=== PATIENT | male | born 1960 ===

== ENCOUNTER 2017-03-02 18:25 | Inpatient (IN) | payer MEDICAID ==
[2017-03-02] MEDS ORDERED: Naloxone 0.4 mg/ml Inj (Adult) ONE (18:32)
[2017-03-02] MEDS ORDERED: Multivitamin (MVI) 10 ML, Thiamine 100 MG, Folic Acid 1 MG in Sodium Chloride 0.9% 1,00... IV ONE (18:35)
[2017-03-02] MEDS ORDERED: Naloxone 0.4 mg/ml Inj (Adult) IVP STA ×4 (18:40→22:51)
--- NOTE | 2017-03-02 18:50 | ED PDOC ---
Arrival/HPI - General Chief Complaint: Chest Pain Time Seen by Provider: 03/02/17 18:27 Historian: Spouse, EMS - History of Present Illness Narrative History of Present Illness (Text): 03/02/17 18:43 A 56 year old male was brought into the emergency department by EMS after being found intoxicated on the streets. EMS was called by bystanders who found patient collapsed between 2 parked cars. Patient admitted to snorting to bags of heroin today. On evaluation, patient is lethargic, he is unable to provide any further details. present, states patient has significant drug use including Xanax and Heroin. ROS unable to be completed. Time/Duration: Prior to Arrival Context: Street Past Medical History - Provider Review Nursing Documentation Reviewed: Yes - Past History Past History: Unable to Obtain - Cardiac Hx Cardiac Disorders: Yes Hx [place]: Yes Hx Pacemaker: Yes - Pulmonary Hx Respiratory Disorders: Yes Hx Asthma: Yes Hx Sleep Apnea: Yes - Neurological Hx Neurological Disorder: No - HEENT Hx HEENT Disorder: No - Renal Hx Renal Disorder: No - Endocrine/Metabolic Hx Endocrine Disorders: No - Hematological/Oncological Hx Blood Disorders: No - Integumentary Hx Dermatological Disorder: No - Musculoskeletal/Rheumatological Hx Musculoskeletal Disorders: No - Gastrointestinal Hx Gastrointestinal Disorders: No - Genitourinary/Gynecological Hx Genitourinary Disorders: No - Psychiatric Hx Psychophysiologic Disorder: Yes Hx Anxiety: Yes Hx Bipolar Disorder: Yes Hx Depression: Yes Hx Substance Use: Yes (heroin) - Surgical History Hx Open Heart Surgery: Yes (pacemaker 2 yrs) Family/Social History - Physician Review Nursing Documentation Reviewed: Yes Family/Social History: No Known Family HX Smoking Status: Heavy Smoker > 10 Cigarettes Daily Hx Alcohol Use: Yes Hx Substance Use: Yes (heroin) Allergies/Home Meds Allergies/Adverse Reactions: Allergies No Known Allergies Allergy (Verified 03/02/17 18:30) Home Medications: Home Meds Medication Instructions Recorded Confirmed Unobtainable 03/02/17 03/02/17 Review of Systems - Review of Systems Systems not reviewed;Unavailable: Intoxicated Physical Exam Vital Signs Reviewed: Yes Vital Signs Pulse Resp BP Pulse Ox 03/02/17 21:47 88 18 105/52 L 97 03/02/17 21:00 93 H 23 99/55 L 96 03/02/17 19:15 98 H 20 130/76 91 L 03/02/17 18:35 111 H 11 L 132/62 95 Temperature: Afebrile Blood Pressure: Normal Pulse: Tachycardic Respiratory Rate: Other (decreased respiratory rate) Appearance: Positive for: Well-Appearing Pain Distress: None Mental Status: Positive for: Lethargic (but easily arousable) - Systems Exam Head: Present: Atraumatic, Normocephalic Pupils: Present: Pinpoint Conjunctiva: Present: Normal Mouth: Present: Moist Mucous Membranes Neck: Present: Normal Range of Motion Respiratory/Chest: Present: Clear to Auscultation, Good Air Exchange, Other ( protecting airway). No: Respiratory Distress, Accessory Muscle Use Cardiovascular: Present: Regular Rate and Rhythm, Normal S1, S2. No: Murmurs Abdomen: Present: Normal Bowel Sounds. No: Tenderness, Distention, Peritoneal Signs Upper Extremity: Present: Normal Inspection. No: Cyanosis, Edema Lower Extremity: Present: Normal Inspection. No: Edema Skin: Present: Warm, Dry, Normal Color. No: Rashes Psychiatric: Present: Lethargic (but easily arousbale to sternal rub) Medical Decision Making ED Course and Treatment: 03/02/17 18:43 Impression: A 56 year old male brought in for intoxication. Patient admitted to snorting heroin. Plan: -- Head CT -- Chest xray -- Labs -- Urinalysis -- Narcan -- IVF -- Reassess and disposition Progress Notes: 0.4 mg Narcan given, with mild improvement. O2 saturation improved from 86% to 97%. Patient is now opening his eyes spontaneously and is responding verbally. He denies any complaints. Will continue to monitor 03/02/17 19:17 EKG shows sinus tachycardia at 103bpm with non-specific intraventricular block, unchanged from prio Report Date: 20:21 EXAM: CT Head Without Intravenous Contrast Dictated and Authenticated by: Adolph Lemon MD IMPRESSION: 1. No acute intracranial hemorrhage or acute territorial type infarct. 2. There are periventricular foci of hypodensity, suggestive of small vessel ischemic disease in a patient this age. Demyelination is within the differential. 3. Mild atrophy. 4. Effusions are visualized within the right mastoid air cells, consistent with mastoiditis in the absenceof trauma. 5. Paranasal sinus disease is noted above. Patient became more hypoxic and was given additional narcan. Cxray shows R sided infiltrate. Blood cultures ordered and antibiotics started. reports that patient has had frequent coughing. WBC elevated with 3% bands. 03/02/17 22:08 Vbg with lactate was ordered immediately after positive cxray (sirs criteria- tachycardia now resolving, and elevated wbc). Spoke to Dr. Ghosh and accepted to tele. 2L IVF infused. 03/02/17 22:31 Patient's vbg resulted and lactate WNL but shows acidosis. ABG ordered. Resident at bedside and spoke to Dr. Ghosh. Requesting upgrade to ICU. WIll follow-up abg. Patient became more lethargic with decreased respiratory rate and was given additional narcan. He then became more awake and was answering questions appropriately. - Lab Interpretations Lab Results: 03/02/17 18:46 03/02/17 18:46 Lab Results 03/02/17 20:01: Ammonia 41 H 03/02/17 20:01: Urine Opiates Screen Positive H, Urine Methadone Screen Negative , Ur Barbiturates Screen Negative, Ur Phencyclidine Scrn Negative, Ur Amphetamines Screen Negative, U Benzodiazepines Scrn Negative, U Oth Cocaine Metabols Positive H, U Cannabinoids Screen Negative 03/02/17 20:01: Urine Color Yellow, Urine Appearance Sl cloudy, Urine pH 5.5, Ur Specific Atkins >= 1.030, Urine Protein 30 H, Urine Glucose (UA) Negative, Urine Ketones Negative, Urine Blood Negative, Urine Nitrate Negative, Urine Bilirubin Negative, Urine Urobilinogen 0.2, Ur Leukocyte Esterase Negative, Urine RBC Negative, Urine WBC 0 - 2, Hyaline Casts 0 - 2 03/02/17 18:46: Alcohol, Quantitative < 10 03/02/17 18:46: PT 11.6, INR 1.07, APTT 25.9 03/02/17 18:46: Salicylates < 1 L, Acetaminophen < 10.0 L 03/02/17 18:46: Sodium 143, Potassium 4.8, Chloride 103, Carbon Dioxide 21, Anion Gap 24 H, BUN 17, Creatinine 2.3 H, Est GFR ( Amer) 36, Est GFR ( Non-Af Amer) 30, Random Glucose 120 H, Calcium 9.1, Phosphorus 8.4 H, Magnesium 1.9, Total Bilirubin 0.4, AST 55, ALT 48, Alkaline Phosphatase 161 H, Total Creatine Kinase 44, Troponin I 0.02 D, Total Protein 7.6, Albumin 4.0, Globulin 3.5, Albumin/Globulin Ratio 1.1 03/02/17 18:46: WBC 15.7 H D, RBC 3.78, Hgb 11.5 L, Hct 38.4 L, MCV 101.6, MCH 30.4, MCHC 29.9 L, RDW 16.3 H, Plt Count 295, MPV 9.8, Gran % 68.4 H, Lymph % ( Auto) 21.1 L, Nash % (Auto) 10.0 H, Eos % (Auto) 0.4 L, Baso % (Auto) 0.1, Gran # 10.72 H, Lymph # 3.3, Nash # 1.6 H, Eos # 0.1, Baso # 0.02, Corrected WBC (Man ) 14.4 H, Neutrophils % (Manual) 68, Band Neutrophils % 3 H, Lymphocytes % ( Manual) 18 L, Monocytes % (Manual) 11 H, Nucleated RBC % 9, Platelet Evaluation Normal, Hypochromasia 1+ I have reviewed the lab results: Yes - RAD Interpretation Radiology Orders: 03/02/17 18:35 CHEST PORTABLE [RAD] Stat 03/02/17 18:45 HEAD W/O CONTRAST [CT] Stat - Medication Orders Current Medication Orders: Albuterol/Ipratropium (Duoneb 3 Mg/0.5 Mg (3 Ml) Ud) 3 ml IH [id number] EDGAR Multivitamins/Vitamin C 10 ml/Thiamine HCl 100 mg/ Folic Acid 1 mg/ Sodium Chloride 1,011.2 mls @ 100 mls/hr IV ONCE ONE Stop: 03/03/17 04:41 Last Admin: 03/02/17 19:32 Dose: 100 mls/hr eMAR Start Stop Document 03/02/17 19:32 JOTea (Rec: 03/02/17 19:32 [facility] [id number] Intravenous Solution Start Date 03/02/17 Start Time 19:32 Sodium Chloride (Sodium Chloride 0.9%) 1,000 mls @ 999 mls/hr IV .Q1H1M STA Stop: 03/02/17 22:44 Last Admin: 03/02/17 21:50 Dose: 999 mls/hr eMAR Start Stop Document 03/02/17 21:50 JOL (Rec: 03/02/17 21:51 [facility] [id number] Intravenous Solution Start Date 03/02/17 Start Time 21:50 End Date 03/02/17 End time 22:51 Total Infusion Time 61 Levofloxacin/Dextrose (Levaquin 750mg) 750 mg in 150 mls @ 100 mls/hr IVPB DAILY EDGAR Sodium Chloride (Sodium Chloride 0.9%) 1,000 mls @ 125 mls/hr IV .Q8H EDGAR Pantoprazole Sodium (Protonix Ec Tab) 40 mg PO 0600 EDGAR Discontinued Medications Sodium Chloride (Sodium Chloride 0.9%) 1,000 mls @ 999 mls/hr IV .Q1H1M STA Stop: 03/02/17 20:34 Last Admin: 03/02/17 20:50 Dose: 999 mls/hr eMAR Start Stop Document 03/02/17 20:50 JOL (Rec: 03/02/17 20:55 [facility] [place], [id number]) Intravenous Solution Start Date 03/02/17 Start Time 20:50 End Date 03/02/17 End time 21:51 Total Infusion Time 61 Azithromycin (Zithromax 500mg In Ns) 500 mg in 250 mls @ 167 mls/hr IVPB STAT STA PRN Reason: Protocol Stop: 03/02/17 21:57 Last Admin: 03/02/17 21:50 Dose: 167 mls/hr eMAR Start Stop Document 03/02/17 21:50 JOL (Rec: 03/02/17 21:50 [id number] Intravenous Solution Start Date 03/02/17 Start Time 21:50 End Date 03/02/17 End time 23:20 Total Infusion Time 90 Piperacillin Sod/Tazobactam Sod (Zosyn 3.375 In Ns 100ml) 100 mls @ 200 mls/hr IVPB STAT STA PRN Reason: Protocol Stop: 03/02/17 20:57 Last Admin: 03/02/17 21:08 Dose: 200 mls/hr eMAR Start Stop Document 03/02/17 21:08 JOL (Rec: 03/02/17 21:09 [id number] Intravenous Solution Start Date 03/02/17 Start Time 21:09 End Date 03/02/17 End time 21:39 Total Infusion Time 30 Naloxone HCl (Narcan) 0.4 mg IVP STAT STA Stop: 03/02/17 18:41 Last Admin: 03/02/17 18:42 Dose: 0.4 mg IVP Administration Document 03/02/17 18:42 EQ (Rec: 03/02/17 18:42 EQ [id number]) Charges for Administration # of IVP Administrations 1 Naloxone HCl (Narcan) 0.4 mg IVP STAT STA Stop: 03/02/17 20:08 Last Admin: 03/02/17 20:10 Dose: 0.4 mg IVP Administration Document 03/02/17 20:10 JOL (Rec: 03/02/17 20:11 [facility] [place], [id number]) Charges for Administration # of IVP Administrations 1 Naloxone HCl (Narcan) 0.4 mg IVP STAT STA Stop: 03/02/17 22:25 Last Admin: 03/02/17 22:29 Dose: 0.4 mg IVP Administration Document 03/02/17 22:29 JOL (Rec: 03/02/17 22:29 [facility] [place], [id number]) Charges for Administration # of IVP Administrations 1 - Scribe Statement The provider has reviewed the documentation as recorded by the Vicenteibabdulkadir Goss Provider Scribe Attestation: All medical record entries made by the Scribe were at my direction and personally dictated by me. I have reviewed the chart and agree that the record accurately reflects my personal performance of the history, physical exam, medical decision making, and the department course for this patient. I have also personally directed, reviewed, and agree with the discharge instructions and disposition. Disposition/Present on Arrival - Present on Arrival Any Indicators Present on Arrival: No History of DVT/PE: No History of Uncontrolled Diabetes: No Urinary Catheter: No History of Decub. Ulcer: No History Surgical Site Infection Following: None - Disposition Have Diagnosis and Disposition been Completed?: Yes Diagnosis: Heroin abuse, Pneumonia Disposition: HOSPITALIZED Disposition Time: 19:00 Patient Plan: Admission Patient Problems: Current Active Problems Problem Status Onset Heroin abuse Acute Pneumonia Acute Condition: FAIR
[2017-03-02 19:04] LABS: BASO # 0.02 K/mm3 (0.0-2.0); BASO % 0.1 % (0.0-3.0); EOS # 0.1 (0.0-0.7); EOS % 0.4 % (1.5-5.0); GRAN # 10.72 (1.4-6.5); GRAN % 68.4 % (50.0-68.0); HEMATOCRIT 38.4 % (42.0-52.0); LYMPH # 3.3 (1.2-3.4); LYMPH % 21.1 % (22.0-35.0); MEAN CELL VOLUME 101.6 fl (80.0-105.0); MEAN CORPUSCULAR HEMOGLOBIN 30.4 pg (25.0-35.0); MEAN CORPUSCULAR HGB CONC 29.9 g/dl (31.0-37.0); MEAN PLATELET VOLUME 9.8 fl (7.0-11.0); MONO # 1.6 (0.1-0.6); PLATELET COUNT 295 10^3/uL (120.0-450.0); RED CELL DISTRIBUTION WIDTH 16.3 % (11.5-14.5); WHITE BLOOD COUNT 15.7 10^3/ul (4.5-11.0)
[2017-03-02 19:14] LABS: INR 1.07 (0.93-1.08); PARTIAL THROMBOPLASTIN TIME 25.9 Seconds (23.7-30.8)
[2017-03-02 19:16] LABS: ALB/GLOB RATIO 1.1 (1.1-1.8); BILIRUBIN,TOTAL 0.4 mg/dL (0.2-1.3); CALCIUM 9.1 mg/dL (8.4-10.5); MAGNESIUM 1.9 mg/dL (1.7-2.2); PHOSPHOROUS 8.4 mg/dL (2.5-4.5); POTASSIUM 4.8 mmol/L (3.6-5.0); TOTAL PROTEIN 7.6 g/dL (5.8-8.3)
[2017-03-02 19:26] LABS: TROPONIN I 0.02 ng/mL
[2017-03-02] MEDS ORDERED: Sodium Chloride 0.9% 1,000 ML IV STA ×2 (19:34→21:44)
[2017-03-02 20:00] LABS: BAND 3 % (0-2); CORRECTED WBC 14.4 K/mm3 (4.5-11.0); HYPOCHROMIA 1+; NEUTROPHIL 68 % (50.0-70.0); NUCLEATED RED BLOOD CELL 9 %; PLATELET ESTIMATE NORMAL (NORMAL)
[2017-03-02 20:10] LABS: PH,URINE 5.5 (4.7-8.0); URINE BILIRUBIN NEGATIVE (NEGATIVE); URINE BLOOD NEGATIVE (NEGATIVE); URINE GLUCOSE (UA) NEGATIVE (NEGATIVE); URINE KETONE NEGATIVE (NEGATIVE); URINE LEUKOCYTE ESTERASE NEGATIVE Leu/uL (NEGATIVE); URINE PROTEIN 30 mg/dL (<30 mg/dL); URINE UROBILINOGEN 0.2 E.U./dL (<1 E.U./dL)
[2017-03-02 20:11] LABS: URINE APPEARANCE SL CLOUDY (CLEAR); URINE COLOR YELLOW (YELLOW)
[2017-03-02 20:13] LABS: URINE RBC NEGATIVE /hpf (0-2); URINE WBC 0 - 2 /hpf (0-6)
--- NOTE | 2017-03-02 20:21 | CT ---
EXAM: CT Head Without Intravenous Contrast EXAM DATE/TIME: 03/02/2017 6:45 PM CLINICAL HISTORY: The patient age is 56 years old and is male; Signs and symptoms; Altered mental status/memory loss Facility exam id and description: Ct heads head w/o contrast TECHNIQUE: Axial computed tomography images of the head/brain without intravenous contrast. All CT scans at this facility use one or more dose reduction techniques, viz.: automated exposure control; ma/kV adjustment per patient size (including targeted exams where dose is matched to indication; i.e. head); or iterative reconstruction technique. COMPARISON: CT - HEAD W/O CONTRAST 08/17/2016 6:42:47 AM FINDINGS: Brain: There are periventricular foci of hypodensity, suggestive of small vessel ischemic disease in a patient this age. Demyelination is within the differential. The acuity of the white matter disease is indeterminate. The white-jones differentiation is preserved demonstrating no acute territorial type infarct. There is mild prominence of the frontal sulci, compatible with atrophy. No acute intracranial hemorrhage is seen. There are calcifications within the globus pallidus bilaterally, which are likely physiologic. Midline shift: There is no midline shift. Ventricles: No ventriculomegaly. Bones/joints: The calvarium demonstrates no evidence for a depressed fracture. Soft tissues: No acute abnormality. Sinuses: There is an air-fluid level in the right maxillary sinus. Mucosal thickening is visualized of the left maxillary sinus. Mucosal thickening/effusions are visualized within the right sphenoid sinus and bilateral ethmoid air cells. Mastoid air cells: Effusions are visualized within the right mastoid air cells, consistent with mastoiditis in the absence of trauma. IMPRESSION: 1. No acute intracranial hemorrhage or acute territorial type infarct. 2. There are periventricular foci of hypodensity, suggestive of small vessel ischemic disease in a patient this age. Demyelination is within the differential. 3. Mild atrophy. 4. Effusions are visualized within the right mastoid air cells, consistent with mastoiditis in the absence of trauma. 5. Paranasal sinus disease is noted above.
[2017-03-02] MEDS ORDERED: cefTRIAXone 1 gm 1 GM/100 ML BAG IVPB STA (20:24)
[2017-03-02] MEDS ORDERED: Piperacillin/Tazobact 3.375 gm 100 ML IVPB STA (20:28)
[2017-03-02] MEDS ORDERED: Azithromycin 500MG/NS 250ml 500 MG/250 ML BAG IVPB STA (20:28)
[2017-03-02 22:14] LABS: VENOUS BLOOD GAS BASE EXCESS -6.9 mmol/L (0.0-2.0)
[2017-03-02 22:17] LABS: VENOUS BLOOD PH 7.06 (7.32-7.43)
[2017-03-02] MEDS ORDERED: Sodium Bicarbonate (8.4%) 50 Meq Syringe IVP ONE (22:31)
[2017-03-02 22:39] LABS: ARTERIAL BLOOD GAS HCO3 26.1 mmol/L (21-28)
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
[2017-03-02 22:45] LABS: ARTERIAL BLOOD GAS PH 7.02 (7.35-7.45)
[2017-03-02] MEDS: Sodium Chloride 0.9% 1,000 ML IV SCH (23:56)
[2017-03-03] MEDS ORDERED: Sodium Bicarbonate (8.4%) 50 Meq Syringe IVP ONE (03:50)
[2017-03-03] MEDS ORDERED: Pantoprazole 40 mg EC Tab PO SCH (06:00)
[2017-03-03 06:42] LABS: HEMATOCRIT 34.9 % (42.0-52.0); MEAN CELL VOLUME 103.6 fl (80.0-105.0); MEAN CORPUSCULAR HEMOGLOBIN 31.5 pg (25.0-35.0); MEAN CORPUSCULAR HGB CONC 30.4 g/dl (31.0-37.0); RED CELL DISTRIBUTION WIDTH 16.7 % (11.5-14.5)
[2017-03-03 07:10] LABS: BILIRUBIN,TOTAL 0.3 mg/dL (0.2-1.3); CALCIUM 7.6 mg/dL (8.4-10.5); POTASSIUM 4.5 mmol/L (3.6-5.0); TOTAL PROTEIN 6.3 g/dL (5.8-8.3)
[2017-03-03] MEDS: Albuterol-Ipratrop 3 mg / 0.5 (3 ml) UD IH SCH ×6 (08:00→22:36)
--- NOTE | 2017-03-03 08:21 | RAD ---
HISTORY: Medical clearance COMPARISON: 08/17/2016 FINDINGS: LUNGS: No active pulmonary disease. PLEURA: No significant pleural effusion identified, no pneumothorax apparent. CARDIOVASCULAR: Cardiomegaly, pulmonary vascular congestion a new finding compared to the prior study. Position/ configuration of pacemaker Satisfactory. OSSEOUS STRUCTURES: No significant abnormalities. VISUALIZED UPPER ABDOMEN: Normal. OTHER FINDINGS: None. IMPRESSION: Cardiomegaly, mild CHF represents a new finding compared to the prior chest radiograph.
[2017-03-03] MEDS: Sodium Chloride 0.9% 1,000 ML IV SCH (08:22)
[2017-03-03 09:11] VITALS: BMI 30.8
[2017-03-03] MEDS ORDERED: Pneumococcal 23-Valent Vaccine IM ONE (09:11)
--- NOTE | 2017-03-03 09:27 | CARD ---
APPROVED REPORT EKG Measurement Heart [id number] <Conclusion> V. Paced, A. Sensed rhythm No change
[2017-03-03] MEDS ORDERED: Vancomycin 1gm in NS 250ml 1 GM/250 ML BAG IVPB STA (09:59)
[2017-03-03] MEDS ORDERED: Thiamine 100 mg/ml Inj IV SCH (10:00)
[2017-03-03] MEDS ORDERED: levoFLOXacin 750 mg in D5W 750 MG/150 ML BAG IVPB SCH (10:00)
[2017-03-03] MEDS: Cefepime IV 2 gm in NS 2 GM/100 ML BAG IVPB SCH ×2 (10:27→22:19)
[2017-03-03 10:34] LABS: ARTERIAL BLOOD GAS HCO3 28.2 mmol/L (21-28); ARTERIAL BLOOD GAS O2 CAPACITY 14.5 mL/dl (16-24); ARTERIAL BLOOD GAS PH 7.22 (7.35-7.45); ARTERIAL BLOOD HGB O2 SAT 87.3 % (95.0-98.0); CARBOXYHEMOGLOBIN 2.2 % (0.5-1.5); HHB 10.2 % (0-5); METHEMOGLOBIN 0.3 % (0.0-3.0)
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
--- NOTE | 2017-03-03 13:28 | CP.CCUPN ---
<[place] - Last Filed: 03/03/17 14:39> CCU Subjective - Physician Review Subjective (Free Text): 03/03/17 13:22 Patient seen and examined at bedside in the ICU. Overnight, patient was transitioned to Ventimask, and refused to be placed back on Bipap when End- tidal CO2 was elevated on the Ventimask. Refused AM ABG initially, later acquiesced and allowed for draw. ROS is limited due patient's inconsistency; he initially denied all drug use despite positive UDS and admitting to heroin use in the ED, then later admitted to Suboxone use due to history of drug use, and then admitted to recent crack cocaine. Currently complains of dry throat, wet cough, and sensation of having mucous he needs to mobilize but can't. No accepting of need for Bipap as well. Denies chest pain, pain with respiration, dizziness, room-spinning, fevers/chills, nausea/emesis, dysuria, hematuria, constipation, diarrhea, or focal weakness. Still has no recall of how he ended down on the ground prior to admission. CCU Objective - Vital Signs / Intake & Output Vital Signs (Last 4 hours): Vital Signs Pulse Resp Pulse Ox 03/03/17 11:45 89 03/03/17 11:40 87 25 H 100 03/03/17 11:30 90 51 H 76 L 03/03/17 11:20 95 H 31 H 84 L 03/03/17 11:10 92 H 38 H 63 L 03/03/17 11:00 87 27 H 95 03/03/17 10:50 88 21 94 L 03/03/17 10:40 100 H 44 H 60 L 03/03/17 10:30 85 59 L 03/03/17 10:20 86 91 L 03/03/17 10:10 89 47 L 03/03/17 10:08 89 03/03/17 10:07 82 03/03/17 10:06 72 03/03/17 10:05 95 H 03/03/17 10:01 83 03/03/17 10:00 82 03/03/17 09:59 88 03/03/17 09:58 88 03/03/17 09:57 88 03/03/17 09:56 87 03/03/17 09:55 86 03/03/17 09:54 99 H 03/03/17 09:53 86 03/03/17 09:52 92 H 03/03/17 09:51 92 H 03/03/17 09:50 92 H 61 L 03/03/17 09:40 87 66 L 03/03/17 09:30 88 85 L Intake and Output (Last 8hrs): Intake & Output 03/02/17 03/03/17 03/03/17 22:59 06:59 14:59 Intake Total 1235 Output Total 600 Balance 635 Weight 94.71 kg Intake: IV 875 Left Antecubital 875 Right Antecubital 0 Oral 360 Tube Feeding 0 TPN/PPN 0 Blood Product 0 Lipid 0 Albumin 0 Other 0 Output: Urine 600 Urine, Voided 600 Stool 0 Urine/Stool Mix 0 Emesis 0 Oral Regurgitation 0 Other 0 Other: Voiding Method Urinal # Voids Urine, Voided 3 # Bowel Movements 0 - Physical Exam Head: Positive for: Atraumatic, Normocephalic. Negative for: Ecchymosis, Abrasion, Laceration Pupils: Positive for: PERRL. Negative for: Sluggish, Non-Reactive Extroacular Muscles: Positive for: EOMI. Negative for: Gaze Palsy Conjunctiva: Positive for: Normal. Negative for: Injected Mouth: Positive for: Moist Mucous Membranes, Normal Lips, Normal Tounge. Negative for: Drooling Nose (External): Positive for: Atraumatic. Negative for: Abrasion, Contusion, Laceration Nose (Internal): Negative for: Rhinorrhea, Purulent Mucous, Epistaxis Neck: Positive for: Normal Range of Motion, Trachea Midline. Negative for: Meningeal Signs, JVD Respiratory/Chest: Positive for: Good Air Exchange, Wheezes (end-epiratory wheezing), Decreased Breath Sounds (mildly decreased breath sounds in all ennis , most prominent at bilateral bases), Rhonchi (mild ronchi in all ennis), Tachypneic (tachypnic with speech or attempted PO intake ), Other (intermittent wet sounding cough). Negative for: Clear to Auscultation, Respiratory Distress , Accessory Muscle Use Cardiovascular: Positive for: Regular Rate and Rhythm, Normal S1, S2, Peripheal Pulses Present (+2 radials bilaterally). Negative for: Murmurs, Irregular Rhythm, Tachycardic, Bradycardic Abdomen: Positive for: Normal Bowel Sounds. Negative for: Tenderness, Distention, Peritoneal Signs Upper Extremity: Positive for: Normal Inspection, Normal ROM, NORMAL PULSES. Negative for: Cyanosis, Edema, Tenderness, Swelling, Erythema, Deformity Lower Extremity: Positive for: Normal Inspection, Normal ROM. Negative for: Edema, CALF TENDERNESS, Tenderness, Swelling, Erythema, Deformity Neurological: Positive for: GCS=15, CN II-XII Intact, Speech Normal Skin: Positive for: Warm, Dry, Normal Color. Negative for: Rashes Psychiatric: Positive for: Alert, Oriented x 3, Normal Concentration, Normal Affect, Normal Mood, Other (Poor/inconsistent historian, initially non- compliant with labs and Bipap but appears more compliant now). Negative for: Normal Insight (poor insight, poor understanding of general medical condition) - Medications Active Medications: Active Medications Generic Name Dose Route Start Last Admin Trade Name Freq PRN Reason Stop Dose Admin Albuterol/Ipratropium 3 ml 03/02/17 23:30 03/03/17 11:51 Duoneb 3 Mg/0.5 Mg (3 Ml) Ud IH 3 ml [id number] EDGAR Administration Folic Acid 1 mg 03/03/17 10:00 03/03/17 10:25 Folic Acid IVP 1 mg DAILY EDGAR Administration Heparin Sodium (Porcine) 5,000 units 03/03/17 10:00 03/03/17 10:25 Heparin SC 5,000 units Q12 EDGAR Administration Protocol Doxycycline Hyclate 100 mg/ 100 mls @ 100 mls/hr 03/03/17 10:00 03/03/17 11: 26 Sodium Chloride IVPB 100 mls/hr Q12 EDGAR Administration Protocol Cefepime HCl 2 gm in 100 mls @ 100 mls/hr 03/03/17 10:00 03/03/17 10:27 Maxipime 2gm IVPB 03/08/17 10:01 100 mls/hr Q12 EDGAR Administration Protocol Ondansetron HCl 4 mg 03/02/17 22:57 Zofran Inj IVP Q4H PRN Nausea/Vomiting Pantoprazole Sodium 40 mg 03/03/17 10:00 03/03/17 10:22 Protonix Inj IVP 40 mg DAILY EDGAR Administration Thiamine HCl 100 mg 03/03/17 10:00 03/03/17 10:25 Vitamin B1 Inj IV 100 mg DAILY EDGAR Administration - Patient Studies Lab Studies: Lab Studies 03/03/17 03/03/17 03/03/17 Range/Units 11:40 11:40 10:30 WBC (4.5-11.0) 10^3/ul RBC (3.5-6.1) 10^6/uL Hgb (14.0-18.0) g/dL Hct (42.0-52.0) % MCV (80.0-105.0) fl MCH (25.0-35.0) pg MCHC (31.0-37.0) g/dl RDW (11.5-14.5) % Plt Count (120.0-450.0) 10^3/uL MPV (7.0-11.0) fl pCO2 69 H (35-45) mm/Hg pO2 51.0 L (30-55) mm/Hg HCO3 28.2 H (21-28) mmol/L ABG pH 7.22 L (7.35-7.45) ABG Total CO2 30.3 H (22-28) mmol.L ABG O2 Saturation 89.5 L (95-98) % ABG O2 Content 13.0 L (15-23) ML/dl ABG Base Excess -0.6 (-2.0-3.0) mmol/L ABG Hemoglobin 10.6 L (11.7-17.4) g/dL ABG Carboxyhemoglobin 2.2 H (0.5-1.5) % POC ABG HHb (Measured) 10.2 H (0-5) % ABG Methemoglobin 0.3 (0.0-3.0) % ABG O2 Capacity 14.5 L (16-24) mL/dl ABG Potassium (3.6-5.2) mmol/L VBG pH (7.32-7.43) VBG pCO2 (40-60) VBG HCO3 (21-28) mmol/l VBG Total CO2 (22-28) mmol.L VBG O2 Sat (Calc) (40-65) % VBG Base Excess (0.0-2.0) mmol/L VBG Potassium (3.6-5.2) mmol/L Hgb O2 Saturation 87.3 L (95.0-98.0) % Sodium (132-148) mmol/L Chloride (98-107) mmol/L Glucose (75-110) mg/dl Lactate (0.7-2.1) mmol/L FiO2 32.0 % Potassium (3.6-5.0) mmol/L Carbon Dioxide (21-33) mmol/L Anion Gap (10-20) BUN (7-21) mg/dL Creatinine (0.5-1.4) mg/dL Est GFR ( Amer) Est GFR (Non-Af Amer) Random Glucose (70-110) mg/dL Calcium (8.4-10.5) mg/dL Total Bilirubin (0.2-1.3) mg/dL AST (17-59) U/L ALT (7-56) U/L Alkaline Phosphatase (38-126) U/L Ammonia (9-33) umol/L Total Protein (5.8-8.3) g/dL Albumin (3.0-4.8) g/dL Globulin gm/dL Albumin/Globulin Ratio (1.1-1.8) Arterial Blood Potassium (3.6-5.2) mmol/L Venous Blood Potassium (3.6-5.2) mmol/L Ur Random Creatinine 104 mg/dL Ur Random Sodium 83 meq/L 03/03/17 03/03/17 03/03/17 Range/Units 06:10 06:10 06:10 WBC 21.0 H D (4.5-11.0) 10^3/ul RBC 3.37 L (3.5-6.1) 10^6/uL Hgb 10.6 L (14.0-18.0) g/dL Hct 34.9 L (42.0-52.0) % MCV 103.6 (80.0-105.0) fl MCH 31.5 (25.0-35.0) pg MCHC 30.4 L (31.0-37.0) g/dl RDW 16.7 H (11.5-14.5) % Plt Count 239 (120.0-450.0) 10^3/uL MPV 10.0 (7.0-11.0) fl pCO2 (35-45) mm/Hg pO2 (30-55) mm/Hg HCO3 (21-28) mmol/L ABG pH (7.35-7.45) ABG Total CO2 (22-28) mmol.L ABG O2 Saturation (95-98) % ABG O2 Content (15-23) ML/dl ABG Base Excess (-2.0-3.0) mmol/L ABG Hemoglobin (11.7-17.4) g/dL ABG Carboxyhemoglobin (0.5-1.5) % POC ABG HHb (Measured) (0-5) % ABG Methemoglobin (0.0-3.0) % ABG O2 Capacity (16-24) mL/dl ABG Potassium (3.6-5.2) mmol/L VBG pH (7.32-7.43) VBG pCO2 (40-60) VBG HCO3 (21-28) mmol/l VBG Total CO2 (22-28) mmol.L VBG O2 Sat (Calc) (40-65) % VBG Base Excess (0.0-2.0) mmol/L VBG Potassium (3.6-5.2) mmol/L Hgb O2 Saturation (95.0-98.0) % Sodium 146 (132-148) mmol/L Chloride 107 (98-107) mmol/L Glucose (75-110) mg/dl Lactate (0.7-2.1) mmol/L FiO2 % Potassium 4.5 (3.6-5.0) mmol/L Carbon Dioxide 29 (21-33) mmol/L Anion Gap 15 (10-20) BUN 18 (7-21) mg/dL Creatinine 2.1 H (0.5-1.4) mg/dL Est GFR ( Amer) 40 Est GFR (Non-Af Amer) 33 Random Glucose 96 (70-110) mg/dL Calcium 7.6 L (8.4-10.5) mg/dL Total Bilirubin 0.3 (0.2-1.3) mg/dL AST 133 H D (17-59) U/L ALT 66 H (7-56) U/L Alkaline Phosphatase 131 H (38-126) U/L Ammonia 43 H (9-33) umol/L Total Protein 6.3 (5.8-8.3) g/dL Albumin 3.2 (3.0-4.8) g/dL Globulin 3.1 gm/dL Albumin/Globulin Ratio 1.0 L (1.1-1.8) Arterial Blood Potassium (3.6-5.2) mmol/L Venous Blood Potassium (3.6-5.2) mmol/L Ur Random Creatinine mg/dL Ur Random Sodium meq/L 03/02/17 03/02/17 Range/Units 22:36 22:10 WBC (4.5-11.0) 10^3/ul RBC (3.5-6.1) 10^6/uL Hgb (14.0-18.0) g/dL Hct (42.0-52.0) % MCV (80.0-105.0) fl MCH (25.0-35.0) pg MCHC (31.0-37.0) g/dl RDW (11.5-14.5) % Plt Count (120.0-450.0) 10^3/uL MPV (7.0-11.0) fl pCO2 101 H* (35-45) mm/Hg pO2 100.0 220 H (30-55) mm/Hg HCO3 26.1 (21-28) mmol/L ABG pH 7.02 L* (7.35-7.45) ABG Total CO2 29.2 H (22-28) mmol.L ABG O2 Saturation 97.4 (95-98) % ABG O2 Content (15-23) ML/dl ABG Base Excess -7.3 L (-2.0-3.0) mmol/L ABG Hemoglobin (11.7-17.4) g/dL ABG Carboxyhemoglobin (0.5-1.5) % POC ABG HHb (Measured) (0-5) % ABG Methemoglobin (0.0-3.0) % ABG O2 Capacity (16-24) mL/dl ABG Potassium 4.8 (3.6-5.2) mmol/L VBG pH 7.06 L* (7.32-7.43) VBG pCO2 90.0 H* (40-60) VBG HCO3 25.5 (21-28) mmol/l VBG Total CO2 28.3 H (22-28) mmol.L VBG O2 Sat (Calc) 98.4 H (40-65) % VBG Base Excess -6.9 L (0.0-2.0) mmol/L VBG Potassium 4.9 (3.6-5.2) mmol/L Hgb O2 Saturation (95.0-98.0) % Sodium 138.0 139.0 (132-148) mmol/L Chloride 110.0 H 107.0 (98-107) mmol/L Glucose 140 H 137 H (75-110) mg/dl Lactate 0.5 L 0.6 L (0.7-2.1) mmol/L FiO2 100.0 21.0 % Potassium (3.6-5.0) mmol/L Carbon Dioxide (21-33) mmol/L Anion Gap (10-20) BUN (7-21) mg/dL Creatinine (0.5-1.4) mg/dL Est GFR ( Amer) Est GFR (Non-Af Amer) Random Glucose (70-110) mg/dL Calcium (8.4-10.5) mg/dL Total Bilirubin (0.2-1.3) mg/dL AST (17-59) U/L ALT (7-56) U/L Alkaline Phosphatase (38-126) U/L Ammonia (9-33) umol/L Total Protein (5.8-8.3) g/dL Albumin (3.0-4.8) g/dL Globulin gm/dL Albumin/Globulin Ratio (1.1-1.8) Arterial Blood Potassium 4.8 (3.6-5.2) mmol/L Venous Blood Potassium 4.9 (3.6-5.2) mmol/L Ur Random Creatinine mg/dL Ur Random Sodium meq/L Laboratory Results - last 24 hr 03/02/17 03/02/17 03/03/17 22:10 22:36 06:10 WBC 21.0 H D RBC 3.37 L Hgb 10.6 L Hct 34.9 L MCV 103.6 MCH 31.5 MCHC 30.4 L RDW 16.7 H Plt Count 239 MPV 10.0 pCO2 101 H* pO2 220 H 100.0 HCO3 26.1 ABG pH 7.02 L* ABG Total CO2 29.2 H ABG O2 Saturation 97.4 ABG O2 Content ABG Base Excess -7.3 L ABG Hemoglobin ABG Carboxyhemoglobin POC ABG HHb (Measured) ABG Methemoglobin ABG O2 Capacity ABG Potassium 4.8 VBG pH 7.06 L* VBG pCO2 90.0 H* VBG HCO3 25.5 VBG Total CO2 28.3 H VBG O2 Sat (Calc) 98.4 H VBG Base Excess -6.9 L VBG Potassium 4.9 Hgb O2 Saturation Sodium 139.0 138.0 Chloride 107.0 110.0 H Glucose 137 H 140 H Lactate 0.6 L 0.5 L FiO2 21.0 100.0 Potassium Carbon Dioxide Anion Gap BUN Creatinine Est GFR ( Amer) Est GFR (Non-Af Amer) Random Glucose Calcium Total Bilirubin AST ALT Alkaline Phosphatase Ammonia Total Protein Albumin Globulin Albumin/Globulin Ratio Arterial Blood Potassium 4.8 Venous Blood Potassium 4.9 Ur Random Creatinine Ur Random Sodium 03/03/17 03/03/17 03/03/17 06:10 06:10 10:30 WBC RBC Hgb Hct MCV MCH MCHC RDW Plt Count MPV pCO2 69 H pO2 51.0 L HCO3 28.2 H ABG pH 7.22 L ABG Total CO2 30.3 H ABG O2 Saturation 89.5 L ABG O2 Content 13.0 L ABG Base Excess -0.6 ABG Hemoglobin 10.6 L ABG Carboxyhemoglobin 2.2 H POC ABG HHb (Measured) 10.2 H ABG Methemoglobin 0.3 ABG O2 Capacity 14.5 L ABG Potassium VBG pH VBG pCO2 VBG HCO3 VBG Total CO2 VBG O2 Sat (Calc) VBG Base Excess VBG Potassium Hgb O2 Saturation 87.3 L Sodium 146 Chloride 107 Glucose Lactate FiO2 32.0 Potassium 4.5 Carbon Dioxide 29 Anion Gap 15 BUN 18 Creatinine 2.1 H Est GFR ( Amer) 40 Est GFR (Non-Af Amer) 33 Random Glucose 96 Calcium 7.6 L Total Bilirubin 0.3 AST 133 H D ALT 66 H Alkaline Phosphatase 131 H Ammonia 43 H Total Protein 6.3 Albumin 3.2 Globulin 3.1 Albumin/Globulin Ratio 1.0 L Arterial Blood Potassium Venous Blood Potassium Ur Random Creatinine Ur Random Sodium 03/03/17 03/03/17 11:40 11:40 WBC RBC Hgb Hct MCV MCH MCHC RDW Plt Count MPV pCO2 pO2 HCO3 ABG pH ABG Total CO2 ABG O2 Saturation ABG O2 Content ABG Base Excess ABG Hemoglobin ABG Carboxyhemoglobin POC ABG HHb (Measured) ABG Methemoglobin ABG O2 Capacity ABG Potassium VBG pH VBG pCO2 VBG HCO3 VBG Total CO2 VBG O2 Sat (Calc) VBG Base Excess VBG Potassium Hgb O2 Saturation Sodium Chloride Glucose Lactate FiO2 Potassium Carbon Dioxide Anion Gap BUN Creatinine Est GFR ( Amer) Est GFR (Non-Af Amer) Random Glucose Calcium Total Bilirubin AST ALT Alkaline Phosphatase Ammonia Total Protein Albumin Globulin Albumin/Globulin Ratio Arterial Blood Potassium Venous Blood Potassium Ur Random Creatinine 104 Ur Random Sodium 83 EKG/Cardiology Studies: Cardiology / EKG Studies 03/02/17 18:27 ELECTROCARDIOGRAM Stat Comment: Reason For Exam: MEDICAL CLEARANCE 03/03/17 18:27 ELECTROCARDIOGRAM Stat Comment: Reason For Exam: MEDICAL CLEARANCE Review of Systems - Review of Systems All systems: reviewed and no additional remarkable complaints except (as per Subjective) Critical Care Progress Note - Nutrition Nutrition: Nutrition Category Date Time Status Heart Healthy Diet [DIET] Diets 03/03/17 Lunch Ordered Assessment/Plan - Assessment and Plan (Free Text) Assessment: 56 yo M with PMH of Asthma, Hepatitis C, Depression, Bipolar Disorder, Sleep Apnea, and CHF who presented with AMS in the setting of community acquired pneumonia and heroin overdose, and was later determined to be significantly hypercapnic with respiratory acidosis. His CO2 has improved on ABGs, and he is now utilizing BiPAP. S/p multiple doses of Narcan in the ED. Plan: Neuro: -AMS resolved, now awake/alert/oriented, likely 2/2 substance abuse (s/p 4x Narcan) and hypercapnea -maintain normothermia -Head CT negative for acute process -Thiamine and folic acid for hx of alcohol abuse, reported using 3-4 24 ox beers daily, on CIWA protocol Pulm: -Satting well on Bipap and on 2L NC, but hypercarbic while still on NC; was previously refusing Bipap but now accepting -ABGs reviewed, pCO2 down to 69, pO2 51, HCO3 28.2, pH 7.22 on 32% FiO2, will repeat this afternoon and reassess -Respiratory acidosis and metabolic alkalosis, not full compensated -CXR on admission read as cardiomegaly and CHF, AICD in place -Procal 0.31, so less likely bacterial pneumonia -Given smoking hx (06/08-1/ ppd > 30 yrs), likely a COPD component involved -Continue to monitor, maintain SaO2 > 90%, paO2 > 55 -Duonebs q4 -Covering for possible PNA with Doxy and Cefepime as per ID Cardio: -Hemodynamically stable -Cardiomegaly on CXR with AICD in place, known hx of CHF -Conservative fluid management in setting of CHF GI: -Heart-healthy diet -Protonix for ppx Renal: -TIM with cr 2.1 (2.3 on admission, 0.8 baseline as per prior charting) -Less likely pre-renal from dehydration, may be 2/2 substance abuse vs alcohol abuse -Continue to monitor -Maintain euglycemia (BG 140-180), conservative fluid management in setting of CHF -monitor and replete electrolytes as needed ID: -leukocytosis of 21.0, afebrile -covering with Cefepime and Doxy as per ID -procal 0.31 -ID (Dr. Cooper) following, appreciate all recs Heme: -Hgb stable at 10.6 (was 11.5) -Heparin for DVT ppx Psych -poor historian, unclear if attempted to harm self with substance use -hx of Bipolar and depression -Psych (Dr. Brooks) consulted, appreciate all recs -Reports on Suboxone tx for hx of substance abuse, confirmed by on phone, she will bring in home Suboxone to be confirmed by pharmacy, then can continue home dosing Dispo: ICU, Bipap for hypercarbia pending repeat ABG for further assessment, receiving IV abx for presumed pneumonia FEN: Heart-healthy diet Access: Peripheral IV Consults: ID, Psych Ppx: Protonix for GI, Heparin for DVT Code status: unknown, so full code Patient seen, reviewed, and discussed with attending, Dr. Gonsales. <Dru JEFFERSON,[facility] - Last Filed: 03/03/17 18:21> CCU Objective - Vital Signs / Intake & Output Vital Signs (Last 4 hours): Vital Signs Pulse Resp BP Pulse Ox 03/03/17 17:19 98 H 03/03/17 17:00 100 H 24 100 03/03/17 16:50 94 H 39 H 87 L 03/03/17 16:40 96 H 27 H 90 L 03/03/17 16:31 97 H 03/03/17 16:30 96 H 03/03/17 16:29 96 H 03/03/17 16:28 96 H 03/03/17 16:27 97 H 03/03/17 16:26 97 H 03/03/17 16:25 97 H 03/03/17 16:24 97 H 03/03/17 16:23 98 H 03/03/17 16:22 98 H 03/03/17 16:21 97 H 03/03/17 16:20 97 H 03/03/17 16:19 97 H 03/03/17 16:18 97 H 03/03/17 16:10 97 H 96 03/03/17 16:00 99 H 127/94 H 93 L 03/03/17 15:50 108 H 90 L 03/03/17 15:40 97 H 91 L 03/03/17 15:30 93 H 92 L 03/03/17 15:20 126 H 84 L 03/03/17 15:13 106 H 25 H 03/03/17 15:12 131 H 21 03/03/17 15:11 140 H 03/03/17 15:10 128 H 03/03/17 15:09 144 H 03/03/17 15:08 135 H 03/03/17 15:07 175 H 03/03/17 15:06 161 H 03/03/17 15:05 149 H 03/03/17 15:04 144 H 03/03/17 15:02 174 H 03/03/17 15:01 136 H 137/59 L 69 L 03/03/17 15:00 151 H 70 L 03/03/17 14:50 89 23 61 L 03/03/17 14:40 84 24 93 L 03/03/17 14:30 81 28 H 94 L 03/03/17 14:20 81 29 H 95 Intake and Output (Last 8hrs): Intake & Output 03/03/17 03/03/17 03/03/17 06:59 14:59 22:59 Intake Total 1235 Output Total 600 Balance 635 Weight 208 lb 12.8 oz Intake: IV 875 Left Antecubital 875 Right Antecubital 0 Oral 360 Tube Feeding 0 TPN/PPN 0 Blood Product 0 Lipid 0 Albumin 0 Other 0 Output: Urine 600 Urine, Voided 600 Stool 0 Urine/Stool Mix 0 Emesis 0 Oral Regurgitation 0 Other 0 Other: Voiding Method Urinal # Voids Urine, Voided 3 # Bowel Movements 0 - Medications Active Medications: Active Medications Generic Name Dose Route Start Last Admin Trade Name Freq PRN Reason Stop Dose Admin Albuterol/Ipratropium 3 ml 03/02/17 23:30 03/03/17 15:54 Duoneb 3 Mg/0.5 Mg (3 Ml) Ud IH 3 ml [id number] EDGAR Administration Folic Acid 1 mg 03/03/17 10:00 03/03/17 10:25 Folic Acid IVP 1 mg DAILY EDGAR Administration Heparin Sodium (Porcine) 5,000 units 03/03/17 10:00 03/03/17 10:25 Heparin SC 5,000 units Q12 EDGAR Administration Protocol Doxycycline Hyclate 100 mg/ 100 mls @ 100 mls/hr 03/03/17 10:00 03/03/17 11: 26 Sodium Chloride IVPB 100 mls/hr Q12 EDGAR Administration Protocol Cefepime HCl 2 gm in 100 mls @ 100 mls/hr 03/03/17 10:00 03/03/17 10:27 Maxipime 2gm IVPB 03/08/17 10:01 100 mls/hr Q12 EDGAR Administration Protocol Ondansetron HCl 4 mg 03/02/17 22:57 Zofran Inj IVP Q4H PRN Nausea/Vomiting Pantoprazole Sodium 40 mg 03/03/17 10:00 03/03/17 10:22 Protonix Inj IVP 40 mg DAILY EDGAR Administration Thiamine HCl 100 mg 03/03/17 10:00 03/03/17 10:25 Vitamin B1 Inj IV 100 mg DAILY EDGAR Administration - Patient Studies Lab Studies: Lab Studies 03/03/17 03/03/17 03/03/17 Range/Units 16:54 11:40 11:40 WBC (4.5-11.0) 10^3/ul RBC (3.5-6.1) 10^6/uL Hgb (14.0-18.0) g/dL Hct (42.0-52.0) % MCV (80.0-105.0) fl MCH (25.0-35.0) pg MCHC (31.0-37.0) g/dl RDW (11.5-14.5) % Plt Count (120.0-450.0) 10^3/uL MPV (7.0-11.0) fl pCO2 80 H* (35-45) mm/Hg pO2 88.0 (30-55) mm/Hg HCO3 28.5 H (21-28) mmol/L ABG pH 7.16 L* (7.35-7.45) ABG Total CO2 31.0 H (22-28) mmol.L ABG O2 Saturation 97.7 (95-98) % ABG O2 Content 13.7 L (15-23) ML/dl ABG Base Excess -1.4 (-2.0-3.0) mmol/L ABG Hemoglobin 10.1 L (11.7-17.4) g/dL ABG Carboxyhemoglobin 2.0 H (0.5-1.5) % POC ABG HHb (Measured) 2.2 (0-5) % ABG Methemoglobin 0.4 (0.0-3.0) % ABG O2 Capacity 14.0 L (16-24) mL/dl ABG Potassium (3.6-5.2) mmol/L VBG pH (7.32-7.43) VBG pCO2 (40-60) VBG HCO3 (21-28) mmol/l VBG Total CO2 (22-28) mmol.L VBG O2 Sat (Calc) (40-65) % VBG Base Excess (0.0-2.0) mmol/L VBG Potassium (3.6-5.2) mmol/L Hgb O2 Saturation 95.4 (95.0-98.0) % Sodium (132-148) mmol/L Chloride (98-107) mmol/L Glucose (75-110) mg/dl Lactate (0.7-2.1) mmol/L FiO2 40.0 % Potassium (3.6-5.0) mmol/L Carbon Dioxide (21-33) mmol/L Anion Gap (10-20) BUN (7-21) mg/dL Creatinine (0.5-1.4) mg/dL Est GFR ( Amer) Est GFR (Non-Af Amer) Random Glucose (70-110) mg/dL Calcium (8.4-10.5) mg/dL Total Bilirubin (0.2-1.3) mg/dL AST (17-59) U/L ALT (7-56) U/L Alkaline Phosphatase (38-126) U/L Ammonia (9-33) umol/L Total Protein (5.8-8.3) g/dL Albumin (3.0-4.8) g/dL Globulin gm/dL Albumin/Globulin Ratio (1.1-1.8) Procalcitonin (0.19-0.49) NG/ML Arterial Blood Potassium (3.6-5.2) mmol/L Venous Blood Potassium (3.6-5.2) mmol/L Ur Random Creatinine mg/dL Ur Random Sodium 83 meq/L Hepatitis A IgM Ab (NEGATIVE) Hep Bs Antigen (NEGATIVE) Hep B Core IgM Ab (NEGATIVE) Hepatitis C Antibody (NEGATIVE) Ur L.pneumophila Ag Negative (NEGATIVE) 03/03/17 03/03/17 03/03/17 Range/Units 11:40 10:30 10:00 WBC (4.5-11.0) 10^3/ul RBC (3.5-6.1) 10^6/uL Hgb (14.0-18.0) g/dL Hct (42.0-52.0) % MCV (80.0-105.0) fl MCH (25.0-35.0) pg MCHC (31.0-37.0) g/dl RDW (11.5-14.5) % Plt Count (120.0-450.0) 10^3/uL MPV (7.0-11.0) fl pCO2 69 H (35-45) mm/Hg pO2 51.0 L (30-55) mm/Hg HCO3 28.2 H (21-28) mmol/L ABG pH 7.22 L (7.35-7.45) ABG Total CO2 30.3 H (22-28) mmol.L ABG O2 Saturation 89.5 L (95-98) % ABG O2 Content 13.0 L (15-23) ML/dl ABG Base Excess -0.6 (-2.0-3.0) mmol/L ABG Hemoglobin 10.6 L (11.7-17.4) g/dL ABG Carboxyhemoglobin 2.2 H (0.5-1.5) % POC ABG HHb (Measured) 10.2 H (0-5) % ABG Methemoglobin 0.3 (0.0-3.0) % ABG O2 Capacity 14.5 L (16-24) mL/dl ABG Potassium (3.6-5.2) mmol/L VBG pH (7.32-7.43) VBG pCO2 (40-60) VBG HCO3 (21-28) mmol/l VBG Total CO2 (22-28) mmol.L VBG O2 Sat (Calc) (40-65) % VBG Base Excess (0.0-2.0) mmol/L VBG Potassium (3.6-5.2) mmol/L Hgb O2 Saturation 87.3 L (95.0-98.0) % Sodium (132-148) mmol/L Chloride (98-107) mmol/L Glucose (75-110) mg/dl Lactate (0.7-2.1) mmol/L FiO2 32.0 % Potassium (3.6-5.0) mmol/L Carbon Dioxide (21-33) mmol/L Anion Gap (10-20) BUN (7-21) mg/dL Creatinine (0.5-1.4) mg/dL Est GFR ( Amer) Est GFR (Non-Af Amer) Random Glucose (70-110) mg/dL Calcium (8.4-10.5) mg/dL Total Bilirubin (0.2-1.3) mg/dL AST (17-59) U/L ALT (7-56) U/L Alkaline Phosphatase (38-126) U/L Ammonia (9-33) umol/L Total Protein (5.8-8.3) g/dL Albumin (3.0-4.8) g/dL Globulin gm/dL Albumin/Globulin Ratio (1.1-1.8) Procalcitonin 2.56 H (0.19-0.49) NG/ML Arterial Blood Potassium (3.6-5.2) mmol/L Venous Blood Potassium (3.6-5.2) mmol/L Ur Random Creatinine 104 mg/dL Ur Random Sodium meq/L Hepatitis A IgM Ab (NEGATIVE) Hep Bs Antigen (NEGATIVE) Hep B Core IgM Ab (NEGATIVE) Hepatitis C Antibody (NEGATIVE) Ur L.pneumophila Ag (NEGATIVE) 03/03/17 03/03/17 03/03/17 Range/Units 09:50 06:10 06:10 WBC (4.5-11.0) 10^3/ul RBC (3.5-6.1) 10^6/uL Hgb (14.0-18.0) g/dL Hct (42.0-52.0) % MCV (80.0-105.0) fl MCH (25.0-35.0) pg MCHC (31.0-37.0) g/dl RDW (11.5-14.5) % Plt Count (120.0-450.0) 10^3/uL MPV (7.0-11.0) fl pCO2 (35-45) mm/Hg pO2 (30-55) mm/Hg HCO3 (21-28) mmol/L ABG pH (7.35-7.45) ABG Total CO2 (22-28) mmol.L ABG O2 Saturation (95-98) % ABG O2 Content (15-23) ML/dl ABG Base Excess (-2.0-3.0) mmol/L ABG Hemoglobin (11.7-17.4) g/dL ABG Carboxyhemoglobin (0.5-1.5) % POC ABG HHb (Measured) (0-5) % ABG Methemoglobin (0.0-3.0) % ABG O2 Capacity (16-24) mL/dl ABG Potassium (3.6-5.2) mmol/L VBG pH (7.32-7.43) VBG pCO2 (40-60) VBG HCO3 (21-28) mmol/l VBG Total CO2 (22-28) mmol.L VBG O2 Sat (Calc) (40-65) % VBG Base Excess (0.0-2.0) mmol/L VBG Potassium (3.6-5.2) mmol/L Hgb O2 Saturation (95.0-98.0) % Sodium 146 (132-148) mmol/L Chloride 107 (98-107) mmol/L Glucose (75-110) mg/dl Lactate (0.7-2.1) mmol/L FiO2 % Potassium 4.5 (3.6-5.0) mmol/L Carbon Dioxide 29 (21-33) mmol/L Anion Gap 15 (10-20) BUN 18 (7-21) mg/dL Creatinine 2.1 H (0.5-1.4) mg/dL Est GFR ( Amer) 40 Est GFR (Non-Af Amer) 33 Random Glucose 96 (70-110) mg/dL Calcium 7.6 L (8.4-10.5) mg/dL Total Bilirubin 0.3 (0.2-1.3) mg/dL AST 133 H D (17-59) U/L ALT 66 H (7-56) U/L Alkaline Phosphatase 131 H (38-126) U/L Ammonia 43 H (9-33) umol/L Total Protein 6.3 (5.8-8.3) g/dL Albumin 3.2 (3.0-4.8) g/dL Globulin 3.1 gm/dL Albumin/Globulin Ratio 1.0 L (1.1-1.8) Procalcitonin (0.19-0.49) NG/ML Arterial Blood Potassium (3.6-5.2) mmol/L Venous Blood Potassium (3.6-5.2) mmol/L Ur Random Creatinine mg/dL Ur Random Sodium meq/L Hepatitis A IgM Ab Negative (NEGATIVE) Hep Bs Antigen Negative (NEGATIVE) Hep B Core IgM Ab Negative (NEGATIVE) Hepatitis C Antibody Negative (NEGATIVE) Ur L.pneumophila Ag (NEGATIVE) 03/03/17 03/02/17 03/02/17 Range/Units 06:10 22:36 22:10 WBC 21.0 H D (4.5-11.0) 10^3/ul RBC 3.37 L (3.5-6.1) 10^6/uL Hgb 10.6 L (14.0-18.0) g/dL Hct 34.9 L (42.0-52.0) % MCV 103.6 (80.0-105.0) fl MCH 31.5 (25.0-35.0) pg MCHC 30.4 L (31.0-37.0) g/dl RDW 16.7 H (11.5-14.5) % Plt Count 239 (120.0-450.0) 10^3/uL MPV 10.0 (7.0-11.0) fl pCO2 101 H* (35-45) mm/Hg pO2 100.0 220 H (30-55) mm/Hg HCO3 26.1 (21-28) mmol/L ABG pH 7.02 L* (7.35-7.45) ABG Total CO2 29.2 H (22-28) mmol.L ABG O2 Saturation 97.4 (95-98) % ABG O2 Content (15-23) ML/dl ABG Base Excess -7.3 L (-2.0-3.0) mmol/L ABG Hemoglobin (11.7-17.4) g/dL ABG Carboxyhemoglobin (0.5-1.5) % POC ABG HHb (Measured) (0-5) % ABG Methemoglobin (0.0-3.0) % ABG O2 Capacity (16-24) mL/dl ABG Potassium 4.8 (3.6-5.2) mmol/L VBG pH 7.06 L* (7.32-7.43) VBG pCO2 90.0 H* (40-60) VBG HCO3 25.5 (21-28) mmol/l VBG Total CO2 28.3 H (22-28) mmol.L VBG O2 Sat (Calc) 98.4 H (40-65) % VBG Base Excess -6.9 L (0.0-2.0) mmol/L VBG Potassium 4.9 (3.6-5.2) mmol/L Hgb O2 Saturation (95.0-98.0) % Sodium 138.0 139.0 (132-148) mmol/L Chloride 110.0 H 107.0 (98-107) mmol/L Glucose 140 H 137 H (75-110) mg/dl Lactate 0.5 L 0.6 L (0.7-2.1) mmol/L FiO2 100.0 21.0 % Potassium (3.6-5.0) mmol/L Carbon Dioxide (21-33) mmol/L Anion Gap (10-20) BUN (7-21) mg/dL Creatinine (0.5-1.4) mg/dL Est GFR ( Amer) Est GFR (Non-Af Amer) Random Glucose (70-110) mg/dL Calcium (8.4-10.5) mg/dL Total Bilirubin (0.2-1.3) mg/dL AST (17-59) U/L ALT (7-56) U/L Alkaline Phosphatase (38-126) U/L Ammonia (9-33) umol/L Total Protein (5.8-8.3) g/dL Albumin (3.0-4.8) g/dL Globulin gm/dL Albumin/Globulin Ratio (1.1-1.8) Procalcitonin (0.19-0.49) NG/ML Arterial Blood Potassium 4.8 (3.6-5.2) mmol/L Venous Blood Potassium 4.9 (3.6-5.2) mmol/L Ur Random Creatinine mg/dL Ur Random Sodium meq/L Hepatitis A IgM Ab (NEGATIVE) Hep Bs Antigen (NEGATIVE) Hep B Core IgM Ab (NEGATIVE) Hepatitis C Antibody (NEGATIVE) Ur L.pneumophila Ag (NEGATIVE) Laboratory Results - last 24 hr 03/02/17 03/02/17 03/03/17 22:10 22:36 06:10 WBC 21.0 H D RBC 3.37 L Hgb 10.6 L Hct 34.9 L MCV 103.6 MCH 31.5 MCHC 30.4 L RDW 16.7 H Plt Count 239 MPV 10.0 pCO2 101 H* pO2 220 H 100.0 HCO3 26.1 ABG pH 7.02 L* ABG Total CO2 29.2 H ABG O2 Saturation 97.4 ABG O2 Content ABG Base Excess -7.3 L ABG Hemoglobin ABG Carboxyhemoglobin POC ABG HHb (Measured) ABG Methemoglobin ABG O2 Capacity ABG Potassium 4.8 VBG pH 7.06 L* VBG pCO2 90.0 H* VBG HCO3 25.5 VBG Total CO2 28.3 H VBG O2 Sat (Calc) 98.4 H VBG Base Excess -6.9 L VBG Potassium 4.9 Hgb O2 Saturation Sodium 139.0 138.0 Chloride 107.0 110.0 H Glucose 137 H 140 H Lactate 0.6 L 0.5 L FiO2 21.0 100.0 Potassium Carbon Dioxide Anion Gap BUN Creatinine Est GFR ( Amer) Est GFR (Non-Af Amer) Random Glucose Calcium Total Bilirubin AST ALT Alkaline Phosphatase Ammonia Total Protein Albumin Globulin Albumin/Globulin Ratio Procalcitonin Arterial Blood Potassium 4.8 Venous Blood Potassium 4.9 Ur Random Creatinine Ur Random Sodium Hepatitis A IgM Ab Hep Bs Antigen Hep B Core IgM Ab Hepatitis C Antibody Ur L.pneumophila Ag 03/03/17 03/03/17 03/03/17 06:10 06:10 09:50 WBC RBC Hgb Hct MCV MCH MCHC RDW Plt Count MPV pCO2 pO2 HCO3 ABG pH ABG Total CO2 ABG O2 Saturation ABG O2 Content ABG Base Excess ABG Hemoglobin ABG Carboxyhemoglobin POC ABG HHb (Measured) ABG Methemoglobin ABG O2 Capacity ABG Potassium VBG pH VBG pCO2 VBG HCO3 VBG Total CO2 VBG O2 Sat (Calc) VBG Base Excess VBG Potassium Hgb O2 Saturation Sodium 146 Chloride 107 Glucose Lactate FiO2 Potassium 4.5 Carbon Dioxide 29 Anion Gap 15 BUN 18 Creatinine 2.1 H Est GFR ( Amer) 40 Est GFR (Non-Af Amer) 33 Random Glucose 96 Calcium 7.6 L Total Bilirubin 0.3 AST 133 H D ALT 66 H Alkaline Phosphatase 131 H Ammonia 43 H Total Protein 6.3 Albumin 3.2 Globulin 3.1 Albumin/Globulin Ratio 1.0 L Procalcitonin Arterial Blood Potassium Venous Blood Potassium Ur Random Creatinine Ur Random Sodium Hepatitis A IgM Ab Negative Hep Bs Antigen Negative Hep B Core IgM Ab Negative Hepatitis C Antibody Negative Ur L.pneumophila Ag 03/03/17 03/03/17 03/03/17 10:00 10:30 11:40 WBC RBC Hgb Hct MCV MCH MCHC RDW Plt Count MPV pCO2 69 H pO2 51.0 L HCO3 28.2 H ABG pH 7.22 L ABG Total CO2 30.3 H ABG O2 Saturation 89.5 L ABG O2 Content 13.0 L ABG Base Excess -0.6 ABG Hemoglobin 10.6 L ABG Carboxyhemoglobin 2.2 H POC ABG HHb (Measured) 10.2 H ABG Methemoglobin 0.3 ABG O2 Capacity 14.5 L ABG Potassium VBG pH VBG pCO2 VBG HCO3 VBG Total CO2 VBG O2 Sat (Calc) VBG Base Excess VBG Potassium Hgb O2 Saturation 87.3 L Sodium Chloride Glucose Lactate FiO2 32.0 Potassium Carbon Dioxide Anion Gap BUN Creatinine Est GFR ( Amer) Est GFR (Non-Af Amer) Random Glucose Calcium Total Bilirubin AST ALT Alkaline Phosphatase Ammonia Total Protein Albumin Globulin Albumin/Globulin Ratio Procalcitonin 2.56 H Arterial Blood Potassium Venous Blood Potassium Ur Random Creatinine 104 Ur Random Sodium Hepatitis A IgM Ab Hep Bs Antigen Hep B Core IgM Ab Hepatitis C Antibody Ur L.pneumophila Ag 03/03/17 03/03/17 03/03/17 11:40 11:40 16:54 WBC RBC Hgb Hct MCV MCH MCHC RDW Plt Count MPV pCO2 80 H* pO2 88.0 HCO3 28.5 H ABG pH 7.16 L* ABG Total CO2 31.0 H ABG O2 Saturation 97.7 ABG O2 Content 13.7 L ABG Base Excess -1.4 ABG Hemoglobin 10.1 L ABG Carboxyhemoglobin 2.0 H POC ABG HHb (Measured) 2.2 ABG Methemoglobin 0.4 ABG O2 Capacity 14.0 L ABG Potassium VBG pH VBG pCO2 VBG HCO3 VBG Total CO2 VBG O2 Sat (Calc) VBG Base Excess VBG Potassium Hgb O2 Saturation 95.4 Sodium Chloride Glucose Lactate FiO2 40.0 Potassium Carbon Dioxide Anion Gap BUN Creatinine Est GFR ( Amer) Est GFR (Non-Af Amer) Random Glucose Calcium Total Bilirubin AST ALT Alkaline Phosphatase Ammonia Total Protein Albumin Globulin Albumin/Globulin Ratio Procalcitonin Arterial Blood Potassium Venous Blood Potassium Ur Random Creatinine Ur Random Sodium 83 Hepatitis A IgM Ab Hep Bs Antigen Hep B Core IgM Ab Hepatitis C Antibody Ur L.pneumophila Ag Negative EKG/Cardiology Studies: Cardiology / EKG Studies 03/02/17 18:27 ELECTROCARDIOGRAM Stat Comment: Reason For Exam: MEDICAL CLEARANCE 03/03/17 18:27 ELECTROCARDIOGRAM Stat Comment: Reason For Exam: MEDICAL CLEARANCE Critical Care Progress Note - Nutrition Nutrition: Nutrition Category Date Time Status Heart Healthy Diet [DIET] Diets 03/03/17 Lunch Ordered Attending/Attestation - Attestation I have personally seen and examined this patient.: Yes I have fully participated in the care of the patient.: Yes I have reviewed all pertinent clinical information: Yes Notes (Text): 03/03/17 18:17 Alveolar hypoventilation secondary to possible Suboxone use/ abuse. Pt denied heroin use for 9 years. UDS shows cocaine metabolite as well. On BIPAP currently due to hypoventilation, URI/ PNA and PAULINO. CO2 retention present, but mental status improving. On empiric abx for presumed PNA. Sputum cx sent. Duonebs prn due to COPD. Needs Phych eval, med records, pcp records . dvt p cc time 45 min
--- NOTE | 2017-03-03 13:43 | CP.PCM.PN ---
<Conor Delaney - Last Filed: 03/03/17 13:38> Subjective - Date & Time of Evaluation Date of Evaluation: 03/03/17 Time of Evaluation: 10:00 - Subjective Subjective: Hospitalist progress note: Pt seen and examined at bedside. Pt currently on BIPAP. Pt admitted to using snorting heroin, drinking heavily, but denying any heroin use. He does complain of productive cough with yellow and green sputum. Denied any SI/HI. No other complaints at this time. Denies any scales, dizziness, fever, chills, sob, cp, abd pain, n/v/d. Objective - Vital Signs/Intake and Output Vital Signs (last 24 hours): Temp Pulse Resp BP Pulse Ox 98.3 F 89 25 H 112/65 100 03/03/17 06:00 03/03/17 11:45 03/03/17 11:40 03/03/17 09:00 03/03/17 11:40 Intake and Output: 03/03/17 03/03/17 06:59 18:59 Intake Total 1235 Output Total 600 Balance 635 - Medications Medications: Current Medications Albuterol/Ipratropium (Duoneb 3 Mg/0.5 Mg (3 Ml) Ud) 3 ml IH [id number] [facility] Last Admin: 03/03/17 11:51 Dose: 3 ml Folic Acid (Folic Acid) 1 mg IVP DAILY [facility] Last Admin: 03/03/17 10:25 Dose: 1 mg Heparin Sodium (Porcine) (Heparin) 5,000 units SC Q12 EDGAR PRN Reason: Protocol Last Admin: 03/03/17 10:25 Dose: 5,000 units Doxycycline Hyclate 100 mg/ (Sodium Chloride) 100 mls @ 100 mls/hr IVPB Q12 EDGAR PRN Reason: Protocol Last Admin: 03/03/17 11:26 Dose: 100 mls/hr Cefepime HCl (Maxipime 2gm) 2 gm in 100 mls @ 100 mls/hr IVPB Q12 EDGAR PRN Reason: Protocol Stop: 03/08/17 10:01 Last Admin: 03/03/17 10:27 Dose: 100 mls/hr Ondansetron HCl (Zofran Inj) 4 mg IVP Q4H PRN PRN Reason: Nausea/Vomiting Pantoprazole Sodium (Protonix Inj) 40 mg IVP DAILY [facility] Last Admin: 03/03/17 10:22 Dose: 40 mg Thiamine HCl (Vitamin B1 Inj) 100 mg IV DAILY [facility] Last Admin: 03/03/17 10:25 Dose: 100 mg - Labs Labs: 03/03/17 06:10 03/03/17 06:10 PT 11.6 Seconds (9.9-11.8) 03/02/17 18:46 INR 1.07 (0.93-1.08) 03/02/17 18:46 APTT 25.9 Seconds (23.7-30.8) 03/02/17 18:46 - Constitutional Appears: No Acute Distress - Head Exam Head Exam: ATRAUMATIC, NORMAL INSPECTION, NORMOCEPHALIC - Eye Exam Eye Exam: EOMI, Normal appearance, PERRL - ENT Exam ENT Exam: Mucous Membranes Moist - Respiratory Exam Respiratory Exam: Clear to Ausculation Bilateral, Wheezes. absent: Rales - Cardiovascular Exam Cardiovascular Exam: RRR, +S1, +S2 - GI/Abdominal Exam GI & Abdominal Exam: Soft. absent: Distended, Tenderness - Extremities Exam Extremities Exam: absent: Calf Tenderness, Pedal Edema - Neurological Exam Neurological Exam: Alert, Awake, Oriented x3 - Psychiatric Exam Psychiatric exam: Normal Affect, Normal Mood. absent: Homicidal Ideation, Suicidal Ideation - Skin Skin Exam: Dry, Intact, Normal Color, Warm Assessment and Plan - Assessment and Plan (Free Text) Assessment: 56 y/o M with PMH of Asthma, Hepatitis C, Depression, Bipolar Disorder, Sleep Apnea, and CHF presents with AMS in the setting of community acquired pneumonia and heroin overdose. 1. AMS- now moslty resolved - Likely secondary to heroin overdose -Head CT negative for acute pathology -Monitor vital signs q4h 2. CAP -Wbc elevated at 21 and PCT .31 -CXR shows Mild CHF -ID consulted for recs - started on Doxy and cefepime -Duonebs q4h 3. Respiratory Acidosis - PH 7.22, PCO2 69, HCO3 28 - Currently on BIPAP - F/u ICU recs - Duonebs as needed - Will monitor closely 4. TIM - Cr 2.3 --> 2.1 - NS @125 - Cont to monitor 5. ETOH abuse - CIWA protocol - Close observation for withdrawals - Psych consulted to r/o any SI/HI 6. PPX -Protonix -Zofran -Heparin Case and plan was reviewed and discussed in detail with Dr Gonsales. <Karolina Gonsales - Last Filed: 03/05/17 15:11> Objective - Vital Signs/Intake and Output Vital Signs (last 24 hours): Temp Pulse Resp BP Pulse Ox 98.0 F 72 20 142/93 H 93 L 03/05/17 08:00 03/05/17 09:45 03/05/17 08:00 03/05/17 09:45 03/05/17 08:00 Intake and Output: 03/05/17 03/05/17 06:59 18:59 Intake Total 480 600 Balance 480 600 - Medications Medications: Current Medications Albuterol/Ipratropium (Duoneb 3 Mg/0.5 Mg (3 Ml) Ud) 3 ml IH [id number] [facility] Last Admin: 03/05/17 13:02 Dose: 3 ml Benzonatate (Tessalon Perles) 100 mg PO TID [facility] Last Admin: 03/05/17 14:27 Dose: 100 mg Camphor/Menthol (Bengay) 0 gm TOP QID PRN PRN Reason: Pain, Mild (1-3) Last Admin: 03/05/17 09:19 Dose: 1 applic Chlordiazepoxide (Librium) 25 mg PO Q8 EDGAR PRN Reason: Protocol Last Admin: 03/05/17 14:27 Dose: 25 mg Doxycycline Hyclate (Doryx) 100 mg PO Q12 EDGAR PRN Reason: Protocol Stop: 03/14/17 22:01 Folic Acid (Folic Acid) 1 mg PO DAILY [facility] Last Admin: 03/05/17 09:44 Dose: 1 mg Furosemide (Lasix) 20 mg PO DAILY [facility] Last Admin: 03/05/17 09:45 Dose: 20 mg Heparin Sodium (Porcine) (Heparin) 5,000 units SC Q12 EDGAR PRN Reason: Protocol Last Admin: 03/05/17 09:48 Dose: 5,000 units Cefepime HCl (Maxipime 2gm) 2 gm in 100 mls @ 100 mls/hr IVPB Q12 EDGAR PRN Reason: Protocol Stop: 03/08/17 10:01 Last Admin: 03/05/17 09:19 Dose: 100 mls/hr Lisinopril (Zestril) 5 mg PO DAILY [facility] Last Admin: 03/05/17 09:45 Dose: 5 mg Lorazepam (Ativan) 2 mg IVP Q4H PRN; Protocol PRN Reason: Anxiety Methylprednisolone (Solu-Medrol) 40 mg IVP Q12 [facility] Last Admin: 03/05/17 09:48 Dose: 40 mg Ondansetron HCl (Zofran Inj) 4 mg IVP Q4H PRN PRN Reason: Nausea/Vomiting Pantoprazole Sodium (Protonix Ec Tab) 40 mg PO 0600 [facility] Last Admin: 03/05/17 05:48 Dose: 40 mg Sertraline HCl (Zoloft) 100 mg PO DAILY [facility] Last Admin: 03/05/17 09:44 Dose: 100 mg Spironolactone (Aldactone) 25 mg PO DAILY [facility] Last Admin: 03/05/17 09:44 Dose: 25 mg Thiamine HCl (Vitamin B1 Tab) 100 mg PO DAILY [facility] Last Admin: 03/05/17 09:44 Dose: 100 mg - Labs Labs: 03/05/17 06:40 03/04/17 07:30 PT 11.6 Seconds (9.9-11.8) 03/02/17 18:46 INR 1.07 (0.93-1.08) 03/02/17 18:46 APTT 25.9 Seconds (23.7-30.8) 03/02/17 18:46 Attending/Attestation - Attestation I have personally seen and examined this patient.: Yes I have fully participated in the care of the patient.: Yes I have reviewed all pertinent clinical information, including history, physical exam and plan: Yes Notes (Text): I have seen and examined the patient at bedside. Agree with the above note with the following additions/ exceptions: Briefly this is 56 year old male with history of asthma, hep c(known and untreated), depression, cipolar disorder, PAULINO non compliant with cpap, CHF who was admitted for evaluation of AMS secondary to hypoventilation due to heroin abuse. UDS shows cocaine. Patient admits to smoking hookah which is sometime mixed with cocaine. Head CT negative. He was found to have CAP on cefepime and doxy. Patient has respiratory acidosis secondary to hypoventilation. Recommended to continue bipap. Has TIM which is improving most likely pre renal. Will closely monitor for alcohol withdrawal. Continue thiamine, FA and MVI. He denies suicidal or homicidal ideation. Psych eval pending. Upon discharge patient will follow up with PMD of choice. Dr Karolina Gonsales
--- NOTE | 2017-03-03 16:08 | US ---
HISTORY: rule out biliary tree obstruction COMPARISON: 08/17/2016 go TECHNIQUE: Grayscale imaging was performed. FINDINGS: LIVER: Measures 16.3 cm. There is diffuse increased echogenicity of the liver parenchyma. No mass. No intrahepatic bile duct dilatation. GALLBLADDER: The gallbladder is partially distended with mild wall thickening. No evidence of gallstones. The sonographic Vincent's sign is negative. COMMON BILE DUCT: Measures 4.0 mm. No stones. No dilatation. PANCREAS: Unremarkable as visualized. No mass. No ductal dilatation. RIGHT KIDNEY: Measures 11.4cm. Normal echogenicity. No calculus, mass, or hydronephrosis. LEFT KIDNEY: Measures 11.2cm. Normal echogenicity. No calculus, mass, or hydronephrosis. SPLEEN: Normal in size and contour. No mass. AORTA: No aneurysmal dilatation. IVC: Unremarkable. OTHER FINDINGS: None. IMPRESSION: Diffuse increased echogenicity in the liver may reflect hepatic steatosis however parenchymal infectious/ inflammatory etiologies cannot be entirely excluded. Clinical and laboratory correlation is advised. Limited evaluation of the gallbladder due to partial distention. Allowing for this, no cholelithiasis. Apparent mild gallbladder wall thickening. The sonographic Vincent's sign is negative.
[2017-03-03 16:57] LABS: ARTERIAL BLOOD GAS HCO3 28.5 mmol/L (21-28); ARTERIAL BLOOD GAS O2 CONTENT 13.7 ML/dl (15-23); ARTERIAL BLOOD HGB O2 SAT 95.4 % (95.0-98.0); HHB 2.2 % (0-5); METHEMOGLOBIN 0.4 % (0.0-3.0)
[2017-03-03 17:00] LABS: ARTERIAL BLOOD GAS PH 7.16 (7.35-7.45)
--- NOTE | 2017-03-03 17:18 | CP.PCM.PCO ---
Addendum Addendum: 03/03/17 17:18 pt is currently on BIPAP, leukocytosis, not doing well, please reconsult when pt 's mental status is improving
[2017-03-03 21:17] LABS: ARTERIAL BLOOD GAS HCO3 14.1 mmol/L (21-28); ARTERIAL BLOOD GAS O2 CAPACITY 8.5 mL/dl (16-24); ARTERIAL BLOOD GAS O2 CONTENT 8.4 ML/dl (15-23); ARTERIAL BLOOD GAS PH 7.31 (7.35-7.45); ARTERIAL BLOOD HGB O2 SAT 96.7 % (95.0-98.0); HHB 0.6 % (0-5); METHEMOGLOBIN 0.6 % (0.0-3.0)
[2017-03-04] MEDS: Albuterol-Ipratrop 3 mg / 0.5 (3 ml) UD IH SCH ×5 (03:30→23:26)
[2017-03-04 05:41] LABS: ARTERIAL BLOOD GAS HCO3 28.7 mmol/L (21-28); ARTERIAL BLOOD GAS O2 CAPACITY 12.9 mL/dl (16-24); ARTERIAL BLOOD GAS O2 CONTENT 12.6 ML/dl (15-23); ARTERIAL BLOOD GAS PH 7.24 (7.35-7.45); CARBOXYHEMOGLOBIN 1.8 % (0.5-1.5); HHB 2.3 % (0-5); METHEMOGLOBIN 0.9 % (0.0-3.0)
[2017-03-04 08:17] LABS: HEMATOCRIT 32.9 % (42.0-52.0); MEAN CELL VOLUME 102.8 fl (80.0-105.0); MEAN CORPUSCULAR HEMOGLOBIN 29.7 pg (25.0-35.0); MEAN CORPUSCULAR HGB CONC 28.9 g/dl (31.0-37.0); MEAN PLATELET VOLUME 9.6 fl (7.0-11.0); RED CELL DISTRIBUTION WIDTH 16.8 % (11.5-14.5); WHITE BLOOD COUNT 13.8 10^3/ul (4.5-11.0)
--- NOTE | 2017-03-04 09:31 | CP.CCUPN ---
CCU Subjective - Physician Review Events Since Last Encounter (Free Text): 03/04/17 09:24 56 y/o M admitted for hypercapnic respiratory failure Awake and alert for > 24 hrs. Does have severe PAULINO noted with desaturations and climbing co2. No new complaints. Cough improved and sob improved. On empiric abx w/ cx pending. Off all sedatives, anxiolytics and suboxone. Psych eval pending. No signs of alcohol withdrawl out of bed to chair cc time 55 min CCU Objective - Vital Signs / Intake & Output Vital Signs (Last 4 hours): Vital Signs Temp Pulse Resp Pulse Ox 03/04/17 05:40 98.3 F 03/04/17 05:37 86 03/04/17 05:30 86 23 98 Intake and Output (Last 8hrs): Intake & Output 03/03/17 03/04/17 03/04/17 22:59 06:59 14:59 Intake Total 1000 Output Total 500 Balance 500 Intake: Oral 300 Other 700 Output: Urine 500 Urine, Voided 500 - Physical Exam Head: Positive for: Atraumatic, Normocephalic. Negative for: Ecchymosis, Abrasion, Laceration Pupils: Positive for: PERRL. Negative for: Sluggish, Non-Reactive Extroacular Muscles: Positive for: EOMI. Negative for: Gaze Palsy Conjunctiva: Positive for: Normal. Negative for: Injected Mouth: Positive for: Moist Mucous Membranes, Normal Lips, Normal Tounge. Negative for: Drooling Nose (External): Positive for: Atraumatic. Negative for: Abrasion, Contusion, Laceration Nose (Internal): Negative for: Rhinorrhea, Purulent Mucous, Epistaxis Neck: Positive for: Normal Range of Motion, Trachea Midline. Negative for: Meningeal Signs, JVD Respiratory/Chest: Positive for: Good Air Exchange, Wheezes (end-epiratory wheezing), Decreased Breath Sounds (mildly decreased breath sounds in all ennis , most prominent at bilateral bases), Rhonchi (mild ronchi in all ennis), Tachypneic (tachypnic with speech or attempted PO intake ), Other (intermittent wet sounding cough). Negative for: Clear to Auscultation, Respiratory Distress , Accessory Muscle Use Cardiovascular: Positive for: Regular Rate and Rhythm, Normal S1, S2, Peripheal Pulses Present (+2 radials bilaterally). Negative for: Murmurs, Irregular Rhythm, Tachycardic, Bradycardic Abdomen: Positive for: Normal Bowel Sounds. Negative for: Tenderness, Distention, Peritoneal Signs Upper Extremity: Positive for: Normal Inspection, Normal ROM, NORMAL PULSES. Negative for: Cyanosis, Edema, Tenderness, Swelling, Erythema, Deformity Lower Extremity: Positive for: Normal Inspection, Normal ROM. Negative for: Edema, CALF TENDERNESS, Tenderness, Swelling, Erythema, Deformity Neurological: Positive for: GCS=15, CN II-XII Intact, Speech Normal Skin: Positive for: Warm, Dry, Normal Color. Negative for: Rashes Psychiatric: Positive for: Alert, Oriented x 3, Normal Concentration, Normal Affect, Normal Mood, Other (Poor/inconsistent historian, initially non- compliant with labs and Bipap but appears more compliant now). Negative for: Normal Insight (poor insight, poor understanding of general medical condition) - Medications Active Medications: Active Medications Generic Name Dose Route Start Last Admin Trade Name Freq PRN Reason Stop Dose Admin Albuterol/Ipratropium 3 ml 03/04/17 14:00 Duoneb 3 Mg/0.5 Mg (3 Ml) Ud IH [id number] EDGAR Folic Acid 1 mg 03/03/17 10:03/03/17 10:25 Folic Acid IVP 1 mg DAILY EDGAR Administration Heparin Sodium (Porcine) 5,000 units 03/03/17 10:03/03/17 22:20 Heparin SC 5,000 units Q12 EDGAR Administration Protocol Doxycycline Hyclate 100 mg/ 100 mls @ 100 mls/hr 03/03/17 10:00 03/03/17 22: 19 Sodium Chloride IVPB 100 mls/hr Q12 EDGAR Administration Protocol Cefepime HCl 2 gm in 100 mls @ 100 mls/hr 03/03/17 10:00 03/03/17 22:19 Maxipime 2gm IVPB 03/08/17 10:01 100 mls/hr Q12 EDGAR Administration Protocol Ondansetron HCl 4 mg 03/02/17 22:57 Zofran Inj IVP Q4H PRN Nausea/Vomiting Pantoprazole Sodium 40 mg 03/03/17 10:00 03/03/17 10:22 Protonix Inj IVP 40 mg DAILY EDGAR Administration Thiamine HCl 100 mg 03/03/17 10:00 03/03/17 10:25 Vitamin B1 Inj IV 100 mg DAILY EDGAR Administration - Patient Studies Lab Studies: Microbiology Studies 03/03/17 08:24 Gram Stain - Final Sputum Lab Studies 03/04/17 03/04/17 03/03/17 Range/Units 07:30 05:25 21:05 WBC 13.8 H D (4.5-11.0) 10^3/ul RBC 3.20 L (3.5-6.1) 10^6/uL Hgb 9.5 L (14.0-18.0) g/dL Hct 32.9 L (42.0-52.0) % MCV 102.8 (80.0-105.0) fl MCH 29.7 (25.0-35.0) pg MCHC 28.9 L (31.0-37.0) g/dl RDW 16.8 H (11.5-14.5) % Plt Count 232 (120.0-450.0) 10^3/uL MPV 9.6 (7.0-11.0) fl pCO2 67 H 28 L (35-45) mm/Hg pO2 91.0 177.0 H (80-100) mm/Hg HCO3 28.7 H 14.1 L (21-28) mmol/L ABG pH 7.24 L 7.31 L (7.35-7.45) ABG Total CO2 30.8 H 15.0 L (22-28) mmol.L ABG O2 Saturation 97.6 99.4 H (95-98) % ABG O2 Content 12.6 L 8.4 L (15-23) ML/dl ABG Base Excess 0.5 -11.2 L (-2.0-3.0) mmol/L ABG Hemoglobin 9.3 L 5.8 L (11.7-17.4) g/dL ABG Carboxyhemoglobin 1.8 H 2.0 H (0.5-1.5) % POC ABG HHb (Measured) 2.3 0.6 (0-5) % ABG Methemoglobin 0.9 0.6 (0.0-3.0) % ABG O2 Capacity 12.9 L 8.5 L (16-24) mL/dl Hgb O2 Saturation 95.0 96.7 (95.0-98.0) % FiO2 40.0 40.0 % Procalcitonin (0.19-0.49) NG/ML Ur Random Creatinine mg/dL Ur Random Sodium meq/L Hepatitis A IgM Ab (NEGATIVE) Hep Bs Antigen (NEGATIVE) Hep B Core IgM Ab (NEGATIVE) Hepatitis C Antibody (NEGATIVE) Ur L.pneumophila Ag (NEGATIVE) 03/03/17 03/03/17 03/03/17 Range/Units 16:54 11:40 11:40 WBC (4.5-11.0) 10^3/ul RBC (3.5-6.1) 10^6/uL Hgb (14.0-18.0) g/dL Hct (42.0-52.0) % MCV (80.0-105.0) fl MCH (25.0-35.0) pg MCHC (31.0-37.0) g/dl RDW (11.5-14.5) % Plt Count (120.0-450.0) 10^3/uL MPV (7.0-11.0) fl pCO2 80 H* (35-45) mm/Hg pO2 88.0 (80-100) mm/Hg HCO3 28.5 H (21-28) mmol/L ABG pH 7.16 L* (7.35-7.45) ABG Total CO2 31.0 H (22-28) mmol.L ABG O2 Saturation 97.7 (95-98) % ABG O2 Content 13.7 L (15-23) ML/dl ABG Base Excess -1.4 (-2.0-3.0) mmol/L ABG Hemoglobin 10.1 L (11.7-17.4) g/dL ABG Carboxyhemoglobin 2.0 H (0.5-1.5) % POC ABG HHb (Measured) 2.2 (0-5) % ABG Methemoglobin 0.4 (0.0-3.0) % ABG O2 Capacity 14.0 L (16-24) mL/dl Hgb O2 Saturation 95.4 (95.0-98.0) % FiO2 40.0 % Procalcitonin (0.19-0.49) NG/ML Ur Random Creatinine mg/dL Ur Random Sodium 83 meq/L Hepatitis A IgM Ab (NEGATIVE) Hep Bs Antigen (NEGATIVE) Hep B Core IgM Ab (NEGATIVE) Hepatitis C Antibody (NEGATIVE) Ur L.pneumophila Ag Negative (NEGATIVE) 03/03/17 03/03/17 03/03/17 Range/Units 11:40 10:30 10:00 WBC (4.5-11.0) 10^3/ul RBC (3.5-6.1) 10^6/uL Hgb (14.0-18.0) g/dL Hct (42.0-52.0) % MCV (80.0-105.0) fl MCH (25.0-35.0) pg MCHC (31.0-37.0) g/dl RDW (11.5-14.5) % Plt Count (120.0-450.0) 10^3/uL MPV (7.0-11.0) fl pCO2 69 H (35-45) mm/Hg pO2 51.0 L (80-100) mm/Hg HCO3 28.2 H (21-28) mmol/L ABG pH 7.22 L (7.35-7.45) ABG Total CO2 30.3 H (22-28) mmol.L ABG O2 Saturation 89.5 L (95-98) % ABG O2 Content 13.0 L (15-23) ML/dl ABG Base Excess -0.6 (-2.0-3.0) mmol/L ABG Hemoglobin 10.6 L (11.7-17.4) g/dL ABG Carboxyhemoglobin 2.2 H (0.5-1.5) % POC ABG HHb (Measured) 10.2 H (0-5) % ABG Methemoglobin 0.3 (0.0-3.0) % ABG O2 Capacity 14.5 L (16-24) mL/dl Hgb O2 Saturation 87.3 L (95.0-98.0) % FiO2 32.0 % Procalcitonin 2.56 H (0.19-0.49) NG/ML Ur Random Creatinine 104 mg/dL Ur Random Sodium meq/L Hepatitis A IgM Ab (NEGATIVE) Hep Bs Antigen (NEGATIVE) Hep B Core IgM Ab (NEGATIVE) Hepatitis C Antibody (NEGATIVE) Ur L.pneumophila Ag (NEGATIVE) 03/03/17 Range/Units 09:50 WBC (4.5-11.0) 10^3/ul RBC (3.5-6.1) 10^6/uL Hgb (14.0-18.0) g/dL Hct (42.0-52.0) % MCV (80.0-105.0) fl MCH (25.0-35.0) pg MCHC (31.0-37.0) g/dl RDW (11.5-14.5) % Plt Count (120.0-450.0) 10^3/uL MPV (7.0-11.0) fl pCO2 (35-45) mm/Hg pO2 (80-100) mm/Hg HCO3 (21-28) mmol/L ABG pH (7.35-7.45) ABG Total CO2 (22-28) mmol.L ABG O2 Saturation (95-98) % ABG O2 Content (15-23) ML/dl ABG Base Excess (-2.0-3.0) mmol/L ABG Hemoglobin (11.7-17.4) g/dL ABG Carboxyhemoglobin (0.5-1.5) % POC ABG HHb (Measured) (0-5) % ABG Methemoglobin (0.0-3.0) % ABG O2 Capacity (16-24) mL/dl Hgb O2 Saturation (95.0-98.0) % FiO2 % Procalcitonin (0.19-0.49) NG/ML Ur Random Creatinine mg/dL Ur Random Sodium meq/L Hepatitis A IgM Ab Negative (NEGATIVE) Hep Bs Antigen Negative (NEGATIVE) Hep B Core IgM Ab Negative (NEGATIVE) Hepatitis C Antibody Negative (NEGATIVE) Ur L.pneumophila Ag (NEGATIVE) Laboratory Results - last 24 hr 03/03/17 03/03/17 03/03/17 09:50 10:00 10:30 WBC RBC Hgb Hct MCV MCH MCHC RDW Plt Count MPV pCO2 69 H pO2 51.0 L HCO3 28.2 H ABG pH 7.22 L ABG Total CO2 30.3 H ABG O2 Saturation 89.5 L ABG O2 Content 13.0 L ABG Base Excess -0.6 ABG Hemoglobin 10.6 L ABG Carboxyhemoglobin 2.2 H POC ABG HHb (Measured) 10.2 H ABG Methemoglobin 0.3 ABG O2 Capacity 14.5 L Hgb O2 Saturation 87.3 L FiO2 32.0 Procalcitonin 2.56 H Ur Random Creatinine Ur Random Sodium Hepatitis A IgM Ab Negative Hep Bs Antigen Negative Hep B Core IgM Ab Negative Hepatitis C Antibody Negative Ur L.pneumophila Ag 03/03/17 03/03/17 03/03/17 11:40 11:40 11:40 WBC RBC Hgb Hct MCV MCH MCHC RDW Plt Count MPV pCO2 pO2 HCO3 ABG pH ABG Total CO2 ABG O2 Saturation ABG O2 Content ABG Base Excess ABG Hemoglobin ABG Carboxyhemoglobin POC ABG HHb (Measured) ABG Methemoglobin ABG O2 Capacity Hgb O2 Saturation FiO2 Procalcitonin Ur Random Creatinine 104 Ur Random Sodium 83 Hepatitis A IgM Ab Hep Bs Antigen Hep B Core IgM Ab Hepatitis C Antibody Ur L.pneumophila Ag Negative 03/03/17 03/03/17 03/04/17 16:54 21:05 05:25 WBC RBC Hgb Hct MCV MCH MCHC RDW Plt Count MPV pCO2 80 H* 28 L 67 H pO2 88.0 177.0 H 91.0 HCO3 28.5 H 14.1 L 28.7 H ABG pH 7.16 L* 7.31 L 7.24 L ABG Total CO2 31.0 H 15.0 L 30.8 H ABG O2 Saturation 97.7 99.4 H 97.6 ABG O2 Content 13.7 L 8.4 L 12.6 L ABG Base Excess -1.4 -11.2 L 0.5 ABG Hemoglobin 10.1 L 5.8 L 9.3 L ABG Carboxyhemoglobin 2.0 H 2.0 H 1.8 H POC ABG HHb (Measured) 2.2 0.6 2.3 ABG Methemoglobin 0.4 0.6 0.9 ABG O2 Capacity 14.0 L 8.5 L 12.9 L Hgb O2 Saturation 95.4 96.7 95.0 FiO2 40.0 40.0 40.0 Procalcitonin Ur Random Creatinine Ur Random Sodium Hepatitis A IgM Ab Hep Bs Antigen Hep B Core IgM Ab Hepatitis C Antibody Ur L.pneumophila Ag 03/04/17 07:30 WBC 13.8 H D RBC 3.20 L Hgb 9.5 L Hct 32.9 L MCV 102.8 MCH 29.7 MCHC 28.9 L RDW 16.8 H Plt Count 232 MPV 9.6 pCO2 pO2 HCO3 ABG pH ABG Total CO2 ABG O2 Saturation ABG O2 Content ABG Base Excess ABG Hemoglobin ABG Carboxyhemoglobin POC ABG HHb (Measured) ABG Methemoglobin ABG O2 Capacity Hgb O2 Saturation FiO2 Procalcitonin Ur Random Creatinine Ur Random Sodium Hepatitis A IgM Ab Hep Bs Antigen Hep B Core IgM Ab Hepatitis C Antibody Ur L.pneumophila Ag EKG/Cardiology Studies: Cardiology / EKG Studies 03/03/17 18:27 ELECTROCARDIOGRAM Stat Comment: Reason For Exam: MEDICAL CLEARANCE Critical Care Progress Note - Nutrition Nutrition: Nutrition Category Date Time Status Consistent Carbohydrate [DIET] Diets 03/03/17 Dinner Ordered
[2017-03-04 09:43] LABS: ALKALINE PHOSPHATASE 115 U/L (38-126); ALT/SGPT 56 U/L (7-56); AST/SGOT 83 U/L (17-59); BILIRUBIN,TOTAL 0.2 mg/dL (0.2-1.3); BLOOD UREA NITROGEN 19 mg/dL (7-21); CALCIUM 8.5 mg/dL (8.4-10.5); CARBON DIOXIDE 27 mmol/L (21-33); CHLORIDE 104 mmol/L (98-107); GFR AFRICAN-AMERICAN > 60; GLUCOSE,RANDOM 102 mg/dL (70-110); POTASSIUM 4.3 mmol/L (3.6-5.0); SODIUM 139 mmol/L (132-148); TOTAL PROTEIN 6.1 g/dL (5.8-8.3)
[2017-03-04] MEDS: Cefepime IV 2 gm in NS 2 GM/100 ML BAG IVPB SCH ×2 (09:50→21:38)
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
--- NOTE | 2017-03-04 11:41 | CP.PCM.PN ---
<Deanna Faith - Last Filed: 03/04/17 13:55> Subjective - Date & Time of Evaluation Date of Evaluation: 03/04/17 Time of Evaluation: 10:20 - Subjective Subjective: Hospitalist Service Progress Note: Patient seen and examined at bedside. Per nursing no acute events overnight. Patient complaining of neck pain, will order cervical spine xray. Still having sob, cough and wheezing but improving. Offers no other complaints at this time. Denies headaches, dizziness, cp, palpitations, abdominal pain, urinary symptoms. Objective - Vital Signs/Intake and Output Vital Signs (last 24 hours): Temp Pulse Resp BP Pulse Ox 98.3 F 61 42 H 130/75 92 L 03/04/17 05:40 03/04/17 10:30 03/04/17 10:30 03/04/17 10:29 03/04/17 10:30 Intake and Output: 03/04/17 03/04/17 06:59 18:59 Intake Total 1000 Output Total 500 Balance 500 - Medications Medications: Current Medications Albuterol/Ipratropium (Duoneb 3 Mg/0.5 Mg (3 Ml) Ud) 3 ml IH [id number] [facility] Folic Acid (Folic Acid) 1 mg PO DAILY [facility] Last Admin: 03/04/17 10:03 Dose: 1 mg Heparin Sodium (Porcine) (Heparin) 5,000 units SC Q12 EDGAR PRN Reason: Protocol Last Admin: 03/04/17 09:49 Dose: 5,000 units Doxycycline Hyclate 100 mg/ (Sodium Chloride) 100 mls @ 100 mls/hr IVPB Q12 EDGAR PRN Reason: Protocol Last Admin: 03/04/17 09:49 Dose: 100 mls/hr Cefepime HCl (Maxipime 2gm) 2 gm in 100 mls @ 100 mls/hr IVPB Q12 EDGAR PRN Reason: Protocol Stop: 03/08/17 10:01 Last Admin: 03/04/17 09:50 Dose: 100 mls/hr Methylprednisolone (Solu-Medrol) 40 mg IVP Q12 EDGAR Ondansetron HCl (Zofran Inj) 4 mg IVP Q4H PRN PRN Reason: Nausea/Vomiting Pantoprazole Sodium (Protonix Inj) 40 mg IVP DAILY [facility] Last Admin: 03/04/17 09:49 Dose: 40 mg Thiamine HCl (Vitamin B1 Tab) 100 mg PO DAILY EDGAR Last Admin: 03/04/17 10:03 Dose: 100 mg - Labs Labs: 03/04/17 07:30 03/04/17 07:30 PT 11.6 Seconds (9.9-11.8) 03/02/17 18:46 INR 1.07 (0.93-1.08) 03/02/17 18:46 APTT 25.9 Seconds (23.7-30.8) 03/02/17 18:46 - Constitutional Appears: Non-toxic, No Acute Distress - Head Exam Head Exam: ATRAUMATIC, NORMAL INSPECTION - Eye Exam Eye Exam: EOMI, Normal appearance Pupil Exam: NORMAL ACCOMODATION - ENT Exam ENT Exam: Mucous Membranes Moist - Neck Exam Neck Exam: Tenderness. absent: Full ROM - Respiratory Exam Respiratory Exam: Rhonchi, Wheezes, NORMAL BREATHING PATTERN. absent: Rales - Cardiovascular Exam Cardiovascular Exam: REGULAR RHYTHM, +S1, +S2 - GI/Abdominal Exam GI & Abdominal Exam: Soft. absent: Guarding, Rigid, Tenderness, Rebound - Extremities Exam Extremities Exam: Normal Inspection. absent: Calf Tenderness - Back Exam Back Exam: NORMAL INSPECTION - Neurological Exam Neurological Exam: Alert, Awake, Oriented x3 - Psychiatric Exam Psychiatric exam: Normal Affect, Normal Mood - Skin Skin Exam: Dry, Normal Color, Warm Assessment and Plan - Assessment and Plan (Free Text) Assessment: 56 y/o M with PMH of Asthma, Hepatitis C, Depression, Bipolar Disorder, Sleep Apnea, and CHF presents with AMS in the setting of community acquired pneumonia and heroin overdose. Plan: 1. Altered Mental Status- resolved - Likely secondary to heroin overdose -AAOx3 > 24 hours -Head CT negative for acute pathology -Monitor vital signs q4h 2. Community Acquired Pneumonia - Wbc elevated 21.0 --> 13.8 today - Procal on admission 2.56 - CXR shows Mild CHF - Antibiotics: Doxy and cefepime - Added solumedrol 40mg Q12H - ID consulted for recs - f/u recommendations - Chest PT q6h - Duonebs q6h 3. Hypercapnic Respiratory failure - PH 7.24, PCO2 67, HCO3 28.7 - Hx of PAULINO Currently on BIPAP - Possible downgrade today - Duonebs as needed - Will monitor closely 4. Acute Kidney Injury likely 2/2 dehydration - Resolved - Cr 1.3 today 5. ETOH abuse - CIWA protocol - Close observation for withdrawals - Psych consulted to r/o any SI/HI 6. Neck Pain -Will order cervical spine xrays for further evaluation 7. Transaminitis -LFTs trending down -Continue to monitor 8. Tobacco abuse -Tobacco cessation advised -Recommending support groups PPX -Protonix -Zofran -Heparin Case and plan was reviewed and discussed in detail with Dr Gonsales. <Karolina Gonsales - Last Filed: 03/05/17 15:35> Objective - Vital Signs/Intake and Output Vital Signs (last 24 hours): Temp Pulse Resp BP Pulse Ox 98.0 F 72 20 142/93 H 93 L 03/05/17 08:00 03/05/17 09:45 03/05/17 08:00 03/05/17 09:45 03/05/17 08:00 Intake and Output: 03/05/17 03/05/17 06:59 18:59 Intake Total 480 600 Balance 480 600 - Medications Medications: Current Medications Albuterol/Ipratropium (Duoneb 3 Mg/0.5 Mg (3 Ml) Ud) 3 ml IH [id number] [facility] Last Admin: 03/05/17 13:02 Dose: 3 ml Benzonatate (Tessalon Perles) 100 mg PO TID EDGAR Last Admin: 03/05/17 14:27 Dose: 100 mg Camphor/Menthol (Bengay) 0 gm TOP QID PRN PRN Reason: Pain, Mild (1-3) Last Admin: 03/05/17 09:19 Dose: 1 applic Chlordiazepoxide (Librium) 25 mg PO Q8 EDGAR PRN Reason: Protocol Last Admin: 03/05/17 14:27 Dose: 25 mg Doxycycline Hyclate (Doryx) 100 mg PO Q12 [facility]GAR PRN Reason: Protocol Stop: 03/14/17 22:01 Folic Acid (Folic Acid) 1 mg PO DAILY [facility] Last Admin: 03/05/17 09:44 Dose: 1 mg Furosemide (Lasix) 20 mg PO DAILY [facility] Last Admin: 03/05/17 09:45 Dose: 20 mg Heparin Sodium (Porcine) (Heparin) 5,000 units SC Q12 EDGAR PRN Reason: Protocol Last Admin: 03/05/17 09:48 Dose: 5,000 units Cefepime HCl (Maxipime 2gm) 2 gm in 100 mls @ 100 mls/hr IVPB Q12 [facility]GAR PRN Reason: Protocol Stop: 03/08/17 10:01 Last Admin: 03/05/17 09:19 Dose: 100 mls/hr Lisinopril (Zestril) 10 mg PO DAILY [facility] Lisinopril (Zestril) 10 mg PO .EXTRA DOSE ONE Stop: 03/05/17 15:31 Lorazepam (Ativan) 2 mg IVP Q4H PRN; Protocol PRN Reason: Anxiety Methylprednisolone (Solu-Medrol) 40 mg IVP DAILY [facility] Multivitamins (Thera Tab) 1 tab PO 0800 [facility] Ondansetron HCl (Zofran Inj) 4 mg IVP Q4H PRN PRN Reason: Nausea/Vomiting Pantoprazole Sodium (Protonix Ec Tab) 40 mg PO 0600 [facility] Last Admin: 03/05/17 05:48 Dose: 40 mg Sertraline HCl (Zoloft) 100 mg PO DAILY [facility] Last Admin: 03/05/17 09:44 Dose: 100 mg Spironolactone (Aldactone) 25 mg PO DAILY [facility] Last Admin: 03/05/17 09:44 Dose: 25 mg Thiamine HCl (Vitamin B1 Tab) 100 mg PO DAILY [facility] Last Admin: 03/05/17 09:44 Dose: 100 mg - Labs Labs: 03/05/17 06:40 03/04/17 07:30 PT 11.6 Seconds (9.9-11.8) 03/02/17 18:46 INR 1.07 (0.93-1.08) 03/02/17 18:46 APTT 25.9 Seconds (23.7-30.8) 03/02/17 18:46 Attending/Attestation - Attestation I have personally seen and examined this patient.: Yes I have fully participated in the care of the patient.: Yes I have reviewed all pertinent clinical information, including history, physical exam and plan: Yes Notes (Text): I have seen and examined the patient at bedside. Agree with the above note with the following additions/ exceptions: Briefly this is 56 year old male with history of asthma, hep c(known and untreated), depression, bipolar disorder, PAULINO non compliant with cpap, CHF (unknown whether its sys or diast) who was admitted for evaluation of AMS secondary to hypoventilation due to heroin abuse. UDS shows cocaine. Head CT negative. He was found to have CAP on cefepime and doxy. Patient had respiratory acidosis secondary to hypoventilation. He is still tachypneic, has wheezing/ rales however is able to talk in complete sentences.Taper steroids and continue lasix / aldactone. Will hold off on beta viet due to bronchospasm. Has TIM which is improving most likely pre renal. He complains of tremors and agitation. Librium and ativan started. Will closely monitor closely for alcohol withdrawal. Continue thiamine , FA and MVI. He denies suicidal or homicidal ideation. Psych eval pending. Upon discharge patient will follow up with PMD of choice. Dr Karolina Gonsales
[2017-03-04 11:58] LABS: PHOSPHOROUS 3.3 mg/dL (2.5-4.5)
[2017-03-04 12:14] LABS: MAGNESIUM 1.8 mg/dL (1.7-2.2)
--- NOTE | 2017-03-04 14:41 | CON ---
HISTORY OF PRESENT ILLNESS: A 56-year-old male with past medical history of asthma, hypertension, CHF, status post pacemaker, bipolar disorder, depression, sleep apnea, presented to ED after being found intoxicated and with altered mental status. The patient found to be in hypercapnic respiratory failure, given Narcan and placed on BiPAP. The patient found to be in acute renal failure. Nephrology being consulted for the same. Per records, the patient reports snorting heroin earlier. On the day of presentation, the patient was given Narcan in the ED, but did not become more responsive. The patient reports having a chest cold over the past 4 days with subjective fevers and night sweats, did not check temperature; the patient otherwise reports baseline dyspnea on walking one block; reports not have taken his Lasix for the past one and half weeks because it makes him urinate too much; otherwise, he has been taking all of his prescribed medications. Has not been using his CPAP since the past 9 months. The patient otherwise denies any nausea, vomiting or diarrhea. Reports appetite had been well. The patient denies any difficulty urinating. Denies any dysuria. Denies any urinary hesitancy or slow stream. PAST MEDICAL HISTORY: As above. The patient does not know if he has systolic or diastolic dysfunction, follows with real property evaluator at [facility]. FAMILY HISTORY: Mother with diabetes. SOCIAL HISTORY: Regular beer drinker; smokes one pack per week cigarettes. REVIEW OF SYSTEMS: CONSTITUTIONAL: As above. HEENT: Reports chest cold. RESPIRATORY: As per HPI. GASTROINTESTINAL: As per HPI. GENITOURINARY: As per HPI. MUSCULOSKELETAL: Reports right-sided neck pain since the past 6 months, however, worst currently. The patient reports only taking Tylenol. Denies NSAID use. PSYCHIATRIC: As above. NEUROLOGIC: Neck pain as above. PHYSICAL EXAMINATION: VITAL SIGNS: This morning, blood pressure 130/75, heart rate 92, respirations 26, O2 sat 93%. GENERAL: No distress. Conversing coherently in full sentences. HEENT: Moist mucous membranes, nonicteric. No JVD. RESPIRATORY: Diffuse, bilateral expiratory wheezes. No rales. No rhonchi. CARDIOVASCULAR: S1 and S2 normal. No murmurs, no gallops, no rubs. GASTROINTESTINAL: Abdomen is soft, nontender, nondistended. GENITOURINARY: No bladder distention. EXTREMITIES: No leg edema. SKIN: Warm. No cyanosis. PSYCHIATRIC: Somewhat pressured speech. NEUROLOGIC: No numbness in feet. LABORATORY DATA: This morning, CBC: WBC 13.8, hemoglobin 9.5, hematocrit 32.9, platelets 232. Chemistry panel: Sodium 139; potassium 4.3; chloride 104; bicarb 27; BUN 19; creatinine 1.3, down from 2.1 yesterday; glucose 102; calcium 8.5; phosphorus 3.3; magnesium 1.8; albumin . Procalcitonin 2.56. UA on presentation, specific gravity greater than 1.030. Urine protein 30 mg/dL. Negative blood. Blood gas from this morning, pH of 7.24, pCO2 of 67, pO2 of 91 on 40% FiO2. ASSESSMENT AND PLAN: 1. Acute kidney injury, likely prerenal etiology in the setting of being on diuretics (Aldactone) as well as loss of renal autoregulation due to being on DEXTER inhibitor as well as likely losses and decreased intake in the setting of having upper respiratory infection; renal function much improved. The patient likely has some cardiorenal etiology in the setting of severe congestive heart failure; would slowly restart him on diuretics and also, optimize his cardiac status. 2. Congestive heart failure with chest x-ray showing signs of fluid overload, fluid excess although also evidence of pneumonia; no echo available to assess further the patient has systolic or diastolic dysfunction (although home meds indicate systolic dysfunction); recommend to continue diuretics with Lasix at reduced dose of 20 mg daily and Aldactone 25 mg daily; restart B-blockers when deemed appropriate (in setting of ongoing bronchospasm); -Repeat CXR 3. Proteinuria, seen on dipstick UA, otherwise was negative 6 months ago; we will obtain random urine, protein, microalbumin and creatinine. 4. Hypertension. Blood pressure currently controlled with the patient off of antihypertensive meds, recommend to restart meds to avoid worsening congestive heart failure status. 5. Pneumonia. The patient is on cefepime 2 g q. 12 hours and doxycycline 100 mg q. 12 hours. No need for renal dose reduction at this point. Kalpesh Leggett MD [facility]
[2017-03-04] MEDS: MethylPREDNISolone 40 mg Vial IVP SCH (15:12)
--- NOTE | 2017-03-04 16:34 | RAD ---
PROCEDURE: Cervical Spine Radiographs. HISTORY: Pain. COMPARISON: None. FINDINGS: BONES: The vertebral bodies are maintained height. Visualization of the 7th cervical vertebra is somewhat limited on the lateral projection. Normal vertebral alignment is maintained. DISC SPACES: There is narrowing of the C5-6 and C6-7 intervertebral disc spaces consistent with degenerative disc disease. Large anterior osteophytes are seen about these narrowed disc spaces. The remaining intervertebral disc spaces are maintained in height. SOFT TISSUES: Normal. No prevertebral soft tissue swelling. OTHER FINDINGS: None. IMPRESSION: Degenerative disc disease at C5-6 and C6-7.
--- NOTE | 2017-03-04 16:38 | RAD ---
PROCEDURE: CHEST RADIOGRAPH, 1 VIEW HISTORY: hx CHF, CO2 retention COMPARISON: 03/02/2017 FINDINGS: LUNGS: Clear. PLEURA: No pneumothorax or pleural fluid seen. CARDIOVASCULAR: AICD. Mild cardiomegaly. Mild congestive change. OSSEOUS STRUCTURES: No significant abnormalities. VISUALIZED UPPER ABDOMEN: Normal. OTHER FINDINGS: None. IMPRESSION: No infiltrate. Mild cardiomegaly and congestive change. AICD.
[2017-03-05] MEDS: Albuterol-Ipratrop 3 mg / 0.5 (3 ml) UD IH SCH ×4 (03:06→21:25)
[2017-03-05] MEDS: Pantoprazole 40 mg EC Tab PO SCH (05:48)
[2017-03-05 07:21] LABS: HEMATOCRIT 32.5 % (42.0-52.0); MEAN CELL VOLUME 101.6 fl (80.0-105.0); MEAN CORPUSCULAR HGB CONC 29.5 g/dl (31.0-37.0); MEAN PLATELET VOLUME 9.8 fl (7.0-11.0); RED CELL DISTRIBUTION WIDTH 16.6 % (11.5-14.5); WHITE BLOOD COUNT 15.3 10^3/ul (4.5-11.0)
[2017-03-05 07:35] LABS: MAGNESIUM 1.9 mg/dL (1.7-2.2); PHOSPHOROUS 2.9 mg/dL (2.5-4.5)
[2017-03-05] MEDS: Menthol/Methyl Salicylate Ointment(1 oz) TOP PRN ×2 (09:19→16:00)
[2017-03-05] MEDS: Cefepime IV 2 gm in NS 2 GM/100 ML BAG IVPB SCH ×2 (09:19→21:27)
[2017-03-05] MEDS: MethylPREDNISolone 40 mg Vial IVP SCH (09:48)
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
--- NOTE | 2017-03-05 15:14 | CP.PCM.PN ---
<Deanna Faith - Last Filed: 03/05/17 15:28> Subjective - Date & Time of Evaluation Date of Evaluation: 03/05/17 Time of Evaluation: 09:00 - Subjective Subjective: Hospitalist Service Progress Note: Patient seen and examined at bedside. Per nursing no acute events overnight. Patient having slight tremors, c/o neck pain. Still short of breath. Denies headaches, dizziness, cp, palpitations, abdominal pain, urinary symptoms. Denies SI/HI, auditory/visual hallucination. Objective - Vital Signs/Intake and Output Vital Signs (last 24 hours): Temp Pulse Resp BP Pulse Ox 98.0 F 72 20 142/93 H 93 L 03/05/17 08:00 03/05/17 09:45 03/05/17 08:00 03/05/17 09:45 03/05/17 08:00 Intake and Output: 03/05/17 03/05/17 06:59 18:59 Intake Total 480 600 Balance 480 600 - Medications Medications: Current Medications Albuterol/Ipratropium (Duoneb 3 Mg/0.5 Mg (3 Ml) Ud) 3 ml IH [id number] [facility] Last Admin: 03/05/17 13:02 Dose: 3 ml Benzonatate (Tessalon Perles) 100 mg PO TID [facility] Last Admin: 03/05/17 14:27 Dose: 100 mg Camphor/Menthol (Bengay) 0 gm TOP QID PRN PRN Reason: Pain, Mild (1-3) Last Admin: 03/05/17 09:19 Dose: 1 applic Chlordiazepoxide (Librium) 25 mg PO Q8 [facility] PRN Reason: Protocol Last Admin: 03/05/17 14:27 Dose: 25 mg Doxycycline Hyclate (Doryx) 100 mg PO Q12 [facility] PRN Reason: Protocol Stop: 03/14/17 22:01 Folic Acid (Folic Acid) 1 mg PO DAILY [facility] Last Admin: 03/05/17 09:44 Dose: 1 mg Furosemide (Lasix) 20 mg PO DAILY [facility] Last Admin: 03/05/17 09:45 Dose: 20 mg Heparin Sodium (Porcine) (Heparin) 5,000 units SC Q12 [facility] PRN Reason: Protocol Last Admin: 03/05/17 09:48 Dose: 5,000 units Cefepime HCl (Maxipime 2gm) 2 gm in 100 mls @ 100 mls/hr IVPB Q12 [facility] PRN Reason: Protocol Stop: 03/08/17 10:01 Last Admin: 03/05/17 09:19 Dose: 100 mls/hr Lisinopril (Zestril) 5 mg PO DAILY [facility] Last Admin: 03/05/17 09:45 Dose: 5 mg Lorazepam (Ativan) 2 mg IVP Q4H PRN; Protocol PRN Reason: Anxiety Methylprednisolone (Solu-Medrol) 40 mg IVP DAILY [facility] Multivitamins (Thera Tab) 1 tab PO 0800 [facility] Ondansetron HCl (Zofran Inj) 4 mg IVP Q4H PRN PRN Reason: Nausea/Vomiting Pantoprazole Sodium (Protonix Ec Tab) 40 mg PO 0600 [facility] Last Admin: 03/05/17 05:48 Dose: 40 mg Sertraline HCl (Zoloft) 100 mg PO DAILY [facility] Last Admin: 03/05/17 09:44 Dose: 100 mg Spironolactone (Aldactone) 25 mg PO DAILY [facility] Last Admin: 03/05/17 09:44 Dose: 25 mg Thiamine HCl (Vitamin B1 Tab) 100 mg PO DAILY [facility] Last Admin: 03/05/17 09:44 Dose: 100 mg - Labs Labs: 03/05/17 06:40 03/04/17 07:30 PT 11.6 Seconds (9.9-11.8) 03/02/17 18:46 INR 1.07 (0.93-1.08) 03/02/17 18:46 APTT 25.9 Seconds (23.7-30.8) 03/02/17 18:46 - Constitutional Appears: Non-toxic, No Acute Distress - Head Exam Head Exam: ATRAUMATIC, NORMAL INSPECTION - Eye Exam Eye Exam: EOMI, Normal appearance Pupil Exam: NORMAL ACCOMODATION - ENT Exam ENT Exam: Mucous Membranes Moist - Neck Exam Neck Exam: Full ROM - Respiratory Exam Respiratory Exam: Rhonchi, Wheezes, NORMAL BREATHING PATTERN. absent: Rales - Cardiovascular Exam Cardiovascular Exam: REGULAR RHYTHM, +S1, +S2 - GI/Abdominal Exam GI & Abdominal Exam: Soft. absent: Guarding, Rigid, Tenderness - Extremities Exam Extremities Exam: Full ROM, Normal Inspection. absent: Calf Tenderness - Back Exam Back Exam: NORMAL INSPECTION - Neurological Exam Neurological Exam: Alert, Awake, Normal Gait, Oriented x3 Neuro motor strength exam: Left Upper Extremity: 5, Right Upper Extremity: 5, Left Lower Extremity: 5, Right Lower Extremity: 5 - Psychiatric Exam Psychiatric exam: Normal Affect, Normal Mood - Skin Skin Exam: Normal Color, Warm Assessment and Plan - Assessment and Plan (Free Text) Assessment: 56 y/o M with PMH of Asthma, Hepatitis C, Depression, Bipolar Disorder, Sleep Apnea, and CHF presents with AMS in the setting of community acquired pneumonia and heroin overdose. Plan: 1. Altered Mental Status- resolved - Likely secondary to heroin overdose -AAOx3 > 24 hours -Head CT negative for acute pathology -Monitor vital signs q4h 2. Community Acquired Pneumonia - Wbc elevated 15.3 today - Procal 2.56 --> 2.0 - Sputum cx growin enterobacter sensitive to current treatement - Antibiotics: Doxy and cefepime - Continue solumedrol 40mg Q12H - Tessalon pearls added for cough - F/U CT chest - ID consulted for recs - f/u recommendations - Chest PT q6h - Duonebs q6h 3. Hypercapnic Respiratory failure - PH 7.24, PCO2 67, HCO3 28.7 - Hx of PAULINO Currently on BIPAP - Duonebs as needed - Will monitor closely 4. Acute Kidney Injury likely 2/2 dehydration - Resolved - Continue to monitor 5. ETOH abuse/ ETOH withdrawal - Librium 25mg Q8H scheduled; Ativan 2mg Q4 prn agitation - CIWA protocol - Closely observation for withdrawals - Psych consulted, f/u recommendations 6. Hx of CHF - Echo ordered - On lasix, aldactone and Lisinopril - Holding Beta viet at this time - Continue to monitor 7. Neck Pain -Cervical spine xray showing arthritic changes -Bengay prn neck pain 8. Transaminitis -LFTs trending down -Continue to monitor 9. Tobacco abuse -Tobacco cessation advised -Recommending support groups PPX -Protonix -Zofran -Heparin Case and plan was reviewed and discussed in detail with Dr Gonsales. <Karolina Gonsales - Last Filed: 03/05/17 15:39> Objective - Vital Signs/Intake and Output Vital Signs (last 24 hours): Temp Pulse Resp BP Pulse Ox 98.0 F 72 20 142/93 H 93 L 03/05/17 08:00 03/05/17 09:45 03/05/17 08:00 03/05/17 09:45 03/05/17 08:00 Intake and Output: 03/05/17 03/05/17 06:59 18:59 Intake Total 480 600 Balance 480 600 - Medications Medications: Current Medications Albuterol/Ipratropium (Duoneb 3 Mg/0.5 Mg (3 Ml) Ud) 3 ml IH [id number] [facility] Last Admin: 03/05/17 13:02 Dose: 3 ml Benzonatate (Tessalon Perles) 100 mg PO TID [facility] Last Admin: 03/05/17 14:27 Dose: 100 mg Camphor/Menthol (Bengay) 0 gm TOP QID PRN PRN Reason: Pain, Mild (1-3) Last Admin: 03/05/17 09:19 Dose: 1 applic Chlordiazepoxide (Librium) 25 mg PO Q8 [facility] PRN Reason: Protocol Last Admin: 03/05/17 14:27 Dose: 25 mg Doxycycline Hyclate (Doryx) 100 mg PO Q12 [facility] PRN Reason: Protocol Stop: 03/14/17 22:01 Folic Acid (Folic Acid) 1 mg PO DAILY [facility] Last Admin: 03/05/17 09:44 Dose: 1 mg Furosemide (Lasix) 20 mg PO DAILY [facility] Last Admin: 03/05/17 09:45 Dose: 20 mg Heparin Sodium (Porcine) (Heparin) 5,000 units SC Q12 [facility] PRN Reason: Protocol Last Admin: 03/05/17 09:48 Dose: 5,000 units Cefepime HCl (Maxipime 2gm) 2 gm in 100 mls @ 100 mls/hr IVPB Q12 [facility] PRN Reason: Protocol Stop: 03/08/17 10:01 Last Admin: 03/05/17 09:19 Dose: 100 mls/hr Lisinopril (Zestril) 10 mg PO DAILY [facility] Lorazepam (Ativan) 2 mg IVP Q4H PRN; Protocol PRN Reason: Anxiety Methylprednisolone (Solu-Medrol) 40 mg IVP DAILY [facility] Multivitamins (Thera Tab) 1 tab PO 0800 [facility] Ondansetron HCl (Zofran Inj) 4 mg IVP Q4H PRN PRN Reason: Nausea/Vomiting Pantoprazole Sodium (Protonix Ec Tab) 40 mg PO 0600 [facility] Last Admin: 03/05/17 05:48 Dose: 40 mg Sertraline HCl (Zoloft) 100 mg PO DAILY [facility] Last Admin: 03/05/17 09:44 Dose: 100 mg Spironolactone (Aldactone) 25 mg PO DAILY [facility] Last Admin: 03/05/17 09:44 Dose: 25 mg Thiamine HCl (Vitamin B1 Tab) 100 mg PO DAILY [facility] Last Admin: 03/05/17 09:44 Dose: 100 mg - Labs Labs: 03/05/17 06:40 03/04/17 07:30 PT 11.6 Seconds (9.9-11.8) 03/02/17 18:46 INR 1.07 (0.93-1.08) 03/02/17 18:46 APTT 25.9 Seconds (23.7-30.8) 03/02/17 18:46 Attending/Attestation - Attestation I have personally seen and examined this patient.: Yes I have fully participated in the care of the patient.: Yes I have reviewed all pertinent clinical information, including history, physical exam and plan: Yes Notes (Text): I have seen and examined the patient at bedside. Agree with the above note with the following additions/ exceptions: Briefly this is 56 year old male with history of asthma, hep c(known and untreated), depression, bipolar disorder, PAULINO non compliant with cpap, CHF (unknown whether its sys or diast) who was admitted for evaluation of AMS secondary to hypoventilation due to heroin abuse. UDS shows cocaine. Head CT negative. He was found to have Enterobacter CAP on cefepime and doxy. Procal remain elevated. CT chest pending. Patient had respiratory acidosis secondary to hypoventilation. He is still tachypneic and has slight wheezing however is able to talk in complete sentences.Taper steroids and continue lasix / aldactone. Will hold off on beta viet due to bronchospasm. Has TIM which is improving most likely pre renal. He complains of tremors and agitation. Librium and ativan started. Will closely monitor closely for alcohol withdrawal. Continue thiamine, FA and MVI. He denies suicidal or homicidal ideation. Psych eval pending. Upon discharge patient will follow up with PMD of choice. Dr Karolina Gonsales
[2017-03-05 15:51] LABS: ALB/GLOB RATIO 1.1 (1.1-1.8); ALKALINE PHOSPHATASE 130 U/L (38-126); ALT/SGPT 50 U/L (7-56); AST/SGOT 73 U/L (17-59); BILIRUBIN,TOTAL 0.3 mg/dL (0.2-1.3); BLOOD UREA NITROGEN 16 mg/dL (7-21); CALCIUM 9.3 mg/dL (8.4-10.5); CARBON DIOXIDE 29 mmol/L (21-33); CHLORIDE 103 mmol/L (98-107); GFR AFRICAN-AMERICAN > 60; GLUCOSE,RANDOM 100 mg/dL (70-110); POTASSIUM 4.4 mmol/L (3.6-5.0); SODIUM 142 mmol/L (132-148); TOTAL PROTEIN 6.6 g/dL (5.8-8.3)
[2017-03-06] MEDS: Pantoprazole 40 mg EC Tab PO SCH (05:40)
[2017-03-06] MEDS: Albuterol-Ipratrop 3 mg / 0.5 (3 ml) UD IH SCH (07:23)
[2017-03-06 07:28] LABS: BASO # 0.01 K/mm3 (0.0-2.0); BASO % 0.1 % (0.0-3.0); EOS # 0.1 (0.0-0.7); EOS % 0.3 % (1.5-5.0); GRAN # 12.08 (1.4-6.5); GRAN % 80.4 % (50.0-68.0); HEMATOCRIT 32.2 % (42.0-52.0); LYMPH # 1.6 (1.2-3.4); LYMPH % 10.8 % (22.0-35.0); MEAN CELL VOLUME 100.3 fl (80.0-105.0); MEAN CORPUSCULAR HEMOGLOBIN 29.6 pg (25.0-35.0); MEAN CORPUSCULAR HGB CONC 29.5 g/dl (31.0-37.0); MONO # 1.3 (0.1-0.6); MONO % 8.4 % (1.0-6.0); RED CELL DISTRIBUTION WIDTH 16.4 % (11.5-14.5)
[2017-03-06 07:37] VITALS: BP 147/95; PULSE 109; RESP 22; TEMP 98.4; O2SAT 98
[2017-03-06 07:44] LABS: ALKALINE PHOSPHATASE 100 U/L (38-126); ALT/SGPT 45 U/L (7-56); AST/SGOT 53 U/L (17-59); BILIRUBIN,TOTAL 0.4 mg/dL (0.2-1.3); BLOOD UREA NITROGEN 19 mg/dL (7-21); CALCIUM 9.4 mg/dL (8.4-10.5); CARBON DIOXIDE 34 mmol/L (21-33); CHLORIDE 99 mmol/L (98-107); GFR AFRICAN-AMERICAN > 60; GLUCOSE,RANDOM 99 mg/dL (70-110); MAGNESIUM 1.6 mg/dL (1.7-2.2); PHOSPHOROUS 3.8 mg/dL (2.5-4.5); POTASSIUM 4.1 mmol/L (3.6-5.0); SODIUM 142 mmol/L (132-148); TOTAL PROTEIN 6.6 g/dL (5.8-8.3)
[2017-03-06] MEDS ORDERED: Multivitamin Therapeutic Tab PO SCH (08:00)
[2017-03-06] MEDS ORDERED: Home Med 1 UNIT PO STA (08:37)
[2017-03-06] MEDS ORDERED: BUPRENORPHINE PO STA (08:39)
[2017-03-06] MEDS ORDERED: NALOXONE PO STA (08:39)
[2017-03-06] MEDS ORDERED: BUPRENORPHINE SL STA ×2 (08:50→08:52)
[2017-03-06] MEDS ORDERED: NALOXONE SL STA ×2 (08:50→08:52)
[2017-03-06] MEDS ORDERED: MethylPREDNISolone 40 mg Vial IVP SCH (10:00)
--- NOTE | 2017-03-06 12:48 | CP.PCM.DIS ---
<Deanna Faith - Last Filed: 03/06/17 20:27> Provider - Provider Date of Admission: 03/02/17 22:06 Attending physician: Cheyanne Powell MD Time Spent in preparation of Discharge (in minutes): 30 Hospital Course - Lab Results Lab Results: Micro Results 03/03/17 08:24 Sputum Gram Stain - Final 03/03/17 08:24 Sputum Sputum Culture - Final Enterobacter Gergoviae 03/03/17 01:04 Naris MRSA Culture (Admit) - Final MRSA NOT DETECTED Most Recent Lab Values WBC 15.0 10^3/ul (4.5-11.0) H 03/06/17 07:22 RBC 3.21 10^6/uL (3.5-6.1) L 03/06/17 07:22 Hgb 9.5 g/dL (14.0-18.0) L 03/06/17 07:22 Hct 32.2 % (42.0-52.0) L 03/06/17 07:22 MCV 100.3 fl (80.0-105.0) 03/06/17 07:22 MCH 29.6 pg (25.0-35.0) 03/06/17 07:22 MCHC 29.5 g/dl (31.0-37.0) L 03/06/17 07:22 RDW 16.4 % (11.5-14.5) H 03/06/17 07:22 Plt Count 277 10^3/uL (120.0-450.0) 03/06/17 07:22 MPV 9.0 fl (7.0-11.0) 03/06/17 07:22 Gran % 80.4 % (50.0-68.0) H 03/06/17 07:22 Lymph % (Auto) 10.8 % (22.0-35.0) L 03/06/17 07:22 [place] % (Auto) 8.4 % (1.0-6.0) H 03/06/17 07:22 Eos % (Auto) 0.3 % (1.5-5.0) L 03/06/17 07:22 Baso % (Auto) 0.1 % (0.0-3.0) 03/06/17 07:22 Gran # 12.08 (1.4-6.5) H 03/06/17 07:22 Lymph # 1.6 (1.2-3.4) 03/06/17 07:22 [place] # 1.3 (0.1-0.6) H 03/06/17 07:22 Eos # 0.1 (0.0-0.7) 03/06/17 07:22 Baso # 0.01 K/mm3 (0.0-2.0) 03/06/17 07:22 Corrected WBC (Man) 14.4 K/mm3 (4.5-11.0) H 03/02/17 18:46 Neutrophils % (Manual) 68 % (50.0-70.0) 03/02/17 18:46 Band Neutrophils % 3 % (0-2) H 03/02/17 18:46 Lymphocytes % (Manual) 18 % (22.0-35.0) L 03/02/17 18:46 Monocytes % (Manual) 11 % (1.0-6.0) H 03/02/17 18:46 Nucleated RBC % 9 % 03/02/17 18:46 Platelet Evaluation Normal (NORMAL) 03/02/17 18:46 Hypochromasia 1+ 03/02/17 18:46 PT 11.6 Seconds (9.9-11.8) 03/02/17 18:46 INR 1.07 (0.93-1.08) 03/02/17 18:46 APTT 25.9 Seconds (23.7-30.8) 03/02/17 18:46 pCO2 67 mm/Hg (35-45) H 03/04/17 05:25 pO2 91.0 mm/Hg (80-100) 03/04/17 05:25 HCO3 28.7 mmol/L (21-28) H 03/04/17 05:25 ABG pH 7.24 (7.35-7.45) L 03/04/17 05:25 ABG Total CO2 30.8 mmol.L (22-28) H 03/04/17 05:25 ABG O2 Saturation 97.6 % (95-98) 03/04/17 05:25 ABG O2 Content 12.6 ML/dl (15-23) L 03/04/17 05:25 ABG Base Excess 0.5 mmol/L (-2.0-3.0) 03/04/17 05:25 ABG Hemoglobin 9.3 g/dL (11.7-17.4) L 03/04/17 05:25 ABG Carboxyhemoglobin 1.8 % (0.5-1.5) H 03/04/17 05:25 POC ABG HHb (Measured) 2.3 % (0-5) 03/04/17 05:25 ABG Methemoglobin 0.9 % (0.0-3.0) 03/04/17 05:25 ABG O2 Capacity 12.9 mL/dl (16-24) L 03/04/17 05:25 ABG Potassium 4.8 mmol/L (3.6-5.2) 03/02/17 22:36 VBG pH 7.06 (7.32-7.43) L* 03/02/17 22:10 VBG pCO2 90.0 (40-60) H* 03/02/17 22:10 VBG HCO3 25.5 mmol/l (21-28) 03/02/17 22:10 VBG Total CO2 28.3 mmol.L (22-28) H 03/02/17 22:10 VBG O2 Sat (Calc) 98.4 % (40-65) H 03/02/17 22:10 VBG Base Excess -6.9 mmol/L (0.0-2.0) L 03/02/17 22:10 VBG Potassium 4.9 mmol/L (3.6-5.2) 03/02/17 22:10 Hgb O2 Saturation 95.0 % (95.0-98.0) 03/04/17 05:25 Sodium 138.0 mmol/L (132-148) 03/02/17 22:36 Chloride 110.0 mmol/L (98-107) H 03/02/17 22:36 Glucose 140 mg/dl (75-110) H 03/02/17 22:36 Lactate 0.5 mmol/L (0.7-2.1) L 03/02/17 22:36 FiO2 40.0 % 03/04/17 05:25 Sodium 142 mmol/L (132-148) 03/06/17 07:22 Potassium 4.1 mmol/L (3.6-5.0) 03/06/17 07:22 Chloride 99 mmol/L (98-107) 03/06/17 07:22 Carbon Dioxide 34 mmol/L (21-33) H 03/06/17 07:22 Anion Gap 13 (10-20) 03/06/17 07:22 BUN 19 mg/dL (7-21) 03/06/17 07:22 Creatinine 1.1 mg/dL (0.5-1.4) 03/06/17 07:22 Est GFR ( Amer) > 60 03/06/17 07:22 Est GFR (Non-Af Amer) > 60 03/06/17 07:22 Random Glucose 99 mg/dL (70-110) 03/06/17 07:22 Calcium 9.4 mg/dL (8.4-10.5) 03/06/17 07:22 Phosphorus 3.8 mg/dL (2.5-4.5) 03/06/17 07:22 Magnesium 1.6 mg/dL (1.7-2.2) L 03/06/17 07:22 Total Bilirubin 0.4 mg/dL (0.2-1.3) 03/06/17 07:22 AST 53 U/L (17-59) 03/06/17 07:22 ALT 45 U/L (7-56) 03/06/17 07:22 Alkaline Phosphatase 100 U/L (38-126) 03/06/17 07:22 Ammonia 43 umol/L (9-33) H 03/03/17 06:10 Total Creatine Kinase 44 U/L (35-230) 03/02/17 18:46 Troponin I 0.02 ng/mL D 03/02/17 18:46 Total Protein 6.6 g/dL (5.8-8.3) 03/06/17 07:22 Albumin 3.3 g/dL (3.0-4.8) 03/06/17 07:22 Globulin 3.3 gm/dL 03/06/17 07:22 Albumin/Globulin Ratio 1.0 (1.1-1.8) L 03/06/17 07:22 Vitamin B12 483 pg/mL (239-931) 03/05/17 08:55 Folate 8.0 ng/mL 03/05/17 08:55 Procalcitonin 2.00 NG/ML (0.19-0.49) H 03/04/17 09:00 Arterial Blood Potassium 4.8 mmol/L (3.6-5.2) 03/02/17 22:36 Venous Blood Potassium 4.9 mmol/L (3.6-5.2) 03/02/17 22:10 Urine Color Yellow (YELLOW) 03/02/17 20:01 Urine Appearance Sl cloudy (CLEAR) 03/02/17 20:01 Urine pH 5.5 (4.7-8.0) 03/02/17 20:01 Ur Specific [place] >= 1.030 (1.005-1.035) 03/02/17 20:01 Urine Protein 30 mg/dL (<30 mg/dL) H 03/02/17 20:01 Urine Glucose (UA) Negative mg/dL (NEGATIVE) 03/02/17 20:01 Urine Ketones Negative mg/dL (NEGATIVE) 03/02/17 20:01 Urine Blood Negative (NEGATIVE) 03/02/17 20:01 Urine Nitrate Negative (NEGATIVE) 03/02/17 20:01 Urine Bilirubin Negative (NEGATIVE) 03/02/17 20:01 Urine Urobilinogen 0.2 E.U./dL (<1 E.U./dL) 03/02/17 20:01 Ur Leukocyte Esterase Negative Rissa/uL (NEGATIVE) 03/02/17 20:01 Urine RBC Negative /hpf (0-2) 03/02/17 20:01 Urine WBC 0 - 2 /hpf (0-6) 03/02/17 20:01 Hyaline Casts 0 - 2 /hpf 03/02/17 20:01 Ur Random Creatinine 104 mg/dL 03/03/17 11:40 Ur Random Sodium 83 meq/L 03/03/17 11:40 Salicylates < 1 mg/dL (2.0-20.0) L 03/02/17 18:46 Urine Opiates Screen Positive (NEGATIVE) H 03/02/17 20:01 Urine Methadone Screen Negative (NEGATIVE) 03/02/17 20:01 Acetaminophen < 10.0 ug/ml (10.0-20.0) L 03/02/17 18:46 Ur Barbiturates Screen Negative (NEGATIVE) 03/02/17 20:01 Ur Phencyclidine Scrn Negative (NEGATIVE) 03/02/17 20:01 Ur Amphetamines Screen Negative (NEGATIVE) 03/02/17 20:01 U Benzodiazepines Scrn Negative (NEGATIVE) 03/02/17 20:01 U Oth Cocaine Metabols Positive (NEGATIVE) H 03/02/17 20:01 U Cannabinoids Screen Negative (NEGATIVE) 03/02/17 20:01 Alcohol, Quantitative < 10 mg/dL (0-10) 03/02/17 18:46 Complement C3 153.0 mg/dL (88.0-165.0) 03/04/17 09:45 Complement C4 33.2 mg/dL (14.0-44.0) 03/04/17 09:45 Hepatitis A IgM Ab Negative (NEGATIVE) 03/03/17 09:50 Hep Bs Antigen Negative (NEGATIVE) 03/03/17 09:50 Hep B Core IgM Ab Negative (NEGATIVE) 03/03/17 09:50 Hepatitis C Antibody Negative (NEGATIVE) 03/03/17 09:50 HIV 1&2 Ag/Ab, 4th Gen Nonreactive (Nonreactive) 03/03/17 10:01 Ur L.pneumophila Ag Negative (NEGATIVE) 03/03/17 11:40 - Hospital Course Hospital Course: Patient is a 56 year old male with history of asthma, hep c (known and untreated ), depression, bipolar disorder, PAULINO non compliant with cpap, CHF (unknown whether its sys or diast) who was admitted for evaluation of AMS secondary to hypoventilation due to heroin abuse. UDS shows cocaine. Head CT negative. He was found to have Enterobacter CAP. Patient was started on cefepime and doxy. ID was consulted and on the case. Procal was elevated. Patient had respiratory acidosis secondary to hypoventilation. Was admitted to the ICU and subsequently downgraded to Med/surg floor once stable. For wheezing and cough, patient was started on steroids, tessalon pearls, Chest PT, lasix/aldactone. Blood cx were negative, sputum cx grew enterobacter. Coreg was held due to bronchospasm. Patient was complaining of neck pain, cervical spine x ray showed arthritic changes, patient given bengay for pain as needed. Patient had an TIM on admission, likely pre-renal in nature. Nephrology was consulted and on the case. TIM improved. For withdrawals patient was started on librium and ativan. Echo and CT Chest were ordered however patient wanted to leave the hospital. Patient signed out AMA on 03/06. Stated that he wanted to make it to his psychiatrist appointment in the [facility]. Patient was not amendable to staying in the hospital and continuing treatment. Risks including worsening of condition, worsening DTs, seizure and discussed with the patient, however patient still wanted to leave. Patient was seen and evaluated by psychiatry prior to leaving. He denied suicidal or homicidal ideation. Advised patient to continue antibiotics as prescribed. Patient to follow up with PMD Dr Antonieta Mckinney. Tobacco, drug and alcohol cessation were advised. Discharge Exam - Head Exam Head Exam: ATRAUMATIC, NORMAL INSPECTION - Eye Exam Eye Exam: EOMI, Normal appearance Pupil Exam: NORMAL ACCOMODATION, PERRL - ENT Exam ENT Exam: Mucous Membranes Moist - Neck Exam Neck exam: Full Rom - Respiratory Exam Respiratory Exam: Rhonchi, Wheezes, NORMAL BREATHING PATTERN. absent: Rales - Cardiovascular Exam Cardiovascular Exam: REGULAR RHYTHM, +S1, +S2 - GI/Abdominal Exam GI & Abdominal Exam: Normal Bowel Sounds, Soft. absent: Guarding, Rebound, Rigid, Tenderness - Extremities Exam Extremities exam: normal inspection Additional comments: +tremors - Back Exam Back exam: NORMAL INSPECTION - Neurological Exam Neurological exam: Alert, Normal Gait, Oriented x3 - Psychiatric Exam Psychiatric exam: Anxious, Normal Affect, Normal Mood - Skin Skin Exam: Dry, Normal Color, Warm Discharge Plan - Discharge Medications Prescriptions: Albuterol HFA [Ventolin HFA 90 mcg/actuation (8 g)] 1 puff IH Q6 #1 inhaler Cefpodoxime [Vantin] 200 mg PO BID #14 tab Doxycycline Hyclate 100 mg PO BID #14 capsule - Follow Up Plan Condition: FAIR Disposition: AGAINST MEDICAL ADVICE <Cheyanne Powell - Last Filed: 03/07/17 11:31> Provider - Provider Date of Admission: 03/02/17 22:06 Attending physician: Cheyanne Powell MD Hospital Course - Lab Results Lab Results: Micro Results 03/03/17 08:24 Sputum Gram Stain - Final 03/03/17 08:24 Sputum Sputum Culture - Final Enterobacter Gergoviae 03/03/17 01:04 Naris MRSA Culture (Admit) - Final MRSA NOT DETECTED Most Recent Lab Values WBC 15.0 10^3/ul (4.5-11.0) H 03/06/17 07:22 RBC 3.21 10^6/uL (3.5-6.1) L 03/06/17 07:22 Hgb 9.5 g/dL (14.0-18.0) L 03/06/17 07:22 Hct 32.2 % (42.0-52.0) L 03/06/17 07:22 MCV 100.3 fl (80.0-105.0) 03/06/17 07:22 MCH 29.6 pg (25.0-35.0) 03/06/17 07: MCHC 29.5 g/dl (31.0-37.0) L 03/06/17 07: RDW 16.4 % (11.5-14.5) H 03/06/17 07:22 Plt Count 277 10^3/uL (120.0-450.0) 03/06/17 07: MPV 9.0 fl (7.0-11.0) 03/06/17 07: Gran % 80.4 % (50.0-68.0) H 03/06/17 07:22 Lymph % (Auto) 10.8 % (22.0-35.0) L 03/06/17 07:22 [place] % (Auto) 8.4 % (1.0-6.0) H 03/06/17 07:22 Eos % (Auto) 0.3 % (1.5-5.0) L 03/06/17 07:22 Baso % (Auto) 0.1 % (0.0-3.0) 03/06/17 07:22 Gran # 12.08 (1.4-6.5) H 03/06/17 07:22 Lymph # 1.6 (1.2-3.4) 03/06/17 07:22 [place] # 1.3 (0.1-0.6) H 03/06/17 07:22 Eos # 0.1 (0.0-0.7) 03/06/17 07:22 Baso # 0.01 K/mm3 (0.0-2.0) 03/06/17 07:22 Corrected WBC (Man) 14.4 K/mm3 (4.5-11.0) H 03/02/17 18:46 Neutrophils % (Manual) 68 % (50.0-70.0) 03/02/17 18:46 Band Neutrophils % 3 % (0-2) H 03/02/17 18:46 Lymphocytes % (Manual) 18 % (22.0-35.0) L 03/02/17 18:46 Monocytes % (Manual) 11 % (1.0-6.0) H 03/02/17 18:46 Nucleated RBC % 9 % 03/02/17 18:46 Platelet Evaluation Normal (NORMAL) 03/02/17 18:46 Hypochromasia 1+ 03/02/17 18:46 PT 11.6 Seconds (9.9-11.8) 03/02/17 18:46 INR 1.07 (0.93-1.08) 03/02/17 18:46 APTT 25.9 Seconds (23.7-30.8) 03/02/17 18:46 pCO2 67 mm/Hg (35-45) H 03/04/17 05:25 pO2 91.0 mm/Hg (80-100) 03/04/17 05:25 HCO3 28.7 mmol/L (21-28) H 03/04/17 05:25 ABG pH 7.24 (7.35-7.45) L 03/04/17 05:25 ABG Total CO2 30.8 mmol.L (22-28) H 03/04/17 05:25 ABG O2 Saturation 97.6 % (95-98) 03/04/17 05:25 ABG O2 Content 12.6 ML/dl (15-23) L 03/04/17 05:25 ABG Base Excess 0.5 mmol/L (-2.0-3.0) 03/04/17 05:25 ABG Hemoglobin 9.3 g/dL (11.7-17.4) L 03/04/17 05:25 ABG Carboxyhemoglobin 1.8 % (0.5-1.5) H 03/04/17 05:25 POC ABG HHb (Measured) 2.3 % (0-5) 03/04/17 05:25 ABG Methemoglobin 0.9 % (0.0-3.0) 03/04/17 05:25 ABG O2 Capacity 12.9 mL/dl (16-24) L 03/04/17 05:25 ABG Potassium 4.8 mmol/L (3.6-5.2) 03/02/17 22:36 VBG pH 7.06 (7.32-7.43) L* 03/02/17 22:10 VBG pCO2 90.0 (40-60) H* 03/02/17 22:10 VBG HCO3 25.5 mmol/l (21-28) 03/02/17 22:10 VBG Total CO2 28.3 mmol.L (22-28) H 03/02/17 22:10 VBG O2 Sat (Calc) 98.4 % (40-65) H 03/02/17 22:10 VBG Base Excess -6.9 mmol/L (0.0-2.0) L 03/02/17 22:10 VBG Potassium 4.9 mmol/L (3.6-5.2) 03/02/17 22:10 Hgb O2 Saturation 95.0 % (95.0-98.0) 03/04/17 05:25 Sodium 138.0 mmol/L (132-148) 03/02/17 22:36 Chloride 110.0 mmol/L (98-107) H 03/02/17 22:36 Glucose 140 mg/dl (75-110) H 03/02/17 22:36 Lactate 0.5 mmol/L (0.7-2.1) L 03/02/17 22:36 FiO2 40.0 % 03/04/17 05:25 Sodium 142 mmol/L (132-148) 03/06/17 07:22 Potassium 4.1 mmol/L (3.6-5.0) 03/06/17 07:22 Chloride 99 mmol/L (98-107) 03/06/17 07:22 Carbon Dioxide 34 mmol/L (21-33) H 03/06/17 07:22 Anion Gap 13 (10-20) 03/06/17 07:22 BUN 19 mg/dL (7-21) 03/06/17 07:22 Creatinine 1.1 mg/dL (0.5-1.4) 03/06/17 07:22 Est GFR ( Amer) > 60 03/06/17 07:22 Est GFR (Non-Af Amer) > 60 03/06/17 07:22 Random Glucose 99 mg/dL (70-110) 03/06/17 07:22 Calcium 9.4 mg/dL (8.4-10.5) 03/06/17 07:22 Phosphorus 3.8 mg/dL (2.5-4.5) 03/06/17 07:22 Magnesium 1.6 mg/dL (1.7-2.2) L 03/06/17 07:22 Total Bilirubin 0.4 mg/dL (0.2-1.3) 03/06/17 07:22 AST 53 U/L (17-59) 03/06/17 07:22 ALT 45 U/L (7-56) 03/06/17 07:22 Alkaline Phosphatase 100 U/L (38-126) 03/06/17 07:22 Ammonia 43 umol/L (9-33) H 03/03/17 06:10 Total Creatine Kinase 44 U/L (35-230) 03/02/17 18:46 Troponin I 0.02 ng/mL D 03/02/17 18:46 Total Protein 6.6 g/dL (5.8-8.3) 03/06/17 07:22 Albumin 3.3 g/dL (3.0-4.8) 03/06/17 07:22 Globulin 3.3 gm/dL 03/06/17 07:22 Albumin/Globulin Ratio 1.0 (1.1-1.8) L 03/06/17 07:22 Vitamin B12 483 pg/mL (239-931) 03/05/17 08:55 Folate 8.0 ng/mL 03/05/17 08:55 Procalcitonin 2.00 NG/ML (0.19-0.49) H 03/04/17 09:00 PTH Intact Whole Molec 33 pg/mL (14-64) 03/05/17 06:40 Arterial Blood Potassium 4.8 mmol/L (3.6-5.2) 03/02/17 22:36 Venous Blood Potassium 4.9 mmol/L (3.6-5.2) 03/02/17 22:10 Urine Color Yellow (YELLOW) 03/02/17 20:01 Urine Appearance Sl cloudy (CLEAR) 03/02/17 20:01 Urine pH 5.5 (4.7-8.0) 03/02/17 20:01 Ur Specific [place] >= 1.030 (1.005-1.035) 03/02/17 20:01 Urine Protein 30 mg/dL (<30 mg/dL) H 03/02/17 20:01 Urine Glucose (UA) Negative mg/dL (NEGATIVE) 03/02/17 20:01 Urine Ketones Negative mg/dL (NEGATIVE) 03/02/17 20:01 Urine Blood Negative (NEGATIVE) 03/02/17 20:01 Urine Nitrate Negative (NEGATIVE) 03/02/17 20:01 Urine Bilirubin Negative (NEGATIVE) 03/02/17 20:01 Urine Urobilinogen 0.2 E.U./dL (<1 E.U./dL) 03/02/17 20:01 Ur Leukocyte Esterase Negative Rissa/uL (NEGATIVE) 03/02/17 20:01 Urine RBC Negative /hpf (0-2) 03/02/17 20:01 Urine WBC 0 - 2 /hpf (0-6) 03/02/17 20:01 Hyaline Casts 0 - 2 /hpf 03/02/17 20:01 Ur Random Creatinine 104 mg/dL 03/03/17 11:40 Ur Random Sodium 83 meq/L 03/03/17 11:40 Salicylates < 1 mg/dL (2.0-20.0) L 03/02/17 18:46 Urine Opiates Screen Positive (NEGATIVE) H 03/02/17 20:01 Urine Methadone Screen Negative (NEGATIVE) 03/02/17 20:01 Acetaminophen < 10.0 ug/ml (10.0-20.0) L 03/02/17 18:46 Ur Barbiturates Screen Negative (NEGATIVE) 03/02/17 20:01 Ur Phencyclidine Scrn Negative (NEGATIVE) 03/02/17 20:01 Ur Amphetamines Screen Negative (NEGATIVE) 03/02/17 20:01 U Benzodiazepines Scrn Negative (NEGATIVE) 03/02/17 20:01 U Oth Cocaine Metabols Positive (NEGATIVE) H 03/02/17 20:01 U Cannabinoids Screen Negative (NEGATIVE) 03/02/17 20:01 Alcohol, Quantitative < 10 mg/dL (0-10) 03/02/17 18:46 Complement C3 153.0 mg/dL (88.0-165.0) 03/04/17 09:45 Complement C4 33.2 mg/dL (14.0-44.0) 03/04/17 09:45 Hepatitis A IgM Ab Negative (NEGATIVE) 03/03/17 09:50 Hep Bs Antigen Negative (NEGATIVE) 03/03/17 09:50 Hep B Core IgM Ab Negative (NEGATIVE) 03/03/17 09:50 Hepatitis C Antibody Negative (NEGATIVE) 03/03/17 09:50 HIV 1&2 Ag/Ab, 4th Gen Nonreactive (Nonreactive) 03/03/17 10:01 Ur L.pneumophila Ag Negative (NEGATIVE) 03/03/17 11:40 Attending/Attestation - Attestation I have personally seen and examined this patient.: Yes I have fully participated in the care of the patient.: Yes I have reviewed all pertinent clinical information, including history, physical exam and plan: Yes Notes (Text): 03/07/17 11:22 Attending note; Patient seen and examined with resident. Patient is a 56 year old male with history of asthma, hep c(known and untreated) , depression, bipolar disorder, PAULINO non compliant with cpap, CHF was admitted for evaluation of AMS secondary to hypoventilation due to heroin abuse. UDS shows cocaine. Head CT negative. He was found to have Enterobacter CAP and treated with IV cefepime and doxy. CT chest ordered. Patient refused. Asthma/active smoking; Treated with steroids and duoneb. TIM : resolved.which is improving most likely pre renal. He complains of tremors and agitation. alcohol abuse: Treated with Librium and ativan. Continue thiamine, FA and MVI. He denies suicidal or homicidal ideation. Psych evaluation appreciated. Patient refused to stay in the hospital. Patient is currently going to [facility] to see his psychiatrist. signed AMA. Diagnosis; Asthma Hep C Bipolar disorder Drug abuse/heroin and cocaine alcohol abuse Noncompliance with follow-up
--- NOTE | 2017-03-06 20:26 | CON ---
DATE: HISTORY OF PRESENT ILLNESS: The patient is a 56-year-old male with history of bipolar disorder. The patient also has history of alcohol use disorder. The patient was on Suboxone for substance abuse and dependence. The patient was admitted on ICU unit for evaluation of altered mental status. The patient also was intoxicated with heroin. The patient was lethargic, needed to be on BiPAP. Psych consult was called for evaluation of mental status as well as the patient has history of mental illness. Initially, the patient was in ICU, was not doing that well and this fiction writer asked medical team to reconsult after the patient will be improving, so far the patient improved, wants to leave the hospital today against medical advice. The patient was seen and examined together with Dr. Powell next to the nursing station. The patient presented to be alert and oriented, pleasant, and cooperative, upper extremity tremor. The patient said that he wants to be discharged because he has his appointment with his psychiatrist at 12:00 p.m. at [facility]. The patient denied that he is depressed. Denied thoughts of harming himself or others. Denied intent or plan. The patient denied hearing voices. Denied seeing things. Denied paranoid ideation. The patient has future oriental plans and the patient was educated from the medical standpoint how to take medication and what is the medical diagnosis. The patient verbalized understanding. Medical team provided the patient with prescriptions for all of his medications and the patient was appreciated. PHYSICAL EXAMINATION: VITAL SIGNS: Reviewed. Temperature is 98.4, pulse is 109, blood pressure 147/95, respirations 22, and oxygen saturation is 98. MENTAL STATUS EXAMINATION: The patient presented to be alert, oriented, pleasant, and cooperative. The patient has good personal hygiene, intermittent eye contact. Speech was under productive. Mood described "I am fine and I am feeling better and want to go home." Affect was constricted. Thought process seems to be coherent and goal directed. Thought content, the patient denied visual, auditory, or tactile hallucinations. Denied paranoid ideation. The patient denied thoughts of harming himself or others. Denied intents or plan. Insight and judgment into his addiction is very limited. Impulses are well controlled. MEDICATIONS: Reviewed. The patient is on Tylenol, DuoNeb, benzonatate, , cefepime IV push, but as per medical team, it can be switched to p.o. medications Librium, doxycycline, folic acid, Lasix, heparin, lisinopril, also Ativan, Solu-Medrol, multivitamins, nicotine, Zofran, pantoprazole, Zoloft 100 mg daily, Aldactone, and thiamine. LABORATORY DATA: Reviewed. The patient has leukocytosis of 10.0, hemoglobin and hematocrit 9.5 and 32.2. Coagulation reviewed. Chemistry reviewed. Carbon dioxide 34, which was today. Toxicology reviewed, opioid positive as well as cocaine positive. Serology negative for hepatitis, this fiction writer reviewed previous notes. This fiction writer was involved into the patient's care in 08/2016, the same presentation to be as this admission. The patient has history of delirium in the past, history of admissions to the psychiatric inpatient unit, but it was a while ago. IMPRESSION: As per history, the patient has bipolar disorder. The patient has history of delirium due to polysubstance abuse and dependence and withdrawals from opioids, as well as alcohol, history of polysubstance abuse and dependence in the past, rule out alcohol delirium, which is improving. PLAN: From the psychiatric standpoint, the patient seemed to be not in any imminent danger to self or others. The patient has follow up appointment today at [facility] with Dr. Granger, phone number [phone]. The patient is on Suboxone. The patient is compliant with the medications. The patient does not have any behavioral incidents, was pleasant, cooperative, and no agitation. From the medical standpoint, the patient can be switched to p.o. antibiotics. The patient might benefit from staying in the hospital, but the patient decided to leave against medical advice. From this fiction writer prospective, the patient has capacity to do so. Case was discussed with Dr. Powell. Should you have any questions, give me a call back. Thank you very much for letting me to participate in the care of your patient. Victoria Brooks MD
== END 2017-03-06 10:29 | disposition left against medical advice (07) | DRG 540 ==
LOC: ED 18:25 → ERH 22:06 → CCU 03-03 01:05 → 5RSO 03-04 17:49
PROVIDERS: ADMIT Internal Medicine; ATTEND Internal Medicine
DX: J15.6 Pneumonia due to other Gram-negative bacteria (principal); J96.92 Respiratory failure, unspecified with hypercapnia; N17.9 Acute kidney failure, unspecified; I50.20 Unspecified systolic (congestive) heart failure; I11.0 Hypertensive heart disease with heart failure; E87.2 Acidosis; J45.901 Unspecified asthma with (acute) exacerbation; J44.0 Chronic obstructive pulmonary disease with (acute) lower respiratory infection; B19.20 Unspecified viral hepatitis C without hepatic coma; F11.10 Opioid abuse, uncomplicated; F14.10 Cocaine abuse, uncomplicated; R09.02 Hypoxemia; T40.1X1A Poisoning by heroin, accidental (unintentional), initial encounter; J45.909 Unspecified asthma, uncomplicated; F31.9 Bipolar disorder, unspecified; F10.10 Alcohol abuse, uncomplicated; F17.210 Nicotine dependence, cigarettes, uncomplicated; E66.9 Obesity, unspecified; Z68.31 Body mass index [BMI] 31.0-31.9, adult; G47.33 Obstructive sleep apnea (adult) (pediatric); H70.90 Unspecified mastoiditis, unspecified ear; J06.9 Acute upper respiratory infection, unspecified; I25.2 Old myocardial infarction; Z83.3 Family history of diabetes mellitus; Z91.19 Patient's noncompliance with other medical treatment and regimen; Z95.0 Presence of cardiac pacemaker; R06.89 Other abnormalities of breathing

== ENCOUNTER 2017-09-13 19:33 | Inpatient (IN) | payer MEDICAID ==
[2017-09-13] MEDS ORDERED: Naloxone 0.4 mg/ml Inj (Adult) ONE (19:41)
[2017-09-13] MEDS ORDERED: Naloxone 0.4 mg/ml Inj (Adult) IVP STA ×2 (19:50→20:08)
[2017-09-13 20:09] LABS: BASO # 0.01 K/mm3 (0.0-2.0); BASO % 0.1 % (0.0-3.0); EOS % 0.3 % (1.5-5.0); GRAN # 9.52 (1.4-6.5); GRAN % 79.3 % (50.0-68.0); HEMOGLOBIN 8.4 g/dL (14.0-18.0); LYMPH # 1.8 (1.2-3.4); LYMPH % 14.9 % (22.0-35.0); MEAN CELL VOLUME 93.6 fl (80.0-105.0); MEAN CORPUSCULAR HEMOGLOBIN 25.5 pg (25.0-35.0); MEAN CORPUSCULAR HGB CONC 27.2 g/dl (31.0-37.0); MONO # 0.7 (0.1-0.6); MONO % 5.4 % (1.0-6.0); RBC 3.3 10^6/uL (3.5-6.1); RED CELL DISTRIBUTION WIDTH 19.3 % (11.5-14.5)
[2017-09-13 20:16] LABS: INR 1.05 (0.93-1.08); PARTIAL THROMBOPLASTIN TIME 30.9 Seconds (25.1-36.5)
[2017-09-13 20:22] LABS: ALB/GLOB RATIO 0.9 (1.1-1.8); ALBUMIN 3.4 g/dL (3.0-4.8); ALT/SGPT 66 U/L (7-56); AST/SGOT 65 U/L (17-59); BLOOD UREA NITROGEN 27 mg/dL (7-21); CALCIUM 8.9 mg/dL (8.4-10.5); GFR AFRICAN-AMERICAN 27; GFR NON-AFRICAN AMERICAN 23
[2017-09-13] MEDS ORDERED: Albuterol 0.5% Inhal Sol (2.5 mg/0.5 ml) UD IH STA (20:24)
[2017-09-13 20:25] LABS: TROPONIN I 0.08 ng/mL
[2017-09-13] MEDS ORDERED: Insulin Regular 1 UNITS/0.01 ML ML IVP STA (20:25)
[2017-09-13] MEDS ORDERED: Dextrose 50% SYRINGE Inj (50 ml) IVP STA (20:25)
[2017-09-13] MEDS: Sodium Chloride 0.9% 1,000 ML IV SCH (20:34)
[2017-09-13 21:03] LABS: ARTERIAL BLOOD GAS HCO3 29.9 mmol/L (21-28); ARTERIAL BLOOD GAS HEMOGLOBIN 8.3 g/dL (11.7-17.4); ARTERIAL BLOOD GAS O2 CAPACITY 11.6 mL/dl (16-24); ARTERIAL BLOOD GAS O2 CONTENT 11.6 ML/dl (15-23); ARTERIAL BLOOD GAS O2 SAT 100.2 % (95-98); ARTERIAL BLOOD GAS PCO2 94 mm/Hg (35-45); ARTERIAL BLOOD GAS TCO2 32.8 mmol.L (22-28)
[2017-09-13 21:06] LABS: ARTERIAL BLOOD GAS PH 7.11 (7.35-7.45)
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
[2017-09-13 21:54] LABS: ARTERIAL BLOOD GAS HCO3 28.9 mmol/L (21-28); ARTERIAL BLOOD GAS HEMOGLOBIN 7.4 g/dL (11.7-17.4); ARTERIAL BLOOD GAS O2 CONTENT 10.1 ML/dl (15-23); ARTERIAL BLOOD GAS PCO2 89 mm/Hg (35-45); ARTERIAL BLOOD GAS TCO2 31.6 mmol.L (22-28)
[2017-09-13 21:57] LABS: ARTERIAL BLOOD GAS PH 7.12 (7.35-7.45)
[2017-09-13] MEDS ORDERED: SODIUM CHLORIDE 0.9% IV ONE (22:01)
[2017-09-13] MEDS ORDERED: NALOXONE IV ONE (22:01)
[2017-09-13] MEDS ORDERED: Etomidate 20 mg/10ml Inj IV ONE (22:12)
[2017-09-13] MEDS ORDERED: Succinylcholine 200 mg/10 ml Inj IV ONE (22:12)
[2017-09-13] MEDS: Propofol 10 mg/ml 1,000 MG/100 ML VIAL IV PRN (23:06)
[2017-09-13 23:15] LABS: URINE BILIRUBIN NEGATIVE (NEGATIVE); URINE BLOOD MODERATE (NEGATIVE); URINE GLUCOSE (UA) NEGATIVE (NEGATIVE); URINE LEUKOCYTE ESTERASE NEGATIVE Leu/uL (NEGATIVE); URINE PROTEIN 30 mg/dL (<30 mg/dL); URINE UROBILINOGEN 0.2 E.U./dL (<1 E.U./dL)
[2017-09-13 23:17] LABS: URINE APPEARANCE SL CLOUDY (CLEAR); URINE COLOR YELLOW (YELLOW)
[2017-09-13 23:25] LABS: URINE BACTERIA MOD (NEG)
[2017-09-13] MEDS ORDERED: Etomidate 20 mg/10ml Inj IVP STA (23:47)
[2017-09-13] MEDS ORDERED: Succinylcholine 200 mg/10 ml Inj IV STA (23:48)
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
[2017-09-14 00:22] LABS: BARBITURATES, UR NEGATIVE (NEGATIVE); BENZODIAZEPINES, UR POSITIVE (NEGATIVE); OPIATES, UR POSITIVE (NEGATIVE); PHENCYCLIDINE, UR NEGATIVE (NEGATIVE)
[2017-09-14] MEDS ORDERED: Azithromycin 500MG/NS 250ml 500 MG/250 ML BAG IVPB STA (00:44)
[2017-09-14] MEDS ORDERED: cefTRIAXone 1 gm 1 GM/100 ML BAG IVPB ONE (00:45)
[2017-09-14] MEDS: Propofol 10 mg/ml 1,000 MG/100 ML VIAL IV PRN ×3 (01:11→06:32)
[2017-09-14] MEDS: Insulin Lispro (humaLOG) LOW Coverage SC SCH ×4 (01:27→19:20)
[2017-09-14 01:28] LABS: CALCIUM 8.7 mg/dL (8.4-10.5); TROPONIN I 1.55 ng/mL
[2017-09-14] MEDS: Cefepime 1gm in NS 100ml 1 GM/100 ML BAG IVPB SCH (01:48)
[2017-09-14 03:39] VITALS: BMI 32.8
[2017-09-14] MEDS ORDERED: Albuterol HFA 90 mcg/actuation (8 g) IH SCH (06:00)
[2017-09-14 06:26] LABS: ARTERIAL BLOOD GAS HCO3 26.7 mmol/L (21-28); ARTERIAL BLOOD GAS HEMOGLOBIN 7.4 g/dL (11.7-17.4); ARTERIAL BLOOD GAS O2 CAPACITY 10.2 mL/dl (16-24); ARTERIAL BLOOD GAS O2 CONTENT 10.1 ML/dl (15-23); ARTERIAL BLOOD GAS O2 SAT 99.2 % (95-98); ARTERIAL BLOOD GAS PCO2 32 mm/Hg (35-45); ARTERIAL BLOOD GAS PH 7.53 (7.35-7.45); ARTERIAL BLOOD GAS TCO2 27.7 mmol.L (22-28)
[2017-09-14] MEDS: Sodium Chloride 0.9% 1,000 ML IV SCH (06:32)
[2017-09-14 07:09] LABS: BASO # 0.01 K/mm3 (0.0-2.0); BASO % 0.1 % (0.0-3.0); EOS # 0.1 (0.0-0.7); EOS % 1.1 % (1.5-5.0); GRAN # 6.43 (1.4-6.5); GRAN % 69.9 % (50.0-68.0); HEMOGLOBIN 7.6 g/dL (14.0-18.0); LYMPH # 1.9 (1.2-3.4); LYMPH % 20.9 % (22.0-35.0); MEAN CELL VOLUME 88.1 fl (80.0-105.0); MEAN CORPUSCULAR HEMOGLOBIN 25.2 pg (25.0-35.0); MEAN CORPUSCULAR HGB CONC 28.6 g/dl (31.0-37.0); MEAN PLATELET VOLUME 9.6 fl (7.0-11.0); MONO # 0.7 (0.1-0.6); RBC 3.02 10^6/uL (3.5-6.1); RED CELL DISTRIBUTION WIDTH 19.2 % (11.5-14.5); WHITE BLOOD COUNT 9.2 10^3/ul (4.5-11.0)
[2017-09-14] MEDS: Budesonide 0.5 mg/2 ml Inhal Susp UD IH SCH ×2 (07:27→20:37)
[2017-09-14] MEDS: Albuterol-Ipratrop 3 mg / 0.5 (3 ml) UD IH SCH ×3 (07:27→20:35)
[2017-09-14] MEDS: Arformoterol 15 mcg/2 ml Inh Sol IH SCH ×2 (07:27→20:34)
[2017-09-14 07:28] LABS: ALB/GLOB RATIO 0.8 (1.1-1.8); ALBUMIN 2.8 g/dL (3.0-4.8); ALT/SGPT 65 U/L (7-56); AST/SGOT 114 U/L (17-59); BLOOD UREA NITROGEN 26 mg/dL (7-21); CALCIUM 8.8 mg/dL (8.4-10.5); FREE T4 0.82 ng/dL (0.78-2.19); GFR AFRICAN-AMERICAN 38; GFR NON-AFRICAN AMERICAN 31; HDL CHOLESTEROL 30 mg/dL (29-60)
[2017-09-14 07:31] LABS: IRON 17 ug/dL (45-180)
[2017-09-14] MEDS: Dexmedetomidine 400mcg/100mL 400 MCG/100 ML BOTTLE IV PRN ×4 (07:31→19:48)
[2017-09-14 07:38] LABS: LDL CHOLESTEROL < 30 mg/dL (0-129)
[2017-09-14 07:40] LABS: % IRON SATURATION 5 % (20-55); TOTAL IRON BINDING CAPACITY 355 ug/dL (261-462)
[2017-09-14] MEDS ORDERED: Potassium Phosphate 15 MMOLE in Dextrose 5% In Water 250 ML IVPB ONE (07:40)
--- NOTE | 2017-09-14 08:02 | RAD ---
HISTORY: post intubation COMPARISON: 03/04/2017 FINDINGS: LUNGS: No active pulmonary disease. PLEURA: No significant pleural effusion identified, no pneumothorax apparent. CARDIOVASCULAR: Moderate to severe cardiomegaly OSSEOUS STRUCTURES: No significant abnormalities. VISUALIZED UPPER ABDOMEN: Normal. OTHER FINDINGS: None. IMPRESSION: The endotracheal tube is in satisfactory position.
--- NOTE | 2017-09-14 08:09 | RAD ---
HISTORY: intubated on vent COMPARISON: 09/13/2017 FINDINGS: LUNGS: Endotracheal and nasogastric tube in satisfactory position. PLEURA: No significant pleural effusion identified, no pneumothorax apparent. CARDIOVASCULAR: Moderate cardiomegaly. OSSEOUS STRUCTURES: No significant abnormalities. VISUALIZED UPPER ABDOMEN: Normal. OTHER FINDINGS: None. IMPRESSION: No active disease.
--- NOTE | 2017-09-14 08:13 | CT ---
PROCEDURE: CT HEAD WITHOUT CONTRAST. HISTORY: AMS COMPARISON: 03/02/2017 TECHNIQUE: Axial computed tomography images were obtained through the head/brain without intravenous contrast. Radiation dose: Total exam DLP = 934 mGy-cm. This CT exam was performed using one or more of the following dose reduction techniques: Automated exposure control, adjustment of the mA and/or kV according to patient size, and/or use of iterative reconstruction technique. FINDINGS: HEMORRHAGE: No intracranial hemorrhage. BRAIN: No mass effect or edema. No atrophy or chronic microvascular ischemic changes. VENTRICLES: Unremarkable. No hydrocephalus. CALVARIUM: Unremarkable. PARANASAL SINUSES: Unremarkable as visualized. No significant inflammatory changes. MASTOID AIR CELLS: Unremarkable as visualized. No inflammatory changes. OTHER FINDINGS: None. IMPRESSION: No acute findings
[2017-09-14] MEDS: Multi Vitamins 15 mL UD Oral Solution PO SCH (09:00)
[2017-09-14] MEDS ORDERED: Azithromycin 250 MG in Sodium Chloride 0.9% 250 ML IVPB SCH (10:00)
[2017-09-14] MEDS ORDERED: TIOTROPIUM BROMIDE PO SCH (10:00)
[2017-09-14] MEDS ORDERED: Vancomycin 1gm in NS 250ml 1 GM/250 ML BAG IVPB SCH (10:00)
[2017-09-14] MEDS ORDERED: ADVAIR IH SCH (10:00)
[2017-09-14] MEDS ORDERED: cefTRIAXone 1 gm 1 GM/100 ML BAG IVPB SCH (10:00)
--- NOTE | 2017-09-14 10:03 | CARD ---
APPROVED REPORT EKG Measurement Heart [id number] <Conclusion> Difficult ECG with a lot of artifact. Probably V. Paced rhythm
--- NOTE | 2017-09-14 10:09 | CARD ---
APPROVED REPORT EKG Measurement Heart [id number] <Conclusion> 100 % V. Paced and A. Sensed
[2017-09-14] MEDS: Tiotropium 18 mcg Cap For Inhalation IH SCH (10:54)
[2017-09-14] MEDS: Thiamine 100 mg/ml Inj IM SCH (10:56)
--- NOTE | 2017-09-14 11:29 | CP.CCUPN ---
<Conor Delaney - Last Filed: 09/14/17 11:19> CCU Subjective - Physician Review Subjective (Free Text): Critical care progress note: Pt seen and examined at bedside. No acute events overnight. patient is currently sedated with precedex. Following commands when off sedation and moving all extremities. 12 Point ROS unobtainable due to intubation. 09/14/17 11:21 CCU Objective - Vital Signs / Intake & Output Vital Signs (Last 4 hours): Vital Signs Pulse BP 09/14/17 10:49 69 129/86 Intake and Output (Last 8hrs): Intake & Output 09/13/17 09/14/17 09/14/17 22:59 06:59 14:59 Intake Total 1400 183 Output Total 650 Balance 750 183 Weight 209 lb Intake: IV 1400 183 Left Hand 1100 Right Antecubital 0 Oral 0 Output: Urine 650 2-way Urethral 650 Other: # Bowel Movements 9 - Physical Exam Head: Positive for: Atraumatic, Normocephalic Pupils: Positive for: Pinpoint Extroacular Muscles: Positive for: EOMI Conjunctiva: Positive for: Normal Mouth: Positive for: Moist Mucous Membranes Pharnyx: Positive for: Other (Gurgling) Nose (External): Positive for: Atraumatic Nose (Internal): Positive for: Normal Inspection Neck: Positive for: Normal Range of Motion. Negative for: Meningeal Signs Respiratory/Chest: Positive for: Clear to Auscultation, Good Air Exchange. Negative for: Respiratory Distress, Accessory Muscle Use Cardiovascular: Positive for: Regular Rate and Rhythm, Normal S1, S2. Negative for: Murmurs Abdomen: Negative for: Tenderness, Distention, Peritoneal Signs Upper Extremity: Positive for: Normal Inspection. Negative for: Cyanosis, Edema Lower Extremity: Positive for: Normal Inspection. Negative for: Edema Neurological: Positive for: Motor Func Grossly Intact, Normal Sensory Function Skin: Positive for: Warm, Dry, Normal Color. Negative for: Rashes Psychiatric: Positive for: Lethargic - Medications Active Medications: Active Medications Generic Name Dose Route Start Last Admin Trade Name Freq PRN Reason Stop Dose Admin Albuterol/Ipratropium 3 ml 09/14/17 02:00 09/14/17 07:27 Duoneb 3 Mg/0.5 Mg (3 Ml) Ud IH 3 ml [id number] EDGAR Administration Arformoterol Tartrate 15 mcg 09/14/17 08:00 09/14/17 07:27 Brovana IH 15 mcg [id number] EDGAR Administration Budesonide 0.5 mg 09/14/17 08:00 09/14/17 07:27 Pulmicort Respules IH 0.5 mg [id number] EDGAR Administration Carvedilol 12.5 mg 09/14/17 10:00 09/14/17 10:49 Coreg PO 12.5 mg BID EDGAR Administration Folic Acid 1 mg 09/14/17 10:00 09/14/17 10:51 Folic Acid IVP 1 mg DAILY EDGAR Administration Sodium Chloride 1,000 mls @ 125 mls/hr 09/13/17 20:30 09/14/17 06:32 Sodium Chloride 0.9% IV 125 mls/hr .Q8H EDGAR Administration Propofol 1,000 mg in 100 mls @ 3.402 mls/hr 09/13/17 22:36 09/14/17 08:30 Diprivan IV 0 mcg/kg/min .Q24H PRN 0 mls/hr TITRATE PER MD ORDER Titration Protocol 5 MCG/KG/MIN Cefepime HCl 1 gm in 100 mls @ 100 mls/hr 09/14/17 01:00 09/14/17 01:48 Maxipime 1gm IVPB 100 mls/hr Q24H EDGAR Administration Protocol Vancomycin HCl 1 gm in 250 mls @ 167 mls/hr 09/14/17 10:00 09/14/17 10:54 Vancomycin 1gm IVPB 167 mls/hr DAILY EDGAR Administration Protocol Dexmedetomidine HCl 400 mcg in 100 mls @ 4.74 mls/hr 09/14/17 07:18 09/14/17 08:45 Precedex 400mcg/100ml IV 0.75 mcg/kg/hr .Q21H6M PRN 17.775 mls/hr Agitation Titration Protocol 0.2 MCG/KG/HR Potassium Phosphate 15 mmole/ 255 mls @ 42.5 mls/hr 09/14/17 07:40 09/14/17 10:52 Dextrose IVPB 09/14/17 13:39 42.5 mls/hr ONCE ONE Administration Insulin Human Lispro 0 units 09/14/17 01:00 09/14/17 10:32 Humalog Low SC Not Given Q6H EDGAR Protocol Lorazepam 2 mg 09/14/17 10:25 Ativan IVP Q2H PRN Anxiety Protocol Montelukast Sodium 10 mg 09/14/17 22:00 Singulair PO HS EDGAR Multivitamins/Vitamin C 15 ml 09/14/17 08:00 09/14/17 09:00 Multi-Delyn Liquid PO 15 ml 0800 EDGAR Administration Pantoprazole Sodium 40 mg 09/14/17 10:00 09/14/17 10:53 Protonix Inj IVP 40 mg DAILY EDGAR Administration Thiamine HCl 100 mg 09/14/17 10:00 09/14/17 10:56 Vitamin B1 Inj IM 100 mg DAILY EDGAR Administration Tiotropium [place] 18 mcg 09/14/17 10:00 09/14/17 10:54 Spiriva IH 18 mcg DAILY EDGAR Administration - Patient Studies Lab Studies: Lab Studies 09/14/17 09/14/17 09/14/17 Range/Units 06:55 06:55 06:30 WBC (4.5-11.0) 10^3/ul RBC (3.5-6.1) 10^6/uL Hgb (14.0-18.0) g/dL Hct (42.0-52.0) % MCV (80.0-105.0) fl MCH (25.0-35.0) pg MCHC (31.0-37.0) g/dl RDW (11.5-14.5) % Plt Count (120.0-450.0) 10^3/uL MPV (7.0-11.0) fl Gran % (50.0-68.0) % Lymph % (Auto) (22.0-35.0) % Sabine % (Auto) (1.0-6.0) % Eos % (Auto) (1.5-5.0) % Baso % (Auto) (0.0-3.0) % Gran # (1.4-6.5) Lymph # (Auto) (1.2-3.4) Sabine # (Auto) (0.1-0.6) Eos # (Auto) (0.0-0.7) Baso # (Auto) (0.0-2.0) K/mm3 pCO2 (35-45) mm/Hg pO2 (80-100) mm/Hg HCO3 (21-28) mmol/L ABG pH (7.35-7.45) ABG Total CO2 (22-28) mmol.L ABG O2 Saturation (95-98) % ABG O2 Content (15-23) ML/dl ABG Base Excess (-2.0-3.0) mmol/L ABG Hemoglobin (11.7-17.4) g/dL ABG Carboxyhemoglobin (0.5-1.5) % POC ABG HHb (Measured) (0-5) % ABG Methemoglobin (0.0-3.0) % ABG O2 Capacity (16-24) mL/dl Hgb O2 Saturation (95.0-98.0) % FiO2 % Sodium (132-148) mmol/L Potassium (3.6-5.0) mmol/L Chloride (98-107) mmol/L Carbon Dioxide (21-33) mmol/L Anion Gap (10-20) BUN (7-21) mg/dL Creatinine (0.8-1.5) mg/dl Est GFR ( Amer) Est GFR (Non-Af Amer) POC Glucose (mg/dL) (65-110) mg/dL Random Glucose (70-110) mg/dL Lactic Acid 0.8 (0.7-2.1) mmol/L Calcium (8.4-10.5) mg/dL Phosphorus (2.5-4.5) mg/dL Magnesium (1.7-2.2) mg/dL Iron 17 L (45-180) ug/dL TIBC 355 (261-462) ug/dL % Saturation 5 L (20-55) % Total Bilirubin (0.2-1.3) mg/dL AST (17-59) U/L ALT (7-56) U/L Alkaline Phosphatase (38-126) U/L Ammonia 14 (9-33) umol/L Troponin I ng/mL Total Protein (5.8-8.3) g/dL Albumin (3.0-4.8) g/dL Globulin gm/dL Albumin/Globulin Ratio (1.1-1.8) Triglycerides (35-160) mg/dL Cholesterol (130-200) mg/dL LDL Cholesterol Direct (0-129) mg/dL HDL Cholesterol (29-60) mg/dL Free T4 (0.78-2.19) ng/dL TSH 3rd Generation (0.46-4.68) mIU/mL Urine Color (YELLOW) Urine Appearance (CLEAR) Urine pH (4.7-8.0) Ur Specific [place] (1.005-1.035) Urine Protein (<30 mg/dL) mg/dL Urine Glucose (UA) (NEGATIVE) mg/dL Urine Ketones (NEGATIVE) mg/dL Urine Blood (NEGATIVE) Urine Nitrate (NEGATIVE) Urine Bilirubin (NEGATIVE) Urine Urobilinogen (<1 E.U./dL) E.U./dL Ur Leukocyte Esterase (NEGATIVE) Rissa/uL Urine RBC (0-2) /hpf Urine WBC (0-6) /hpf Ur Epithelial Cells (0-5) /hpf Urine Bacteria (NEG) Urine Opiates Screen (NEGATIVE) Urine Methadone Screen (NEGATIVE) Ur Barbiturates Screen (NEGATIVE) Ur Phencyclidine Scrn (NEGATIVE) Ur Amphetamines Screen (NEGATIVE) U Benzodiazepines Scrn (NEGATIVE) U Oth Cocaine Metabols (NEGATIVE) U Cannabinoids Screen (NEGATIVE) 09/14/17 09/14/17 09/14/17 Range/Units 06:30 06:30 06:30 WBC 9.2 D (4.5-11.0) 10^3/ul RBC 3.02 L (3.5-6.1) 10^6/uL Hgb 7.6 L (14.0-18.0) g/dL Hct 26.6 L (42.0-52.0) % MCV 88.1 D (80.0-105.0) fl MCH 25.2 (25.0-35.0) pg MCHC 28.6 L (31.0-37.0) g/dl RDW 19.2 H (11.5-14.5) % Plt Count 493 H (120.0-450.0) 10^3/uL MPV 9.6 (7.0-11.0) fl Gran % 69.9 H (50.0-68.0) % Lymph % (Auto) 20.9 L (22.0-35.0) % Sabine % (Auto) 8.0 H (1.0-6.0) % Eos % (Auto) 1.1 L (1.5-5.0) % Baso % (Auto) 0.1 (0.0-3.0) % Gran # 6.43 (1.4-6.5) Lymph # (Auto) 1.9 (1.2-3.4) Sabine # (Auto) 0.7 H (0.1-0.6) Eos # (Auto) 0.1 (0.0-0.7) Baso # (Auto) 0.01 (0.0-2.0) K/mm3 pCO2 (35-45) mm/Hg pO2 (80-100) mm/Hg HCO3 (21-28) mmol/L ABG pH (7.35-7.45) ABG Total CO2 (22-28) mmol.L ABG O2 Saturation (95-98) % ABG O2 Content (15-23) ML/dl ABG Base Excess (-2.0-3.0) mmol/L ABG Hemoglobin (11.7-17.4) g/dL ABG Carboxyhemoglobin (0.5-1.5) % POC ABG HHb (Measured) (0-5) % ABG Methemoglobin (0.0-3.0) % ABG O2 Capacity (16-24) mL/dl Hgb O2 Saturation (95.0-98.0) % FiO2 % Sodium 136 (132-148) mmol/L Potassium 3.6 (3.6-5.0) mmol/L Chloride 101 (98-107) mmol/L Carbon Dioxide 26 (21-33) mmol/L Anion Gap 12 (10-20) BUN 26 H (7-21) mg/dL Creatinine 2.2 H (0.8-1.5) mg/dl Est GFR ( Amer) 38 Est GFR (Non-Af Amer) 31 POC Glucose (mg/dL) (65-110) mg/dL Random Glucose 96 (70-110) mg/dL Lactic Acid (0.7-2.1) mmol/L Calcium 8.8 (8.4-10.5) mg/dL Phosphorus 2.2 L (2.5-4.5) mg/dL Magnesium 2.3 H (1.7-2.2) mg/dL Iron (45-180) ug/dL TIBC (261-462) ug/dL % Saturation (20-55) % Total Bilirubin 0.2 (0.2-1.3) mg/dL AST 114 H D (17-59) U/L ALT 65 H (7-56) U/L Alkaline Phosphatase 93 (38-126) U/L Ammonia (9-33) umol/L Troponin I 3.70 H* D ng/mL Total Protein 6.4 (5.8-8.3) g/dL Albumin 2.8 L (3.0-4.8) g/dL Globulin 3.5 gm/dL Albumin/Globulin Ratio 0.8 L (1.1-1.8) Triglycerides 157 (35-160) mg/dL Cholesterol 80 L (130-200) mg/dL LDL Cholesterol Direct < 30 (0-129) mg/dL HDL Cholesterol 30 (29-60) mg/dL Free T4 0.82 (0.78-2.19) ng/dL TSH 3rd Generation 2.04 (0.46-4.68) mIU/mL Urine Color (YELLOW) Urine Appearance (CLEAR) Urine pH (4.7-8.0) Ur Specific [place] (1.005-1.035) Urine Protein (<30 mg/dL) mg/dL Urine Glucose (UA) (NEGATIVE) mg/dL Urine Ketones (NEGATIVE) mg/dL Urine Blood (NEGATIVE) Urine Nitrate (NEGATIVE) Urine Bilirubin (NEGATIVE) Urine Urobilinogen (<1 E.U./dL) E.U./dL Ur Leukocyte Esterase (NEGATIVE) Rissa/uL Urine RBC (0-2) /hpf Urine WBC (0-6) /hpf Ur Epithelial Cells (0-5) /hpf Urine Bacteria (NEG) Urine Opiates Screen (NEGATIVE) Urine Methadone Screen (NEGATIVE) Ur Barbiturates Screen (NEGATIVE) Ur Phencyclidine Scrn (NEGATIVE) Ur Amphetamines Screen (NEGATIVE) U Benzodiazepines Scrn (NEGATIVE) U Oth Cocaine Metabols (NEGATIVE) U Cannabinoids Screen (NEGATIVE) 09/14/17 09/14/17 09/14/17 Range/Units 06:24 04:04 00:50 WBC (4.5-11.0) 10^3/ul RBC (3.5-6.1) 10^6/uL Hgb (14.0-18.0) g/dL Hct (42.0-52.0) % MCV (80.0-105.0) fl MCH (25.0-35.0) pg MCHC (31.0-37.0) g/dl RDW (11.5-14.5) % Plt Count (120.0-450.0) 10^3/uL MPV (7.0-11.0) fl Gran % (50.0-68.0) % Lymph % (Auto) (22.0-35.0) % Sabine % (Auto) (1.0-6.0) % Eos % (Auto) (1.5-5.0) % Baso % (Auto) (0.0-3.0) % Gran # (1.4-6.5) Lymph # (Auto) (1.2-3.4) Sabine # (Auto) (0.1-0.6) Eos # (Auto) (0.0-0.7) Baso # (Auto) (0.0-2.0) K/mm3 pCO2 32 L (35-45) mm/Hg pO2 77.0 L (80-100) mm/Hg HCO3 26.7 (21-28) mmol/L ABG pH 7.53 H (7.35-7.45) ABG Total CO2 27.7 (22-28) mmol.L ABG O2 Saturation 99.2 H (95-98) % ABG O2 Content 10.1 L (15-23) ML/dl ABG Base Excess 3.8 H (-2.0-3.0) mmol/L ABG Hemoglobin 7.4 L (11.7-17.4) g/dL ABG Carboxyhemoglobin 2.2 H (0.5-1.5) % POC ABG HHb (Measured) 0.8 (0-5) % ABG Methemoglobin 1.0 (0.0-3.0) % ABG O2 Capacity 10.2 L (16-24) mL/dl Hgb O2 Saturation 96.1 (95.0-98.0) % FiO2 40.0 % Sodium 134 (132-148) mmol/L Potassium 5.1 H (3.6-5.0) mmol/L Chloride 98 (98-107) mmol/L Carbon Dioxide 27 (21-33) mmol/L Anion Gap 13 (10-20) BUN 29 H (7-21) mg/dL Creatinine 2.7 H (0.8-1.5) mg/dl Est GFR ( Amer) 30 Est GFR (Non-Af Amer) 25 POC Glucose (mg/dL) 103 (65-110) mg/dL Random Glucose 102 (70-110) mg/dL Lactic Acid (0.7-2.1) mmol/L Calcium 8.7 (8.4-10.5) mg/dL Phosphorus 5.7 H (2.5-4.5) mg/dL Magnesium 2.4 H (1.7-2.2) mg/dL Iron (45-180) ug/dL TIBC (261-462) ug/dL % Saturation (20-55) % Total Bilirubin (0.2-1.3) mg/dL AST (17-59) U/L ALT (7-56) U/L Alkaline Phosphatase (38-126) U/L Ammonia (9-33) umol/L Troponin I 1.55 H* D ng/mL Total Protein (5.8-8.3) g/dL Albumin (3.0-4.8) g/dL Globulin gm/dL Albumin/Globulin Ratio (1.1-1.8) Triglycerides (35-160) mg/dL Cholesterol (130-200) mg/dL LDL Cholesterol Direct (0-129) mg/dL HDL Cholesterol (29-60) mg/dL Free T4 (0.78-2.19) ng/dL TSH 3rd Generation (0.46-4.68) mIU/mL Urine Color (YELLOW) Urine Appearance (CLEAR) Urine pH (4.7-8.0) Ur Specific [place] (1.005-1.035) Urine Protein (<30 mg/dL) mg/dL Urine Glucose (UA) (NEGATIVE) mg/dL Urine Ketones (NEGATIVE) mg/dL Urine Blood (NEGATIVE) Urine Nitrate (NEGATIVE) Urine Bilirubin (NEGATIVE) Urine Urobilinogen (<1 E.U./dL) E.U./dL Ur Leukocyte Esterase (NEGATIVE) Rissa/uL Urine RBC (0-2) /hpf Urine WBC (0-6) /hpf Ur Epithelial Cells (0-5) /hpf Urine Bacteria (NEG) Urine Opiates Screen (NEGATIVE) Urine Methadone Screen (NEGATIVE) Ur Barbiturates Screen (NEGATIVE) Ur Phencyclidine Scrn (NEGATIVE) Ur Amphetamines Screen (NEGATIVE) U Benzodiazepines Scrn (NEGATIVE) U Oth Cocaine Metabols (NEGATIVE) U Cannabinoids Screen (NEGATIVE) 09/14/17 09/13/17 09/13/17 Range/Units 00:47 23:09 23:09 WBC (4.5-11.0) 10^3/ul RBC (3.5-6.1) 10^6/uL Hgb (14.0-18.0) g/dL Hct (42.0-52.0) % MCV (80.0-105.0) fl MCH (25.0-35.0) pg MCHC (31.0-37.0) g/dl RDW (11.5-14.5) % Plt Count (120.0-450.0) 10^3/uL MPV (7.0-11.0) fl Gran % (50.0-68.0) % Lymph % (Auto) (22.0-35.0) % Sabine % (Auto) (1.0-6.0) % Eos % (Auto) (1.5-5.0) % Baso % (Auto) (0.0-3.0) % Gran # (1.4-6.5) Lymph # (Auto) (1.2-3.4) Sabine # (Auto) (0.1-0.6) Eos # (Auto) (0.0-0.7) Baso # (Auto) (0.0-2.0) K/mm3 pCO2 (35-45) mm/Hg pO2 (80-100) mm/Hg HCO3 (21-28) mmol/L ABG pH (7.35-7.45) ABG Total CO2 (22-28) mmol.L ABG O2 Saturation (95-98) % ABG O2 Content (15-23) ML/dl ABG Base Excess (-2.0-3.0) mmol/L ABG Hemoglobin (11.7-17.4) g/dL ABG Carboxyhemoglobin (0.5-1.5) % POC ABG HHb (Measured) (0-5) % ABG Methemoglobin (0.0-3.0) % ABG O2 Capacity (16-24) mL/dl Hgb O2 Saturation (95.0-98.0) % FiO2 % Sodium (132-148) mmol/L Potassium (3.6-5.0) mmol/L Chloride (98-107) mmol/L Carbon Dioxide (21-33) mmol/L Anion Gap (10-20) BUN (7-21) mg/dL Creatinine (0.8-1.5) mg/dl Est GFR ( Amer) Est GFR (Non-Af Amer) POC Glucose (mg/dL) 108 (65-110) mg/dL Random Glucose (70-110) mg/dL Lactic Acid (0.7-2.1) mmol/L Calcium (8.4-10.5) mg/dL Phosphorus (2.5-4.5) mg/dL Magnesium (1.7-2.2) mg/dL Iron (45-180) ug/dL TIBC (261-462) ug/dL % Saturation (20-55) % Total Bilirubin (0.2-1.3) mg/dL AST (17-59) U/L ALT (7-56) U/L Alkaline Phosphatase (38-126) U/L Ammonia (9-33) umol/L Troponin I ng/mL Total Protein (5.8-8.3) g/dL Albumin (3.0-4.8) g/dL Globulin gm/dL Albumin/Globulin Ratio (1.1-1.8) Triglycerides (35-160) mg/dL Cholesterol (130-200) mg/dL LDL Cholesterol Direct (0-129) mg/dL HDL Cholesterol (29-60) mg/dL Free T4 (0.78-2.19) ng/dL TSH 3rd Generation (0.46-4.68) mIU/mL Urine Color Yellow (YELLOW) Urine Appearance Sl cloudy (CLEAR) Urine pH 6.0 (4.7-8.0) Ur Specific [place] >= 1.030 (1.005-1.035) Urine Protein 30 H (<30 mg/dL) mg/dL Urine Glucose (UA) Negative (NEGATIVE) mg/dL Urine Ketones Negative (NEGATIVE) mg/dL Urine Blood Moderate H (NEGATIVE) Urine Nitrate Negative (NEGATIVE) Urine Bilirubin Negative (NEGATIVE) Urine Urobilinogen 0.2 (<1 E.U./dL) E.U./dL Ur Leukocyte Esterase Negative (NEGATIVE) Rissa/uL Urine RBC 5 - 10 (0-2) /hpf Urine WBC 2 - 5 (0-6) /hpf Ur Epithelial Cells 4 - 5 (0-5) /hpf Urine Bacteria Mod (NEG) Urine Opiates Screen Positive H (NEGATIVE) Urine Methadone Screen Negative (NEGATIVE) Ur Barbiturates Screen Negative (NEGATIVE) Ur Phencyclidine Scrn Negative (NEGATIVE) Ur Amphetamines Screen Negative (NEGATIVE) U Benzodiazepines Scrn Positive (NEGATIVE) U Oth Cocaine Metabols Negative (NEGATIVE) U Cannabinoids Screen Negative (NEGATIVE) 09/13/17 Range/Units 21:50 WBC (4.5-11.0) 10^3/ul RBC (3.5-6.1) 10^6/uL Hgb (14.0-18.0) g/dL Hct (42.0-52.0) % MCV (80.0-105.0) fl MCH (25.0-35.0) pg MCHC (31.0-37.0) g/dl RDW (11.5-14.5) % Plt Count (120.0-450.0) 10^3/uL MPV (7.0-11.0) fl Gran % (50.0-68.0) % Lymph % (Auto) (22.0-35.0) % [place]ine % (Auto) (1.0-6.0) % Eos % (Auto) (1.5-5.0) % Baso % (Auto) (0.0-3.0) % Gran # (1.4-6.5) Lymph # (Auto) (1.2-3.4) Sabine # (Auto) (0.1-0.6) Eos # (Auto) (0.0-0.7) Baso # (Auto) (0.0-2.0) K/mm3 pCO2 89 H* (35-45) mm/Hg pO2 125.0 H (80-100) mm/Hg HCO3 28.9 H (21-28) mmol/L ABG pH 7.12 L* (7.35-7.45) ABG Total CO2 31.6 H (22-28) mmol.L ABG O2 Saturation 101.0 H (95-98) % ABG O2 Content 10.1 L (15-23) ML/dl ABG Base Excess -0.9 (-2.0-3.0) mmol/L ABG Hemoglobin 7.4 L (11.7-17.4) g/dL ABG Carboxyhemoglobin 5.3 H (0.5-1.5) % POC ABG HHb (Measured) -0.9 L (0-5) % ABG Methemoglobin 0.9 (0.0-3.0) % ABG O2 Capacity 10.0 L (16-24) mL/dl Hgb O2 Saturation 94.7 L (95.0-98.0) % FiO2 50.0 % Sodium (132-148) mmol/L Potassium (3.6-5.0) mmol/L Chloride (98-107) mmol/L Carbon Dioxide (21-33) mmol/L Anion Gap (10-20) BUN (7-21) mg/dL Creatinine (0.8-1.5) mg/dl Est GFR ( Amer) Est GFR (Non-Af Amer) POC Glucose (mg/dL) (65-110) mg/dL Random Glucose (70-110) mg/dL Lactic Acid (0.7-2.1) mmol/L Calcium (8.4-10.5) mg/dL Phosphorus (2.5-4.5) mg/dL Magnesium (1.7-2.2) mg/dL Iron (45-180) ug/dL TIBC (261-462) ug/dL % Saturation (20-55) % Total Bilirubin (0.2-1.3) mg/dL AST (17-59) U/L ALT (7-56) U/L Alkaline Phosphatase (38-126) U/L Ammonia (9-33) umol/L Troponin I ng/mL Total Protein (5.8-8.3) g/dL Albumin (3.0-4.8) g/dL Globulin gm/dL Albumin/Globulin Ratio (1.1-1.8) Triglycerides (35-160) mg/dL Cholesterol (130-200) mg/dL LDL Cholesterol Direct (0-129) mg/dL HDL Cholesterol (29-60) mg/dL Free T4 (0.78-2.19) ng/dL TSH 3rd Generation (0.46-4.68) mIU/mL Urine Color (YELLOW) Urine Appearance (CLEAR) Urine pH (4.7-8.0) Ur Specific [place] (1.005-1.035) Urine Protein (<30 mg/dL) mg/dL Urine Glucose (UA) (NEGATIVE) mg/dL Urine Ketones (NEGATIVE) mg/dL Urine Blood (NEGATIVE) Urine Nitrate (NEGATIVE) Urine Bilirubin (NEGATIVE) Urine Urobilinogen (<1 E.U./dL) E.U./dL Ur Leukocyte Esterase (NEGATIVE) Rissa/uL Urine RBC (0-2) /hpf Urine WBC (0-6) /hpf Ur Epithelial Cells (0-5) /hpf Urine Bacteria (NEG) Urine Opiates Screen (NEGATIVE) Urine Methadone Screen (NEGATIVE) Ur Barbiturates Screen (NEGATIVE) Ur Phencyclidine Scrn (NEGATIVE) Ur Amphetamines Screen (NEGATIVE) U Benzodiazepines Scrn (NEGATIVE) U Oth Cocaine Metabols (NEGATIVE) U Cannabinoids Screen (NEGATIVE) Laboratory Results - last 24 hr 09/13/17 09/13/17 09/13/17 21:50 23:09 23:09 WBC RBC Hgb Hct MCV MCH MCHC RDW Plt Count MPV Gran % Lymph % (Auto) Sab[place] % (Auto) Eos % (Auto) Baso % (Auto) Gran # Lymph # (Auto) Sabine # (Auto) Eos # (Auto) Baso # (Auto) pCO2 89 H* pO2 125.0 H HCO3 28.9 H ABG pH 7.12 L* ABG Total CO2 31.6 H ABG O2 Saturation 101.0 H ABG O2 Content 10.1 L ABG Base Excess -0.9 ABG Hemoglobin 7.4 L ABG Carboxyhemoglobin 5.3 H POC ABG HHb (Measured) -0.9 L ABG Methemoglobin 0.9 ABG O2 Capacity 10.0 L Hgb O2 Saturation 94.7 L FiO2 50.0 Sodium Potassium Chloride Carbon Dioxide Anion Gap BUN Creatinine Est GFR ( Amer) Est GFR (Non-Af Amer) POC Glucose (mg/dL) Random Glucose Lactic Acid Calcium Phosphorus Magnesium Iron TIBC % Saturation Total Bilirubin AST ALT Alkaline Phosphatase Ammonia Troponin I Total Protein Albumin Globulin Albumin/Globulin Ratio Triglycerides Cholesterol LDL Cholesterol Direct HDL Cholesterol Free T4 TSH 3rd Generation Urine Color Yellow Urine Appearance Sl cloudy Urine pH 6.0 Ur Specific [place] >= 1.030 Urine Protein 30 H Urine Glucose (UA) Negative Urine Ketones Negative Urine Blood Moderate H Urine Nitrate Negative Urine Bilirubin Negative Urine Urobilinogen 0.2 Ur Leukocyte Esterase Negative Urine RBC 5 - 10 Urine WBC 2 - 5 Ur Epithelial Cells 4 - 5 Urine Bacteria Mod Urine Opiates Screen Positive H Urine Methadone Screen Negative Ur Barbiturates Screen Negative Ur Phencyclidine Scrn Negative Ur Amphetamines Screen Negative U Benzodiazepines Scrn Positive U Oth Cocaine Metabols Negative U Cannabinoids Screen Negative 09/14/17 09/14/17 09/14/17 00:47 00:50 04:04 WBC RBC Hgb Hct MCV MCH MCHC RDW Plt Count MPV Gran % Lymph % (Auto) [place] % (Auto) Eos % (Auto) Baso % (Auto) Gran # Lymph # (Auto) [place] # (Auto) Eos # (Auto) Baso # (Auto) pCO2 pO2 HCO3 ABG pH ABG Total CO2 ABG O2 Saturation ABG O2 Content ABG Base Excess ABG Hemoglobin ABG Carboxyhemoglobin POC ABG HHb (Measured) ABG Methemoglobin ABG O2 Capacity Hgb O2 Saturation FiO2 Sodium 134 Potassium 5.1 H Chloride 98 Carbon Dioxide 27 Anion Gap 13 BUN 29 H Creatinine 2.7 H Est GFR ( Amer) 30 Est GFR (Non-Af Amer) 25 POC Glucose (mg/dL) 108 103 Random Glucose 102 Lactic Acid Calcium 8.7 Phosphorus 5.7 H Magnesium 2.4 H Iron TIBC % Saturation Total Bilirubin AST ALT Alkaline Phosphatase Ammonia Troponin I 1.55 H* D Total Protein Albumin Globulin Albumin/Globulin Ratio Triglycerides Cholesterol LDL Cholesterol Direct HDL Cholesterol Free T4 TSH 3rd Generation Urine Color Urine Appearance Urine pH Ur Specific [place] Urine Protein Urine Glucose (UA) Urine Ketones Urine Blood Urine Nitrate Urine Bilirubin Urine Urobilinogen Ur Leukocyte Esterase Urine RBC Urine WBC Ur Epithelial Cells Urine Bacteria Urine Opiates Screen Urine Methadone Screen Ur Barbiturates Screen Ur Phencyclidine Scrn Ur Amphetamines Screen U Benzodiazepines Scrn U Oth Cocaine Metabols U Cannabinoids Screen 09/14/17 09/14/17 09/14/17 06:24 06:30 06:30 WBC 9.2 D RBC 3.02 L Hgb 7.6 L Hct 26.6 L MCV 88.1 D MCH 25.2 MCHC 28.6 L RDW 19.2 H Plt Count 493 H MPV 9.6 Gran % 69.9 H Lymph % (Auto) 20.9 L [place] % (Auto) 8.0 H Eos % (Auto) 1.1 L Baso % (Auto) 0.1 Gran # 6.43 Lymph # (Auto) 1.9 [place] # (Auto) 0.7 H Eos # (Auto) 0.1 Baso # (Auto) 0.01 pCO2 32 L pO2 77.0 L HCO3 26.7 ABG pH 7.53 H ABG Total CO2 27.7 ABG O2 Saturation 99.2 H ABG O2 Content 10.1 L ABG Base Excess 3.8 H ABG Hemoglobin 7.4 L ABG Carboxyhemoglobin 2.2 H POC ABG HHb (Measured) 0.8 ABG Methemoglobin 1.0 ABG O2 Capacity 10.2 L Hgb O2 Saturation 96.1 FiO2 40.0 Sodium 136 Potassium 3.6 Chloride 101 Carbon Dioxide 26 Anion Gap 12 BUN 26 H Creatinine 2.2 H Est GFR ( Amer) 38 Est GFR (Non-Af Amer) 31 POC Glucose (mg/dL) Random Glucose 96 Lactic Acid Calcium 8.8 Phosphorus 2.2 L Magnesium 2.3 H Iron TIBC % Saturation Total Bilirubin 0.2 AST 114 H D ALT 65 H Alkaline Phosphatase 93 Ammonia Troponin I 3.70 H* D Total Protein 6.4 Albumin 2.8 L Globulin 3.5 Albumin/Globulin Ratio 0.8 L Triglycerides 157 Cholesterol 80 L LDL Cholesterol Direct < 30 HDL Cholesterol 30 Free T4 TSH 3rd Generation Urine Color Urine Appearance Urine pH Ur Specific [place] Urine Protein Urine Glucose (UA) Urine Ketones Urine Blood Urine Nitrate Urine Bilirubin Urine Urobilinogen Ur Leukocyte Esterase Urine RBC Urine WBC Ur Epithelial Cells Urine Bacteria Urine Opiates Screen Urine Methadone Screen Ur Barbiturates Screen Ur Phencyclidine Scrn Ur Amphetamines Screen U Benzodiazepines Scrn U Oth Cocaine Metabols U Cannabinoids Screen 09/14/17 09/14/17 09/14/17 06:30 06:30 06:55 WBC RBC Hgb Hct MCV MCH MCHC RDW Plt Count MPV Gran % Lymph % (Auto) [place] % (Auto) Eos % (Auto) Baso % (Auto) Gran # Lymph # (Auto) [place] # (Auto) Eos # (Auto) Baso # (Auto) pCO2 pO2 HCO3 ABG pH ABG Total CO2 ABG O2 Saturation ABG O2 Content ABG Base Excess ABG Hemoglobin ABG Carboxyhemoglobin POC ABG HHb (Measured) ABG Methemoglobin ABG O2 Capacity Hgb O2 Saturation FiO2 Sodium Potassium Chloride Carbon Dioxide Anion Gap BUN Creatinine Est GFR ( Amer) Est GFR (Non-Af Amer) POC Glucose (mg/dL) Random Glucose Lactic Acid 0.8 Calcium Phosphorus Magnesium Iron TIBC % Saturation Total Bilirubin AST ALT Alkaline Phosphatase Ammonia 14 Troponin I Total Protein Albumin Globulin Albumin/Globulin Ratio Triglycerides Cholesterol LDL Cholesterol Direct HDL Cholesterol Free T4 0.82 TSH 3rd Generation 2.04 Urine Color Urine Appearance Urine pH Ur Specific [place] Urine Protein Urine Glucose (UA) Urine Ketones Urine Blood Urine Nitrate Urine Bilirubin Urine Urobilinogen Ur Leukocyte Esterase Urine RBC Urine WBC Ur Epithelial Cells Urine Bacteria Urine Opiates Screen Urine Methadone Screen Ur Barbiturates Screen Ur Phencyclidine Scrn Ur Amphetamines Screen U Benzodiazepines Scrn U Oth Cocaine Metabols U Cannabinoids Screen 09/14/17 06:55 WBC RBC Hgb Hct MCV MCH MCHC RDW Plt Count MPV Gran % Lymph % (Auto) [place] % (Auto) Eos % (Auto) Baso % (Auto) Gran # Lymph # (Auto) [place] # (Auto) Eos # (Auto) Baso # (Auto) pCO2 pO2 HCO3 ABG pH ABG Total CO2 ABG O2 Saturation ABG O2 Content ABG Base Excess ABG Hemoglobin ABG Carboxyhemoglobin POC ABG HHb (Measured) ABG Methemoglobin ABG O2 Capacity Hgb O2 Saturation FiO2 Sodium Potassium Chloride Carbon Dioxide Anion Gap BUN Creatinine Est GFR ( Amer) Est GFR (Non-Af Amer) POC Glucose (mg/dL) Random Glucose Lactic Acid Calcium Phosphorus Magnesium Iron 17 L TIBC 355 % Saturation 5 L Total Bilirubin AST ALT Alkaline Phosphatase Ammonia Troponin I Total Protein Albumin Globulin Albumin/Globulin Ratio Triglycerides Cholesterol LDL Cholesterol Direct HDL Cholesterol Free T4 TSH 3rd Generation Urine Color Urine Appearance Urine pH Ur Specific [place] Urine Protein Urine Glucose (UA) Urine Ketones Urine Blood Urine Nitrate Urine Bilirubin Urine Urobilinogen Ur Leukocyte Esterase Urine RBC Urine WBC Ur Epithelial Cells Urine Bacteria Urine Opiates Screen Urine Methadone Screen Ur Barbiturates Screen Ur Phencyclidine Scrn Ur Amphetamines Screen U Benzodiazepines Scrn U Oth Cocaine Metabols U Cannabinoids Screen EKG/Cardiology Studies: Cardiology / EKG Studies 09/14/17 01:28 EKG [ELECTROCARDIOGRAM] Routine Comment: Reason For Exam: trop ->0.08---> 1.55. EKG [ELECTROCARDIOGRAM] Stat Comment: Reason For Exam: trop 0.08---->1.55 09/14/17 10:24 EKG [ELECTROCARDIOGRAM] Stat Comment: Reason For Exam: elevated troponin Fingerstick Blood Sugar Results: 133 Review of Systems - Review of Systems Systems not reviewed;Unavailable: Intubated All systems: reviewed and no additional remarkable complaints except Assessment/Plan - Assessment and Plan (Free Text) Assessment: 56yo male PMHx HTN, CHF s/p pacemaker, asthma, Hep C, PAULINO, depression, and bipolar was brought in by EMS for AMS. Patient with opiode withdrawal presents with hypercapnic respiratory failure s/p intubation, elevated troponin, TIM, and hyperkalemia now resolved. Plan: Neuro -AMS likely secondary to drug overdose -sedated on precedex -Ativan PRN for withdrawals -Head CT - negative -keep HoB above 30 degrees -aspiration precaution Cardio -troponin on admission: 0.08--> 1.55--> 3.7 -Asa 325mg x 1 stat -EKG stat -unable to begin anticoagulation secondary to hx of GI bleed [place] [facility] [place] per -Coreg 12.5mg bid -maintain MAP > 65mmHg -f/u lipid panel, thyroid studies, HgbA1c -Cardio Dr. Serrano consulted for recs -F/u Echo Pulm -f/u CXR -empiric Abx Cefepime and Vancomycin for HCAP in light of recent hospitalization -Duoneb, Brovana, Pulmicort, Singulair, Spiriva -continue pulmonary toilet -daily weaning trials -maintain SpO2 > 90 GI -NPO -Recent hx of GI bleed in [facility] [place] -Protonix 40mg ivp qd -elevated LFTs -hx of Alcohol abuse and hep C -folic acid, thiamine, multivitamin daily Renal -TIM on admission -NS@125cc/hr -f/u renal U/s -avoid nephrotoxic drugs and adjust medications accordingly -replete electrolytes as needed -Nephro Dr. Leggett consulted ID -F/u septic work up -hx of recent hospitalization and aspiration PNA -empiric Abx Cefepime and Vancomycin -f/u lactic acid and procalcitonin -Influenza negative Heme/Onc -normocytic anemia on admission with Hgb 7.6 -monitor H&H Psych -hx of drug abuse and likely drug overdose on admission -drug/alcohol counseling upon extubation GI ppx: Protonix 40mg ivp qd DVT ppx: SCDs; VTE held in light of possible GI bleed hx Diet: NPO Case and plan was reviewed and discussed with Dr Styles. <Efren Styles - Last Filed: 09/14/17 11:47> CCU Objective - Vital Signs / Intake & Output Vital Signs (Last 4 hours): Vital Signs Pulse BP 09/14/17 10:49 69 129/86 Intake and Output (Last 8hrs): Intake & Output 09/13/17 09/14/17 09/14/17 22:59 06:59 14:59 Intake Total 1400 183 Output Total 650 Balance 750 183 Weight 209 lb Intake: IV 1400 183 Left Hand 1100 Right Antecubital 0 Oral 0 Output: Urine 650 2-way Urethral 650 Other: # Bowel Movements 9 - Medications Active Medications: Active Medications Generic Name Dose Route Start Last Admin Trade Name Freq PRN Reason Stop Dose Admin Albuterol/Ipratropium 3 ml 09/14/17 02:00 09/14/17 07:27 Duoneb 3 Mg/0.5 Mg (3 Ml) Ud IH 3 ml [id number] EDGAR Administration Arformoterol Tartrate 15 mcg 09/14/17 08:00 09/14/17 07:27 Brovana IH 15 mcg [id number] EDGAR Administration Budesonide 0.5 mg 09/14/17 08:00 09/14/17 07:27 Pulmicort Respules IH 0.5 mg [id number] EDGAR Administration Carvedilol 12.5 mg 09/14/17 10:00 09/14/17 10:49 Coreg PO 12.5 mg BID EDGAR Administration Folic Acid 1 mg 09/14/17 10:00 09/14/17 10:51 Folic Acid IVP 1 mg DAILY EDGAR Administration Propofol 1,000 mg in 100 mls @ 3.402 mls/hr 09/13/17 22:36 09/14/17 08:30 Diprivan IV 0 mcg/kg/min .Q24H PRN 0 mls/hr TITRATE PER MD ORDER Titration Protocol 5 MCG/KG/MIN Cefepime HCl 1 gm in 100 mls @ 100 mls/hr 09/14/17 01:00 09/14/17 01:48 Maxipime 1gm IVPB 100 mls/hr Q24H EDGAR Administration Protocol Vancomycin HCl 1 gm in 250 mls @ 167 mls/hr 09/14/17 10:00 09/14/17 10:54 Vancomycin 1gm IVPB 167 mls/hr DAILY EDGAR Administration Protocol Dexmedetomidine HCl 400 mcg in 100 mls @ 4.74 mls/hr 09/14/17 07:18 09/14/17 08:45 Precedex 400mcg/100ml IV 0.75 mcg/kg/hr .[id number] PRN 17.775 mls/hr Agitation Titration Protocol 0.2 MCG/KG/HR Potassium Phosphate 15 mmole/ 255 mls @ 42.5 mls/hr 09/14/17 07:40 09/14/17 10:52 Dextrose IVPB 09/14/17 13:39 42.5 mls/hr ONCE ONE Administration Sodium Chloride 1,000 mls @ 75 mls/hr 09/14/17 11:36 Sodium Chloride 0.9% IV .[id number] [facility] Insulin Human Lispro 0 units 09/14/17 01:00 09/14/17 10:32 Humalog Low SC Not Given Q6H [facility] Protocol Lorazepam 2 mg 09/14/17 10:25 Ativan IVP Q2H PRN Anxiety Protocol Montelukast Sodium 10 mg 09/14/17 22:00 Singulair PO HS EDGAR Multivitamins/Vitamin C 15 ml 09/14/17 08:00 09/14/17 09:00 Multi-Delyn Liquid PO 15 ml 0800 EDGAR Administration Pantoprazole Sodium 40 mg 09/14/17 10:00 09/14/17 10:53 Protonix Inj IVP 40 mg DAILY EDGAR Administration Thiamine HCl 100 mg 09/14/17 10:00 09/14/17 10:56 Vitamin B1 Inj IM 100 mg DAILY EDGAR Administration Tiotropium Paterson 18 mcg 09/14/17 10:00 09/14/17 10:54 Spiriva IH 18 mcg DAILY EDGAR Administration - Patient Studies Lab Studies: Lab Studies 09/14/17 09/14/17 09/14/17 Range/Units 06:55 06:55 06:30 WBC (4.5-11.0) 10^3/ul RBC (3.5-6.1) 10^6/uL Hgb (14.0-18.0) g/dL Hct (42.0-52.0) % MCV (80.0-105.0) fl MCH (25.0-35.0) pg MCHC (31.0-37.0) g/dl RDW (11.5-14.5) % Plt Count (120.0-450.0) 10^3/uL MPV (7.0-11.0) fl Gran % (50.0-68.0) % Lymph % (Auto) (22.0-35.0) % Sabine % (Auto) (1.0-6.0) % Eos % (Auto) (1.5-5.0) % Baso % (Auto) (0.0-3.0) % Gran # (1.4-6.5) Lymph # (Auto) (1.2-3.4) Sabine # (Auto) (0.1-0.6) Eos # (Auto) (0.0-0.7) Baso # (Auto) (0.0-2.0) K/mm3 pCO2 (35-45) mm/Hg pO2 (80-100) mm/Hg HCO3 (21-28) mmol/L ABG pH (7.35-7.45) ABG Total CO2 (22-28) mmol.L ABG O2 Saturation (95-98) % ABG O2 Content (15-23) ML/dl ABG Base Excess (-2.0-3.0) mmol/L ABG Hemoglobin (11.7-17.4) g/dL ABG Carboxyhemoglobin (0.5-1.5) % POC ABG HHb (Measured) (0-5) % ABG Methemoglobin (0.0-3.0) % ABG O2 Capacity (16-24) mL/dl Hgb O2 Saturation (95.0-98.0) % FiO2 % Sodium (132-148) mmol/L Potassium (3.6-5.0) mmol/L Chloride (98-107) mmol/L Carbon Dioxide (21-33) mmol/L Anion Gap (10-20) BUN (7-21) mg/dL Creatinine (0.8-1.5) mg/dl Est GFR ( Amer) Est GFR (Non-Af Amer) POC Glucose (mg/dL) (65-110) mg/dL Random Glucose (70-110) mg/dL Lactic Acid 0.8 (0.7-2.1) mmol/L Calcium (8.4-10.5) mg/dL Phosphorus (2.5-4.5) mg/dL Magnesium (1.7-2.2) mg/dL Iron 17 L (45-180) ug/dL TIBC 355 (261-462) ug/dL % Saturation 5 L (20-55) % Total Bilirubin (0.2-1.3) mg/dL AST (17-59) U/L ALT (7-56) U/L Alkaline Phosphatase (38-126) U/L Ammonia 14 (9-33) umol/L Troponin I ng/mL Total Protein (5.8-8.3) g/dL Albumin (3.0-4.8) g/dL Globulin gm/dL Albumin/Globulin Ratio (1.1-1.8) Triglycerides (35-160) mg/dL Cholesterol (130-200) mg/dL LDL Cholesterol Direct (0-129) mg/dL HDL Cholesterol (29-60) mg/dL Free T4 (0.78-2.19) ng/dL TSH 3rd Generation (0.46-4.68) mIU/mL Urine Color (YELLOW) Urine Appearance (CLEAR) Urine pH (4.7-8.0) Ur Specific Rock[place] (1.005-1.035) Urine Protein (<30 mg/dL) mg/dL Urine Glucose (UA) (NEGATIVE) mg/dL Urine Ketones (NEGATIVE) mg/dL Urine Blood (NEGATIVE) Urine Nitrate (NEGATIVE) Urine Bilirubin (NEGATIVE) Urine Urobilinogen (<1 E.U./dL) E.U./dL Ur Leukocyte Esterase (NEGATIVE) Rissa/uL Urine RBC (0-2) /hpf Urine WBC (0-6) /hpf Ur Epithelial Cells (0-5) /hpf Urine Bacteria (NEG) Urine Opiates Screen (NEGATIVE) Urine Methadone Screen (NEGATIVE) Ur Barbiturates Screen (NEGATIVE) Ur Phencyclidine Scrn (NEGATIVE) Ur Amphetamines Screen (NEGATIVE) U Benzodiazepines Scrn (NEGATIVE) U Oth Cocaine Metabols (NEGATIVE) U Cannabinoids Screen (NEGATIVE) 09/14/17 09/14/17 09/14/17 Range/Units 06:30 06:30 06:30 WBC 9.2 D (4.5-11.0) 10^3/ul RBC 3.02 L (3.5-6.1) 10^6/uL Hgb 7.6 L (14.0-18.0) g/dL Hct 26.6 L (42.0-52.0) % MCV 88.1 D (80.0-105.0) fl MCH 25.2 (25.0-35.0) pg MCHC 28.6 L (31.0-37.0) g/dl RDW 19.2 H (11.5-14.5) % Plt Count 493 H (120.0-450.0) 10^3/uL MPV 9.6 (7.0-11.0) fl Gran % 69.9 H (50.0-68.0) % Lymph % (Auto) 20.9 L (22.0-35.0) % Sabine % (Auto) 8.0 H (1.0-6.0) % Eos % (Auto) 1.1 L (1.5-5.0) % Baso % (Auto) 0.1 (0.0-3.0) % Gran # 6.43 (1.4-6.5) Lymph # (Auto) 1.9 (1.2-3.4) Sabine # (Auto) 0.7 H (0.1-0.6) Eos # (Auto) 0.1 (0.0-0.7) Baso # (Auto) 0.01 (0.0-2.0) K/mm3 pCO2 (35-45) mm/Hg pO2 (80-100) mm/Hg HCO3 (21-28) mmol/L ABG pH (7.35-7.45) ABG Total CO2 (22-28) mmol.L ABG O2 Saturation (95-98) % ABG O2 Content (15-23) ML/dl ABG Base Excess (-2.0-3.0) mmol/L ABG Hemoglobin (11.7-17.4) g/dL ABG Carboxyhemoglobin (0.5-1.5) % POC ABG HHb (Measured) (0-5) % ABG Methemoglobin (0.0-3.0) % ABG O2 Capacity (16-24) mL/dl Hgb O2 Saturation (95.0-98.0) % FiO2 % Sodium 136 (132-148) mmol/L Potassium 3.6 (3.6-5.0) mmol/L Chloride 101 (98-107) mmol/L Carbon Dioxide 26 (21-33) mmol/L Anion Gap 12 (10-20) BUN 26 H (7-21) mg/dL Creatinine 2.2 H (0.8-1.5) mg/dl Est GFR ( Amer) 38 Est GFR (Non-Af Amer) 31 POC Glucose (mg/dL) (65-110) mg/dL Random Glucose 96 (70-110) mg/dL Lactic Acid (0.7-2.1) mmol/L Calcium 8.8 (8.4-10.5) mg/dL Phosphorus 2.2 L (2.5-4.5) mg/dL Magnesium 2.3 H (1.7-2.2) mg/dL Iron (45-180) ug/dL TIBC (261-462) ug/dL % Saturation (20-55) % Total Bilirubin 0.2 (0.2-1.3) mg/dL AST 114 H D (17-59) U/L ALT 65 H (7-56) U/L Alkaline Phosphatase 93 (38-126) U/L Ammonia (9-33) umol/L Troponin I 3.70 H* D ng/mL Total Protein 6.4 (5.8-8.3) g/dL Albumin 2.8 L (3.0-4.8) g/dL Globulin 3.5 gm/dL Albumin/Globulin Ratio 0.8 L (1.1-1.8) Triglycerides 157 (35-160) mg/dL Cholesterol 80 L (130-200) mg/dL LDL Cholesterol Direct < 30 (0-129) mg/dL HDL Cholesterol 30 (29-60) mg/dL Free T4 0.82 (0.78-2.19) ng/dL TSH 3rd Generation 2.04 (0.46-4.68) mIU/mL Urine Color (YELLOW) Urine Appearance (CLEAR) Urine pH (4.7-8.0) Ur Specific Rockwell (1.005-1.035) Urine Protein (<30 mg/dL) mg/dL Urine Glucose (UA) (NEGATIVE) mg/dL Urine Ketones (NEGATIVE) mg/dL Urine Blood (NEGATIVE) Urine Nitrate (NEGATIVE) Urine Bilirubin (NEGATIVE) Urine Urobilinogen (<1 E.U./dL) E.U./dL Ur Leukocyte Esterase (NEGATIVE) Rissa/uL Urine RBC (0-2) /hpf Urine WBC (0-6) /hpf Ur Epithelial Cells (0-5) /hpf Urine Bacteria (NEG) Urine Opiates Screen (NEGATIVE) Urine Methadone Screen (NEGATIVE) Ur Barbiturates Screen (NEGATIVE) Ur Phencyclidine Scrn (NEGATIVE) Ur Amphetamines Screen (NEGATIVE) U Benzodiazepines Scrn (NEGATIVE) U Oth Cocaine Metabols (NEGATIVE) U Cannabinoids Screen (NEGATIVE) 09/14/17 09/14/17 09/14/17 Range/Units 06:24 04:04 00:50 WBC (4.5-11.0) 10^3/ul RBC (3.5-6.1) 10^6/uL Hgb (14.0-18.0) g/dL Hct (42.0-52.0) % MCV (80.0-105.0) fl MCH (25.0-35.0) pg MCHC (31.0-37.0) g/dl RDW (11.5-14.5) % Plt Count (120.0-450.0) 10^3/uL MPV (7.0-11.0) fl Gran % (50.0-68.0) % Lymph % (Auto) (22.0-35.0) % Sabine % (Auto) (1.0-6.0) % Eos % (Auto) (1.5-5.0) % Baso % (Auto) (0.0-3.0) % Gran # (1.4-6.5) Lymph # (Auto) (1.2-3.4) Sabine # (Auto) (0.1-0.6) Eos # (Auto) (0.0-0.7) Baso # (Auto) (0.0-2.0) K/mm3 pCO2 32 L (35-45) mm/Hg pO2 77.0 L (80-100) mm/Hg HCO3 26.7 (21-28) mmol/L ABG pH 7.53 H (7.35-7.45) ABG Total CO2 27.7 (22-28) mmol.L ABG O2 Saturation 99.2 H (95-98) % ABG O2 Content 10.1 L (15-23) ML/dl ABG Base Excess 3.8 H (-2.0-3.0) mmol/L ABG Hemoglobin 7.4 L (11.7-17.4) g/dL ABG Carboxyhemoglobin 2.2 H (0.5-1.5) % POC ABG HHb (Measured) 0.8 (0-5) % ABG Methemoglobin 1.0 (0.0-3.0) % ABG O2 Capacity 10.2 L (16-24) mL/dl Hgb O2 Saturation 96.1 (95.0-98.0) % FiO2 40.0 % Sodium 134 (132-148) mmol/L Potassium 5.1 H (3.6-5.0) mmol/L Chloride 98 (98-107) mmol/L Carbon Dioxide 27 (21-33) mmol/L Anion Gap 13 (10-20) BUN 29 H (7-21) mg/dL Creatinine 2.7 H (0.8-1.5) mg/dl Est GFR ( Amer) 30 Est GFR (Non-Af Amer) 25 POC Glucose (mg/dL) 103 (65-110) mg/dL Random Glucose 102 (70-110) mg/dL Lactic Acid (0.7-2.1) mmol/L Calcium 8.7 (8.4-10.5) mg/dL Phosphorus 5.7 H (2.5-4.5) mg/dL Magnesium 2.4 H (1.7-2.2) mg/dL Iron (45-180) ug/dL TIBC (261-462) ug/dL % Saturation (20-55) % Total Bilirubin (0.2-1.3) mg/dL AST (17-59) U/L ALT (7-56) U/L Alkaline Phosphatase (38-126) U/L Ammonia (9-33) umol/L Troponin I 1.55 H* D ng/mL Total Protein (5.8-8.3) g/dL Albumin (3.0-4.8) g/dL Globulin gm/dL Albumin/Globulin Ratio (1.1-1.8) Triglycerides (35-160) mg/dL Cholesterol (130-200) mg/dL LDL Cholesterol Direct (0-129) mg/dL HDL Cholesterol (29-60) mg/dL Free T4 (0.78-2.19) ng/dL TSH 3rd Generation (0.46-4.68) mIU/mL Urine Color (YELLOW) Urine Appearance (CLEAR) Urine pH (4.7-8.0) Ur Specific Rockwell (1.005-1.035) Urine Protein (<30 mg/dL) mg/dL Urine Glucose (UA) (NEGATIVE) mg/dL Urine Ketones (NEGATIVE) mg/dL Urine Blood (NEGATIVE) Urine Nitrate (NEGATIVE) Urine Bilirubin (NEGATIVE) Urine Urobilinogen (<1 E.U./dL) E.U./dL Ur Leukocyte Esterase (NEGATIVE) Rissa/uL Urine RBC (0-2) /hpf Urine WBC (0-6) /hpf Ur Epithelial Cells (0-5) /hpf Urine Bacteria (NEG) Urine Opiates Screen (NEGATIVE) Urine Methadone Screen (NEGATIVE) Ur Barbiturates Screen (NEGATIVE) Ur Phencyclidine Scrn (NEGATIVE) Ur Amphetamines Screen (NEGATIVE) U Benzodiazepines Scrn (NEGATIVE) U Oth Cocaine Metabols (NEGATIVE) U Cannabinoids Screen (NEGATIVE) 09/14/17 09/13/17 09/13/17 Range/Units 00:47 23:09 23:09 WBC (4.5-11.0) 10^3/ul RBC (3.5-6.1) 10^6/uL Hgb (14.0-18.0) g/dL Hct (42.0-52.0) % MCV (80.0-105.0) fl MCH (25.0-35.0) pg MCHC (31.0-37.0) g/dl RDW (11.5-14.5) % Plt Count (120.0-450.0) 10^3/uL MPV (7.0-11.0) fl Gran % (50.0-68.0) % Lymph % (Auto) (22.0-35.0) % Sabine % (Auto) (1.0-6.0) % Eos % (Auto) (1.5-5.0) % Baso % (Auto) (0.0-3.0) % Gran # (1.4-6.5) Lymph # (Auto) (1.2-3.4) Sabine # (Auto) (0.1-0.6) Eos # (Auto) (0.0-0.7) Baso # (Auto) (0.0-2.0) K/mm3 pCO2 (35-45) mm/Hg pO2 (80-100) mm/Hg HCO3 (21-28) mmol/L ABG pH (7.35-7.45) ABG Total CO2 (22-28) mmol.L ABG O2 Saturation (95-98) % ABG O2 Content (15-23) ML/dl ABG Base Excess (-2.0-3.0) mmol/L ABG Hemoglobin (11.7-17.4) g/dL ABG Carboxyhemoglobin (0.5-1.5) % POC ABG HHb (Measured) (0-5) % ABG Methemoglobin (0.0-3.0) % ABG O2 Capacity (16-24) mL/dl Hgb O2 Saturation (95.0-98.0) % FiO2 % Sodium (132-148) mmol/L Potassium (3.6-5.0) mmol/L Chloride (98-107) mmol/L Carbon Dioxide (21-33) mmol/L Anion Gap (10-20) BUN (7-21) mg/dL Creatinine (0.8-1.5) mg/dl Est GFR ( Amer) Est GFR (Non-Af Amer) POC Glucose (mg/dL) 108 (65-110) mg/dL Random Glucose (70-110) mg/dL Lactic Acid (0.7-2.1) mmol/L Calcium (8.4-10.5) mg/dL Phosphorus (2.5-4.5) mg/dL Magnesium (1.7-2.2) mg/dL Iron (45-180) ug/dL TIBC (261-462) ug/dL % Saturation (20-55) % Total Bilirubin (0.2-1.3) mg/dL AST (17-59) U/L ALT (7-56) U/L Alkaline Phosphatase (38-126) U/L Ammonia (9-33) umol/L Troponin I ng/mL Total Protein (5.8-8.3) g/dL Albumin (3.0-4.8) g/dL Globulin gm/dL Albumin/Globulin Ratio (1.1-1.8) Triglycerides (35-160) mg/dL Cholesterol (130-200) mg/dL LDL Cholesterol Direct (0-129) mg/dL HDL Cholesterol (29-60) mg/dL Free T4 (0.78-2.19) ng/dL TSH 3rd Generation (0.46-4.68) mIU/mL Urine Color Yellow (YELLOW) Urine Appearance Sl cloudy (CLEAR) Urine pH 6.0 (4.7-8.0) Ur Specific Rockwell >= 1.030 (1.005-1.035) Urine Protein 30 H (<30 mg/dL) mg/dL Urine Glucose (UA) Negative (NEGATIVE) mg/dL Urine Ketones Negative (NEGATIVE) mg/dL Urine Blood Moderate H (NEGATIVE) Urine Nitrate Negative (NEGATIVE) Urine Bilirubin Negative (NEGATIVE) Urine Urobilinogen 0.2 (<1 E.U./dL) E.U./dL Ur Leukocyte Esterase Negative (NEGATIVE) Rissa/uL Urine RBC 5 - 10 (0-2) /hpf Urine WBC 2 - 5 (0-6) /hpf Ur Epithelial Cells 4 - 5 (0-5) /hpf Urine Bacteria Mod (NEG) Urine Opiates Screen Positive H (NEGATIVE) Urine Methadone Screen Negative (NEGATIVE) Ur Barbiturates Screen Negative (NEGATIVE) Ur Phencyclidine Scrn Negative (NEGATIVE) Ur Amphetamines Screen Negative (NEGATIVE) U Benzodiazepines Scrn Positive (NEGATIVE) U Oth Cocaine Metabols Negative (NEGATIVE) U Cannabinoids Screen Negative (NEGATIVE) 09/13/17 Range/Units 21:50 WBC (4.5-11.0) 10^3/ul RBC (3.5-6.1) 10^6/uL Hgb (14.0-18.0) g/dL Hct (42.0-52.0) % MCV (80.0-105.0) fl MCH (25.0-35.0) pg MCHC (31.0-37.0) g/dl RDW (11.5-14.5) % Plt Count (120.0-450.0) 10^3/uL MPV (7.0-11.0) fl Gran % (50.0-68.0) % Lymph % (Auto) (22.0-35.0) % Sabine % (Auto) (1.0-6.0) % Eos % (Auto) (1.5-5.0) % Baso % (Auto) (0.0-3.0) % Gran # (1.4-6.5) Lymph # (Auto) (1.2-3.4) Sabine # (Auto) (0.1-0.6) Eos # (Auto) (0.0-0.7) Baso # (Auto) (0.0-2.0) K/mm3 pCO2 89 H* (35-45) mm/Hg pO2 125.0 H (80-100) mm/Hg HCO3 28.9 H (21-28) mmol/L ABG pH 7.12 L* (7.35-7.45) ABG Total CO2 31.6 H (22-28) mmol.L ABG O2 Saturation 101.0 H (95-98) % ABG O2 Content 10.1 L (15-23) ML/dl ABG Base Excess -0.9 (-2.0-3.0) mmol/L ABG Hemoglobin 7.4 L (11.7-17.4) g/dL ABG Carboxyhemoglobin 5.3 H (0.5-1.5) % POC ABG HHb (Measured) -0.9 L (0-5) % ABG Methemoglobin 0.9 (0.0-3.0) % ABG O2 Capacity 10.0 L (16-24) mL/dl Hgb O2 Saturation 94.7 L (95.0-98.0) % FiO2 50.0 % Sodium (132-148) mmol/L Potassium (3.6-5.0) mmol/L Chloride (98-107) mmol/L Carbon Dioxide (21-33) mmol/L Anion Gap (10-20) BUN (7-21) mg/dL Creatinine (0.8-1.5) mg/dl Est GFR ( Amer) Est GFR (Non-Af Amer) POC Glucose (mg/dL) (65-110) mg/dL Random Glucose (70-110) mg/dL Lactic Acid (0.7-2.1) mmol/L Calcium (8.4-10.5) mg/dL Phosphorus (2.5-4.5) mg/dL Magnesium (1.7-2.2) mg/dL Iron (45-180) ug/dL TIBC (261-462) ug/dL % Saturation (20-55) % Total Bilirubin (0.2-1.3) mg/dL AST (17-59) U/L ALT (7-56) U/L Alkaline Phosphatase (38-126) U/L Ammonia (9-33) umol/L Troponin I ng/mL Total Protein (5.8-8.3) g/dL Albumin (3.0-4.8) g/dL Globulin gm/dL Albumin/Globulin Ratio (1.1-1.8) Triglycerides (35-160) mg/dL Cholesterol (130-200) mg/dL LDL Cholesterol Direct (0-129) mg/dL HDL Cholesterol (29-60) mg/dL Free T4 (0.78-2.19) ng/dL TSH 3rd Generation (0.46-4.68) mIU/mL Urine Color (YELLOW) Urine Appearance (CLEAR) Urine pH (4.7-8.0) Ur Specific [place] (1.005-1.035) Urine Protein (<30 mg/dL) mg/dL Urine Glucose (UA) (NEGATIVE) mg/dL Urine Ketones (NEGATIVE) mg/dL Urine Blood (NEGATIVE) Urine Nitrate (NEGATIVE) Urine Bilirubin (NEGATIVE) Urine Urobilinogen (<1 E.U./dL) E.U./dL Ur Leukocyte Esterase (NEGATIVE) Rissa/uL Urine RBC (0-2) /hpf Urine WBC (0-6) /hpf Ur Epithelial Cells (0-5) /hpf Urine Bacteria (NEG) Urine Opiates Screen (NEGATIVE) Urine Methadone Screen (NEGATIVE) Ur Barbiturates Screen (NEGATIVE) Ur Phencyclidine Scrn (NEGATIVE) Ur Amphetamines Screen (NEGATIVE) U Benzodiazepines Scrn (NEGATIVE) U Oth Cocaine Metabols (NEGATIVE) U Cannabinoids Screen (NEGATIVE) Laboratory Results - last 24 hr 09/13/17 09/13/17 09/13/17 21:50 23:09 23:09 WBC RBC Hgb Hct MCV MCH MCHC RDW Plt Count MPV Gran % Lymph % (Auto) [place] % (Auto) Eos % (Auto) Baso % (Auto) Gran # Lymph # (Auto) [place] # (Auto) Eos # (Auto) Baso # (Auto) pCO2 89 H* pO2 125.0 H HCO3 28.9 H ABG pH 7.12 L* ABG Total CO2 31.6 H ABG O2 Saturation 101.0 H ABG O2 Content 10.1 L ABG Base Excess -0.9 ABG Hemoglobin 7.4 L ABG Carboxyhemoglobin 5.3 H POC ABG HHb (Measured) -0.9 L ABG Methemoglobin 0.9 ABG O2 Capacity 10.0 L Hgb O2 Saturation 94.7 L FiO2 50.0 Sodium Potassium Chloride Carbon Dioxide Anion Gap BUN Creatinine Est GFR ( Amer) Est GFR (Non-Af Amer) POC Glucose (mg/dL) Random Glucose Lactic Acid Calcium Phosphorus Magnesium Iron TIBC % Saturation Total Bilirubin AST ALT Alkaline Phosphatase Ammonia Troponin I Total Protein Albumin Globulin Albumin/Globulin Ratio Triglycerides Cholesterol LDL Cholesterol Direct HDL Cholesterol Free T4 TSH 3rd Generation Urine Color Yellow Urine Appearance Sl cloudy Urine pH 6.0 Ur Specific [place] >= 1.030 Urine Protein 30 H Urine Glucose (UA) Negative Urine Ketones Negative Urine Blood Moderate H Urine Nitrate Negative Urine Bilirubin Negative Urine Urobilinogen 0.2 Ur Leukocyte Esterase Negative Urine RBC 5 - 10 Urine WBC 2 - 5 Ur Epithelial Cells 4 - 5 Urine Bacteria Mod Urine Opiates Screen Positive H Urine Methadone Screen Negative Ur Barbiturates Screen Negative Ur Phencyclidine Scrn Negative Ur Amphetamines Screen Negative U Benzodiazepines Scrn Positive U Oth Cocaine Metabols Negative U Cannabinoids Screen Negative 09/14/17 09/14/17 09/14/17 00:47 00:50 04:04 WBC RBC Hgb Hct MCV MCH MCHC RDW Plt Count MPV Gran % Lymph % (Auto) [place] % (Auto) Eos % (Auto) Baso % (Auto) Gran # Lymph # (Auto) [place] # (Auto) Eos # (Auto) Baso # (Auto) pCO2 pO2 HCO3 ABG pH ABG Total CO2 ABG O2 Saturation ABG O2 Content ABG Base Excess ABG Hemoglobin ABG Carboxyhemoglobin POC ABG HHb (Measured) ABG Methemoglobin ABG O2 Capacity Hgb O2 Saturation FiO2 Sodium 134 Potassium 5.1 H Chloride 98 Carbon Dioxide 27 Anion Gap 13 BUN 29 H Creatinine 2.7 H Est GFR ( Amer) 30 Est GFR (Non-Af Amer) 25 POC Glucose (mg/dL) 108 103 Random Glucose 102 Lactic Acid Calcium 8.7 Phosphorus 5.7 H Magnesium 2.4 H Iron TIBC % Saturation Total Bilirubin AST ALT Alkaline Phosphatase Ammonia Troponin I 1.55 H* D Total Protein Albumin Globulin Albumin/Globulin Ratio Triglycerides Cholesterol LDL Cholesterol Direct HDL Cholesterol Free T4 TSH 3rd Generation Urine Color Urine Appearance Urine pH Ur Specific [place] Urine Protein Urine Glucose (UA) Urine Ketones Urine Blood Urine Nitrate Urine Bilirubin Urine Urobilinogen Ur Leukocyte Esterase Urine RBC Urine WBC Ur Epithelial Cells Urine Bacteria Urine Opiates Screen Urine Methadone Screen Ur Barbiturates Screen Ur Phencyclidine Scrn Ur Amphetamines Screen U Benzodiazepines Scrn U Oth Cocaine Metabols U Cannabinoids Screen 09/14/17 09/14/17 09/14/17 06:24 06:30 06:30 WBC 9.2 D RBC 3.02 L Hgb 7.6 L Hct 26.6 L MCV 88.1 D MCH 25.2 MCHC 28.6 L RDW 19.2 H Plt Count 493 H MPV 9.6 Gran % 69.9 H Lymph % (Auto) 20.9 L [place] % (Auto) 8.0 H Eos % (Auto) 1.1 L Baso % (Auto) 0.1 Gran # 6.43 Lymph # (Auto) 1.9 [place] # (Auto) 0.7 H Eos # (Auto) 0.1 Baso # (Auto) 0.01 pCO2 32 L pO2 77.0 L HCO3 26.7 ABG pH 7.53 H ABG Total CO2 27.7 ABG O2 Saturation 99.2 H ABG O2 Content 10.1 L ABG Base Excess 3.8 H ABG Hemoglobin 7.4 L ABG Carboxyhemoglobin 2.2 H POC ABG HHb (Measured) 0.8 ABG Methemoglobin 1.0 ABG O2 Capacity 10.2 L Hgb O2 Saturation 96.1 FiO2 40.0 Sodium 136 Potassium 3.6 Chloride 101 Carbon Dioxide 26 Anion Gap 12 BUN 26 H Creatinine 2.2 H Est GFR ( Amer) 38 Est GFR (Non-Af Amer) 31 POC Glucose (mg/dL) Random Glucose 96 Lactic Acid Calcium 8.8 Phosphorus 2.2 L Magnesium 2.3 H Iron TIBC % Saturation Total Bilirubin 0.2 AST 114 H D ALT 65 H Alkaline Phosphatase 93 Ammonia Troponin I 3.70 H* D Total Protein 6.4 Albumin 2.8 L Globulin 3.5 Albumin/Globulin Ratio 0.8 L Triglycerides 157 Cholesterol 80 L LDL Cholesterol Direct < 30 HDL Cholesterol 30 Free T4 TSH 3rd Generation Urine Color Urine Appearance Urine pH Ur Specific [place] Urine Protein Urine Glucose (UA) Urine Ketones Urine Blood Urine Nitrate Urine Bilirubin Urine Urobilinogen Ur Leukocyte Esterase Urine RBC Urine WBC Ur Epithelial Cells Urine Bacteria Urine Opiates Screen Urine Methadone Screen Ur Barbiturates Screen Ur Phencyclidine Scrn Ur Amphetamines Screen U Benzodiazepines Scrn U Oth Cocaine Metabols U Cannabinoids Screen 09/14/17 09/14/17 09/14/17 06:30 06:30 06:55 WBC RBC Hgb Hct MCV MCH MCHC RDW Plt Count MPV Gran % Lymph % (Auto) [place] % (Auto) Eos % (Auto) Baso % (Auto) Gran # Lymph # (Auto) [place] # (Auto) Eos # (Auto) Baso # (Auto) pCO2 pO2 HCO3 ABG pH ABG Total CO2 ABG O2 Saturation ABG O2 Content ABG Base Excess ABG Hemoglobin ABG Carboxyhemoglobin POC ABG HHb (Measured) ABG Methemoglobin ABG O2 Capacity Hgb O2 Saturation FiO2 Sodium Potassium Chloride Carbon Dioxide Anion Gap BUN Creatinine Est GFR ( Amer) Est GFR (Non-Af Amer) POC Glucose (mg/dL) Random Glucose Lactic Acid 0.8 Calcium Phosphorus Magnesium Iron TIBC % Saturation Total Bilirubin AST ALT Alkaline Phosphatase Ammonia 14 Troponin I Total Protein Albumin Globulin Albumin/Globulin Ratio Triglycerides Cholesterol LDL Cholesterol Direct HDL Cholesterol Free T4 0.82 TSH 3rd Generation 2.04 Urine Color Urine Appearance Urine pH Ur Specific [place] Urine Protein Urine Glucose (UA) Urine Ketones Urine Blood Urine Nitrate Urine Bilirubin Urine Urobilinogen Ur Leukocyte Esterase Urine RBC Urine WBC Ur Epithelial Cells Urine Bacteria Urine Opiates Screen Urine Methadone Screen Ur Barbiturates Screen Ur Phencyclidine Scrn Ur Amphetamines Screen U Benzodiazepines Scrn U Oth Cocaine Metabols U Cannabinoids Screen 09/14/17 06:55 WBC RBC Hgb Hct MCV MCH MCHC RDW Plt Count MPV Gran % Lymph % (Auto) [place] % (Auto) Eos % (Auto) Baso % (Auto) Gran # Lymph # (Auto) [place] # (Auto) Eos # (Auto) Baso # (Auto) pCO2 pO2 HCO3 ABG pH ABG Total CO2 ABG O2 Saturation ABG O2 Content ABG Base Excess ABG Hemoglobin ABG Carboxyhemoglobin POC ABG HHb (Measured) ABG Methemoglobin ABG O2 Capacity Hgb O2 Saturation FiO2 Sodium Potassium Chloride Carbon Dioxide Anion Gap BUN Creatinine Est GFR ( Amer) Est GFR (Non-Af Amer) POC Glucose (mg/dL) Random Glucose Lactic Acid Calcium Phosphorus Magnesium Iron 17 L TIBC 355 % Saturation 5 L Total Bilirubin AST ALT Alkaline Phosphatase Ammonia Troponin I Total Protein Albumin Globulin Albumin/Globulin Ratio Triglycerides Cholesterol LDL Cholesterol Direct HDL Cholesterol Free T4 TSH 3rd Generation Urine Color Urine Appearance Urine pH Ur Specific [place] Urine Protein Urine Glucose (UA) Urine Ketones Urine Blood Urine Nitrate Urine Bilirubin Urine Urobilinogen Ur Leukocyte Esterase Urine RBC Urine WBC Ur Epithelial Cells Urine Bacteria Urine Opiates Screen Urine Methadone Screen Ur Barbiturates Screen Ur Phencyclidine Scrn Ur Amphetamines Screen U Benzodiazepines Scrn U Oth Cocaine Metabols U Cannabinoids Screen EKG/Cardiology Studies: Cardiology / EKG Studies 09/14/17 01:28 EKG [ELECTROCARDIOGRAM] Routine Comment: Reason For Exam: trop ->0.08---> 1.55. EKG [ELECTROCARDIOGRAM] Stat Comment: Reason For Exam: trop 0.08---->1.55 09/14/17 10:24 EKG [ELECTROCARDIOGRAM] Stat Comment: Reason For Exam: elevated troponin Assessment/Plan - Assessment and Plan (Free Text) Assessment: Patient seen and examined on rounds with resident, agree with note with following additions/exceptions: Patient is 56yo male with PMHx HTN, CHF s/p pacemaker, asthma, Hep C, PAULINO, depression, and bipolar was admitted for AMS, hypercapnic resp failure, opiate overdose, s/p intubation. Currently the patient is afebrile, HD stable, comfortable in NAD, on Precedex drip, placed on CPAP trial. Patient is not fully awake, and is not able to follow commands at this time, as he is drowsy/ somnolent. Troponin uptrending this morning, EKG done, NSR, LAD, NSST changes, cardiology consulted, ECHO placed, ASA 325mg given. No definitive source of infection Hypercapnic resp Failure Polysubstance Abuse, EtOH abuse Acute renal failure Elevated troponin Dehydration Hep C CHF, compensated Recommend: - cont with vent support, low tidal vol ventilation, daily sedation vacation, daily CPAP trial, - pathak culture, UCx, BCx, check procal - cont with antibiotics for now, until cultures result, procal - BP control - Precedex drip - monitor for EtOH withdrawal - Ativan PRN - Thiamine, Folic Acid, MVT - IVF hydration - Renal consult - Renal U/S - monitor - ECHO - Cardiology consult - repeat cardiac enzymes - FS control - GI ppx - DVT ppx - Monitor in MICU Critical care time 40 minutes
[2017-09-14] MEDS ORDERED: Sodium Chloride 0.9% 1,000 ML IV SCH (11:36)
[2017-09-14 12:40] LABS: FERRITIN 98.3 ng/mL
[2017-09-14 12:52] LABS: HEPATITIS B SURFACE AG Negative (NEGATIVE)
[2017-09-14 12:57] LABS: HEPATITIS A IGM NEGATIVE (NEGATIVE); HEPATITIS B CORE AB NEGATIVE (NEGATIVE)
[2017-09-14 13:09] LABS: HEPATITIS C ANTIBODY NEGATIVE (NEGATIVE)
[2017-09-14 13:10] LABS: FOLATE > 20.0 ng/mL
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
--- NOTE | 2017-09-14 20:12 | US ---
EXAM: US Retroperitoneal Limited, Renal EXAM DATE/TIME: 09/14/2017 12:42 AM CLINICAL HISTORY: The patient age is 56 years old and is male; Signs and symptoms; Other: [facility] exam id and description: Us renal renal TECHNIQUE: Real-time ultrasound of the retroperitoneum (limited) with image documentation. COMPARISON: US - ABDOMEN COMPLETE 2017-03-03 13:54 FINDINGS: Right kidney: There is no hydronephrosis or shadowing nephrolithiasis. The right kidney measures 10.6 x 5.6 x 6.0 cm. No visualized renal mass. Normal echogenicity. Left kidney: The left kidney measures 11.0 x 6.0 x 5.6 cm. There is no hydronephrosis or shadowing nephrolithiasis. No visualized renal mass. Normal echogenicity. IMPRESSION: 1. There is no hydronephrosis or shadowing nephrolithiasis bilaterally.
[2017-09-14 21:24] LABS: CREATININE,RANDOM URINE 135 mg/dL; TOTAL PROTEIN,RANDOM URINE 31 mg/L
[2017-09-15] MEDS: Cefepime 1gm in NS 100ml 1 GM/100 ML BAG IVPB SCH (00:40)
[2017-09-15] MEDS: Insulin Lispro (humaLOG) LOW Coverage SC SCH ×4 (01:00→18:36)
[2017-09-15] MEDS: Albuterol-Ipratrop 3 mg / 0.5 (3 ml) UD IH SCH ×5 (02:44→19:36)
[2017-09-15 05:39] LABS: ARTERIAL BLOOD GAS HCO3 22.6 mmol/L (21-28); ARTERIAL BLOOD GAS O2 SAT 97.3 % (95-98); ARTERIAL BLOOD GAS PCO2 41 mm/Hg (35-45); ARTERIAL BLOOD GAS PH 7.35 (7.35-7.45); ARTERIAL BLOOD GAS TCO2 23.9 mmol.L (22-28)
[2017-09-15 06:55] LABS: BASO # 0.02 K/mm3 (0.0-2.0); BASO % 0.2 % (0.0-3.0); EOS # 0.3 (0.0-0.7); EOS % 2.3 % (1.5-5.0); GRAN # 9.27 (1.4-6.5); GRAN % 79.3 % (50.0-68.0); HEMOGLOBIN 9.4 g/dL (14.0-18.0); LYMPH # 1.4 (1.2-3.4); LYMPH % 12.2 % (22.0-35.0); MEAN CELL VOLUME 85.8 fl (80.0-105.0); MEAN CORPUSCULAR HEMOGLOBIN 25.6 pg (25.0-35.0); MEAN CORPUSCULAR HGB CONC 29.8 g/dl (31.0-37.0); MONO # 0.7 (0.1-0.6); RBC 3.67 10^6/uL (3.5-6.1); RED CELL DISTRIBUTION WIDTH 19.8 % (11.5-14.5); WHITE BLOOD COUNT 11.7 10^3/ul (4.5-11.0)
[2017-09-15 07:18] LABS: ALB/GLOB RATIO 0.8 (1.1-1.8); ALT/SGPT 54 U/L (7-56); AST/SGOT 102 U/L (17-59); BLOOD UREA NITROGEN 19 mg/dL (7-21); CALCIUM 9.2 mg/dL (8.4-10.5); GFR AFRICAN-AMERICAN > 60; GFR NON-AFRICAN AMERICAN 57
[2017-09-15] MEDS: Arformoterol 15 mcg/2 ml Inh Sol IH SCH ×2 (07:58→19:35)
[2017-09-15] MEDS: Budesonide 0.5 mg/2 ml Inhal Susp UD IH SCH ×2 (07:58→19:37)
[2017-09-15] MEDS: Multi Vitamins 15 mL UD Oral Solution PO SCH (08:31)
[2017-09-15] MEDS: Dexmedetomidine 400mcg/100mL 400 MCG/100 ML BOTTLE IV PRN ×5 (08:33→20:50)
--- NOTE | 2017-09-15 09:28 | CARD ---
APPROVED REPORT EXAM: Two-dimensional and M-mode echocardiogram with Doppler and color Doppler. Other Information Quality : AverageRhythm : INDICATION ELEVATED TROPONIN 2D DIMENSIONS Left Atrium (2D)4.2 (1.6-4.0cm)IVSd1.1 (0.7-1.1cm) LVDd5.7 (3.9-5.9cm)PWd1.2 (0.7-1.1cm) LVDs4.9 (2.5-4.0cm)FS (%) 13.2 % LVEF (%)28.0 (>50%) M-Mode DIMENSIONS Aortic Root3.20 (2.2-3.7cm)Aortic Cusp Exc.2.30 (1.5-2.0cm) Aortic Valve AoV Peak Rdyekecp418.0cm/s Mitral Valve MV E Xxholzgr84.5cm/sMV A Bcndvbam22.5cm/sE/A ratio1.2 TDI E/Lateral E'0.0E/Medial E'0.0 Tricuspid Valve TR Peak [id number] [id number] Peak Gr.31mmHg [id number] LEFT VENTRICLE The left ventricle is normal size. There is normal left ventricular wall thickness. Left ventricle systolic function is severely impaired. The Ejection Fraction is 25-30%. There is severe global hypokinesis. RIGHT VENTRICLE The right ventricle is mildly dilated. There is a pacemaker/ICD lead seen in the right ventricle. ATRIA The left atrium is mildly dilated. There is a pacemaker/ ICD lead seen in the right atrium. The interatrial septum is intact with no evidence for an atrial septal defect. AORTIC VALVE The aortic valve is normal in structure. MITRAL VALVE The mitral valve is normal in structure. Mitral regurgitation is moderate. TRICUSPID VALVE The tricuspid valve is normal in structure. There is moderate tricuspid regurgitation. PULMONIC VALVE The pulmonary valve is normal in structure. There is trace pulmonic valvular regurgitation. GREAT VESSELS The aortic root is normal in size. PERICARDIAL EFFUSION There is no pericardial effusion. <Conclusion> Limited study: ICU/vented patient. The left ventricle is normal size. There is normal left ventricular wall thickness. Left ventricle systolic function is severely impaired. The Ejection Fraction is 25-30%. Mitral regurgitation is moderate. There is moderate tricuspid regurgitation.
[2017-09-15] MEDS ORDERED: Albuterol-Ipratrop 3 mg / 0.5 (3 ml) UD ONE (09:50)
--- NOTE | 2017-09-15 10:19 | CP.CCUPN ---
<Conor Delaney - Last Filed: 09/15/17 10:11> CCU Subjective - Physician Review Subjective (Free Text): Critical care progress note: Pt seen and examined at bedside. No acute events overnight. Patient was weaned and extubated this morning. Following commands and moving all extremities. No complaints. 12 Point ROS reviewed and neg other than stated above. CCU Objective - Vital Signs / Intake & Output Vital Signs (Last 4 hours): Vital Signs Pulse BP 09/15/17 06:17 60 164/108 H Intake and Output (Last 8hrs): Intake & Output 09/14/17 09/15/17 09/15/17 22:59 06:59 14:59 Intake Total 2099.00 1600 1 Output Total 650 800 Balance 1449.00 800 1 Intake: IV 1774.00 1600 1 Left Hand 300 Right Antecubital 825 500 Right Upper arm 350 1100 Oral 0 Blood Product 325 Red Blood Cells Cpd As1 325 Lr Unit [id number] Output: Urine 650 800 2-way Urethral 650 800 - Physical Exam Head: Positive for: Atraumatic, Normocephalic Pupils: Positive for: Pinpoint Extroacular Muscles: Positive for: EOMI Conjunctiva: Positive for: Normal Mouth: Positive for: Moist Mucous Membranes Pharnyx: Positive for: Other (Gurgling) Nose (External): Positive for: Atraumatic Nose (Internal): Positive for: Normal Inspection Neck: Positive for: Normal Range of Motion. Negative for: Meningeal Signs Respiratory/Chest: Positive for: Clear to Auscultation, Good Air Exchange. Negative for: Respiratory Distress, Accessory Muscle Use Cardiovascular: Positive for: Regular Rate and Rhythm, Normal S1, S2. Negative for: Murmurs Abdomen: Negative for: Tenderness, Distention, Peritoneal Signs Upper Extremity: Positive for: Normal Inspection. Negative for: Cyanosis, Edema Lower Extremity: Positive for: Normal Inspection. Negative for: Edema Neurological: Positive for: Motor Func Grossly Intact, Normal Sensory Function Skin: Positive for: Warm, Dry, Normal Color. Negative for: Rashes Psychiatric: Positive for: Lethargic - Medications Active Medications: Active Medications Generic Name Dose Route Start Last Admin Trade Name Freq PRN Reason Stop Dose Admin Albuterol/Ipratropium 3 ml 09/14/17 02:00 09/15/17 07:58 Duoneb 3 Mg/0.5 Mg (3 Ml) Ud IH 3 ml [id number] EDGAR Administration Arformoterol Tartrate 15 mcg 09/14/17 08:00 09/15/17 07:58 Brovana IH 15 mcg [id number] EDGAR Administration Budesonide 0.5 mg 09/14/17 08:00 09/15/17 07:58 Pulmicort Respules IH 0.5 mg [id number] EDGAR Administration Carvedilol 12.5 mg 09/14/17 10:00 09/14/17 16:53 Coreg PO 12.5 mg BID EDGAR Administration Folic Acid 1 mg 09/14/17 10:00 09/14/17 10:51 Folic Acid IVP 1 mg DAILY EDGAR Administration Hydralazine HCl 10 mg 09/14/17 22:41 09/15/17 06:17 Apresoline IVP 10 mg Q6 PRN Administration Systolic Blood Pressure Dexmedetomidine HCl 400 mcg in 100 mls @ 4.74 mls/hr 09/14/17 07:18 09/15/17 08:33 Precedex 400mcg/100ml IV 1.5 mcg/kg/hr .[id number] PRN 35.55 mls/hr Agitation Administration Protocol 0.2 MCG/KG/HR Sodium Chloride 1,000 mls @ 75 mls/hr 09/14/17 11:36 09/14/17 21:49 Sodium Chloride 0.9% IV 75 mls/hr .[id number] EDGAR Administration Iron Sucrose 100 mg/ Sodium 105 mls @ 210 mls/hr 09/14/17 19:00 09/14/17 20: 48 Chloride IVPB 210 mls/hr DAILY EDGAR Administration Insulin Human Lispro 0 units 09/14/17 01:00 09/15/17 07:37 Humalog Low SC 1 units Q6H EDGAR Administration Protocol Lorazepam 2 mg 09/14/17 10:25 09/15/17 04:12 Ativan IVP 2 mg Q2H PRN Administration Anxiety Protocol Methylprednisolone 40 mg 09/15/17 10:00 Solu-Medrol IVP Q8H EDGAR Montelukast Sodium 10 mg 09/14/17 22:00 09/14/17 21:49 Singulair PO 10 mg HS EDGAR Administration Multivitamins/Vitamin C 15 ml 09/14/17 08:00 09/15/17 08:31 Multi-Delyn Liquid PO 15 ml 0800 EDGAR Administration Pantoprazole Sodium 40 mg 09/14/17 10:00 09/14/17 10:53 Protonix Inj IVP 40 mg DAILY EDGAR Administration Thiamine HCl 100 mg 09/14/17 10:00 09/14/17 10:56 Vitamin B1 Inj IM 100 mg DAILY EDGAR Administration Tiotropium Gilbert 18 mcg 09/14/17 10:00 09/14/17 10:54 Spiriva IH 18 mcg DAILY EDGAR Administration - Patient Studies Lab Studies: Lab Studies 09/15/17 09/15/17 09/15/17 Range/Units 07:43 06:10 06:10 WBC 11.7 H D (4.5-11.0) 10^3/ul RBC 3.67 (3.5-6.1) 10^6/uL Hgb 9.4 L (14.0-18.0) g/dL Hct 31.5 L (42.0-52.0) % MCV 85.8 (80.0-105.0) fl MCH 25.6 (25.0-35.0) pg MCHC 29.8 L (31.0-37.0) g/dl RDW 19.8 H (11.5-14.5) % Plt Count 563 H (120.0-450.0) 10^3/uL MPV 10.0 (7.0-11.0) fl Gran % 79.3 H (50.0-68.0) % Lymph % (Auto) 12.2 L (22.0-35.0) % [place] % (Auto) 6.0 (1.0-6.0) % Eos % (Auto) 2.3 (1.5-5.0) % Baso % (Auto) 0.2 (0.0-3.0) % Gran # 9.27 H (1.4-6.5) Lymph # (Auto) 1.4 (1.2-3.4) [place] # (Auto) 0.7 H (0.1-0.6) Eos # (Auto) 0.3 (0.0-0.7) Baso # (Auto) 0.02 (0.0-2.0) K/mm3 pCO2 (35-45) mm/Hg pO2 (80-100) mm/Hg HCO3 (21-28) mmol/L ABG pH (7.35-7.45) ABG Total CO2 (22-28) mmol.L ABG O2 Saturation (95-98) % ABG Base Excess (-2.0-3.0) mmol/L ABG Potassium (3.6-5.2) mmol/L Sodium 139 (132-148) mmol/L Chloride 106 (98-107) mmol/L Glucose (75-110) mg/dl Lactate (0.7-2.1) mmol/L Mechanical Rate FiO2 % Tidal Volume PEEP Potassium 4.4 (3.6-5.0) mmol/L Carbon Dioxide 22 (21-33) mmol/L Anion Gap 15 (10-20) BUN 19 (7-21) mg/dL Creatinine 1.3 (0.8-1.5) mg/dl Est GFR ( Amer) > 60 Est GFR (Non-Af Amer) 57 POC Glucose (mg/dL) 106 (65-110) mg/dL Random Glucose 124 H (70-110) mg/dL Hemoglobin A1c (4.2-6.5) % Calcium 9.2 (8.4-10.5) mg/dL Phosphorus 3.3 (2.5-4.5) mg/dL Magnesium 2.2 (1.7-2.2) mg/dL Transferrin (206-381) mg/dL Ferritin ng/mL Total Bilirubin 0.3 (0.2-1.3) mg/dL AST 102 H (17-59) U/L ALT 54 (7-56) U/L Alkaline Phosphatase 99 (38-126) U/L Total Protein 6.7 (5.8-8.3) g/dL Albumin 3.0 (3.0-4.8) g/dL Globulin 3.7 gm/dL Albumin/Globulin Ratio 0.8 L (1.1-1.8) Vitamin B12 (239-931) pg/mL Folate ng/mL Procalcitonin (0.19-0.49) NG/ML Arterial Blood Potassium (3.6-5.2) mmol/L Ur Random Creatinine mg/dL U Random Total Protein mg/L Ur Random Sodium meq/L Hepatitis A IgM Ab (NEGATIVE) Hep Bs Antigen (NEGATIVE) Hep B Core IgM Ab (NEGATIVE) Hepatitis C Antibody (NEGATIVE) Blood Type Blood Type Confirm Antibody Screen Crossmatch BBK History Checked 09/15/17 09/14/17 09/14/17 Range/Units 05:32 20:36 19:23 WBC (4.5-11.0) 10^3/ul RBC (3.5-6.1) 10^6/uL Hgb (14.0-18.0) g/dL Hct (42.0-52.0) % MCV (80.0-105.0) fl MCH (25.0-35.0) pg MCHC (31.0-37.0) g/dl RDW (11.5-14.5) % Plt Count (120.0-450.0) 10^3/uL MPV (7.0-11.0) fl Gran % (50.0-68.0) % Lymph % (Auto) (22.0-35.0) % [place] % (Auto) (1.0-6.0) % Eos % (Auto) (1.5-5.0) % Baso % (Auto) (0.0-3.0) % Gran # (1.4-6.5) Lymph # (Auto) (1.2-3.4) [place] # (Auto) (0.1-0.6) Eos # (Auto) (0.0-0.7) Baso # (Auto) (0.0-2.0) K/mm3 pCO2 41 (35-45) mm/Hg pO2 75.0 L (80-100) mm/Hg HCO3 22.6 (21-28) mmol/L ABG pH 7.35 (7.35-7.45) ABG Total CO2 23.9 (22-28) mmol.L ABG O2 Saturation 97.3 (95-98) % ABG Base Excess -2.9 L (-2.0-3.0) mmol/L ABG Potassium 4.5 (3.6-5.2) mmol/L Sodium 138.0 (132-148) mmol/L Chloride 109.0 H (98-107) mmol/L Glucose 128 H (75-110) mg/dl Lactate 1.0 (0.7-2.1) mmol/L Mechanical Rate 14 FiO2 40.0 % Tidal Volume 450 PEEP 5 Potassium (3.6-5.0) mmol/L Carbon Dioxide (21-33) mmol/L Anion Gap (10-20) BUN (7-21) mg/dL Creatinine (0.8-1.5) mg/dl Est GFR ( Amer) Est GFR (Non-Af Amer) POC Glucose (mg/dL) 123 H (65-110) mg/dL Random Glucose (70-110) mg/dL Hemoglobin A1c (4.2-6.5) % Calcium (8.4-10.5) mg/dL Phosphorus (2.5-4.5) mg/dL Magnesium (1.7-2.2) mg/dL Transferrin (206-381) mg/dL Ferritin ng/mL Total Bilirubin (0.2-1.3) mg/dL AST (17-59) U/L ALT (7-56) U/L Alkaline Phosphatase (38-126) U/L Total Protein (5.8-8.3) g/dL Albumin (3.0-4.8) g/dL Globulin gm/dL Albumin/Globulin Ratio (1.1-1.8) Vitamin B12 (239-931) pg/mL Folate ng/mL Procalcitonin (0.19-0.49) NG/ML Arterial Blood Potassium 4.5 (3.6-5.2) mmol/L Ur Random Creatinine 135 mg/dL U Random Total Protein 31 mg/L Ur Random Sodium 78 meq/L Hepatitis A IgM Ab (NEGATIVE) Hep Bs Antigen (NEGATIVE) Hep B Core IgM Ab (NEGATIVE) Hepatitis C Antibody (NEGATIVE) Blood Type Blood Type Confirm Antibody Screen Crossmatch BBK History Checked 09/14/17 09/14/17 09/14/17 Range/Units 16:47 14:55 14:20 WBC (4.5-11.0) 10^3/ul RBC (3.5-6.1) 10^6/uL Hgb (14.0-18.0) g/dL Hct (42.0-52.0) % MCV (80.0-105.0) fl MCH (25.0-35.0) pg MCHC (31.0-37.0) g/dl RDW (11.5-14.5) % Plt Count (120.0-450.0) 10^3/uL MPV (7.0-11.0) fl Gran % (50.0-68.0) % Lymph % (Auto) (22.0-35.0) % [place] % (Auto) (1.0-6.0) % Eos % (Auto) (1.5-5.0) % Baso % (Auto) (0.0-3.0) % Gran # (1.4-6.5) Lymph # (Auto) (1.2-3.4) [place] # (Auto) (0.1-0.6) Eos # (Auto) (0.0-0.7) Baso # (Auto) (0.0-2.0) K/mm3 pCO2 (35-45) mm/Hg pO2 (80-100) mm/Hg HCO3 (21-28) mmol/L ABG pH (7.35-7.45) ABG Total CO2 (22-28) mmol.L ABG O2 Saturation (95-98) % ABG Base Excess (-2.0-3.0) mmol/L ABG Potassium (3.6-5.2) mmol/L Sodium (132-148) mmol/L Chloride (98-107) mmol/L Glucose (75-110) mg/dl Lactate (0.7-2.1) mmol/L Mechanical Rate FiO2 % Tidal Volume PEEP Potassium (3.6-5.0) mmol/L Carbon Dioxide (21-33) mmol/L Anion Gap (10-20) BUN (7-21) mg/dL Creatinine (0.8-1.5) mg/dl Est GFR ( Amer) Est GFR (Non-Af Amer) POC Glucose (mg/dL) 125 H (65-110) mg/dL Random Glucose (70-110) mg/dL Hemoglobin A1c (4.2-6.5) % Calcium (8.4-10.5) mg/dL Phosphorus (2.5-4.5) mg/dL Magnesium (1.7-2.2) mg/dL Transferrin (206-381) mg/dL Ferritin ng/mL Total Bilirubin (0.2-1.3) mg/dL AST (17-59) U/L ALT (7-56) U/L Alkaline Phosphatase (38-126) U/L Total Protein (5.8-8.3) g/dL Albumin (3.0-4.8) g/dL Globulin gm/dL Albumin/Globulin Ratio (1.1-1.8) Vitamin B12 (239-931) pg/mL Folate ng/mL Procalcitonin (0.19-0.49) NG/ML Arterial Blood Potassium (3.6-5.2) mmol/L Ur Random Creatinine mg/dL U Random Total Protein mg/L Ur Random Sodium meq/L Hepatitis A IgM Ab (NEGATIVE) Hep Bs Antigen (NEGATIVE) Hep B Core IgM Ab (NEGATIVE) Hepatitis C Antibody (NEGATIVE) Blood Type A POSITIVE Blood Type Confirm A POSITIVE Antibody Screen Negative Crossmatch See Detail BBK History Checked No verified bt 09/14/17 09/14/17 09/14/17 Range/Units 06:55 06:55 06:55 WBC (4.5-11.0) 10^3/ul RBC (3.5-6.1) 10^6/uL Hgb (14.0-18.0) g/dL Hct (42.0-52.0) % MCV (80.0-105.0) fl MCH (25.0-35.0) pg MCHC (31.0-37.0) g/dl RDW (11.5-14.5) % Plt Count (120.0-450.0) 10^3/uL MPV (7.0-11.0) fl Gran % (50.0-68.0) % Lymph % (Auto) (22.0-35.0) % [place] % (Auto) (1.0-6.0) % Eos % (Auto) (1.5-5.0) % Baso % (Auto) (0.0-3.0) % Gran # (1.4-6.5) Lymph # (Auto) (1.2-3.4) [place] # (Auto) (0.1-0.6) Eos # (Auto) (0.0-0.7) Baso # (Auto) (0.0-2.0) K/mm3 pCO2 (35-45) mm/Hg pO2 (80-100) mm/Hg HCO3 (21-28) mmol/L ABG pH (7.35-7.45) ABG Total CO2 (22-28) mmol.L ABG O2 Saturation (95-98) % ABG Base Excess (-2.0-3.0) mmol/L ABG Potassium (3.6-5.2) mmol/L Sodium (132-148) mmol/L Chloride (98-107) mmol/L Glucose (75-110) mg/dl Lactate (0.7-2.1) mmol/L Mechanical Rate FiO2 % Tidal Volume PEEP Potassium (3.6-5.0) mmol/L Carbon Dioxide (21-33) mmol/L Anion Gap (10-20) BUN (7-21) mg/dL Creatinine (0.8-1.5) mg/dl Est GFR ( Amer) Est GFR (Non-Af Amer) POC Glucose (mg/dL) (65-110) mg/dL Random Glucose (70-110) mg/dL Hemoglobin A1c (4.2-6.5) % Calcium (8.4-10.5) mg/dL Phosphorus (2.5-4.5) mg/dL Magnesium (1.7-2.2) mg/dL Transferrin 288.29 (206-381) mg/dL Ferritin 98.3 ng/mL Total Bilirubin (0.2-1.3) mg/dL AST (17-59) U/L ALT (7-56) U/L Alkaline Phosphatase (38-126) U/L Total Protein (5.8-8.3) g/dL Albumin (3.0-4.8) g/dL Globulin gm/dL Albumin/Globulin Ratio (1.1-1.8) Vitamin B12 571 (239-931) pg/mL Folate > 20.0 ng/mL Procalcitonin (0.19-0.49) NG/ML Arterial Blood Potassium (3.6-5.2) mmol/L Ur Random Creatinine mg/dL U Random Total Protein mg/L Ur Random Sodium meq/L Hepatitis A IgM Ab Negative (NEGATIVE) Hep Bs Antigen Negative (NEGATIVE) Hep B Core IgM Ab Negative (NEGATIVE) Hepatitis C Antibody Negative (NEGATIVE) Blood Type Blood Type Confirm Antibody Screen Crossmatch BBK History Checked 09/14/17 09/14/17 Range/Units 05:50 00:50 WBC (4.5-11.0) 10^3/ul RBC (3.5-6.1) 10^6/uL Hgb (14.0-18.0) g/dL Hct (42.0-52.0) % MCV (80.0-105.0) fl MCH (25.0-35.0) pg MCHC (31.0-37.0) g/dl RDW (11.5-14.5) % Plt Count (120.0-450.0) 10^3/uL MPV (7.0-11.0) fl Gran % (50.0-68.0) % Lymph % (Auto) (22.0-35.0) % [place] % (Auto) (1.0-6.0) % Eos % (Auto) (1.5-5.0) % Baso % (Auto) (0.0-3.0) % Gran # (1.4-6.5) Lymph # (Auto) (1.2-3.4) [place] # (Auto) (0.1-0.6) Eos # (Auto) (0.0-0.7) Baso # (Auto) (0.0-2.0) K/mm3 pCO2 (35-45) mm/Hg pO2 (80-100) mm/Hg HCO3 (21-28) mmol/L ABG pH (7.35-7.45) ABG Total CO2 (22-28) mmol.L ABG O2 Saturation (95-98) % ABG Base Excess (-2.0-3.0) mmol/L ABG Potassium (3.6-5.2) mmol/L Sodium (132-148) mmol/L Chloride (98-107) mmol/L Glucose (75-110) mg/dl Lactate (0.7-2.1) mmol/L Mechanical Rate FiO2 % Tidal Volume PEEP Potassium (3.6-5.0) mmol/L Carbon Dioxide (21-33) mmol/L Anion Gap (10-20) BUN (7-21) mg/dL Creatinine (0.8-1.5) mg/dl Est GFR ( Amer) Est GFR (Non-Af Amer) POC Glucose (mg/dL) (65-110) mg/dL Random Glucose (70-110) mg/dL Hemoglobin A1c 5.4 (4.2-6.5) % Calcium (8.4-10.5) mg/dL Phosphorus (2.5-4.5) mg/dL Magnesium (1.7-2.2) mg/dL Transferrin (206-381) mg/dL Ferritin ng/mL Total Bilirubin (0.2-1.3) mg/dL AST (17-59) U/L ALT (7-56) U/L Alkaline Phosphatase (38-126) U/L Total Protein (5.8-8.3) g/dL Albumin (3.0-4.8) g/dL Globulin gm/dL Albumin/Globulin Ratio (1.1-1.8) Vitamin B12 (239-931) pg/mL Folate ng/mL Procalcitonin 0.24 (0.19-0.49) NG/ML Arterial Blood Potassium (3.6-5.2) mmol/L Ur Random Creatinine mg/dL U Random Total Protein mg/L Ur Random Sodium meq/L Hepatitis A IgM Ab (NEGATIVE) Hep Bs Antigen (NEGATIVE) Hep B Core IgM Ab (NEGATIVE) Hepatitis C Antibody (NEGATIVE) Blood Type Blood Type Confirm Antibody Screen Crossmatch BBK History Checked Laboratory Results - last 24 hr 09/14/17 09/14/17 09/14/17 00:50 05:50 06:55 WBC RBC Hgb Hct MCV MCH MCHC RDW Plt Count MPV Gran % Lymph % (Auto) [place] % (Auto) Eos % (Auto) Baso % (Auto) Gran # Lymph # (Auto) [place] # (Auto) Eos # (Auto) Baso # (Auto) pCO2 pO2 HCO3 ABG pH ABG Total CO2 ABG O2 Saturation ABG Base Excess ABG Potassium Sodium Chloride Glucose Lactate Mechanical Rate FiO2 Tidal Volume PEEP Potassium Carbon Dioxide Anion Gap BUN Creatinine Est GFR ( Amer) Est GFR (Non-Af Amer) POC Glucose (mg/dL) Random Glucose Hemoglobin A1c 5.4 Calcium Phosphorus Magnesium Transferrin Ferritin Total Bilirubin AST ALT Alkaline Phosphatase Total Protein Albumin Globulin Albumin/Globulin Ratio Vitamin B12 Folate Procalcitonin 0.24 Arterial Blood Potassium Ur Random Creatinine U Random Total Protein Ur Random Sodium Hepatitis A IgM Ab Negative Hep Bs Antigen Negative Hep B Core IgM Ab Negative Hepatitis C Antibody Negative Blood Type Blood Type Confirm Antibody Screen Crossmatch BBK History Checked 09/14/17 09/14/17 09/14/17 06:55 06:55 14:20 WBC RBC Hgb Hct MCV MCH MCHC RDW Plt Count MPV Gran % Lymph % (Auto) [place] % (Auto) Eos % (Auto) Baso % (Auto) Gran # Lymph # (Auto) [place] # (Auto) Eos # (Auto) Baso # (Auto) pCO2 pO2 HCO3 ABG pH ABG Total CO2 ABG O2 Saturation ABG Base Excess ABG Potassium Sodium Chloride Glucose Lactate Mechanical Rate FiO2 Tidal Volume PEEP Potassium Carbon Dioxide Anion Gap BUN Creatinine Est GFR ( Amer) Est GFR (Non-Af Amer) POC Glucose (mg/dL) Random Glucose Hemoglobin A1c Calcium Phosphorus Magnesium Transferrin 288.29 Ferritin 98.3 Total Bilirubin AST ALT Alkaline Phosphatase Total Protein Albumin Globulin Albumin/Globulin Ratio Vitamin B12 571 Folate > 20.0 Procalcitonin Arterial Blood Potassium Ur Random Creatinine U Random Total Protein Ur Random Sodium Hepatitis A IgM Ab Hep Bs Antigen Hep B Core IgM Ab Hepatitis C Antibody Blood Type A POSITIVE Blood Type Confirm Antibody Screen Negative Crossmatch See Detail BBK History Checked No verified bt 09/14/17 09/14/17 09/14/17 14:55 16:47 19:23 WBC RBC Hgb Hct MCV MCH MCHC RDW Plt Count MPV Gran % Lymph % (Auto) [place] % (Auto) Eos % (Auto) Baso % (Auto) Gran # Lymph # (Auto) [place] # (Auto) Eos # (Auto) Baso # (Auto) pCO2 pO2 HCO3 ABG pH ABG Total CO2 ABG O2 Saturation ABG Base Excess ABG Potassium Sodium Chloride Glucose Lactate Mechanical Rate FiO2 Tidal Volume PEEP Potassium Carbon Dioxide Anion Gap BUN Creatinine Est GFR ( Amer) Est GFR (Non-Af Amer) POC Glucose (mg/dL) 125 H 123 H Random Glucose Hemoglobin A1c Calcium Phosphorus Magnesium Transferrin Ferritin Total Bilirubin AST ALT Alkaline Phosphatase Total Protein Albumin Globulin Albumin/Globulin Ratio Vitamin B12 Folate Procalcitonin Arterial Blood Potassium Ur Random Creatinine U Random Total Protein Ur Random Sodium Hepatitis A IgM Ab Hep Bs Antigen Hep B Core IgM Ab Hepatitis C Antibody Blood Type Blood Type Confirm A POSITIVE Antibody Screen Crossmatch BBK History Checked 09/14/17 09/15/17 09/15/17 20:36 05:32 06:10 WBC 11.7 H D RBC 3.67 Hgb 9.4 L Hct 31.5 L MCV 85.8 MCH 25.6 MCHC 29.8 L RDW 19.8 H Plt Count 563 H MPV 10.0 Gran % 79.3 H Lymph % (Auto) 12.2 L [place] % (Auto) 6.0 Eos % (Auto) 2.3 Baso % (Auto) 0.2 Gran # 9.27 H Lymph # (Auto) 1.4 [place] # (Auto) 0.7 H Eos # (Auto) 0.3 Baso # (Auto) 0.02 pCO2 41 pO2 75.0 L HCO3 22.6 ABG pH 7.35 ABG Total CO2 23.9 ABG O2 Saturation 97.3 ABG Base Excess -2.9 L ABG Potassium 4.5 Sodium 138.0 Chloride 109.0 H Glucose 128 H Lactate 1.0 Mechanical Rate 14 FiO2 40.0 Tidal Volume 450 PEEP 5 Potassium Carbon Dioxide Anion Gap BUN Creatinine Est GFR ( Amer) Est GFR (Non-Af Amer) POC Glucose (mg/dL) Random Glucose Hemoglobin A1c Calcium Phosphorus Magnesium Transferrin Ferritin Total Bilirubin AST ALT Alkaline Phosphatase Total Protein Albumin Globulin Albumin/Globulin Ratio Vitamin B12 Folate Procalcitonin Arterial Blood Potassium 4.5 Ur Random Creatinine 135 U Random Total Protein 31 Ur Random Sodium 78 Hepatitis A IgM Ab Hep Bs Antigen Hep B Core IgM Ab Hepatitis C Antibody Blood Type Blood Type Confirm Antibody Screen Crossmatch BBK History Checked 09/15/17 09/15/17 06:10 07:43 WBC RBC Hgb Hct MCV MCH MCHC RDW Plt Count MPV Gran % Lymph % (Auto) [place] % (Auto) Eos % (Auto) Baso % (Auto) Gran # Lymph # (Auto) [place] # (Auto) Eos # (Auto) Baso # (Auto) pCO2 pO2 HCO3 ABG pH ABG Total CO2 ABG O2 Saturation ABG Base Excess ABG Potassium Sodium 139 Chloride 106 Glucose Lactate Mechanical Rate FiO2 Tidal Volume PEEP Potassium 4.4 Carbon Dioxide 22 Anion Gap 15 BUN 19 Creatinine 1.3 Est GFR ( Amer) > 60 Est GFR (Non-Af Amer) 57 POC Glucose (mg/dL) 106 Random Glucose 124 H Hemoglobin A1c Calcium 9.2 Phosphorus 3.3 Magnesium 2.2 Transferrin Ferritin Total Bilirubin 0.3 AST 102 H ALT 54 Alkaline Phosphatase 99 Total Protein 6.7 Albumin 3.0 Globulin 3.7 Albumin/Globulin Ratio 0.8 L Vitamin B12 Folate Procalcitonin Arterial Blood Potassium Ur Random Creatinine U Random Total Protein Ur Random Sodium Hepatitis A IgM Ab Hep Bs Antigen Hep B Core IgM Ab Hepatitis C Antibody Blood Type Blood Type Confirm Antibody Screen Crossmatch BBK History Checked EKG/Cardiology Studies: Cardiology / EKG Studies 09/14/17 10:24 EKG [ELECTROCARDIOGRAM] Stat Comment: Reason For Exam: elevated troponin Fingerstick Blood Sugar Results: 196 Review of Systems - Review of Systems All systems: reviewed and no additional remarkable complaints except Assessment/Plan - Assessment and Plan (Free Text) Assessment: 56yo male PMHx HTN, CHF s/p pacemaker, asthma, Hep C, PAULINO, depression, and bipolar was brought in by EMS for AMS. Patient with opiode withdrawal presents with hypercapnic respiratory failure s/p intubation, elevated troponin, TIM, and hyperkalemia now resolved. Patient extubated this morning. Neuro -AMS likely secondary to drug overdose -sedated on precedex -Ativan PRN for withdrawals -Head CT - negative -keep HoB above 30 degrees -aspiration precaution Cardio -troponin on admission: 0.08--> 1.55--> 3.7 -Asa 325mg x 1 stat -unable to begin anticoagulation secondary to hx of GI bleed at [facility] [place] as per -Coreg 12.5mg bid -Cardio Dr. Serrano consulted for recs -F/u Echo read - EF 28% mod MR and TR Pulm -Extubated this morning -empiric Abx Cefepime and Vancomycin for HCAP in light of recent hospitalization -Duoneb, Brovana, Pulmicort, Singulair, Spiriva -started steroids -Solumedrol 125mg x 1 stat, 40mg Q8 scheduled -maintain SpO2 > 90 GI -NPO -Recent hx of GI bleed in [facility] [place] -Protonix 40mg ivp qd -elevated LFTs -hx of Alcohol abuse and hep C -folic acid, thiamine, multivitamin daily Renal -TIM on admission -NS@125cc/hr -f/u renal U/s - neg -avoid nephrotoxic drugs and adjust medications accordingly -replete electrolytes as needed -Nephro Dr. Leggett consulted ID -Afebrile and WBC 11.7 - F/u septic work up -hx of recent hospitalization and aspiration PNA -Influenza negative Heme/Onc -normocytic anemia on admission with Hgb 7.6--> 9.4 today -s/p 1 unit PRBC -monitor H&H Psych -hx of drug abuse and likely drug overdose on admission -drug/alcohol counseling upon extubation GI ppx: Protonix 40mg ivp qd DVT ppx: SCDs; VTE held in light of possible GI bleed hx Diet: NPO Case and plan was reviewed and discussed with Dr Carrion <Edward Carrion - Last Filed: 09/15/17 10:49> CCU Objective - Vital Signs / Intake & Output Intake and Output (Last 8hrs): Intake & Output 09/14/17 09/15/17 09/15/17 22:59 06:59 14:59 Intake Total 2099.00 1600 1 Output Total 650 800 Balance 1449.00 800 1 Intake: IV 1774.00 1600 1 Left Hand 300 Right Antecubital 825 500 Right Upper arm 350 1100 Oral 0 Blood Product 325 Red Blood Cells Cpd As1 325 Lr Unit [id number] Output: Urine 650 800 2-way Urethral 650 800 - Medications Active Medications: Active Medications Generic Name Dose Route Start Last Admin Trade Name Freq PRN Reason Stop Dose Admin Albuterol/Ipratropium 3 ml 09/15/17 11:30 Duoneb 3 Mg/0.5 Mg (3 Ml) Ud IH [id number] EDGAR Albuterol/Ipratropium 3 ml 09/15/17 10:29 Duoneb 3 Mg/0.5 Mg (3 Ml) Ud IH Q2H PRN Shortness of Breath Arformoterol Tartrate 15 mcg 09/14/17 08:00 09/15/17 07:58 Brovana IH 15 mcg [id number] EDGAR Administration Budesonide 0.5 mg 09/14/17 08:00 09/15/17 07:58 Pulmicort Respules IH 0.5 mg [id number] EDGAR Administration Carvedilol 12.5 mg 09/14/17 10:00 09/14/17 16:53 Coreg PO 12.5 mg BID EDGAR Administration Folic Acid 1 mg 09/14/17 10:00 09/14/17 10:51 Folic Acid IVP 1 mg DAILY EDGAR Administration Hydralazine HCl 10 mg 09/14/17 22:41 09/15/17 06:17 Apresoline IVP 10 mg Q6 PRN Administration Systolic Blood Pressure Dexmedetomidine HCl 400 mcg in 100 mls @ 4.74 mls/hr 09/14/17 07:18 09/15/17 08:33 Precedex 400mcg/100ml IV 1.5 mcg/kg/hr .[id number] PRN 35.55 mls/hr Agitation Administration Protocol 0.2 MCG/KG/HR Sodium Chloride 1,000 mls @ 75 mls/hr 09/14/17 11:36 09/14/17 21:49 Sodium Chloride 0.9% IV 75 mls/hr .[id number] EDGAR Administration Iron Sucrose 100 mg/ Sodium 105 mls @ 210 mls/hr 09/14/17 19:00 09/14/17 20: 48 Chloride IVPB 210 mls/hr DAILY EDGAR Administration Insulin Human Lispro 0 units 09/14/17 01:00 09/15/17 07:37 Humalog Low SC 1 units Q6H EDGAR Administration Protocol Lorazepam 2 mg 09/14/17 10:25 09/15/17 04:12 Ativan IVP 2 mg Q2H PRN Administration Anxiety Protocol Methylprednisolone 40 mg 09/15/17 10:00 Solu-Medrol IVP Q8H EDGAR Montelukast Sodium 10 mg 09/14/17 22:00 09/14/17 21:49 Singulair PO 10 mg HS EDGAR Administration Multivitamins/Vitamin C 15 ml 09/14/17 08:00 09/15/17 08:31 Multi-Delyn Liquid PO 15 ml 0800 EDGAR Administration Pantoprazole Sodium 40 mg 09/14/17 10:00 09/14/17 10:53 Protonix Inj IVP 40 mg DAILY EDGAR Administration Thiamine HCl 100 mg 09/14/17 10:00 09/14/17 10:56 Vitamin B1 Inj IM 100 mg DAILY EDGAR Administration Tiotropium Gilbert 18 mcg 09/14/17 10:00 09/14/17 10:54 Spiriva IH 18 mcg DAILY EDGAR Administration - Patient Studies Lab Studies: Lab Studies 09/15/17 09/15/17 09/15/17 Range/Units 07:43 06:10 06:10 WBC 11.7 H D (4.5-11.0) 10^3/ul RBC 3.67 (3.5-6.1) 10^6/uL Hgb 9.4 L (14.0-18.0) g/dL Hct 31.5 L (42.0-52.0) % MCV 85.8 (80.0-105.0) fl MCH 25.6 (25.0-35.0) pg MCHC 29.8 L (31.0-37.0) g/dl RDW 19.8 H (11.5-14.5) % Plt Count 563 H (120.0-450.0) 10^3/uL MPV 10.0 (7.0-11.0) fl Gran % 79.3 H (50.0-68.0) % Lymph % (Auto) 12.2 L (22.0-35.0) % [place] % (Auto) 6.0 (1.0-6.0) % Eos % (Auto) 2.3 (1.5-5.0) % Baso % (Auto) 0.2 (0.0-3.0) % Gran # 9.27 H (1.4-6.5) Lymph # (Auto) 1.4 (1.2-3.4) [place] # (Auto) 0.7 H (0.1-0.6) Eos # (Auto) 0.3 (0.0-0.7) Baso # (Auto) 0.02 (0.0-2.0) K/mm3 pCO2 (35-45) mm/Hg pO2 (80-100) mm/Hg HCO3 (21-28) mmol/L ABG pH (7.35-7.45) ABG Total CO2 (22-28) mmol.L ABG O2 Saturation (95-98) % ABG Base Excess (-2.0-3.0) mmol/L ABG Potassium (3.6-5.2) mmol/L Sodium 139 (132-148) mmol/L Chloride 106 (98-107) mmol/L Glucose (75-110) mg/dl Lactate (0.7-2.1) mmol/L Mechanical Rate FiO2 % Tidal Volume PEEP Potassium 4.4 (3.6-5.0) mmol/L Carbon Dioxide 22 (21-33) mmol/L Anion Gap 15 (10-20) BUN 19 (7-21) mg/dL Creatinine 1.3 (0.8-1.5) mg/dl Est GFR ( Amer) > 60 Est GFR (Non-Af Amer) 57 POC Glucose (mg/dL) 106 (65-110) mg/dL Random Glucose 124 H (70-110) mg/dL Hemoglobin A1c (4.2-6.5) % Calcium 9.2 (8.4-10.5) mg/dL Phosphorus 3.3 (2.5-4.5) mg/dL Magnesium 2.2 (1.7-2.2) mg/dL Transferrin (206-381) mg/dL Ferritin ng/mL Total Bilirubin 0.3 (0.2-1.3) mg/dL AST 102 H (17-59) U/L ALT 54 (7-56) U/L Alkaline Phosphatase 99 (38-126) U/L Total Protein 6.7 (5.8-8.3) g/dL Albumin 3.0 (3.0-4.8) g/dL Globulin 3.7 gm/dL Albumin/Globulin Ratio 0.8 L (1.1-1.8) Vitamin B12 (239-931) pg/mL Folate ng/mL Procalcitonin (0.19-0.49) NG/ML Arterial Blood Potassium (3.6-5.2) mmol/L Ur Random Creatinine mg/dL U Random Total Protein mg/L Ur Random Sodium meq/L Hepatitis A IgM Ab (NEGATIVE) Hep Bs Antigen (NEGATIVE) Hep B Core IgM Ab (NEGATIVE) Hepatitis C Antibody (NEGATIVE) Blood Type Blood Type Confirm Antibody Screen Crossmatch BBK History Checked 09/15/17 09/14/17 09/14/17 Range/Units 05:32 20:36 19:23 WBC (4.5-11.0) 10^3/ul RBC (3.5-6.1) 10^6/uL Hgb (14.0-18.0) g/dL Hct (42.0-52.0) % MCV (80.0-105.0) fl MCH (25.0-35.0) pg MCHC (31.0-37.0) g/dl RDW (11.5-14.5) % Plt Count (120.0-450.0) 10^3/uL MPV (7.0-11.0) fl Gran % (50.0-68.0) % Lymph % (Auto) (22.0-35.0) % [place] % (Auto) (1.0-6.0) % Eos % (Auto) (1.5-5.0) % Baso % (Auto) (0.0-3.0) % Gran # (1.4-6.5) Lymph # (Auto) (1.2-3.4) [place] # (Auto) (0.1-0.6) Eos # (Auto) (0.0-0.7) Baso # (Auto) (0.0-2.0) K/mm3 pCO2 41 (35-45) mm/Hg pO2 75.0 L (80-100) mm/Hg HCO3 22.6 (21-28) mmol/L ABG pH 7.35 (7.35-7.45) ABG Total CO2 23.9 (22-28) mmol.L ABG O2 Saturation 97.3 (95-98) % ABG Base Excess -2.9 L (-2.0-3.0) mmol/L ABG Potassium 4.5 (3.6-5.2) mmol/L Sodium 138.0 (132-148) mmol/L Chloride 109.0 H (98-107) mmol/L Glucose 128 H (75-110) mg/dl Lactate 1.0 (0.7-2.1) mmol/L Mechanical Rate 14 FiO2 40.0 % Tidal Volume 450 PEEP 5 Potassium (3.6-5.0) mmol/L Carbon Dioxide (21-33) mmol/L Anion Gap (10-20) BUN (7-21) mg/dL Creatinine (0.8-1.5) mg/dl Est GFR ( Amer) Est GFR (Non-Af Amer) POC Glucose (mg/dL) 123 H (65-110) mg/dL Random Glucose (70-110) mg/dL Hemoglobin A1c (4.2-6.5) % Calcium (8.4-10.5) mg/dL Phosphorus (2.5-4.5) mg/dL Magnesium (1.7-2.2) mg/dL Transferrin (206-381) mg/dL Ferritin ng/mL Total Bilirubin (0.2-1.3) mg/dL AST (17-59) U/L ALT (7-56) U/L Alkaline Phosphatase (38-126) U/L Total Protein (5.8-8.3) g/dL Albumin (3.0-4.8) g/dL Globulin gm/dL Albumin/Globulin Ratio (1.1-1.8) Vitamin B12 (239-931) pg/mL Folate ng/mL Procalcitonin (0.19-0.49) NG/ML Arterial Blood Potassium 4.5 (3.6-5.2) mmol/L Ur Random Creatinine 135 mg/dL U Random Total Protein 31 mg/L Ur Random Sodium 78 meq/L Hepatitis A IgM Ab (NEGATIVE) Hep Bs Antigen (NEGATIVE) Hep B Core IgM Ab (NEGATIVE) Hepatitis C Antibody (NEGATIVE) Blood Type Blood Type Confirm Antibody Screen Crossmatch BBK History Checked 09/14/17 09/14/17 09/14/17 Range/Units 16:47 14:55 14:20 WBC (4.5-11.0) 10^3/ul RBC (3.5-6.1) 10^6/uL Hgb (14.0-18.0) g/dL Hct (42.0-52.0) % MCV (80.0-105.0) fl MCH (25.0-35.0) pg MCHC (31.0-37.0) g/dl RDW (11.5-14.5) % Plt Count (120.0-450.0) 10^3/uL MPV (7.0-11.0) fl Gran % (50.0-68.0) % Lymph % (Auto) (22.0-35.0) % [place] % (Auto) (1.0-6.0) % Eos % (Auto) (1.5-5.0) % Baso % (Auto) (0.0-3.0) % Gran # (1.4-6.5) Lymph # (Auto) (1.2-3.4) [place] # (Auto) (0.1-0.6) Eos # (Auto) (0.0-0.7) Baso # (Auto) (0.0-2.0) K/mm3 pCO2 (35-45) mm/Hg pO2 (80-100) mm/Hg HCO3 (21-28) mmol/L ABG pH (7.35-7.45) ABG Total CO2 (22-28) mmol.L ABG O2 Saturation (95-98) % ABG Base Excess (-2.0-3.0) mmol/L ABG Potassium (3.6-5.2) mmol/L Sodium (132-148) mmol/L Chloride (98-107) mmol/L Glucose (75-110) mg/dl Lactate (0.7-2.1) mmol/L Mechanical Rate FiO2 % Tidal Volume PEEP Potassium (3.6-5.0) mmol/L Carbon Dioxide (21-33) mmol/L Anion Gap (10-20) BUN (7-21) mg/dL Creatinine (0.8-1.5) mg/dl Est GFR ( Amer) Est GFR (Non-Af Amer) POC Glucose (mg/dL) 125 H (65-110) mg/dL Random Glucose (70-110) mg/dL Hemoglobin A1c (4.2-6.5) % Calcium (8.4-10.5) mg/dL Phosphorus (2.5-4.5) mg/dL Magnesium (1.7-2.2) mg/dL Transferrin (206-381) mg/dL Ferritin ng/mL Total Bilirubin (0.2-1.3) mg/dL AST (17-59) U/L ALT (7-56) U/L Alkaline Phosphatase (38-126) U/L Total Protein (5.8-8.3) g/dL Albumin (3.0-4.8) g/dL Globulin gm/dL Albumin/Globulin Ratio (1.1-1.8) Vitamin B12 (239-931) pg/mL Folate ng/mL Procalcitonin (0.19-0.49) NG/ML Arterial Blood Potassium (3.6-5.2) mmol/L Ur Random Creatinine mg/dL U Random Total Protein mg/L Ur Random Sodium meq/L Hepatitis A IgM Ab (NEGATIVE) Hep Bs Antigen (NEGATIVE) Hep B Core IgM Ab (NEGATIVE) Hepatitis C Antibody (NEGATIVE) Blood Type A POSITIVE Blood Type Confirm A POSITIVE Antibody Screen Negative Crossmatch See Detail BBK History Checked No verified bt 09/14/17 09/14/17 09/14/17 Range/Units 06:55 06:55 06:55 WBC (4.5-11.0) 10^3/ul RBC (3.5-6.1) 10^6/uL Hgb (14.0-18.0) g/dL Hct (42.0-52.0) % MCV (80.0-105.0) fl MCH (25.0-35.0) pg MCHC (31.0-37.0) g/dl RDW (11.5-14.5) % Plt Count (120.0-450.0) 10^3/uL MPV (7.0-11.0) fl Gran % (50.0-68.0) % Lymph % (Auto) (22.0-35.0) % [place] % (Auto) (1.0-6.0) % Eos % (Auto) (1.5-5.0) % Baso % (Auto) (0.0-3.0) % Gran # (1.4-6.5) Lymph # (Auto) (1.2-3.4) [place] # (Auto) (0.1-0.6) Eos # (Auto) (0.0-0.7) Baso # (Auto) (0.0-2.0) K/mm3 pCO2 (35-45) mm/Hg pO2 (80-100) mm/Hg HCO3 (21-28) mmol/L ABG pH (7.35-7.45) ABG Total CO2 (22-28) mmol.L ABG O2 Saturation (95-98) % ABG Base Excess (-2.0-3.0) mmol/L ABG Potassium (3.6-5.2) mmol/L Sodium (132-148) mmol/L Chloride (98-107) mmol/L Glucose (75-110) mg/dl Lactate (0.7-2.1) mmol/L Mechanical Rate FiO2 % Tidal Volume PEEP Potassium (3.6-5.0) mmol/L Carbon Dioxide (21-33) mmol/L Anion Gap (10-20) BUN (7-21) mg/dL Creatinine (0.8-1.5) mg/dl Est GFR ( Amer) Est GFR (Non-Af Amer) POC Glucose (mg/dL) (65-110) mg/dL Random Glucose (70-110) mg/dL Hemoglobin A1c (4.2-6.5) % Calcium (8.4-10.5) mg/dL Phosphorus (2.5-4.5) mg/dL Magnesium (1.7-2.2) mg/dL Transferrin 288.29 (206-381) mg/dL Ferritin 98.3 ng/mL Total Bilirubin (0.2-1.3) mg/dL AST (17-59) U/L ALT (7-56) U/L Alkaline Phosphatase (38-126) U/L Total Protein (5.8-8.3) g/dL Albumin (3.0-4.8) g/dL Globulin gm/dL Albumin/Globulin Ratio (1.1-1.8) Vitamin B12 571 (239-931) pg/mL Folate > 20.0 ng/mL Procalcitonin (0.19-0.49) NG/ML Arterial Blood Potassium (3.6-5.2) mmol/L Ur Random Creatinine mg/dL U Random Total Protein mg/L Ur Random Sodium meq/L Hepatitis A IgM Ab Negative (NEGATIVE) Hep Bs Antigen Negative (NEGATIVE) Hep B Core IgM Ab Negative (NEGATIVE) Hepatitis C Antibody Negative (NEGATIVE) Blood Type Blood Type Confirm Antibody Screen Crossmatch BBK History Checked 09/14/17 09/14/17 Range/Units 05:50 00:50 WBC (4.5-11.0) 10^3/ul RBC (3.5-6.1) 10^6/uL Hgb (14.0-18.0) g/dL Hct (42.0-52.0) % MCV (80.0-105.0) fl MCH (25.0-35.0) pg MCHC (31.0-37.0) g/dl RDW (11.5-14.5) % Plt Count (120.0-450.0) 10^3/uL MPV (7.0-11.0) fl Gran % (50.0-68.0) % Lymph % (Auto) (22.0-35.0) % [place] % (Auto) (1.0-6.0) % Eos % (Auto) (1.5-5.0) % Baso % (Auto) (0.0-3.0) % Gran # (1.4-6.5) Lymph # (Auto) (1.2-3.4) [place] # (Auto) (0.1-0.6) Eos # (Auto) (0.0-0.7) Baso # (Auto) (0.0-2.0) K/mm3 pCO2 (35-45) mm/Hg pO2 (80-100) mm/Hg HCO3 (21-28) mmol/L ABG pH (7.35-7.45) ABG Total CO2 (22-28) mmol.L ABG O2 Saturation (95-98) % ABG Base Excess (-2.0-3.0) mmol/L ABG Potassium (3.6-5.2) mmol/L Sodium (132-148) mmol/L Chloride (98-107) mmol/L Glucose (75-110) mg/dl Lactate (0.7-2.1) mmol/L Mechanical Rate FiO2 % Tidal Volume PEEP Potassium (3.6-5.0) mmol/L Carbon Dioxide (21-33) mmol/L Anion Gap (10-20) BUN (7-21) mg/dL Creatinine (0.8-1.5) mg/dl Est GFR ( Amer) Est GFR (Non-Af Amer) POC Glucose (mg/dL) (65-110) mg/dL Random Glucose (70-110) mg/dL Hemoglobin A1c 5.4 (4.2-6.5) % Calcium (8.4-10.5) mg/dL Phosphorus (2.5-4.5) mg/dL Magnesium (1.7-2.2) mg/dL Transferrin (206-381) mg/dL Ferritin ng/mL Total Bilirubin (0.2-1.3) mg/dL AST (17-59) U/L ALT (7-56) U/L Alkaline Phosphatase (38-126) U/L Total Protein (5.8-8.3) g/dL Albumin (3.0-4.8) g/dL Globulin gm/dL Albumin/Globulin Ratio (1.1-1.8) Vitamin B12 (239-931) pg/mL Folate ng/mL Procalcitonin 0.24 (0.19-0.49) NG/ML Arterial Blood Potassium (3.6-5.2) mmol/L Ur Random Creatinine mg/dL U Random Total Protein mg/L Ur Random Sodium meq/L Hepatitis A IgM Ab (NEGATIVE) Hep Bs Antigen (NEGATIVE) Hep B Core IgM Ab (NEGATIVE) Hepatitis C Antibody (NEGATIVE) Blood Type Blood Type Confirm Antibody Screen Crossmatch BBK History Checked Laboratory Results - last 24 hr 09/14/17 09/14/17 09/14/17 00:50 05:50 06:55 WBC RBC Hgb Hct MCV MCH MCHC RDW Plt Count MPV Gran % Lymph % (Auto) [place] % (Auto) Eos % (Auto) Baso % (Auto) Gran # Lymph # (Auto) [place] # (Auto) Eos # (Auto) Baso # (Auto) pCO2 pO2 HCO3 ABG pH ABG Total CO2 ABG O2 Saturation ABG Base Excess ABG Potassium Sodium Chloride Glucose Lactate Mechanical Rate FiO2 Tidal Volume PEEP Potassium Carbon Dioxide Anion Gap BUN Creatinine Est GFR ( Amer) Est GFR (Non-Af Amer) POC Glucose (mg/dL) Random Glucose Hemoglobin A1c 5.4 Calcium Phosphorus Magnesium Transferrin Ferritin Total Bilirubin AST ALT Alkaline Phosphatase Total Protein Albumin Globulin Albumin/Globulin Ratio Vitamin B12 Folate Procalcitonin 0.24 Arterial Blood Potassium Ur Random Creatinine U Random Total Protein Ur Random Sodium Hepatitis A IgM Ab Negative Hep Bs Antigen Negative Hep B Core IgM Ab Negative Hepatitis C Antibody Negative Blood Type Blood Type Confirm Antibody Screen Crossmatch BBK History Checked 09/14/17 09/14/17 09/14/17 06:55 06:55 14:20 WBC RBC Hgb Hct MCV MCH MCHC RDW Plt Count MPV Gran % Lymph % (Auto) [place] % (Auto) Eos % (Auto) Baso % (Auto) Gran # Lymph # (Auto) [place] # (Auto) Eos # (Auto) Baso # (Auto) pCO2 pO2 HCO3 ABG pH ABG Total CO2 ABG O2 Saturation ABG Base Excess ABG Potassium Sodium Chloride Glucose Lactate Mechanical Rate FiO2 Tidal Volume PEEP Potassium Carbon Dioxide Anion Gap BUN Creatinine Est GFR ( Amer) Est GFR (Non-Af Amer) POC Glucose (mg/dL) Random Glucose Hemoglobin A1c Calcium Phosphorus Magnesium Transferrin 288.29 Ferritin 98.3 Total Bilirubin AST ALT Alkaline Phosphatase Total Protein Albumin Globulin Albumin/Globulin Ratio Vitamin B12 571 Folate > 20.0 Procalcitonin Arterial Blood Potassium Ur Random Creatinine U Random Total Protein Ur Random Sodium Hepatitis A IgM Ab Hep Bs Antigen Hep B Core IgM Ab Hepatitis C Antibody Blood Type A POSITIVE Blood Type Confirm Antibody Screen Negative Crossmatch See Detail BBK History Checked No verified bt 09/14/17 09/14/17 09/14/17 14:55 16:47 19:23 WBC RBC Hgb Hct MCV MCH MCHC RDW Plt Count MPV Gran % Lymph % (Auto) [place] % (Auto) Eos % (Auto) Baso % (Auto) Gran # Lymph # (Auto) [place] # (Auto) Eos # (Auto) Baso # (Auto) pCO2 pO2 HCO3 ABG pH ABG Total CO2 ABG O2 Saturation ABG Base Excess ABG Potassium Sodium Chloride Glucose Lactate Mechanical Rate FiO2 Tidal Volume PEEP Potassium Carbon Dioxide Anion Gap BUN Creatinine Est GFR ( Amer) Est GFR (Non-Af Amer) POC Glucose (mg/dL) 125 H 123 H Random Glucose Hemoglobin A1c Calcium Phosphorus Magnesium Transferrin Ferritin Total Bilirubin AST ALT Alkaline Phosphatase Total Protein Albumin Globulin Albumin/Globulin Ratio Vitamin B12 Folate Procalcitonin Arterial Blood Potassium Ur Random Creatinine U Random Total Protein Ur Random Sodium Hepatitis A IgM Ab Hep Bs Antigen Hep B Core IgM Ab Hepatitis C Antibody Blood Type Blood Type Confirm A POSITIVE Antibody Screen Crossmatch BBK History Checked 09/14/17 09/15/17 09/15/17 20:36 05:32 06:10 WBC 11.7 H D RBC 3.67 Hgb 9.4 L Hct 31.5 L MCV 85.8 MCH 25.6 MCHC 29.8 L RDW 19.8 H Plt Count 563 H MPV 10.0 Gran % 79.3 H Lymph % (Auto) 12.2 L [place] % (Auto) 6.0 Eos % (Auto) 2.3 Baso % (Auto) 0.2 Gran # 9.27 H Lymph # (Auto) 1.4 [place] # (Auto) 0.7 H Eos # (Auto) 0.3 Baso # (Auto) 0.02 pCO2 41 pO2 75.0 L HCO3 22.6 ABG pH 7.35 ABG Total CO2 23.9 ABG O2 Saturation 97.3 ABG Base Excess -2.9 L ABG Potassium 4.5 Sodium 138.0 Chloride 109.0 H Glucose 128 H Lactate 1.0 Mechanical Rate 14 FiO2 40.0 Tidal Volume 450 PEEP 5 Potassium Carbon Dioxide Anion Gap BUN Creatinine Est GFR ( Amer) Est GFR (Non-Af Amer) POC Glucose (mg/dL) Random Glucose Hemoglobin A1c Calcium Phosphorus Magnesium Transferrin Ferritin Total Bilirubin AST ALT Alkaline Phosphatase Total Protein Albumin Globulin Albumin/Globulin Ratio Vitamin B12 Folate Procalcitonin Arterial Blood Potassium 4.5 Ur Random Creatinine 135 U Random Total Protein 31 Ur Random Sodium 78 Hepatitis A IgM Ab Hep Bs Antigen Hep B Core IgM Ab Hepatitis C Antibody Blood Type Blood Type Confirm Antibody Screen Crossmatch BBK History Checked 09/15/17 09/15/17 06:10 07:43 WBC RBC Hgb Hct MCV MCH MCHC RDW Plt Count MPV Gran % Lymph % (Auto) [place] % (Auto) Eos % (Auto) Baso % (Auto) Gran # Lymph # (Auto) [place] # (Auto) Eos # (Auto) Baso # (Auto) pCO2 pO2 HCO3 ABG pH ABG Total CO2 ABG O2 Saturation ABG Base Excess ABG Potassium Sodium 139 Chloride 106 Glucose Lactate Mechanical Rate FiO2 Tidal Volume PEEP Potassium 4.4 Carbon Dioxide 22 Anion Gap 15 BUN 19 Creatinine 1.3 Est GFR ( Amer) > 60 Est GFR (Non-Af Amer) 57 POC Glucose (mg/dL) 106 Random Glucose 124 H Hemoglobin A1c Calcium 9.2 Phosphorus 3.3 Magnesium 2.2 Transferrin Ferritin Total Bilirubin 0.3 AST 102 H ALT 54 Alkaline Phosphatase 99 Total Protein 6.7 Albumin 3.0 Globulin 3.7 Albumin/Globulin Ratio 0.8 L Vitamin B12 Folate Procalcitonin Arterial Blood Potassium Ur Random Creatinine U Random Total Protein Ur Random Sodium Hepatitis A IgM Ab Hep Bs Antigen Hep B Core IgM Ab Hepatitis C Antibody Blood Type Blood Type Confirm Antibody Screen Crossmatch BBK History Checked EKG/Cardiology Studies: Cardiology / EKG Studies 09/14/17 10:24 EKG [ELECTROCARDIOGRAM] Stat Comment: Reason For Exam: elevated troponin Attending/Attestation - Attestation I have personally seen and examined this patient.: Yes I have fully participated in the care of the patient.: Yes I have reviewed all pertinent clinical information: Yes Notes (Text): 09/15/17 10:43 The patient was seen and examined at the bedside. Patient care was discussed with resident Medical records, lab studies, and imaging were reviewed and management issues were discussed and formulated. Last 24H events reviewed. Agree with above treatment plans as outlined in 's note with addition of the following: Acute Respiratory failure \ Hypoxemia \ Hypercapnea \ Polysubstance Abuse \ NSTEMI \ Recent GI bleed\ TIM \ COPD-Asthma \ Systolic CHF -hemodynamic monitoring to maintain MAP>65 -cardiology team f\u for NSTEMI; f\u Echo; no ASA, Plavix or anticoagulation due to recent GI bleed -Start BBlocker and DEXTER\ARB inhibitor when B\P tolerates -mechanical ventilation and o2 supplementation to maintain Spo2 >90 Pao2>60 -monitor for TV 6ml\kg IBW and plateau pressure <30 -ABG in AM reviewed ; pt has minimal secretions and able to protect his airway; PS trial with 7PS and 5 peep tolerated well -extubation this morning; PRN bipap -continue nebs and start steroids -f\u repeat CXR -continue broad spectrum Abx as per ID team : f\u cultures -f\u Bun\Cr and U\o; hold further IVF; consider renal team eval -NPO and aspiration precautions -ISS and BGM monitoring -DVT \ PUD prophylaxis CCM time 38min
[2017-09-15] MEDS ORDERED: Albuterol-Ipratrop 3 mg / 0.5 (3 ml) UD IH PRN (10:29)
[2017-09-15] MEDS: MethylPREDNISolone 40 mg Vial IVP SCH ×2 (10:48→17:14)
[2017-09-15] MEDS: Tiotropium 18 mcg Cap For Inhalation IH SCH (10:54)
[2017-09-15] MEDS: Thiamine 100 mg/ml Inj IM SCH (10:55)
--- NOTE | 2017-09-15 12:52 | RAD ---
HISTORY: CHF COMPARISON: 09/14/2017 FINDINGS: LUNGS: No active pulmonary disease. PLEURA: No significant pleural effusion identified, no pneumothorax apparent. CARDIOVASCULAR: Moderate cardiomegaly. Mild vascular congestion OSSEOUS STRUCTURES: No significant abnormalities. VISUALIZED UPPER ABDOMEN: Normal. OTHER FINDINGS: Pacemaker IMPRESSION: Moderate cardiomegaly. Mild vascular congestion
--- NOTE | 2017-09-15 20:10 | CP.PCM.PN ---
Subjective - Date & Time of Evaluation Date of Evaluation: 09/15/17 Time of Evaluation: 11:00 - Subjective Subjective: Patient extubated earlier; barely arousable to tactile stimuli; Objective - Vital Signs/Intake and Output Vital Signs (last 24 hours): Temp Pulse Resp BP Pulse Ox 97.3 F L 98 H 29 H 160/91 H 100 09/15/17 04:00 09/15/17 18:00 09/15/17 04:20 09/15/17 17:13 09/15/17 04:20 Intake and Output: 09/15/17 09/16/17 18:59 06:59 Intake Total 200 706 Output Total 1250 Balance 200 -544 - Medications Medications: Current Medications Albuterol/Ipratropium (Duoneb 3 Mg/0.5 Mg (3 Ml) Ud) 3 ml IH [id number] [facility] Last Admin: 09/15/17 14:30 Dose: 3 ml Albuterol/Ipratropium (Duoneb 3 Mg/0.5 Mg (3 Ml) Ud) 3 ml IH Q2H PRN PRN Reason: Shortness of Breath Arformoterol Tartrate (Brovana) 15 mcg IH [id number] [facility] Last Admin: 09/15/17 07:58 Dose: 15 mcg Budesonide (Pulmicort Respules) 0.5 mg IH [id number] [facility] Last Admin: 09/15/17 07:58 Dose: 0.5 mg Carvedilol (Coreg) 12.5 mg PO BID [facility] Last Admin: 09/15/17 17:13 Dose: 12.5 mg Folic Acid (Folic Acid) 1 mg IVP DAILY [facility] Last Admin: 09/15/17 11:38 Dose: 1 mg Hydralazine HCl (Apresoline) 10 mg IVP Q6 PRN PRN Reason: Systolic Blood Pressure Last Admin: 09/15/17 12:20 Dose: 10 mg Iron Sucrose 100 mg/ Sodium (Chloride) 105 mls @ 210 mls/hr IVPB DAILY [facility] Last Admin: 09/15/17 10:29 Dose: 210 mls/hr Dexmedetomidine HCl (Precedex 400mcg/100ml) 400 mcg in 100 mls @ 35.55 mls/hr IV .Q2H49M PRN; Protocol; 1.5 MCG/KG/HR PRN Reason: Agitation Last Admin: 09/15/17 18:12 Dose: 1.5 mcg/kg/hr, 35.55 mls/hr Insulin Human Lispro (Humalog Low) 0 units SC Q6H [facility] PRN Reason: Protocol Last Admin: 09/15/17 18:36 Dose: Not Given Lorazepam (Ativan) 2 mg IVP Q2H PRN; Protocol PRN Reason: Anxiety Last Admin: 09/15/17 17:30 Dose: 2 mg Methylprednisolone (Solu-Medrol) 40 mg IVP Q8H [facility] Last Admin: 09/15/17 17:14 Dose: 40 mg Montelukast Sodium (Singulair) 10 mg PO HS [facility] Last Admin: 09/14/17 21:49 Dose: 10 mg Multivitamins/Vitamin C (Multi-Delyn Liquid) 15 ml PO 0800 [facility] Last Admin: 09/15/17 08:31 Dose: 15 ml Pantoprazole Sodium (Protonix Inj) 40 mg IVP DAILY [facility] Last Admin: 09/15/17 10:54 Dose: 40 mg Thiamine HCl (Vitamin B1 Inj) 100 mg IM DAILY [facility] Last Admin: 09/15/17 10:55 Dose: 100 mg Tiotropium [place] (Spiriva) 18 mcg IH DAILY [facility] Last Admin: 09/15/17 10:54 Dose: 18 mcg - Labs Labs: 09/15/17 06:10 09/15/17 06:10 PT 12.0 SECONDS (9.4-12.5) 09/13/17 19:50 INR 1.05 (0.93-1.08) 09/13/17 19:50 APTT 30.9 Seconds (25.1-36.5) 09/13/17 19:50 - Constitutional Appears: Non-toxic, No Acute Distress - Eye Exam Eye Exam: absent: Scleral icterus - ENT Exam ENT Exam: Mucous Membranes Moist - Respiratory Exam Respiratory Exam: Clear to Ausculation Bilateral. absent: Respiratory Distress - Cardiovascular Exam Cardiovascular Exam: RRR, +S1, +S2 - GI/Abdominal Exam GI & Abdominal Exam: Soft. absent: Distended - Extremities Exam Additional comments: no leg edema; - Neurological Exam Neurological Exam: absent: Alert - Psychiatric Exam Psychiatric exam: absent: Agitated - Skin Skin Exam: Warm. absent: Cyanosis Assessment and Plan (1) Acute renal failure Assessment & Plan: TIM, resolving; pre-renal etiology; agree with holding further IVF given CHF status; Status: Acute (2) Proteinuria Assessment & Plan: No significant proteinuria on random protein/creat ratio; consistent with cardiorenal etiology of renal insufficiency; monitor; Status: Acute (3) CHF (congestive heart failure) Assessment & Plan: With severe systolic dysfunction on echo; started on coreg; can add losartan; Status: Acute (4) Hypertension Assessment & Plan: BP elevated, will benefit from ARB/DEXTER inhibitor; Status: Acute (5) Anemia Assessment & Plan: Some component of iron deficiency, continue IV iron; Status: Acute
[2017-09-16] MEDS: Insulin Lispro (humaLOG) LOW Coverage SC SCH ×4 (01:00→22:03)
[2017-09-16] MEDS: MethylPREDNISolone 40 mg Vial IVP SCH ×4 (02:45→22:05)
[2017-09-16 06:11] LABS: GRAN # 11.26 (1.4-6.5); GRAN % 92.6 % (50.0-68.0); HEMOGLOBIN 9.4 g/dL (14.0-18.0); LYMPH # 0.7 (1.2-3.4); LYMPH % 5.7 % (22.0-35.0); MEAN CELL VOLUME 84.7 fl (80.0-105.0); MEAN CORPUSCULAR HEMOGLOBIN 25.7 pg (25.0-35.0); MEAN CORPUSCULAR HGB CONC 30.3 g/dl (31.0-37.0); MEAN PLATELET VOLUME 9.9 fl (7.0-11.0); MONO # 0.2 (0.1-0.6); MONO % 1.7 % (1.0-6.0); PLATELET COUNT 603 10^3/uL (120.0-450.0); RBC 3.66 10^6/uL (3.5-6.1); WHITE BLOOD COUNT 12.2 10^3/ul (4.5-11.0)
[2017-09-16 06:23] LABS: ALB/GLOB RATIO 0.9 (1.1-1.8); ALBUMIN 3.3 g/dL (3.0-4.8); ALT/SGPT 50 U/L (7-56); AST/SGOT 66 U/L (17-59); BLOOD UREA NITROGEN 17 mg/dL (7-21); CALCIUM 8.9 mg/dL (8.4-10.5); GFR AFRICAN-AMERICAN > 60; GFR NON-AFRICAN AMERICAN > 60
[2017-09-16] MEDS: Albuterol-Ipratrop 3 mg / 0.5 (3 ml) UD IH SCH ×2 (08:36→20:20)
[2017-09-16] MEDS: Budesonide 0.5 mg/2 ml Inhal Susp UD IH SCH ×2 (08:36→20:20)
[2017-09-16] MEDS: Arformoterol 15 mcg/2 ml Inh Sol IH SCH ×2 (08:36→20:20)
--- NOTE | 2017-09-16 08:53 | CP.PCM.PN ---
<Regulo Ambriz - Last Filed: 09/16/17 08:39> Subjective - Date & Time of Evaluation Date of Evaluation: 09/15/17 Time of Evaluation: 08:00 - Subjective Subjective: patient seen and examined at bedside. NO acute events were reported. Patient continues with light sedation, 12 point ROS unavailable. Objective - Vital Signs/Intake and Output Vital Signs (last 24 hours): Temp Pulse Resp BP Pulse Ox 97.3 F L 66 38 H 148/91 H 100 09/16/17 04:00 09/16/17 04:00 09/16/17 03:00 09/16/17 04:00 09/16/17 04:00 Intake and Output: 09/16/17 09/16/17 06:59 18:59 Intake Total 1316 Output Total 1700 Balance -384 - Medications Medications: Current Medications Albuterol/Ipratropium (Duoneb 3 Mg/0.5 Mg (3 Ml) Ud) 3 ml IH Q2H PRN PRN Reason: Shortness of Breath Albuterol/Ipratropium (Duoneb 3 Mg/0.5 Mg (3 Ml) Ud) 3 ml IH [id number] [facility] Arformoterol Tartrate (Brovana) 15 mcg IH [id number] [facility] Last Admin: 09/16/17 08:36 Dose: 15 mcg Budesonide (Pulmicort Respules) 0.5 mg IH [id number] [facility] Last Admin: 09/16/17 08:36 Dose: 0.5 mg Carvedilol (Coreg) 12.5 mg PO BID [facility] Last Admin: 09/15/17 17:13 Dose: 12.5 mg Folic Acid (Folic Acid) 1 mg IVP DAILY [facility] Last Admin: 09/15/17 11:38 Dose: 1 mg Hydralazine HCl (Apresoline) 10 mg IVP Q6 PRN PRN Reason: Systolic Blood Pressure Last Admin: 09/16/17 01:11 Dose: 10 mg Iron Sucrose 100 mg/ Sodium (Chloride) 105 mls @ 210 mls/hr IVPB DAILY [facility] Last Admin: 09/15/17 10:29 Dose: 210 mls/hr Dexmedetomidine HCl (Precedex 400mcg/100ml) 400 mcg in 100 mls @ 35.55 mls/hr IV .Q2H49M PRN; Protocol; 1.5 MCG/KG/HR PRN Reason: Agitation Last Admin: 09/15/17 20:50 Dose: 1.5 mcg/kg/hr, 35.55 mls/hr Insulin Human Lispro (Humalog Low) 0 units SC Q6H EDGAR PRN Reason: Protocol Last Admin: 09/16/17 06:35 Dose: Not Given Lorazepam (Ativan) 2 mg IVP Q2H PRN; Protocol PRN Reason: Anxiety Last Admin: 09/16/17 03:53 Dose: 2 mg Methylprednisolone (Solu-Medrol) 40 mg IVP Q8H [facility] Last Admin: 09/16/17 02:45 Dose: 40 mg Montelukast Sodium (Singulair) 10 mg PO HS [facility] Last Admin: 09/15/17 21:50 Dose: 10 mg Multivitamins/Vitamin C (Multi-Delyn Liquid) 15 ml PO 0800 [facility] Last Admin: 09/15/17 08:31 Dose: 15 ml Pantoprazole Sodium (Protonix Inj) 40 mg IVP DAILY [facility] Last Admin: 09/15/17 10:54 Dose: 40 mg Thiamine HCl (Vitamin B1 Inj) 100 mg IM DAILY [facility] Last Admin: 09/15/17 10:55 Dose: 100 mg Tiotropium [place] (Spiriva) 18 mcg IH DAILY [facility] Last Admin: 09/15/17 10:54 Dose: 18 mcg - Labs Labs: 09/16/17 05:30 09/16/17 05:30 PT 12.0 SECONDS (9.4-12.5) 09/13/17 19:50 INR 1.05 (0.93-1.08) 09/13/17 19:50 APTT 30.9 Seconds (25.1-36.5) 09/13/17 19:50 - Constitutional Appears: Non-toxic - Head Exam Head Exam: ATRAUMATIC, NORMAL INSPECTION, NORMOCEPHALIC - Eye Exam Eye Exam: PERRL - Respiratory Exam Respiratory Exam: Decreased Breath Sounds, NORMAL BREATHING PATTERN - Cardiovascular Exam Cardiovascular Exam: Tachycardia, +S1, +S2 - GI/Abdominal Exam GI & Abdominal Exam: Soft, Normal Bowel Sounds. absent: Firm, Guarding, Tenderness - Extremities Exam Extremities Exam: Normal Capillary Refill. absent: Pedal Edema - Neurological Exam Neurological Exam: Alert Additional comments: Motor and sensory grossly intact - Psychiatric Exam Psychiatric exam: Normal Affect - Skin Skin Exam: Dry, Warm Assessment and Plan - Assessment and Plan (Free Text) Assessment: 56yo male with past medical history HTN, CHF s/p pacemaker, asthma, Hep C, PAULINO, depression, and bipolar was brought in by EMS for AMS. Patient with opiode withdrawal presents with hypercapnic respiratory failure s/p intubation, elevated troponin, TIM, and hyperkalemia now resolved. Plan: AMS Details: - Likely secondary to drug overdose - UDS positive for opiates - Hx of drug abuse Plan: - Sedated on precedex - Seizure and Aspiration precautions - Ativan PRN for withdrawls NSTEMI Details: - Troponins trend rise - Cardiology consulted - Anticoagulation held due to concern for GI bleed Plan: - Echocardiogram - 28% EF with MR and TR - Coreg 12.5mg BID - f/u Cardio recs Pneumonia Details: - History of prior hospitialzation - Records from [facility] [place] with CT indicate infiltrate Plan: - Cefepime dc and Vancomycin dc due to kidney injury - Solumedrol 40mg Q8h - Duoneb, brovana, pulmicort, singulair, spiriva for breathing assistance hx of GI bleed Details: - Patient recently admitted to [facility] [place] with possible GI bleed - No work up indicated in prior records - H/H stable at this point, prior transfusion Plan: - GI consulted f/u recs - FOBT - Rectal exam showing no lia blood - Protonix TIM Details: - elevated cr on admission - NS @125cc/hr - Renal US negative - Nephrology consulted Plan: - F/u nephro recs - avoid nephrotoxic drugs - continue fluids - replete electrolytes - continue to monior Anemia Details: - Normocytic anemia - Iron studies - Transfusion of 1 pRBC Plans: - MOnitor H/H - FOBT - GI consult f/u recs Substance abuse Details: - History of drug abuse, UDS positive on admission - patient sedated and unavailable for questioning Plan: - When patient more alert will get psych consult - Monitor for withdrawl signs - Ativan prn Prophylaxis GI: Protonix DVT: SCDS in light of suspected GI bleed Case and plan discussed with attending <Eamon Fuentes - Last Filed: 09/16/17 13:15> Objective - Vital Signs/Intake and Output Vital Signs (last 24 hours): Temp Pulse Resp BP Pulse Ox 97.3 F L 66 38 H 148/91 H 100 09/16/17 04:00 09/16/17 04:00 09/16/17 03:00 09/16/17 04:00 09/16/17 04:00 Intake and Output: 09/16/17 09/16/17 06:59 18:59 Intake Total 1416 100 Output Total 1700 Balance -284 100 - Medications Medications: Current Medications Albuterol/Ipratropium (Duoneb 3 Mg/0.5 Mg (3 Ml) Ud) 3 ml IH Q2H PRN PRN Reason: Shortness of Breath Albuterol/Ipratropium (Duoneb 3 Mg/0.5 Mg (3 Ml) Ud) 3 ml IH [id number] [facility] Arformoterol Tartrate (Brovana) 15 mcg IH [id number] [facility] Last Admin: 09/16/17 08:36 Dose: 15 mcg Aspirin (Ecotrin) 325 mg PO DAILY [facility] Last Admin: 09/16/17 11:46 Dose: Not Given Budesonide (Pulmicort Respules) 0.5 mg IH [id number] [facility] Last Admin: 09/16/17 08:36 Dose: 0.5 mg Carvedilol (Coreg) 12.5 mg PO BID [facility] Last Admin: 09/16/17 09:45 Dose: Not Given Folic Acid (Folic Acid) 1 mg IVP DAILY [facility] Last Admin: 09/16/17 11:45 Dose: 1 mg Heparin Sodium (Porcine) (Heparin) 5,000 units SC Q12 [facility] PRN Reason: Protocol Hydralazine HCl (Apresoline) 10 mg IVP Q6 PRN PRN Reason: Systolic Blood Pressure Last Admin: 09/16/17 01:11 Dose: 10 mg Iron Sucrose 100 mg/ Sodium (Chloride) 105 mls @ 210 mls/hr IVPB DAILY [facility] Last Admin: 09/16/17 10:03 Dose: 210 mls/hr Dexmedetomidine HCl (Precedex 400mcg/100ml) 400 mcg in 100 mls @ 35.55 mls/hr IV .Q2H49M PRN; Protocol; 1.5 MCG/KG/HR PRN Reason: Agitation Last Admin: 09/16/17 11:44 Dose: 1.5 mcg/kg/hr, 35.55 mls/hr Insulin Human Lispro (Humalog Low) 0 units SC Q6H EDGAR PRN Reason: Protocol Last Admin: 09/16/17 06:35 Dose: Not Given Lisinopril (Zestril) 10 mg PO DAILY [facility] Lorazepam (Ativan) 2 mg IVP Q2H PRN; Protocol PRN Reason: Anxiety Last Admin: 09/16/17 03:53 Dose: 2 mg Losartan Potassium (Cozaar) 50 mg PO DAILY [facility] Last Admin: 09/16/17 09:45 Dose: Not Given Methylprednisolone (Solu-Medrol) 40 mg IVP Q12H [facility] Montelukast Sodium (Singulair) 10 mg PO HS [facility] Last Admin: 09/15/17 21:50 Dose: 10 mg Multivitamins/Vitamin C (Multi-Delyn Liquid) 15 ml PO 0800 [facility] Last Admin: 09/16/17 10:02 Dose: Not Given Pantoprazole Sodium (Protonix Inj) 40 mg IVP Q12H [facility] Thiamine HCl (Vitamin B1 Inj) 100 mg IM DAILY [facility] Last Admin: 09/16/17 10:04 Dose: 100 mg Tiotropium [place] (Spiriva) 18 mcg IH DAILY [facility] Last Admin: 09/16/17 10:03 Dose: Not Given - Labs Labs: 09/16/17 05:30 09/16/17 05:30 PT 12.0 SECONDS (9.4-12.5) 09/13/17 19:50 INR 1.05 (0.93-1.08) 09/13/17 19:50 APTT 30.9 Seconds (25.1-36.5) 09/13/17 19:50 Attending/Attestation - Attestation I have personally seen and examined this patient.: Yes I have fully participated in the care of the patient.: Yes I have reviewed all pertinent clinical information, including history, physical exam and plan: Yes Notes (Text): 09/15/17 56 year old male with pat medical history of hypertension, CHF s/p pacemaker, asthma, PAULINO, hepatitis C and depression/bipolar who presented with altered mental status with hypercapneic respiratory failure s/p intubation. He is now extubated today. Continue with steroids, duonebs, brovana and pulmonary as per telephone appointment clerk. Monitor respiratoy status and attempt to wean off sedation. Monitor for withdrawal symptoms. He also was found to have possible NSTEMI with elevated troponins and TIM. Cardiology and nephrology evaluation are requested. His renal function has improved. He is not on aspirin or anticoagulation due to anemia requiring blood transfusion and recent GIB as per . Medical records from recent admission at [facility] [place] are requested. Will also request for GI evaluation. Eamon Fuentes MD Hospitalist.
[2017-09-16 08:56] LABS: ANISOCYTOSIS 1+; BAND 3 % (0-2); HYPOCHROMIA 1+; LARGE PLATELETS PRESENT; LYMPHOCYTE 4 % (22.0-35.0); MONOCYTE 2 % (1.0-6.0); NEUTROPHIL 91 % (50.0-70.0); PLATELET ESTIMATE HIGH (NORMAL)
[2017-09-16 08:57] LABS: OVALOCYTES SLIGHT; POIKILOCYTOSIS SLIGHT
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
--- NOTE | 2017-09-16 10:00 | CP.PCM.PN ---
Subjective - Date & Time of Evaluation Date of Evaluation: 09/16/17 Time of Evaluation: 09:59 - Subjective Subjective: Patient seen and examined at bedside this AM. Patient was agitated overnight. Given ativan with alleviation. Objective - Vital Signs/Intake and Output Vital Signs (last 24 hours): Temp Pulse Resp BP Pulse Ox 97.3 F L 66 38 H 148/91 H 100 09/16/17 04:00 09/16/17 04:00 09/16/17 03:00 09/16/17 04:00 09/16/17 04:00 Intake and Output: 09/16/17 09/16/17 06:59 18:59 Intake Total 1316 Output Total 1700 Balance -384 - Medications Medications: Current Medications Albuterol/Ipratropium (Duoneb 3 Mg/0.5 Mg (3 Ml) Ud) 3 ml IH Q2H PRN PRN Reason: Shortness of Breath Albuterol/Ipratropium (Duoneb 3 Mg/0.5 Mg (3 Ml) Ud) 3 ml IH [id number] [facility] Arformoterol Tartrate (Brovana) 15 mcg IH [id number] [facility] Last Admin: 09/16/17 08:36 Dose: 15 mcg Budesonide (Pulmicort Respules) 0.5 mg IH [id number] [facility] Last Admin: 09/16/17 08:36 Dose: 0.5 mg Carvedilol (Coreg) 12.5 mg PO BID [facility] Last Admin: 09/15/17 17:13 Dose: 12.5 mg Folic Acid (Folic Acid) 1 mg IVP DAILY [facility] Last Admin: 09/15/17 11:38 Dose: 1 mg Hydralazine HCl (Apresoline) 10 mg IVP Q6 PRN PRN Reason: Systolic Blood Pressure Last Admin: 09/16/17 01:11 Dose: 10 mg Iron Sucrose 100 mg/ Sodium (Chloride) 105 mls @ 210 mls/hr IVPB DAILY [facility] Last Admin: 09/15/17 10:29 Dose: 210 mls/hr Dexmedetomidine HCl (Precedex 400mcg/100ml) 400 mcg in 100 mls @ 35.55 mls/hr IV .Q2H49M PRN; Protocol; 1.5 MCG/KG/HR PRN Reason: Agitation Last Admin: 09/15/17 20:50 Dose: 1.5 mcg/kg/hr, 35.55 mls/hr Insulin Human Lispro (Humalog Low) 0 units SC Q6H [facility] PRN Reason: Protocol Last Admin: 09/16/17 06:35 Dose: Not Given Lorazepam (Ativan) 2 mg IVP Q2H PRN; Protocol PRN Reason: Anxiety Last Admin: 09/16/17 03:53 Dose: 2 mg Losartan Potassium (Cozaar) 50 mg PO DAILY [facility] Methylprednisolone (Solu-Medrol) 40 mg IVP Q8H [facility] Last Admin: 09/16/17 02:45 Dose: 40 mg Montelukast Sodium (Singulair) 10 mg PO HS [facility] Last Admin: 09/15/17 21:50 Dose: 10 mg Multivitamins/Vitamin C (Multi-Delyn Liquid) 15 ml PO 0800 [facility] Last Admin: 09/15/17 08:31 Dose: 15 ml Pantoprazole Sodium (Protonix Inj) 40 mg IVP DAILY [facility] Last Admin: 09/15/17 10:54 Dose: 40 mg Thiamine HCl (Vitamin B1 Inj) 100 mg IM DAILY [facility] Last Admin: 09/15/17 10:55 Dose: 100 mg Tiotropium [place] (Spiriva) 18 mcg IH DAILY [facility] Last Admin: 09/15/17 10:54 Dose: 18 mcg - Labs Labs: 09/16/17 05:30 09/16/17 05:30 PT 12.0 SECONDS (9.4-12.5) 09/13/17 19:50 INR 1.05 (0.93-1.08) 09/13/17 19:50 APTT 30.9 Seconds (25.1-36.5) 09/13/17 19:50
[2017-09-16] MEDS: Multi Vitamins 15 mL UD Oral Solution PO SCH (10:02)
[2017-09-16] MEDS: Tiotropium 18 mcg Cap For Inhalation IH SCH (10:03)
[2017-09-16] MEDS: Thiamine 100 mg/ml Inj IM SCH (10:04)
[2017-09-16] MEDS: Dexmedetomidine 400mcg/100mL 400 MCG/100 ML BOTTLE IV PRN ×2 (10:15→11:44)
--- NOTE | 2017-09-16 11:02 | CP.CCUPN ---
<Conor Delaney - Last Filed: 09/16/17 10:53> CCU Subjective - Physician Review Subjective (Free Text): Critical care progress note: Pt seen and examined at bedside. No acute events overnight. Patient currently on BIPAP. Sedated with precedex but arrousable. Denies any complaints. 12 Point ROS reviewed and neg other than stated above. 09/16/17 10:53 CCU Objective - Vital Signs / Intake & Output Intake and Output (Last 8hrs): Intake & Output 09/15/17 09/16/17 09/16/17 22:59 06:59 14:59 Intake Total 906 610 Output Total 1250 450 Balance -344 160 Intake: IV 906 610 Left Hand 200 Right Antecubital 0 Right Upper arm 506 510 Output: Urine 1250 450 2-way Urethral 1250 450 Other: # Bowel Movements 1 - Physical Exam Head: Positive for: Atraumatic, Normocephalic Pupils: Positive for: Pinpoint Extroacular Muscles: Positive for: EOMI Conjunctiva: Positive for: Normal Mouth: Positive for: Moist Mucous Membranes Pharnyx: Positive for: Other (Gurgling) Nose (External): Positive for: Atraumatic Nose (Internal): Positive for: Normal Inspection Neck: Positive for: Normal Range of Motion. Negative for: Meningeal Signs Respiratory/Chest: Positive for: Clear to Auscultation, Good Air Exchange. Negative for: Respiratory Distress, Accessory Muscle Use Cardiovascular: Positive for: Regular Rate and Rhythm, Normal S1, S2. Negative for: Murmurs Abdomen: Negative for: Tenderness, Distention, Peritoneal Signs Upper Extremity: Positive for: Normal Inspection. Negative for: Cyanosis, Edema Lower Extremity: Positive for: Normal Inspection. Negative for: Edema Neurological: Positive for: Motor Func Grossly Intact, Normal Sensory Function Skin: Positive for: Warm, Dry, Normal Color. Negative for: Rashes Psychiatric: Positive for: Lethargic - Medications Active Medications: Active Medications Generic Name Dose Route Start Last Admin Trade Name Freq PRN Reason Stop Dose Admin Albuterol/Ipratropium 3 ml 09/15/17 10:29 Duoneb 3 Mg/0.5 Mg (3 Ml) Ud IH Q2H PRN Shortness of Breath Albuterol/Ipratropium 3 ml 09/16/17 14:00 Duoneb 3 Mg/0.5 Mg (3 Ml) Ud IH [id number] EDGAR Arformoterol Tartrate 15 mcg 09/14/17 08:00 09/16/17 08:36 Brovana IH 15 mcg [id number] EDGAR Administration Aspirin 325 mg 09/16/17 10:15 Ecotrin PO DAILY EDGAR Budesonide 0.5 mg 09/14/17 08:00 09/16/17 08:36 Pulmicort Respules IH 0.5 mg [id number] EDGAR Administration Carvedilol 12.5 mg 09/14/17 10:00 09/16/17 09:45 Coreg PO Not Given BID EDGAR Folic Acid 1 mg 09/14/17 10:00 09/15/17 11:38 Folic Acid IVP 1 mg DAILY EDGAR Administration Hydralazine HCl 10 mg 09/14/17 22:41 09/16/17 01:11 Apresoline IVP 10 mg Q6 PRN Administration Systolic Blood Pressure Iron Sucrose 100 mg/ Sodium 105 mls @ 210 mls/hr 09/14/17 19:00 09/16/17 10: 03 Chloride IVPB 210 mls/hr DAILY EDGAR Administration Dexmedetomidine HCl 400 mcg in 100 mls @ 35.55 mls/hr 09/15/17 11:13 10:15 Precedex 400mcg/100ml IV 1.5 mcg/kg/hr .Q2H49M PRN 35.55 mls/hr Agitation Administration Protocol 1.5 MCG/KG/HR Insulin Human Lispro 0 units 09/14/17 01:00 09/16/17 06:35 Humalog Low SC Not Given Q6H [facility] Protocol Lisinopril 10 mg 09/16/17 10:30 Zestril PO DAILY [facility] Lorazepam 2 mg 09/14/17 10:25 09/16/17 03:53 Ativan IVP 2 mg Q2H PRN Administration Anxiety Protocol Losartan Potassium 50 mg 09/16/17 10:00 09/16/17 09:45 Cozaar PO Not Given DAILY [facility] Methylprednisolone 40 mg 09/16/17 10:30 Solu-Medrol IVP Q12H [facility] Montelukast Sodium 10 mg 09/14/17 22:00 09/15/17 21:50 Singulair PO 10 mg HS EDGAR Administration Multivitamins/Vitamin C 15 ml 09/14/17 08:00 09/16/17 10:02 Multi-Delyn Liquid PO Not Given 0800 EDGAR Pantoprazole Sodium 40 mg 09/14/17 10:00 09/16/17 10:03 Protonix Inj IVP 40 mg DAILY EDGAR Administration Thiamine HCl 100 mg 09/14/17 10:00 09/16/17 10:04 Vitamin B1 Inj IM 100 mg DAILY EDGAR Administration Tiotropium Raritan 18 mcg 09/14/17 10:00 09/16/17 10:03 Spiriva IH Not Given DAILY EDGAR - Patient Studies Lab Studies: Microbiology Studies 09/14/17 23:15 Gram Stain - Final Sputum Sputum Culture - Preliminary NORMAL ORAL LAURA 09/13/17 23:53 MRSA Culture (Admit) - Final Nose MRSA NOT DETECTED 09/13/17 23:09 Urine Culture - Final Urine,Smith No Growth (<1,000 CFU/ML) Lab Studies 09/16/17 09/16/17 09/16/17 Range/Units 06:34 05:30 05:30 WBC 12.2 H (4.5-11.0) 10^3/ul RBC 3.66 (3.5-6.1) 10^6/uL Hgb 9.4 L (14.0-18.0) g/dL Hct 31.0 L (42.0-52.0) % MCV 84.7 (80.0-105.0) fl MCH 25.7 (25.0-35.0) pg MCHC 30.3 L (31.0-37.0) g/dl RDW 20.0 H (11.5-14.5) % Plt Count 603 H (120.0-450.0) 10^3/uL MPV 9.9 (7.0-11.0) fl Gran % 92.6 H (50.0-68.0) % Lymph % (Auto) 5.7 L (22.0-35.0) % Bay % (Auto) 1.7 (1.0-6.0) % Eos % (Auto) 0.0 L (1.5-5.0) % Baso % (Auto) 0.0 (0.0-3.0) % Gran # 11.26 H (1.4-6.5) Lymph # (Auto) 0.7 L (1.2-3.4) Bay # (Auto) 0.2 (0.1-0.6) Eos # (Auto) 0.0 (0.0-0.7) Baso # (Auto) 0.00 (0.0-2.0) K/mm3 Neutrophils % (Manual) 91 H (50.0-70.0) % Band Neutrophils % 3 H (0-2) % Lymphocytes % (Manual) 4 L (22.0-35.0) % Monocytes % (Manual) 2 (1.0-6.0) % Platelet Evaluation High (NORMAL) Large Platelets Present Hypochromasia 1+ Poikilocytosis (manual Slight Anisocytosis (manual) 1+ Ovalocytes Slight Sodium 138 (132-148) mmol/L Potassium 4.5 (3.6-5.0) mmol/L Chloride 105 (98-107) mmol/L Carbon Dioxide 24 (21-33) mmol/L Anion Gap 14 (10-20) BUN 17 (7-21) mg/dL Creatinine 1.0 (0.8-1.5) mg/dl Est GFR ( Amer) > 60 Est GFR (Non-Af Amer) > 60 POC Glucose (mg/dL) 137 H (65-110) mg/dL Random Glucose 155 H (70-110) mg/dL Calcium 8.9 (8.4-10.5) mg/dL Phosphorus 5.2 H (2.5-4.5) mg/dL Magnesium 2.1 (1.7-2.2) mg/dL Total Bilirubin 0.3 (0.2-1.3) mg/dL AST 66 H D (17-59) U/L ALT 50 (7-56) U/L Alkaline Phosphatase 92 (38-126) U/L Total Protein 7.0 (5.8-8.3) g/dL Albumin 3.3 (3.0-4.8) g/dL Globulin 3.7 gm/dL Albumin/Globulin Ratio 0.9 L (1.1-1.8) Urine Microalbumin (0.0-16.6) mg/L Stool Occult Blood (NEGATIVE) 09/16/17 09/16/17 09/15/17 Range/Units 00:58 00:43 18:12 WBC (4.5-11.0) 10^3/ul RBC (3.5-6.1) 10^6/uL Hgb (14.0-18.0) g/dL Hct (42.0-52.0) % MCV (80.0-105.0) fl MCH (25.0-35.0) pg MCHC (31.0-37.0) g/dl RDW (11.5-14.5) % Plt Count (120.0-450.0) 10^3/uL MPV (7.0-11.0) fl Gran % (50.0-68.0) % Lymph % (Auto) (22.0-35.0) % Bay % (Auto) (1.0-6.0) % Eos % (Auto) (1.5-5.0) % Baso % (Auto) (0.0-3.0) % Gran # (1.4-6.5) Lymph # (Auto) (1.2-3.4) Bay # (Auto) (0.1-0.6) Eos # (Auto) (0.0-0.7) Baso # (Auto) (0.0-2.0) K/mm3 Neutrophils % (Manual) (50.0-70.0) % Band Neutrophils % (0-2) % Lymphocytes % (Manual) (22.0-35.0) % Monocytes % (Manual) (1.0-6.0) % Platelet Evaluation (NORMAL) Large Platelets Hypochromasia Poikilocytosis (manual Anisocytosis (manual) Ovalocytes Sodium (132-148) mmol/L Potassium (3.6-5.0) mmol/L Chloride (98-107) mmol/L Carbon Dioxide (21-33) mmol/L Anion Gap (10-20) BUN (7-21) mg/dL Creatinine (0.8-1.5) mg/dl Est GFR ( Amer) Est GFR (Non-Af Amer) POC Glucose (mg/dL) 137 H 141 H 142 H (65-110) mg/dL Random Glucose (70-110) mg/dL Calcium (8.4-10.5) mg/dL Phosphorus (2.5-4.5) mg/dL Magnesium (1.7-2.2) mg/dL Total Bilirubin (0.2-1.3) mg/dL AST (17-59) U/L ALT (7-56) U/L Alkaline Phosphatase (38-126) U/L Total Protein (5.8-8.3) g/dL Albumin (3.0-4.8) g/dL Globulin gm/dL Albumin/Globulin Ratio (1.1-1.8) Urine Microalbumin (0.0-16.6) mg/L Stool Occult Blood (NEGATIVE) 09/15/17 09/15/17 09/15/17 Range/Units 14:00 13:14 11:20 WBC (4.5-11.0) 10^3/ul RBC (3.5-6.1) 10^6/uL Hgb (14.0-18.0) g/dL Hct (42.0-52.0) % MCV (80.0-105.0) fl MCH (25.0-35.0) pg MCHC (31.0-37.0) g/dl RDW (11.5-14.5) % Plt Count (120.0-450.0) 10^3/uL MPV (7.0-11.0) fl Gran % (50.0-68.0) % Lymph % (Auto) (22.0-35.0) % Bay % (Auto) (1.0-6.0) % Eos % (Auto) (1.5-5.0) % Baso % (Auto) (0.0-3.0) % Gran # (1.4-6.5) Lymph # (Auto) (1.2-3.4) Bay # (Auto) (0.1-0.6) Eos # (Auto) (0.0-0.7) Baso # (Auto) (0.0-2.0) K/mm3 Neutrophils % (Manual) (50.0-70.0) % Band Neutrophils % (0-2) % Lymphocytes % (Manual) (22.0-35.0) % Monocytes % (Manual) (1.0-6.0) % Platelet Evaluation (NORMAL) Large Platelets Hypochromasia Poikilocytosis (manual Anisocytosis (manual) Ovalocytes Sodium (132-148) mmol/L Potassium (3.6-5.0) mmol/L Chloride (98-107) mmol/L Carbon Dioxide (21-33) mmol/L Anion Gap (10-20) BUN (7-21) mg/dL Creatinine (0.8-1.5) mg/dl Est GFR ( Amer) Est GFR (Non-Af Amer) POC Glucose (mg/dL) 113 H 215 H (65-110) mg/dL Random Glucose (70-110) mg/dL Calcium (8.4-10.5) mg/dL Phosphorus (2.5-4.5) mg/dL Magnesium (1.7-2.2) mg/dL Total Bilirubin (0.2-1.3) mg/dL AST (17-59) U/L ALT (7-56) U/L Alkaline Phosphatase (38-126) U/L Total Protein (5.8-8.3) g/dL Albumin (3.0-4.8) g/dL Globulin gm/dL Albumin/Globulin Ratio (1.1-1.8) Urine Microalbumin (0.0-16.6) mg/L Stool Occult Blood Negative (NEGATIVE) 09/14/17 Range/Units 20:36 WBC (4.5-11.0) 10^3/ul RBC (3.5-6.1) 10^6/uL Hgb (14.0-18.0) g/dL Hct (42.0-52.0) % MCV (80.0-105.0) fl MCH (25.0-35.0) pg MCHC (31.0-37.0) g/dl RDW (11.5-14.5) % Plt Count (120.0-450.0) 10^3/uL MPV (7.0-11.0) fl Gran % (50.0-68.0) % Lymph % (Auto) (22.0-35.0) % Bay % (Auto) (1.0-6.0) % Eos % (Auto) (1.5-5.0) % Baso % (Auto) (0.0-3.0) % Gran # (1.4-6.5) Lymph # (Auto) (1.2-3.4) Bay # (Auto) (0.1-0.6) Eos # (Auto) (0.0-0.7) Baso # (Auto) (0.0-2.0) K/mm3 Neutrophils % (Manual) (50.0-70.0) % Band Neutrophils % (0-2) % Lymphocytes % (Manual) (22.0-35.0) % Monocytes % (Manual) (1.0-6.0) % Platelet Evaluation (NORMAL) Large Platelets Hypochromasia Poikilocytosis (manual Anisocytosis (manual) Ovalocytes Sodium (132-148) mmol/L Potassium (3.6-5.0) mmol/L Chloride (98-107) mmol/L Carbon Dioxide (21-33) mmol/L Anion Gap (10-20) BUN (7-21) mg/dL Creatinine (0.8-1.5) mg/dl Est GFR ( Amer) Est GFR (Non-Af Amer) POC Glucose (mg/dL) (65-110) mg/dL Random Glucose (70-110) mg/dL Calcium (8.4-10.5) mg/dL Phosphorus (2.5-4.5) mg/dL Magnesium (1.7-2.2) mg/dL Total Bilirubin (0.2-1.3) mg/dL AST (17-59) U/L ALT (7-56) U/L Alkaline Phosphatase (38-126) U/L Total Protein (5.8-8.3) g/dL Albumin (3.0-4.8) g/dL Globulin gm/dL Albumin/Globulin Ratio (1.1-1.8) Urine Microalbumin 12.9 (0.0-16.6) mg/L Stool Occult Blood (NEGATIVE) Laboratory Results - last 24 hr 09/14/17 09/15/17 09/15/17 20:36 11:20 13:14 WBC RBC Hgb Hct MCV MCH MCHC RDW Plt Count MPV Gran % Lymph % (Auto) Bay % (Auto) Eos % (Auto) Baso % (Auto) Gran # Lymph # (Auto) Bay # (Auto) Eos # (Auto) Baso # (Auto) Neutrophils % (Manual) Band Neutrophils % Lymphocytes % (Manual) Monocytes % (Manual) Platelet Evaluation Large Platelets Hypochromasia Poikilocytosis (manual Anisocytosis (manual) Ovalocytes Sodium Potassium Chloride Carbon Dioxide Anion Gap BUN Creatinine Est GFR ( Amer) Est GFR (Non-Af Amer) POC Glucose (mg/dL) 215 H 113 H Random Glucose Calcium Phosphorus Magnesium Total Bilirubin AST ALT Alkaline Phosphatase Total Protein Albumin Globulin Albumin/Globulin Ratio Urine Microalbumin 12.9 Stool Occult Blood 09/15/17 09/15/17 09/16/17 14:00 18:12 00:43 WBC RBC Hgb Hct MCV MCH MCHC RDW Plt Count MPV Gran % Lymph % (Auto) Bay % (Auto) Eos % (Auto) Baso % (Auto) Gran # Lymph # (Auto) Bay # (Auto) Eos # (Auto) Baso # (Auto) Neutrophils % (Manual) Band Neutrophils % Lymphocytes % (Manual) Monocytes % (Manual) Platelet Evaluation Large Platelets Hypochromasia Poikilocytosis (manual Anisocytosis (manual) Ovalocytes Sodium Potassium Chloride Carbon Dioxide Anion Gap BUN Creatinine Est GFR ( Amer) Est GFR (Non-Af Amer) POC Glucose (mg/dL) 142 H 141 H Random Glucose Calcium Phosphorus Magnesium Total Bilirubin AST ALT Alkaline Phosphatase Total Protein Albumin Globulin Albumin/Globulin Ratio Urine Microalbumin Stool Occult Blood Negative 09/16/17 09/16/17 09/16/17 00:58 05:30 05:30 WBC 12.2 H RBC 3.66 Hgb 9.4 L Hct 31.0 L MCV 84.7 MCH 25.7 MCHC 30.3 L RDW 20.0 H Plt Count 603 H MPV 9.9 Gran % 92.6 H Lymph % (Auto) 5.7 L Bay % (Auto) 1.7 Eos % (Auto) 0.0 L Baso % (Auto) 0.0 Gran # 11.26 H Lymph # (Auto) 0.7 L Bay # (Auto) 0.2 Eos # (Auto) 0.0 Baso # (Auto) 0.00 Neutrophils % (Manual) 91 H Band Neutrophils % 3 H Lymphocytes % (Manual) 4 L Monocytes % (Manual) 2 Platelet Evaluation High Large Platelets Present Hypochromasia 1+ Poikilocytosis (manual Slight Anisocytosis (manual) 1+ Ovalocytes Slight Sodium 138 Potassium 4.5 Chloride 105 Carbon Dioxide 24 Anion Gap 14 BUN 17 Creatinine 1.0 Est GFR ( Amer) > 60 Est GFR (Non-Af Amer) > 60 POC Glucose (mg/dL) 137 H Random Glucose 155 H Calcium 8.9 Phosphorus 5.2 H Magnesium 2.1 Total Bilirubin 0.3 AST 66 H D ALT 50 Alkaline Phosphatase 92 Total Protein 7.0 Albumin 3.3 Globulin 3.7 Albumin/Globulin Ratio 0.9 L Urine Microalbumin Stool Occult Blood 09/16/17 06:34 WBC RBC Hgb Hct MCV MCH MCHC RDW Plt Count MPV Gran % Lymph % (Auto) Bay % (Auto) Eos % (Auto) Baso % (Auto) Gran # Lymph # (Auto) Bay # (Auto) Eos # (Auto) Baso # (Auto) Neutrophils % (Manual) Band Neutrophils % Lymphocytes % (Manual) Monocytes % (Manual) Platelet Evaluation Large Platelets Hypochromasia Poikilocytosis (manual Anisocytosis (manual) Ovalocytes Sodium Potassium Chloride Carbon Dioxide Anion Gap BUN Creatinine Est GFR ( Amer) Est GFR (Non-Af Amer) POC Glucose (mg/dL) 137 H Random Glucose Calcium Phosphorus Magnesium Total Bilirubin AST ALT Alkaline Phosphatase Total Protein Albumin Globulin Albumin/Globulin Ratio Urine Microalbumin Stool Occult Blood Fingerstick Blood Sugar Results: 137 Review of Systems - Review of Systems All systems: reviewed and no additional remarkable complaints except (HPI) Assessment/Plan - Assessment and Plan (Free Text) Assessment: 56yo male PMHx HTN, CHF s/p pacemaker, asthma, Hep C, PAULINO, depression, and bipolar was brought in by EMS for AMS. Patient with opiode withdrawal presents with hypercapnic respiratory failure s/p intubation, elevated troponin, TIM, and hyperkalemia now resolved. S/p extubation. Currently on BIPAP. Neuro -AMS likely secondary to drug overdose -sedated on precedex - Plan to wean precedex today -Ativan PRN for withdrawals -Head CT - negative -keep HoB above 30 degrees -aspiration precaution Cardio -troponin on admission: 0.08--> 1.55--> 3.7 -Started Asa 325mg daily -unable to begin anticoagulation secondary to hx of [place] [facility] [place] per -Coreg 12.5mg bid - Started home lisinopril -Cardio Dr. Serrano consulted for recs -Echo read - EF 28% mod MR and TR Pulm -Extubated yesterday and currently on BIPAP - Cont to wean BIPAP -Duoneb, Brovana, Pulmicort, Singulair, Spiriva -Solumedrol 40mg Q12 -maintain SpO2 > 90 GI -NPO -Recent hx of GI bleed in [facility] [place] -FOBT neg on admission -Protonix 40mg ivp q12h -hx of Alcohol abuse and hep C -folic acid, thiamine, multivitamin daily Renal -TIM on admission -renal U/s - neg -avoid nephrotoxic drugs and adjust medications accordingly -replete electrolytes as needed -Nephro Dr. Leggett consulted ID -Afebrile and WBC 12.2 - F/u septic work up -hx of recent hospitalization and aspiration PNA -Influenza negative Heme/Onc -normocytic anemia on admission with Hgb 7.6--> 9.4 today -s/p 1 unit PRBC -monitor H&H GI and DVT ppx Case and plan was reviewed and discussed with Dr Styles. <Efren Styles - Last Filed: 09/16/17 13:20> CCU Objective - Vital Signs / Intake & Output Intake and Output (Last 8hrs): Intake & Output 09/15/17 09/16/17 09/16/17 22:59 06:59 14:59 Intake Total 906 610 100 Output Total 1250 450 Balance -344 160 100 Intake: IV 906 610 100 Left Hand 200 Right Antecubital 0 Right Upper arm 506 510 Output: Urine 1250 450 2-way Urethral 1250 450 Other: # Bowel Movements 1 - Medications Active Medications: Active Medications Generic Name Dose Route Start Last Admin Trade Name Freq PRN Reason Stop Dose Admin Albuterol/Ipratropium 3 ml 09/15/17 10:29 Duoneb 3 Mg/0.5 Mg (3 Ml) Ud IH Q2H PRN Shortness of Breath Albuterol/Ipratropium 3 ml 09/16/17 14:00 Duoneb 3 Mg/0.5 Mg (3 Ml) Ud IH [id number] EDGAR Arformoterol Tartrate 15 mcg 09/14/17 08:00 09/16/17 08:36 Brovana IH 15 mcg [id number] EDGAR Administration Aspirin 325 mg 09/16/17 10:15 09/16/17 11:46 Ecotrin PO Not Given DAILY EDGAR Budesonide 0.5 mg 09/14/17 08:00 09/16/17 08:36 Pulmicort Respules IH 0.5 mg [id number] EDGAR Administration Carvedilol 12.5 mg 09/14/17 10:00 09/16/17 09:45 Coreg PO Not Given BID EDGAR Folic Acid 1 mg 09/14/17 10:00 09/16/17 11:45 Folic Acid IVP 1 mg DAILY EDGAR Administration Heparin Sodium (Porcine) 5,000 units 09/16/17 11:00 Heparin SC Q12 [facility] Protocol Hydralazine HCl 10 mg 09/14/17 22:41 09/16/17 01:11 Apresoline IVP 10 mg Q6 PRN Administration Systolic Blood Pressure Iron Sucrose 100 mg/ Sodium 105 mls @ 210 mls/hr 09/14/17 19:00 09/16/17 10: 03 Chloride IVPB 210 mls/hr DAILY [facility] Administration Dexmedetomidine HCl 400 mcg in 100 mls @ 35.55 mls/hr 09/15/17 11:13 11:44 Precedex 400mcg/100ml IV 1.5 mcg/kg/hr .Q2H49M PRN 35.55 mls/hr Agitation Administration Protocol 1.5 MCG/KG/HR Insulin Human Lispro 0 units 09/14/17 01:00 09/16/17 06:35 Humalog Low SC Not Given Q6H [facility] Protocol Lisinopril 10 mg 09/16/17 10:30 Zestril PO DAILY [facility] Lorazepam 2 mg 09/14/17 10:25 09/16/17 03:53 Ativan IVP 2 mg Q2H PRN Administration Anxiety Protocol Losartan Potassium 50 mg 09/16/17 10:00 09/16/17 09:45 Cozaar PO Not Given DAILY [facility] Methylprednisolone 40 mg 09/16/17 10:30 Solu-Medrol IVP Q12H [facility] Montelukast Sodium 10 mg 09/14/17 22:00 09/15/17 21:50 Singulair PO 10 mg HS [facility] Administration Multivitamins/Vitamin C 15 ml 09/14/17 08:00 09/16/17 10:02 Multi-Delyn Liquid PO Not Given 0800 [facility] Pantoprazole Sodium 40 mg 09/16/17 11:00 Protonix Inj IVP Q12H [facility] Thiamine HCl 100 mg 09/14/17 10:00 09/16/17 10:04 Vitamin B1 Inj IM 100 mg DAILY [facility] Administration Tiotropium Raritan 18 mcg 09/14/17 10:00 09/16/17 10:03 Spiriva IH Not Given DAILY [facility] - Patient Studies Lab Studies: Microbiology Studies 09/14/17 23:15 Gram Stain - Final Sputum Sputum Culture - Preliminary NORMAL ORAL LAURA 09/13/17 23:53 MRSA Culture (Admit) - Final Nose MRSA NOT DETECTED 09/13/17 23:09 Urine Culture - Final Urine,Smith No Growth (<1,000 CFU/ML) Lab Studies 09/16/17 09/16/17 09/16/17 Range/Units 12:55 06:34 05:30 WBC (4.5-11.0) 10^3/ul RBC (3.5-6.1) 10^6/uL Hgb (14.0-18.0) g/dL Hct (42.0-52.0) % MCV (80.0-105.0) fl MCH (25.0-35.0) pg MCHC (31.0-37.0) g/dl RDW (11.5-14.5) % Plt Count (120.0-450.0) 10^3/uL MPV (7.0-11.0) fl Gran % (50.0-68.0) % Lymph % (Auto) (22.0-35.0) % Bay % (Auto) (1.0-6.0) % Eos % (Auto) (1.5-5.0) % Baso % (Auto) (0.0-3.0) % Gran # (1.4-6.5) Lymph # (Auto) (1.2-3.4) Bay # (Auto) (0.1-0.6) Eos # (Auto) (0.0-0.7) Baso # (Auto) (0.0-2.0) K/mm3 Neutrophils % (Manual) (50.0-70.0) % Band Neutrophils % (0-2) % Lymphocytes % (Manual) (22.0-35.0) % Monocytes % (Manual) (1.0-6.0) % Platelet Evaluation (NORMAL) Large Platelets Hypochromasia Poikilocytosis (manual Anisocytosis (manual) Ovalocytes Sodium 138 (132-148) mmol/L Potassium 4.5 (3.6-5.0) mmol/L Chloride 105 (98-107) mmol/L Carbon Dioxide 24 (21-33) mmol/L Anion Gap 14 (10-20) BUN 17 (7-21) mg/dL Creatinine 1.0 (0.8-1.5) mg/dl Est GFR ( Amer) > 60 Est GFR (Non-Af Amer) > 60 POC Glucose (mg/dL) 129 H 137 H (65-110) mg/dL Random Glucose 155 H (70-110) mg/dL Calcium 8.9 (8.4-10.5) mg/dL Phosphorus 5.2 H (2.5-4.5) mg/dL Magnesium 2.1 (1.7-2.2) mg/dL Total Bilirubin 0.3 (0.2-1.3) mg/dL AST 66 H D (17-59) U/L ALT 50 (7-56) U/L Alkaline Phosphatase 92 (38-126) U/L Total Protein 7.0 (5.8-8.3) g/dL Albumin 3.3 (3.0-4.8) g/dL Globulin 3.7 gm/dL Albumin/Globulin Ratio 0.9 L (1.1-1.8) Stool Occult Blood (NEGATIVE) 09/16/17 09/16/17 09/16/17 Range/Units 05:30 00:58 00:43 WBC 12.2 H (4.5-11.0) 10^3/ul RBC 3.66 (3.5-6.1) 10^6/uL Hgb 9.4 L (14.0-18.0) g/dL Hct 31.0 L (42.0-52.0) % MCV 84.7 (80.0-105.0) fl MCH 25.7 (25.0-35.0) pg MCHC 30.3 L (31.0-37.0) g/dl RDW 20.0 H (11.5-14.5) % Plt Count 603 H (120.0-450.0) 10^3/uL MPV 9.9 (7.0-11.0) fl Gran % 92.6 H (50.0-68.0) % Lymph % (Auto) 5.7 L (22.0-35.0) % Bay % (Auto) 1.7 (1.0-6.0) % Eos % (Auto) 0.0 L (1.5-5.0) % Baso % (Auto) 0.0 (0.0-3.0) % Gran # 11.26 H (1.4-6.5) Lymph # (Auto) 0.7 L (1.2-3.4) Bay # (Auto) 0.2 (0.1-0.6) Eos # (Auto) 0.0 (0.0-0.7) Baso # (Auto) 0.00 (0.0-2.0) K/mm3 Neutrophils % (Manual) 91 H (50.0-70.0) % Band Neutrophils % 3 H (0-2) % Lymphocytes % (Manual) 4 L (22.0-35.0) % Monocytes % (Manual) 2 (1.0-6.0) % Platelet Evaluation High (NORMAL) Large Platelets Present Hypochromasia 1+ Poikilocytosis (manual Slight Anisocytosis (manual) 1+ Ovalocytes Slight Sodium (132-148) mmol/L Potassium (3.6-5.0) mmol/L Chloride (98-107) mmol/L Carbon Dioxide (21-33) mmol/L Anion Gap (10-20) BUN (7-21) mg/dL Creatinine (0.8-1.5) mg/dl Est GFR ( Amer) Est GFR (Non-Af Amer) POC Glucose (mg/dL) 137 H 141 H (65-110) mg/dL Random Glucose (70-110) mg/dL Calcium (8.4-10.5) mg/dL Phosphorus (2.5-4.5) mg/dL Magnesium (1.7-2.2) mg/dL Total Bilirubin (0.2-1.3) mg/dL AST (17-59) U/L ALT (7-56) U/L Alkaline Phosphatase (38-126) U/L Total Protein (5.8-8.3) g/dL Albumin (3.0-4.8) g/dL Globulin gm/dL Albumin/Globulin Ratio (1.1-1.8) Stool Occult Blood (NEGATIVE) 09/15/17 09/15/17 09/15/17 Range/Units 18:12 14:00 13:14 WBC (4.5-11.0) 10^3/ul RBC (3.5-6.1) 10^6/uL Hgb (14.0-18.0) g/dL Hct (42.0-52.0) % MCV (80.0-105.0) fl MCH (25.0-35.0) pg MCHC (31.0-37.0) g/dl RDW (11.5-14.5) % Plt Count (120.0-450.0) 10^3/uL MPV (7.0-11.0) fl Gran % (50.0-68.0) % Lymph % (Auto) (22.0-35.0) % Bay % (Auto) (1.0-6.0) % Eos % (Auto) (1.5-5.0) % Baso % (Auto) (0.0-3.0) % Gran # (1.4-6.5) Lymph # (Auto) (1.2-3.4) Bay # (Auto) (0.1-0.6) Eos # (Auto) (0.0-0.7) Baso # (Auto) (0.0-2.0) K/mm3 Neutrophils % (Manual) (50.0-70.0) % Band Neutrophils % (0-2) % Lymphocytes % (Manual) (22.0-35.0) % Monocytes % (Manual) (1.0-6.0) % Platelet Evaluation (NORMAL) Large Platelets Hypochromasia Poikilocytosis (manual Anisocytosis (manual) Ovalocytes Sodium (132-148) mmol/L Potassium (3.6-5.0) mmol/L Chloride (98-107) mmol/L Carbon Dioxide (21-33) mmol/L Anion Gap (10-20) BUN (7-21) mg/dL Creatinine (0.8-1.5) mg/dl Est GFR ( Amer) Est GFR (Non-Af Amer) POC Glucose (mg/dL) 142 H 113 H (65-110) mg/dL Random Glucose (70-110) mg/dL Calcium (8.4-10.5) mg/dL Phosphorus (2.5-4.5) mg/dL Magnesium (1.7-2.2) mg/dL Total Bilirubin (0.2-1.3) mg/dL AST (17-59) U/L ALT (7-56) U/L Alkaline Phosphatase (38-126) U/L Total Protein (5.8-8.3) g/dL Albumin (3.0-4.8) g/dL Globulin gm/dL Albumin/Globulin Ratio (1.1-1.8) Stool Occult Blood Negative (NEGATIVE) Laboratory Results - last 24 hr 09/15/17 09/15/17 09/15/17 13:14 14:00 18:12 WBC RBC Hgb Hct MCV MCH MCHC RDW Plt Count MPV Gran % Lymph % (Auto) Bay % (Auto) Eos % (Auto) Baso % (Auto) Gran # Lymph # (Auto) Bay # (Auto) Eos # (Auto) Baso # (Auto) Neutrophils % (Manual) Band Neutrophils % Lymphocytes % (Manual) Monocytes % (Manual) Platelet Evaluation Large Platelets Hypochromasia Poikilocytosis (manual Anisocytosis (manual) Ovalocytes Sodium Potassium Chloride Carbon Dioxide Anion Gap BUN Creatinine Est GFR ( Amer) Est GFR (Non-Af Amer) POC Glucose (mg/dL) 113 H 142 H Random Glucose Calcium Phosphorus Magnesium Total Bilirubin AST ALT Alkaline Phosphatase Total Protein Albumin Globulin Albumin/Globulin Ratio Stool Occult Blood Negative 09/16/17 09/16/17 09/16/17 00:43 00:58 05:30 WBC 12.2 H RBC 3.66 Hgb 9.4 L Hct 31.0 L MCV 84.7 MCH 25.7 MCHC 30.3 L RDW 20.0 H Plt Count 603 H MPV 9.9 Gran % 92.6 H Lymph % (Auto) 5.7 L Bay % (Auto) 1.7 Eos % (Auto) 0.0 L Baso % (Auto) 0.0 Gran # 11.26 H Lymph # (Auto) 0.7 L Bay # (Auto) 0.2 Eos # (Auto) 0.0 Baso # (Auto) 0.00 Neutrophils % (Manual) 91 H Band Neutrophils % 3 H Lymphocytes % (Manual) 4 L Monocytes % (Manual) 2 Platelet Evaluation High Large Platelets Present Hypochromasia 1+ Poikilocytosis (manual Slight Anisocytosis (manual) 1+ Ovalocytes Slight Sodium Potassium Chloride Carbon Dioxide Anion Gap BUN Creatinine Est GFR ( Amer) Est GFR (Non-Af Amer) POC Glucose (mg/dL) 141 H 137 H Random Glucose Calcium Phosphorus Magnesium Total Bilirubin AST ALT Alkaline Phosphatase Total Protein Albumin Globulin Albumin/Globulin Ratio Stool Occult Blood 09/16/17 09/16/17 09/16/17 05:30 06:34 12:55 WBC RBC Hgb Hct MCV MCH MCHC RDW Plt Count MPV Gran % Lymph % (Auto) Bay % (Auto) Eos % (Auto) Baso % (Auto) Gran # Lymph # (Auto) Bay # (Auto) Eos # (Auto) Baso # (Auto) Neutrophils % (Manual) Band Neutrophils % Lymphocytes % (Manual) Monocytes % (Manual) Platelet Evaluation Large Platelets Hypochromasia Poikilocytosis (manual Anisocytosis (manual) Ovalocytes Sodium 138 Potassium 4.5 Chloride 105 Carbon Dioxide 24 Anion Gap 14 BUN 17 Creatinine 1.0 Est GFR ( Amer) > 60 Est GFR (Non-Af Amer) > 60 POC Glucose (mg/dL) 137 H 129 H Random Glucose 155 H Calcium 8.9 Phosphorus 5.2 H Magnesium 2.1 Total Bilirubin 0.3 AST 66 H D ALT 50 Alkaline Phosphatase 92 Total Protein 7.0 Albumin 3.3 Globulin 3.7 Albumin/Globulin Ratio 0.9 L Stool Occult Blood Assessment/Plan - Assessment and Plan (Free Text) Assessment: Patient seen and examined on rounds with resident, agree with note with following additions/exceptions: Patient is 56yo male with PMHx HTN, CHF s/p pacemaker, asthma, Hep C, PAULINO, depression, and bipolar was admitted for AMS, hypercapnic resp failure, opiate overdose, s/p extubation. Currently the patient is afebrile, HD stable, comfortable in NAD, on Precedex drip, weaning off BIPAP. Patient is awake, alert, appropriate, following commands, denies any major complaints Pt restarted bakc on ASA 325mg, Coreg, ACEI Cardiology eval pending GI evaluation appreociated, no plans for EGD/Colonoscopy, pt HH stable, FOBT NEGATIVE Hypercapnic resp Failure Polysubstance Abuse, EtOH abuse Acute renal failure Elevated troponin Dehydration Hep C CHF, compensated Recommend: - wean off BIPAP - pathak culture, UCx, BCx, check procal - monitor off abx - BP control - Precedex drip, wean - monitor for EtOH withdrawal - Ativan PRN - Thiamine, Folic Acid, MVT - DC IVF, start diet - monitor HH - ECHO done - Cardiology eval - ASA 325mg daily, BB, Statin, ACEI - FS control - GI ppx - DVT ppx - Monitor in MICU Critical care time 30 minutes
[2017-09-16] MEDS: Aspirin 325 mg EC Tablets PO SCH ×2 (11:46→14:03)
--- NOTE | 2017-09-16 14:52 | CP.PCM.PN ---
<Regulo Ambriz - Last Filed: 09/16/17 15:02> Subjective - Date & Time of Evaluation Date of Evaluation: 09/16/17 Time of Evaluation: 14:49 - Subjective Subjective: Patient seen and examined this AM at [facility]. Patient on BiPAP. Patient able to participate in interview. Patient denies abdominal pain, history of upper or lower gi bleed. no acute events reported overnight Objective - Vital Signs/Intake and Output Vital Signs (last 24 hours): Temp Pulse Resp BP Pulse Ox 97.3 F L 138 H 38 H 136/81 100 09/16/17 04:00 09/16/17 14:02 09/16/17 03:00 09/16/17 14:02 09/16/17 04:00 Intake and Output: 09/16/17 09/16/17 06:59 18:59 Intake Total 1416 128 Output Total 1700 Balance -284 128 - Medications Medications: Current Medications Albuterol/Ipratropium (Duoneb 3 Mg/0.5 Mg (3 Ml) Ud) 3 ml IH Q2H PRN PRN Reason: Shortness of Breath Albuterol/Ipratropium (Duoneb 3 Mg/0.5 Mg (3 Ml) Ud) 3 ml IH [id number] [facility] Arformoterol Tartrate (Brovana) 15 mcg IH [id number] [facility] Last Admin: 09/16/17 08:36 Dose: 15 mcg Aspirin (Ecotrin) 325 mg PO DAILY [facility] Last Admin: 09/16/17 14:03 Dose: 325 mg Atorvastatin Calcium (Lipitor) 40 mg PO DIN [facility] Budesonide (Pulmicort Respules) 0.5 mg IH [id number] [facility] Last Admin: 09/16/17 08:36 Dose: 0.5 mg Carvedilol (Coreg) 12.5 mg PO BID [facility] Last Admin: 09/16/17 14:02 Dose: 12.5 mg Folic Acid (Folic Acid) 1 mg IVP DAILY [facility] Last Admin: 09/16/17 11:45 Dose: 1 mg Heparin Sodium (Porcine) (Heparin) 5,000 units SC Q12 [facility] PRN Reason: Protocol Last Admin: 09/16/17 14:03 Dose: 5,000 units Hydralazine HCl (Apresoline) 10 mg IVP Q6 PRN PRN Reason: Systolic Blood Pressure Last Admin: 09/16/17 01:11 Dose: 10 mg Iron Sucrose 100 mg/ Sodium (Chloride) 105 mls @ 210 mls/hr IVPB DAILY [facility] Last Admin: 09/16/17 10:03 Dose: 210 mls/hr Dexmedetomidine HCl (Precedex 400mcg/100ml) 400 mcg in 100 mls @ 35.55 mls/hr IV .Q2H49M PRN; Protocol; 1.5 MCG/KG/HR PRN Reason: Agitation Last Titration: 09/16/17 13:46 Dose: 0 mcg/kg/hr, 0 mls/hr Insulin Human Lispro (Humalog Low) 0 units SC Q6H [facility] PRN Reason: Protocol Last Admin: 09/16/17 13:45 Dose: Not Given Lisinopril (Zestril) 10 mg PO DAILY [facility] Last Admin: 09/16/17 14:01 Dose: 10 mg Lorazepam (Ativan) 2 mg IVP Q2H PRN; Protocol PRN Reason: Anxiety Last Admin: 09/16/17 03:53 Dose: 2 mg Losartan Potassium (Cozaar) 50 mg PO DAILY [facility] Last Admin: 09/16/17 14:02 Dose: 50 mg Methylprednisolone (Solu-Medrol) 40 mg IVP Q12H [facility] Last Admin: 09/16/17 13:49 Dose: Not Given Montelukast Sodium (Singulair) 10 mg PO HS [facility] Last Admin: 09/15/17 21:50 Dose: 10 mg Multivitamins/Vitamin C (Multi-Delyn Liquid) 15 ml PO 0800 [facility] Last Admin: 09/16/17 10:02 Dose: Not Given Pantoprazole Sodium (Protonix Inj) 40 mg IVP Q12H [facility] Thiamine HCl (Vitamin B1 Inj) 100 mg IM DAILY [facility] Last Admin: 09/16/17 10:04 Dose: 100 mg Tiotropium Ona (Spiriva) 18 mcg IH DAILY [facility] Last Admin: 09/16/17 10:03 Dose: Not Given - Labs Labs: 09/16/17 05:30 09/16/17 05:30 PT 12.0 SECONDS (9.4-12.5) 09/13/17 19:50 INR 1.05 (0.93-1.08) 09/13/17 19:50 APTT 30.9 Seconds (25.1-36.5) 09/13/17 19:50 - Head Exam Head Exam: ATRAUMATIC, NORMAL INSPECTION - Eye Exam Eye Exam: EOMI, PERRL - Respiratory Exam Respiratory Exam: Clear to Ausculation Bilateral, NORMAL BREATHING PATTERN. absent: Rhonchi, Wheezes - Cardiovascular Exam Cardiovascular Exam: REGULAR RHYTHM, +S1, +S2 - GI/Abdominal Exam GI & Abdominal Exam: Distended, Soft, Normal Bowel Sounds. absent: Tenderness - Extremities Exam Extremities Exam: absent: Calf Tenderness, Pedal Edema - Neurological Exam Neurological Exam: Alert, Awake Additional comments: motor and sensory grossly intact - Psychiatric Exam Additional comments: lethargic - Skin Skin Exam: Warm Assessment and Plan - Assessment and Plan (Free Text) Assessment: 56yo male with past medical history HTN, CHF s/p pacemaker, asthma, Hep C, PAULINO, depression, and bipolar was brought in by EMS for AMS. Patient with opiode withdrawal presents with hypercapnic respiratory failure s/p intubation, elevated troponin, TIM, hyperkalemia that is now resolved, requiring biPAP Plan: AMS Details: - Likely secondary to drug overdose - UDS positive for opiates - Head CT: No acute findings - Hx of drug abuse - clinically improving Plan: - weaning patient off of precedex - Seizure and Aspiration precautions - Ativan PRN for withdrawls NSTEMI Details: - Troponins trend rise - Cardiology consulted - Anticoagulation held due to concern for GI bleed Plan: - Echocardiogram - 28% EF with MR and TR - Coreg 12.5mg BID - Lisinopril - f/u Cardio recs - Conversation with GI patient okay for ASA Pneumonia Details: - History of prior hospitialzation - Records [place] [facility] [place] indicate infiltrate Plan: - Cefepime dc and Vancomycin dc due to kidney injury - Solumedrol 40mg Q8h - Duoneb, brovana, pulmicort, singulair, spiriva for breathing assistance hx of GI bleed Details: - Patient recently admitted to [facility] [place] with possible GI bleed - No work up indicated in prior records - H/H stable at this point, prior transfusion Plan: - GI consulted f/u recs - FOBT negative - Rectal exam showing no lia blood - Protonix TIM Details: - elevated cr on admission, improved - Renal US negative - Nephrology consulted Plan: - F/u nephro recs - avoid nephrotoxic drugs - dc fluids in light of CHF - replete electrolytes - continue to monior Anemia Details: - Normocytic anemia - Iron studies - Transfusion of 1 pRBC Plans: - Monitor H/H, stable - FOBT negative - GI consult f/u recs Substance abuse Details: - History of drug abuse, UDS positive on admission - patient sedated and u Plan: - When patient more alert will get psych consult - Monitor for withdrawl signs - Ativan prn - Folic acid, multivitamin, thiamine Prophylaxis GI: Protonix DVT: SCDS in light of suspected GI bleed Case and plan discussed with attending <Eamon Fuentes - Last Filed: 09/16/17 15:30> Objective - Vital Signs/Intake and Output Vital Signs (last 24 hours): Temp Pulse Resp BP Pulse Ox 97.3 F L 138 H 38 H 136/81 100 09/16/17 04:00 09/16/17 14:02 09/16/17 03:00 09/16/17 14:02 09/16/17 04:00 Intake and Output: 09/16/17 09/16/17 06:59 18:59 Intake Total 1416 128 Output Total 1700 Balance -284 128 - Medications Medications: Current Medications Albuterol/Ipratropium (Duoneb 3 Mg/0.5 Mg (3 Ml) Ud) 3 ml IH Q2H PRN PRN Reason: Shortness of Breath Albuterol/Ipratropium (Duoneb 3 Mg/0.5 Mg (3 Ml) Ud) 3 ml IH [id number] [facility] Arformoterol Tartrate (Brovana) 15 mcg IH [id number] [facility] Last Admin: 09/16/17 08:36 Dose: 15 mcg Aspirin (Ecotrin) 325 mg PO DAILY [facility] Last Admin: 09/16/17 14:03 Dose: 325 mg Atorvastatin Calcium (Lipitor) 40 mg PO DIN [facility] Budesonide (Pulmicort Respules) 0.5 mg IH [id number] [facility] Last Admin: 09/16/17 08:36 Dose: 0.5 mg Carvedilol (Coreg) 12.5 mg PO BID [facility] Last Admin: 09/16/17 14:02 Dose: 12.5 mg Folic Acid (Folic Acid) 1 mg IVP DAILY [facility] Last Admin: 09/16/17 11:45 Dose: 1 mg Heparin Sodium (Porcine) (Heparin) 5,000 units SC Q12 [facility] PRN Reason: Protocol Last Admin: 09/16/17 14:03 Dose: 5,000 units Hydralazine HCl (Apresoline) 10 mg IVP Q6 PRN PRN Reason: Systolic Blood Pressure Last Admin: 09/16/17 01:11 Dose: 10 mg Iron Sucrose 100 mg/ Sodium (Chloride) 105 mls @ 210 mls/hr IVPB DAILY [facility] Last Admin: 09/16/17 10:03 Dose: 210 mls/hr Dexmedetomidine HCl (Precedex 400mcg/100ml) 400 mcg in 100 mls @ 35.55 mls/hr IV .Q2H49M PRN; Protocol; 1.5 MCG/KG/HR PRN Reason: Agitation Last Titration: 09/16/17 13:46 Dose: 0 mcg/kg/hr, 0 mls/hr Insulin Human Lispro (Humalog Low) 0 units SC Q6H [facility] PRN Reason: Protocol Last Admin: 09/16/17 13:45 Dose: Not Given Lisinopril (Zestril) 10 mg PO DAILY [facility] Last Admin: 09/16/17 14:01 Dose: 10 mg Lorazepam (Ativan) 2 mg IVP Q2H PRN; Protocol PRN Reason: Anxiety Last Admin: 09/16/17 15:05 Dose: 2 mg Losartan Potassium (Cozaar) 50 mg PO DAILY [facility] Last Admin: 09/16/17 14:02 Dose: 50 mg Methylprednisolone (Solu-Medrol) 40 mg IVP Q12H [facility] Last Admin: 09/16/17 13:49 Dose: Not Given Montelukast Sodium (Singulair) 10 mg PO HS [facility] Last Admin: 09/15/17 21:50 Dose: 10 mg Multivitamins/Vitamin C (Multi-Delyn Liquid) 15 ml PO 0800 [facility] Last Admin: 09/16/17 10:02 Dose: Not Given Pantoprazole Sodium (Protonix Inj) 40 mg IVP Q12H [facility] Thiamine HCl (Vitamin B1 Inj) 100 mg IM DAILY [facility] Last Admin: 09/16/17 10:04 Dose: 100 mg Tiotropium Ona (Spiriva) 18 mcg IH DAILY [facility] Last Admin: 09/16/17 10:03 Dose: Not Given - Labs Labs: 09/16/17 05:30 09/16/17 05:30 PT 12.0 SECONDS (9.4-12.5) 09/13/17 19:50 INR 1.05 (0.93-1.08) 09/13/17 19:50 APTT 30.9 Seconds (25.1-36.5) 09/13/17 19:50 Attending/Attestation - Attestation I have personally seen and examined this patient.: Yes I have fully participated in the care of the patient.: Yes I have reviewed all pertinent clinical information, including history, physical exam and plan: Yes Notes (Text): 09/16/17 15:28 56 year old male with pat medical history of hypertension, CHF s/p pacemaker, asthma, PAULINO, hepatitis C and depression/bipolar who presented with altered mental status with hypercapneic respiratory failure s/p intubation. He was extubated yesterday and placed on bipap. Continue with steroids, duonebs, brovana and pulmonary as per telecommunications field engineer. Continue to monitor respiratoy status and attempt to wean off sedation. Monitor for withdrawal symptoms. He also was found to have possible NSTEMI with elevated troponins and TIM. He was seen by cardiology and nephrology. His renal function has improved. He is not on anticoagulation due to anemia requiring blood transfusion and recent GIB as per . Medical records [place] recent [place] [facility] [place]. His hemoglobin is stable s/p transfusion. GI evaluation was appreciated; no overt bleeding noted. Aspirin has been resumed. Eamon Fuentes MD Hospitalist.
--- NOTE | 2017-09-16 18:35 | CP.PCM.PN ---
Subjective - Date & Time of Evaluation Date of Evaluation: 09/16/17 Time of Evaluation: 12:00 - Subjective Subjective: Patient being taken off sedation currently; just taken off BIPAP; Objective - Vital Signs/Intake and Output Vital Signs (last 24 hours): Temp Pulse Resp BP Pulse Ox 97.4 F L 83 38 H 136/82 84 L 09/16/17 16:00 09/16/17 17:41 09/16/17 03:00 09/16/17 17:00 09/16/17 15:40 Intake and Output: 09/16/17 09/16/17 06:59 18:59 Intake Total 1416 880 Output Total 1700 500 Balance -284 380 - Medications Medications: Current Medications Albuterol/Ipratropium (Duoneb 3 Mg/0.5 Mg (3 Ml) Ud) 3 ml IH Q2H PRN PRN Reason: Shortness of Breath Albuterol/Ipratropium (Duoneb 3 Mg/0.5 Mg (3 Ml) Ud) 3 ml IH [id number] [facility] Arformoterol Tartrate (Brovana) 15 mcg IH [id number] [facility] Last Admin: 09/16/17 08:36 Dose: 15 mcg Aspirin (Ecotrin) 325 mg PO DAILY [facility] Last Admin: 09/16/17 14:03 Dose: 325 mg Atorvastatin Calcium (Lipitor) 40 mg PO DIN [facility] Last Admin: 09/16/17 17:00 Dose: 40 mg Budesonide (Pulmicort Respules) 0.5 mg IH [id number] [facility] Last Admin: 09/16/17 08:36 Dose: 0.5 mg Carvedilol (Coreg) 12.5 mg PO BID [facility] Last Admin: 09/16/17 17:00 Dose: 12.5 mg Folic Acid (Folic Acid) 1 mg IVP DAILY [facility] Last Admin: 09/16/17 11:45 Dose: 1 mg Heparin Sodium (Porcine) (Heparin) 5,000 units SC Q12 [facility] PRN Reason: Protocol Last Admin: 09/16/17 14:03 Dose: 5,000 units Hydralazine HCl (Apresoline) 10 mg IVP Q6 PRN PRN Reason: Systolic Blood Pressure Last Admin: 09/16/17 01:11 Dose: 10 mg Iron Sucrose 100 mg/ Sodium (Chloride) 105 mls @ 210 mls/hr IVPB DAILY [facility] Last Admin: 09/16/17 10:03 Dose: 210 mls/hr Dexmedetomidine HCl (Precedex 400mcg/100ml) 400 mcg in 100 mls @ 35.55 mls/hr IV .Q2H49M PRN; Protocol; 1.5 MCG/KG/HR PRN Reason: Agitation Last Titration: 09/16/17 13:46 Dose: 0 mcg/kg/hr, 0 mls/hr Insulin Human Lispro (Humalog Low) 0 units SC ACHS [facility] PRN Reason: Protocol Lisinopril (Zestril) 10 mg PO DAILY [facility] Last Admin: 09/16/17 14:01 Dose: 10 mg Lorazepam (Ativan) 2 mg IVP Q2H PRN; Protocol PRN Reason: Anxiety Last Admin: 09/16/17 18:30 Dose: 2 mg Losartan Potassium (Cozaar) 50 mg PO DAILY [facility] Last Admin: 09/16/17 14:02 Dose: 50 mg Methylprednisolone (Solu-Medrol) 40 mg IVP Q12H [facility] Last Admin: 09/16/17 13:49 Dose: Not Given Montelukast Sodium (Singulair) 10 mg PO HS [facility] Last Admin: 09/15/17 21:50 Dose: 10 mg Multivitamins/Vitamin C (Multi-Delyn Liquid) 15 ml PO 0800 [facility] Last Admin: 09/16/17 10:02 Dose: Not Given Pantoprazole Sodium (Protonix Inj) 40 mg IVP Q12H [facility] Last Admin: 09/16/17 12:00 Dose: 40 mg Thiamine HCl (Vitamin B1 Inj) 100 mg IM DAILY [facility] Last Admin: 09/16/17 10:04 Dose: 100 mg Tiotropium Kell (Spiriva) 18 mcg IH DAILY [facility] Last Admin: 09/16/17 10:03 Dose: Not Given - Labs Labs: 09/16/17 05:30 09/16/17 05:30 PT 12.0 SECONDS (9.4-12.5) 09/13/17 19:50 INR 1.05 (0.93-1.08) 09/13/17 19:50 APTT 30.9 Seconds (25.1-36.5) 09/13/17 19:50 - Constitutional Appears: Non-toxic, No Acute Distress - Eye Exam Eye Exam: absent: Scleral icterus - ENT Exam ENT Exam: Mucous Membranes Moist - Respiratory Exam Respiratory Exam: Clear to Ausculation Bilateral. absent: Respiratory Distress - Cardiovascular Exam Cardiovascular Exam: RRR. absent: Gallop, Rubs - GI/Abdominal Exam GI & Abdominal Exam: Soft. absent: Distended - Exam Exam: absent: Bladder Distension - Extremities Exam Additional comments: minimal leg edema - Neurological Exam Additional comments: arousable to tactile stimuli; - Psychiatric Exam Psychiatric exam: absent: Agitated - Skin Skin Exam: Warm. absent: Cyanosis Assessment and Plan (1) Acute renal failure Assessment & Plan: Resolved; pre-renal etiology in the setting of likely being on diuretics; continue to hold IVF; Status: Acute (2) Proteinuria Status: Resolved (3) CHF (congestive heart failure) Assessment & Plan: With severe systolic dysfunction; on coreg, started on losartan today, can titrate dose upward as tolerated; Status: Chronic (4) Hypertension Assessment & Plan: BP much better controlled today; continue current meds; Status: Acute (5) Anemia Assessment & Plan: Currently getting IV iron loading, continue; Status: Acute
--- NOTE | 2017-09-16 23:44 | CON ---
DATE: CARDIOLOGY CONSULT REASON FOR CONSULTATION: Cardiomyopathy. HISTORY OF PRESENT ILLNESS: The patient is 56-year-old male who has a history of bipolar disorder, illicit drug abuse, hepatitis C, cardiomyopathy, status post biventricular pacemaker and ICD placement. The patient was admitted 3 days ago because of questionable heroin abuse. The patient did receive Marcaine in the field and the patient was admitted to the ICU with altered mental status. The patient required intubation and mechanical ventilation. Cardiac enzymes were elevated. At this time, the patient is lethargic, extubated, off Precedex infusion; however, he gives no reliable answer to my questions. Review of systems, no reported seizures. No reported hypotension or ventricular tachycardia today. MEDICATIONS: Hydralazine 10 mg intravenous every 6 hours, Ativan 2 mg intravenously every 12 hours, Brovana 15 mcg inhalation every 12 hours, Coreg 12.5 mg once a day, Cozaar 50 mg daily, albuterol inhaler, aspirin 325 mg daily was withheld today, folic acid 1 mg intravenously daily, iron sucrose infusion, multivitamin infusion, Protonix 40 mg intravenous every 12 hours, methyl prednisone 40 mg intravenous every 12 hours, thiamine 100 mg daily, Zestril 10 mg once a day. PHYSICAL EXAMINATION GENERAL: The patient is a middle-aged male who does not appear to be in acute respiratory distress. VITAL SIGNS: Blood pressure 172/103, heart rate 69, temperature 98.7, respirations 34. HEENT: Pale conjunctivae. CHEST: Diminished breath sounds at the bases. HEART: Sounds regular and distant. ABDOMEN: Soft. EXTREMITIES: No edema. LABORATORY DATA: The SMA-7 is within normal limits except for glucose 144. Troponins were as follows: 0.08, 1.55, 3.7. Today's hemoglobin and hematocrit 9.4 and 31, white count 12.2, platelet count 603,000. Drug screen is positive for opiates and benzodiazepines. Alcohol level is below 10. Acute hepatitis profile is negative. Chest x-ray revealed cardiomegaly, moderate CHF. Consider left lower lobe pneumonia and/or effusion and ICD with biventricular pacemaker is noted and a suture wire is noted in the chest x-ray, its location cannot be identified and clinically, the patient was not cooperative enough for allowing me to examine his back. The EKG was with atrial sensed, ventricular paced rhythm. Echocardiac study revealed ejection fraction ranged 25-30%, moderate mitral insufficiency and moderate tricuspid regurgitation. ASSESSMENT 1. Cardiomyopathy, status post implantable cardioverter-defibrillator and biventricular pacemaker placement. 2. Questionable heroin abuse. 3. Bipolar disorder. 4. Anemia. 5. Uncontrolled hypertension. 6. Consider myocardial infarction in view of elevated troponin. 7. Status post respiratory failure. RECOMMENDATIONS I did review the head CT scan that was performed on admission, which revealed no acute findings and the cervical spine PA and lateral revealed degenerative disk disease at C5-6 and C6-7. Continue current hydralazine, subcutaneous heparin 5000 units every 12 hours, Solu-Medrol 40 mg intravenous every 12 hours, Zestril 10 mg daily resume Coreg at 12.5 mg twice a day. Start Lipitor 40 mg orally once a day. Case will be discussed with Dr. Serrano for possible cardiac catheterization once the patient is cleared from this Psychiatry point of view and is able to make a decision about it. Ed Valentin MD
[2017-09-17] MEDS: Albuterol-Ipratrop 3 mg / 0.5 (3 ml) UD IH SCH ×3 (01:30→21:16)
[2017-09-17 06:10] LABS: ALB/GLOB RATIO 0.9 (1.1-1.8); ALBUMIN 3.1 g/dL (3.0-4.8); ALT/SGPT 41 U/L (7-56); AST/SGOT 46 U/L (17-59); BLOOD UREA NITROGEN 18 mg/dL (7-21); CALCIUM 8.9 mg/dL (8.4-10.5); GFR AFRICAN-AMERICAN > 60; GFR NON-AFRICAN AMERICAN > 60
[2017-09-17 06:16] LABS: GRAN # 10.16 (1.4-6.5); GRAN % 82.4 % (50.0-68.0); HEMOGLOBIN 8.6 g/dL (14.0-18.0); LYMPH # 1.5 (1.2-3.4); LYMPH % 12.3 % (22.0-35.0); MEAN CELL VOLUME 86.1 fl (80.0-105.0); MEAN CORPUSCULAR HEMOGLOBIN 25.4 pg (25.0-35.0); MEAN CORPUSCULAR HGB CONC 29.6 g/dl (31.0-37.0); MEAN PLATELET VOLUME 9.9 fl (7.0-11.0); MONO # 0.7 (0.1-0.6); MONO % 5.3 % (1.0-6.0); RBC 3.38 10^6/uL (3.5-6.1); RED CELL DISTRIBUTION WIDTH 20.3 % (11.5-14.5); WHITE BLOOD COUNT 12.3 10^3/ul (4.5-11.0)
[2017-09-17] MEDS: Insulin Lispro (humaLOG) LOW Coverage SC SCH ×4 (08:08→21:44)
[2017-09-17] MEDS: Multi Vitamins 15 mL UD Oral Solution PO SCH (08:14)
[2017-09-17] MEDS: Budesonide 0.5 mg/2 ml Inhal Susp UD IH SCH ×2 (09:05→21:16)
[2017-09-17] MEDS: Arformoterol 15 mcg/2 ml Inh Sol IH SCH ×2 (09:05→21:17)
[2017-09-17] MEDS: Aspirin 325 mg EC Tablets PO SCH (09:40)
[2017-09-17] MEDS: MethylPREDNISolone 40 mg Vial IVP SCH ×2 (09:45→22:09)
[2017-09-17] MEDS: Tiotropium 18 mcg Cap For Inhalation IH SCH (09:48)
[2017-09-17] MEDS: Thiamine 100 mg/ml Inj IM SCH (09:48)
--- NOTE | 2017-09-17 10:18 | RAD ---
HISTORY: SOB COMPARISON: No prior. FINDINGS: LUNGS: No active pulmonary disease. PLEURA: No significant pleural effusion identified, no pneumothorax apparent. CARDIOVASCULAR: Permanent pacemaker. Normal cardiac size. OSSEOUS STRUCTURES: No significant abnormalities. VISUALIZED UPPER ABDOMEN: Normal. OTHER FINDINGS: None. IMPRESSION: No active disease.
--- NOTE | 2017-09-17 12:37 | CP.CCUPN ---
<Kevin Domínguez - Last Filed: 09/17/17 13:09> CCU Subjective - Physician Review Subjective (Free Text): 09/17/17 12:36 Patient seen and examined at bedside in no acute distress. Requests to be started on his home medications now that he is extubated. Patient admits to cough. Denies fevers, chills, nausea, vomiting, diarrhea, fevers, chills. 09/17/17 12:47 Critical Care Time Spent (in minutes): 40 CCU Objective - Vital Signs / Intake & Output Vital Signs (Last 4 hours): Vital Signs Pulse BP 09/17/17 09:48 91 H 122/54 L 09/17/17 09:40 91 H 122/54 L 09/17/17 09:39 91 H 122/54 L Intake and Output (Last 8hrs): Intake & Output 09/16/17 09/17/17 09/17/17 22:59 06:59 14:59 Intake Total 752 180 Output Total 500 700 Balance 252 -520 Weight 96.026 kg Intake: IV 452 0 Left Hand 0 Right Antecubital 200 0 Right Upper arm 252 0 Oral 300 180 Output: Urine 500 700 2-way Urethral 500 700 Other: # Bowel Movements 1 - Physical Exam Head: Positive for: Atraumatic, Normocephalic Pupils: Positive for: Pinpoint Extroacular Muscles: Positive for: EOMI Conjunctiva: Positive for: Normal Mouth: Positive for: Moist Mucous Membranes Pharnyx: Positive for: Other (Gurgling) Nose (External): Positive for: Atraumatic Nose (Internal): Positive for: Normal Inspection Neck: Positive for: Normal Range of Motion. Negative for: Meningeal Signs Respiratory/Chest: Positive for: Clear to Auscultation, Good Air Exchange. Negative for: Respiratory Distress, Accessory Muscle Use Cardiovascular: Positive for: Regular Rate and Rhythm, Normal S1, S2. Negative for: Murmurs Abdomen: Negative for: Tenderness, Distention, Peritoneal Signs Upper Extremity: Positive for: Normal Inspection. Negative for: Cyanosis, Edema Lower Extremity: Positive for: Normal Inspection. Negative for: Edema Neurological: Positive for: Motor Func Grossly Intact, Normal Sensory Function Skin: Positive for: Warm, Dry, Normal Color. Negative for: Rashes Psychiatric: Positive for: Lethargic - Medications Active Medications: Active Medications Generic Name Dose Route Start Last Admin Trade Name Freq PRN Reason Stop Dose Admin Albuterol/Ipratropium 3 ml 09/15/17 10:29 Duoneb 3 Mg/0.5 Mg (3 Ml) Ud IH Q2H PRN Shortness of Breath Albuterol/Ipratropium 3 ml 09/16/17 14:00 09/17/17 09:04 Duoneb 3 Mg/0.5 Mg (3 Ml) Ud IH 3 ml [id number] EDGAR Administration Arformoterol Tartrate 15 mcg 09/14/17 08:00 09/17/17 09:05 Brovana IH 15 mcg [id number] EDGAR Administration Aspirin 325 mg 09/16/17 10:15 09/17/17 09:40 Ecotrin PO 325 mg DAILY EDGAR Administration Atorvastatin Calcium 40 mg 09/16/17 17:00 09/16/17 17:00 Lipitor PO 40 mg DIN EDGAR Administration Budesonide 0.5 mg 09/14/17 08:00 09/17/17 09:05 Pulmicort Respules IH 0.5 mg [id number] EDGAR Administration Carvedilol 12.5 mg 09/14/17 10:00 09/17/17 09:39 Coreg PO 12.5 mg BID EDGAR Administration Folic Acid 1 mg 09/14/17 10:00 09/16/17 11:45 Folic Acid IVP 1 mg DAILY EDGAR Administration Heparin Sodium (Porcine) 5,000 units 09/16/17 11:00 09/17/17 09:43 Heparin SC 5,000 units Q12 EDGAR Administration Protocol Hydralazine HCl 10 mg 09/14/17 22:41 09/16/17 01:11 Apresoline IVP 10 mg Q6 PRN Administration Systolic Blood Pressure Iron Sucrose 100 mg/ Sodium 105 mls @ 210 mls/hr 09/14/17 19:00 09/17/17 10: 04 Chloride IVPB 210 mls/hr DAILY EDGAR Administration Dexmedetomidine HCl 400 mcg in 100 mls @ 35.55 mls/hr 09/15/17 11:13 13:46 Precedex 400mcg/100ml IV 0 mcg/kg/hr .Q2H49M PRN 0 mls/hr Agitation Titration Protocol 1.5 MCG/KG/HR Insulin Human Lispro 0 units 09/16/17 22:00 04/15/18 10:55 Humalog Low SC Not Given ACHS EDGAR Protocol Lisinopril 10 mg 09/16/17 10:30 09/17/17 09:48 Zestril PO 10 mg DAILY EDGAR Administration Lorazepam 2 mg 09/14/17 10:25 09/17/17 03:04 Ativan IVP 2 mg Q2H PRN Administration Anxiety Protocol Losartan Potassium 50 mg 09/16/17 10:00 09/17/17 09:40 Cozaar PO 50 mg DAILY EDGAR Administration Methylprednisolone 40 mg 09/16/17 10:30 09/17/17 09:45 Solu-Medrol IVP 40 mg Q12H EDGAR Administration Montelukast Sodium 10 mg 09/14/17 22:00 09/16/17 21:16 Singulair PO 10 mg HS EDGAR Administration Multivitamins/Vitamin C 15 ml 09/14/17 08:00 09/17/17 08:14 Multi-Delyn Liquid PO 15 ml 0800 EDGAR Administration Pantoprazole Sodium 40 mg 09/16/17 11:00 09/17/17 11:24 Protonix Inj IVP 40 mg Q12H EDGAR Administration Thiamine HCl 100 mg 09/14/17 10:00 09/17/17 09:48 Vitamin B1 Inj IM 100 mg DAILY EDGAR Administration Tiotropium Blakeslee 18 mcg 09/14/17 10:00 09/17/17 09:48 Spiriva IH 18 mcg DAILY EDGAR Administration - Patient Studies Lab Studies: Microbiology Studies 09/14/17 23:15 Gram Stain - Final Sputum Sputum Culture - Final NORMAL ORAL LAURA Lab Studies 09/17/17 09/17/17 09/17/17 Range/Units 10:51 07:10 05:15 WBC (4.5-11.0) 10^3/ul RBC (3.5-6.1) 10^6/uL Hgb (14.0-18.0) g/dL Hct (42.0-52.0) % MCV (80.0-105.0) fl MCH (25.0-35.0) pg MCHC (31.0-37.0) g/dl RDW (11.5-14.5) % Plt Count (120.0-450.0) 10^3/uL MPV (7.0-11.0) fl Gran % (50.0-68.0) % Lymph % (Auto) (22.0-35.0) % Parmer % (Auto) (1.0-6.0) % Eos % (Auto) (1.5-5.0) % Baso % (Auto) (0.0-3.0) % Gran # (1.4-6.5) Lymph # (Auto) (1.2-3.4) Parmer # (Auto) (0.1-0.6) Eos # (Auto) (0.0-0.7) Baso # (Auto) (0.0-2.0) K/mm3 Sodium 139 (132-148) mmol/L Potassium 4.0 (3.6-5.0) mmol/L Chloride 106 (98-107) mmol/L Carbon Dioxide 25 (21-33) mmol/L Anion Gap 12 (10-20) BUN 18 (7-21) mg/dL Creatinine 1.0 (0.8-1.5) mg/dl Est GFR ( Amer) > 60 Est GFR (Non-Af Amer) > 60 POC Glucose (mg/dL) 89 103 (65-110) mg/dL Random Glucose 103 (70-110) mg/dL Calcium 8.9 (8.4-10.5) mg/dL Phosphorus 3.6 (2.5-4.5) mg/dL Magnesium 2.1 (1.7-2.2) mg/dL Total Bilirubin 0.3 (0.2-1.3) mg/dL AST 46 (17-59) U/L ALT 41 (7-56) U/L Alkaline Phosphatase 77 (38-126) U/L Total Protein 6.5 (5.8-8.3) g/dL Albumin 3.1 (3.0-4.8) g/dL Globulin 3.4 gm/dL Albumin/Globulin Ratio 0.9 L (1.1-1.8) 09/17/17 09/16/17 09/16/17 Range/Units 05:15 21:54 17:01 WBC 12.3 H (4.5-11.0) 10^3/ul RBC 3.38 L (3.5-6.1) 10^6/uL Hgb 8.6 L (14.0-18.0) g/dL Hct 29.1 L (42.0-52.0) % MCV 86.1 (80.0-105.0) fl MCH 25.4 (25.0-35.0) pg MCHC 29.6 L (31.0-37.0) g/dl RDW 20.3 H (11.5-14.5) % Plt Count 677 H (120.0-450.0) 10^3/uL MPV 9.9 (7.0-11.0) fl Gran % 82.4 H (50.0-68.0) % Lymph % (Auto) 12.3 L (22.0-35.0) % Parmer % (Auto) 5.3 (1.0-6.0) % Eos % (Auto) 0.0 L (1.5-5.0) % Baso % (Auto) 0.0 (0.0-3.0) % Gran # 10.16 H (1.4-6.5) Lymph # (Auto) 1.5 (1.2-3.4) Parmer # (Auto) 0.7 H (0.1-0.6) Eos # (Auto) 0.0 (0.0-0.7) Baso # (Auto) 0.00 (0.0-2.0) K/mm3 Sodium (132-148) mmol/L Potassium (3.6-5.0) mmol/L Chloride (98-107) mmol/L Carbon Dioxide (21-33) mmol/L Anion Gap (10-20) BUN (7-21) mg/dL Creatinine (0.8-1.5) mg/dl Est GFR ( Amer) Est GFR (Non-Af Amer) POC Glucose (mg/dL) 82 125 H (65-110) mg/dL Random Glucose (70-110) mg/dL Calcium (8.4-10.5) mg/dL Phosphorus (2.5-4.5) mg/dL Magnesium (1.7-2.2) mg/dL Total Bilirubin (0.2-1.3) mg/dL AST (17-59) U/L ALT (7-56) U/L Alkaline Phosphatase (38-126) U/L Total Protein (5.8-8.3) g/dL Albumin (3.0-4.8) g/dL Globulin gm/dL Albumin/Globulin Ratio (1.1-1.8) 09/16/17 Range/Units 12:55 WBC (4.5-11.0) 10^3/ul RBC (3.5-6.1) 10^6/uL Hgb (14.0-18.0) g/dL Hct (42.0-52.0) % MCV (80.0-105.0) fl MCH (25.0-35.0) pg MCHC (31.0-37.0) g/dl RDW (11.5-14.5) % Plt Count (120.0-450.0) 10^3/uL MPV (7.0-11.0) fl Gran % (50.0-68.0) % Lymph % (Auto) (22.0-35.0) % Parmer % (Auto) (1.0-6.0) % Eos % (Auto) (1.5-5.0) % Baso % (Auto) (0.0-3.0) % Gran # (1.4-6.5) Lymph # (Auto) (1.2-3.4) Parmer # (Auto) (0.1-0.6) Eos # (Auto) (0.0-0.7) Baso # (Auto) (0.0-2.0) K/mm3 Sodium (132-148) mmol/L Potassium (3.6-5.0) mmol/L Chloride (98-107) mmol/L Carbon Dioxide (21-33) mmol/L Anion Gap (10-20) BUN (7-21) mg/dL Creatinine (0.8-1.5) mg/dl Est GFR ( Amer) Est GFR (Non-Af Amer) POC Glucose (mg/dL) 129 H (65-110) mg/dL Random Glucose (70-110) mg/dL Calcium (8.4-10.5) mg/dL Phosphorus (2.5-4.5) mg/dL Magnesium (1.7-2.2) mg/dL Total Bilirubin (0.2-1.3) mg/dL AST (17-59) U/L ALT (7-56) U/L Alkaline Phosphatase (38-126) U/L Total Protein (5.8-8.3) g/dL Albumin (3.0-4.8) g/dL Globulin gm/dL Albumin/Globulin Ratio (1.1-1.8) Laboratory Results - last 24 hr 09/16/17 09/16/17 09/16/17 12:55 17:01 21:54 WBC RBC Hgb Hct MCV MCH MCHC RDW Plt Count MPV Gran % Lymph % (Auto) Parmer % (Auto) Eos % (Auto) Baso % (Auto) Gran # Lymph # (Auto) Parmer # (Auto) Eos # (Auto) Baso # (Auto) Sodium Potassium Chloride Carbon Dioxide Anion Gap BUN Creatinine Est GFR ( Amer) Est GFR (Non-Af Amer) POC Glucose (mg/dL) 129 H 125 H 82 Random Glucose Calcium Phosphorus Magnesium Total Bilirubin AST ALT Alkaline Phosphatase Total Protein Albumin Globulin Albumin/Globulin Ratio 09/17/17 09/17/17 09/17/17 05:15 05:15 07:10 WBC 12.3 H RBC 3.38 L Hgb 8.6 L Hct 29.1 L MCV 86.1 MCH 25.4 MCHC 29.6 L RDW 20.3 H Plt Count 677 H MPV 9.9 Gran % 82.4 H Lymph % (Auto) 12.3 L Parmer % (Auto) 5.3 Eos % (Auto) 0.0 L Baso % (Auto) 0.0 Gran # 10.16 H Lymph # (Auto) 1.5 Parmer # (Auto) 0.7 H Eos # (Auto) 0.0 Baso # (Auto) 0.00 Sodium 139 Potassium 4.0 Chloride 106 Carbon Dioxide 25 Anion Gap 12 BUN 18 Creatinine 1.0 Est GFR ( Amer) > 60 Est GFR (Non-Af Amer) > 60 POC Glucose (mg/dL) 103 Random Glucose 103 Calcium 8.9 Phosphorus 3.6 Magnesium 2.1 Total Bilirubin 0.3 AST 46 ALT 41 Alkaline Phosphatase 77 Total Protein 6.5 Albumin 3.1 Globulin 3.4 Albumin/Globulin Ratio 0.9 L 09/17/17 10:51 WBC RBC Hgb Hct MCV MCH MCHC RDW Plt Count MPV Gran % Lymph % (Auto) Parmer % (Auto) Eos % (Auto) Baso % (Auto) Gran # Lymph # (Auto) Parmer # (Auto) Eos # (Auto) Baso # (Auto) Sodium Potassium Chloride Carbon Dioxide Anion Gap BUN Creatinine Est GFR ( Amer) Est GFR (Non-Af Amer) POC Glucose (mg/dL) 89 Random Glucose Calcium Phosphorus Magnesium Total Bilirubin AST ALT Alkaline Phosphatase Total Protein Albumin Globulin Albumin/Globulin Ratio Fingerstick Blood Sugar Results: 89 Review of Systems - EENT Eyes: absent: Blurred Vision, Change in Vision - Cardiovascular Cardiovascular: absent: Chest Pain, Dyspnea - Respiratory Respiratory: Cough. absent: Dyspnea, Wheezing - Gastrointestinal Gastrointestinal: absent: Abdominal Pain, Nausea, Vomiting - Genitourinary Genitourinary: UNREMARKABLE. absent: Dysuria, Flank Pain - Reproductive: Male Reproductive:Male: UNREMARKABLE - Musculoskeletal Musculoskeletal: UNREMARKABLE. absent: Back Pain - Neurological Neurological: UNREMARKABLE. absent: Dizziness, Numbness - Psychiatric Psychiatric: UNREMARKABLE. absent: Anxiety - Endocrine Endocrine: absent: Fatigue, Palpitations - Hematologic/Lymphatic Hematologic: UNREMARKABLE Critical Care Progress Note - Nutrition Nutrition: Nutrition Category Date Time Status Consistent Carbohydrate [DIET] Diets 09/17/17 Breakfast Ordered Assessment/Plan - Assessment and Plan (Free Text) Plan: 56yo male PMHx HTN, CHF s/p pacemaker, asthma, Hep C, PAULINO, depression, and bipolar was brought in by EMS for AMS. Patient with opiode withdrawal presents with hypercapnic respiratory failure s/p intubation, elevated troponin, TIM, and hyperkalemia now resolved. S/p extubation. Currently on BIPAP. Neuro -AAO x3 -Precedex discontinued -Continue with Ativan PRN for withdrawals -maintain head above bed 30 degrees -continue with aspiration precautions Cardio -Increase in cardiac enzymes during course of hospital stay -Continue aspirin 325mg daily -No anticoagulation in lieu of recent GI bleed history -Coreg 12.5mg bid -Started home lisinopril -Cardio consulted -Echo read - EF 28% mod MR and TR Pulm -BiPAP weaned -Continue Duoneb, Brovana, Pulmicort, Singulair, Spiriva -Solumedrol 40mg Q12 -maintain SpO2 > 90 GI -Consistent carb diet -Recent hx of GI bleed in [facility] [place]FOBT negative -Continue with Protonix -hx of Alcohol abuse and hep C Ccontinue with folic acid, thiamine, multivitamin daily Renal -TIM on admission now resolved -replete electrolytes as needed -Nephro Dr. Leggett consulted ID -CXR shows no active disease -Afebrile and WBC 12.3; continue to monitor -Pancultures negative -Influenza negative Heme/Onc -H&H 8.6 & 29.1, continue to monitor GI and DVT ppx Dispo: D/C to telemetry <Efren Styles - Last Filed: 09/17/17 13:23> CCU Objective - Vital Signs / Intake & Output Vital Signs (Last 4 hours): Vital Signs Pulse BP 09/17/17 09:48 91 H 122/54 L 09/17/17 09:40 91 H 122/54 L 09/17/17 09:39 91 H 122/54 L Intake and Output (Last 8hrs): Intake & Output 09/16/17 09/17/17 09/17/17 22:59 06:59 14:59 Intake Total 752 180 Output Total 500 700 Balance 252 -520 Weight 211 lb 11.2 oz Intake: IV 452 0 Left Hand 0 Right Antecubital 200 0 Right Upper arm 252 0 Oral 300 180 Output: Urine 500 700 2-way Urethral 500 700 Other: # Bowel Movements 1 - Medications Active Medications: Active Medications Generic Name Dose Route Start Last Admin Trade Name Freq PRN Reason Stop Dose Admin Albuterol/Ipratropium 3 ml 09/15/17 10:29 Duoneb 3 Mg/0.5 Mg (3 Ml) Ud IH Q2H PRN Shortness of Breath Albuterol/Ipratropium 3 ml 09/16/17 14:00 09/17/17 09:04 Duoneb 3 Mg/0.5 Mg (3 Ml) Ud IH 3 ml [id number] EDGAR Administration Arformoterol Tartrate 15 mcg 09/14/17 08:00 09/17/17 09:05 Brovana IH 15 mcg [id number] EDGAR Administration Aspirin 325 mg 09/16/17 10:15 09/17/17 09:40 Ecotrin PO 325 mg DAILY EDGAR Administration Atorvastatin Calcium 40 mg 09/16/17 17:00 09/16/17 17:00 Lipitor PO 40 mg DIN EDGAR Administration Budesonide 0.5 mg 09/14/17 08:00 09/17/17 09:05 Pulmicort Respules IH 0.5 mg [id number] EDGAR Administration Carvedilol 12.5 mg 09/14/17 10:00 09/17/17 09:39 Coreg PO 12.5 mg BID EDGAR Administration Folic Acid 1 mg 09/14/17 10:00 09/17/17 12:46 Folic Acid IVP 1 mg DAILY EDGAR Administration Heparin Sodium (Porcine) 5,000 units 09/16/17 11:00 09/17/17 09:43 Heparin SC 5,000 units Q12 EDGAR Administration Protocol Hydralazine HCl 10 mg 09/14/17 22:41 09/16/17 01:11 Apresoline IVP 10 mg Q6 PRN Administration Systolic Blood Pressure Iron Sucrose 100 mg/ Sodium 105 mls @ 210 mls/hr 09/14/17 19:00 09/17/17 10: 04 Chloride IVPB 210 mls/hr DAILY EDGAR Administration Dexmedetomidine HCl 400 mcg in 100 mls @ 35.55 mls/hr 09/15/17 11:13 13:46 Precedex 400mcg/100ml IV 0 mcg/kg/hr .Q2H49M PRN 0 mls/hr Agitation Titration Protocol 1.5 MCG/KG/HR Insulin Human Lispro 0 units 09/16/17 22:00 09/17/17 10:55 Humalog Low SC Not Given ACHS [facility] Protocol Lisinopril 10 mg 09/16/17 10:30 09/17/17 09:48 Zestril PO 10 mg DAILY EDGAR Administration Lorazepam 2 mg 09/17/17 18:00 Ativan IVP Q6 [facility] Protocol Losartan Potassium 50 mg 09/16/17 10:00 09/17/17 09:40 Cozaar PO 50 mg DAILY EDGAR Administration Methylprednisolone 40 mg 09/16/17 10:30 09/17/17 09:45 Solu-Medrol IVP 40 mg Q12H EDGAR Administration Montelukast Sodium 10 mg 09/14/17 22:00 09/16/17 21:16 Singulair PO 10 mg HS EDGAR Administration Multivitamins/Vitamin C 15 ml 09/14/17 08:00 09/17/17 08:14 Multi-Delyn Liquid PO 15 ml 0800 EDGAR Administration Pantoprazole Sodium 40 mg 09/16/17 11:00 09/17/17 11:24 Protonix Inj IVP 40 mg Q12H EDGAR Administration Thiamine HCl 100 mg 09/14/17 10:00 09/17/17 09:48 Vitamin B1 Inj IM 100 mg DAILY EDGAR Administration Tiotropium Blakeslee 18 mcg 09/14/17 10:00 09/17/17 09:48 Spiriva IH 18 mcg DAILY EDGAR Administration - Patient Studies Lab Studies: Microbiology Studies 09/14/17 23:15 Gram Stain - Final Sputum Sputum Culture - Final NORMAL ORAL LAURA Lab Studies 09/17/17 09/17/17 09/17/17 Range/Units 10:51 07:10 05:15 WBC (4.5-11.0) 10^3/ul RBC (3.5-6.1) 10^6/uL Hgb (14.0-18.0) g/dL Hct (42.0-52.0) % MCV (80.0-105.0) fl MCH (25.0-35.0) pg MCHC (31.0-37.0) g/dl RDW (11.5-14.5) % Plt Count (120.0-450.0) 10^3/uL MPV (7.0-11.0) fl Gran % (50.0-68.0) % Lymph % (Auto) (22.0-35.0) % Parmer % (Auto) (1.0-6.0) % Eos % (Auto) (1.5-5.0) % Baso % (Auto) (0.0-3.0) % Gran # (1.4-6.5) Lymph # (Auto) (1.2-3.4) Parmer # (Auto) (0.1-0.6) Eos # (Auto) (0.0-0.7) Baso # (Auto) (0.0-2.0) K/mm3 Sodium 139 (132-148) mmol/L Potassium 4.0 (3.6-5.0) mmol/L Chloride 106 (98-107) mmol/L Carbon Dioxide 25 (21-33) mmol/L Anion Gap 12 (10-20) BUN 18 (7-21) mg/dL Creatinine 1.0 (0.8-1.5) mg/dl Est GFR ( Amer) > 60 Est GFR (Non-Af Amer) > 60 POC Glucose (mg/dL) 89 103 (65-110) mg/dL Random Glucose 103 (70-110) mg/dL Calcium 8.9 (8.4-10.5) mg/dL Phosphorus 3.6 (2.5-4.5) mg/dL Magnesium 2.1 (1.7-2.2) mg/dL Total Bilirubin 0.3 (0.2-1.3) mg/dL AST 46 (17-59) U/L ALT 41 (7-56) U/L Alkaline Phosphatase 77 (38-126) U/L Total Protein 6.5 (5.8-8.3) g/dL Albumin 3.1 (3.0-4.8) g/dL Globulin 3.4 gm/dL Albumin/Globulin Ratio 0.9 L (1.1-1.8) 09/17/17 09/16/17 09/16/17 Range/Units 05:15 21:54 17:01 WBC 12.3 H (4.5-11.0) 10^3/ul RBC 3.38 L (3.5-6.1) 10^6/uL Hgb 8.6 L (14.0-18.0) g/dL Hct 29.1 L (42.0-52.0) % MCV 86.1 (80.0-105.0) fl MCH 25.4 (25.0-35.0) pg MCHC 29.6 L (31.0-37.0) g/dl RDW 20.3 H (11.5-14.5) % Plt Count 677 H (120.0-450.0) 10^3/uL MPV 9.9 (7.0-11.0) fl Gran % 82.4 H (50.0-68.0) % Lymph % (Auto) 12.3 L (22.0-35.0) % Parmer % (Auto) 5.3 (1.0-6.0) % Eos % (Auto) 0.0 L (1.5-5.0) % Baso % (Auto) 0.0 (0.0-3.0) % Gran # 10.16 H (1.4-6.5) Lymph # (Auto) 1.5 (1.2-3.4) Parmer # (Auto) 0.7 H (0.1-0.6) Eos # (Auto) 0.0 (0.0-0.7) Baso # (Auto) 0.00 (0.0-2.0) K/mm3 Sodium (132-148) mmol/L Potassium (3.6-5.0) mmol/L Chloride (98-107) mmol/L Carbon Dioxide (21-33) mmol/L Anion Gap (10-20) BUN (7-21) mg/dL Creatinine (0.8-1.5) mg/dl Est GFR ( Amer) Est GFR (Non-Af Amer) POC Glucose (mg/dL) 82 125 H (65-110) mg/dL Random Glucose (70-110) mg/dL Calcium (8.4-10.5) mg/dL Phosphorus (2.5-4.5) mg/dL Magnesium (1.7-2.2) mg/dL Total Bilirubin (0.2-1.3) mg/dL AST (17-59) U/L ALT (7-56) U/L Alkaline Phosphatase (38-126) U/L Total Protein (5.8-8.3) g/dL Albumin (3.0-4.8) g/dL Globulin gm/dL Albumin/Globulin Ratio (1.1-1.8) Laboratory Results - last 24 hr 09/16/17 09/16/17 09/17/17 17:01 21:54 05:15 WBC 12.3 H RBC 3.38 L Hgb 8.6 L Hct 29.1 L MCV 86.1 MCH 25.4 MCHC 29.6 L RDW 20.3 H Plt Count 677 H MPV 9.9 Gran % 82.4 H Lymph % (Auto) 12.3 L Parmer % (Auto) 5.3 Eos % (Auto) 0.0 L Baso % (Auto) 0.0 Gran # 10.16 H Lymph # (Auto) 1.5 Parmer # (Auto) 0.7 H Eos # (Auto) 0.0 Baso # (Auto) 0.00 Sodium Potassium Chloride Carbon Dioxide Anion Gap BUN Creatinine Est GFR ( Amer) Est GFR (Non-Af Amer) POC Glucose (mg/dL) 125 H 82 Random Glucose Calcium Phosphorus Magnesium Total Bilirubin AST ALT Alkaline Phosphatase Total Protein Albumin Globulin Albumin/Globulin Ratio 09/17/17 09/17/17 09/17/17 05:15 07:10 10:51 WBC RBC Hgb Hct MCV MCH MCHC RDW Plt Count MPV Gran % Lymph % (Auto) Parmer % (Auto) Eos % (Auto) Baso % (Auto) Gran # Lymph # (Auto) Parmer # (Auto) Eos # (Auto) Baso # (Auto) Sodium 139 Potassium 4.0 Chloride 106 Carbon Dioxide 25 Anion Gap 12 BUN 18 Creatinine 1.0 Est GFR ( Amer) > 60 Est GFR (Non-Af Amer) > 60 POC Glucose (mg/dL) 103 89 Random Glucose 103 Calcium 8.9 Phosphorus 3.6 Magnesium 2.1 Total Bilirubin 0.3 AST 46 ALT 41 Alkaline Phosphatase 77 Total Protein 6.5 Albumin 3.1 Globulin 3.4 Albumin/Globulin Ratio 0.9 L Critical Care Progress Note - Nutrition Nutrition: Nutrition Category Date Time Status Consistent Carbohydrate [DIET] Diets 09/17/17 Breakfast Ordered Assessment/Plan - Assessment and Plan (Free Text) Plan: Patient seen and examined on rounds with resident, agree with note with following additions/exceptions: Patient is 56yo male with PMHx HTN, CHF s/p pacemaker, asthma, Hep C, PAULINO, depression, and bipolar was admitted for AMS, hypercapnic resp failure, opiate overdose, s/p extubation. Currently the patient is afebrile, HD stable, comfortable in NAD, OFF Precedex, OFF BIPAP Patient is awake, alert, appropriate, following commands, denies any major complaints Pt restarted back on ASA 325mg, Coreg, ACEI Cardiology eval pending GI evaluation appreciated, no plans for EGD/Colonoscopy, pt HH stable, FOBT NEGATIVE Hypercapnic resp Failure Polysubstance Abuse, EtOH abuse Acute renal failure Elevated troponin Dehydration Hep C CHF, compensated Recommend: - cont with supp o2 as needed - monitor off abx - BP control - monitor for EtOH withdrawal - Ativan PRN - Thiamine, Folic Acid, MVT - monitor - Cardiology eval - ASA 325mg daily, BB, Statin, ACEI - FS control - GI ppx - DVT ppx - stable transfer to [facility]
--- NOTE | 2017-09-17 12:48 | PN ---
DATE: FOLLOWUP SUBJECTIVE: The patient is in no respiratory distress. He is verbalizing, but confused when asked about history of coronary angioplasty. He mentioned stent, but he was calling his who is not present, to find out when and where. The patient gave me the 's phone number; however, that number leads me to an outgoing message by the patient's voice stating that this is his number. All the records from [facility] were reviewed and they were notable for left-sided echo revealed normal EF with bicuspid aortic valve; however, these two findings can be challenged by my own review of the echo study that was performed at [facility]. PHYSICAL EXAMINATION: VITAL SIGNS: Blood pressure 122/54, heart rate 91, respirations 25, temperature 100. HEENT: Normocephalic. CHEST: Diminished breath sounds over the bases. HEART: S1 and S2 regular. EXTREMITIES: Trace leg edema. LABORATORY DATA: Hemoglobin and hematocrit 8.6 and 29.1, white count 12.3, platelet count 677,000. Today's SMA-7 is within normal limit. Today's chest x-ray revealed cardiomegaly with mild CHF. Possible left pleural effusion and improvement of the left lung infiltrate. ASSESSMENT: 1. Status post respiratory failure. 2. Cardiomyopathy, status post implant of defibrillator and biventricular pacemaker placement. 3. Bipolar disorder. 4. Anemia. 5. Elevated troponin. Consider [id number] myocardial infarction. RECOMMENDATIONS: Continue current hydralazine 100 mg intravenously every 6 hours p.r.n., Coreg 12.5 mg twice a day, Cozaar 50 mg once a day, aspirin 325 mg once a day, subcutaneous heparin 5000 units twice a day, Protonix 40 mg intravenously twice a day, thiamine 100 mg once a day, Vistaril 10 mg once a day, Solu-Medrol 40 mg intravenously every 12 hours. The patient can be transferred to telemetry. Ed Valentin MD
--- NOTE | 2017-09-17 14:41 | CP.PCM.PN ---
<Regulo Ambriz - Last Filed: 09/17/17 17:45> Subjective - Date & Time of Evaluation Date of Evaluation: 09/17/17 Time of Evaluation: 14:10 - Subjective Subjective: Patient seen and evaluated at bedside this AM in ICU. Patient sitting up in bed with facial mask. Patient more awake and oriented today. Patient reports upon discharge and prior to presentation at [facility] he had overdosed on heroin unintentionally. Patient denies suicidal ideation, homicidal ideation. Patient reports right sided chest discomfort, for which he has been experiencing for a few days. Objective - Vital Signs/Intake and Output Vital Signs (last 24 hours): Temp Pulse Resp BP Pulse Ox 99.2 F 91 H 18 122/54 L 100 09/17/17 08:00 09/17/17 09:48 09/17/17 08:00 09/17/17 09:48 09/17/17 08:00 Intake and Output: 09/17/17 09/17/17 06:59 18:59 Intake Total 180 Output Total 700 Balance -520 - Medications Medications: Current Medications Albuterol/Ipratropium (Duoneb 3 Mg/0.5 Mg (3 Ml) Ud) 3 ml IH Q2H PRN PRN Reason: Shortness of Breath Albuterol/Ipratropium (Duoneb 3 Mg/0.5 Mg (3 Ml) Ud) 3 ml IH [id number] [facility] Last Admin: 09/17/17 09:04 Dose: 3 ml Arformoterol Tartrate (Brovana) 15 mcg IH [id number] [facility] Last Admin: 09/17/17 09:05 Dose: 15 mcg Aspirin (Ecotrin) 325 mg PO DAILY [facility] Last Admin: 09/17/17 09:40 Dose: 325 mg Atorvastatin Calcium (Lipitor) 40 mg PO DIN [facility] Last Admin: 09/16/17 17:00 Dose: 40 mg Budesonide (Pulmicort Respules) 0.5 mg IH [id number] [facility] Last Admin: 09/17/17 09:05 Dose: 0.5 mg Carvedilol (Coreg) 12.5 mg PO BID [facility] Last Admin: 09/17/17 09:39 Dose: 12.5 mg Folic Acid (Folic Acid) 1 mg IVP DAILY [facility] Last Admin: 09/17/17 12:46 Dose: 1 mg Heparin Sodium (Porcine) (Heparin) 5,000 units SC Q12 [facility] PRN Reason: Protocol Last Admin: 09/17/17 09:43 Dose: 5,000 units Hydralazine HCl (Apresoline) 10 mg IVP Q6 PRN PRN Reason: Systolic Blood Pressure Last Admin: 09/16/17 01:11 Dose: 10 mg Iron Sucrose 100 mg/ Sodium (Chloride) 105 mls @ 210 mls/hr IVPB DAILY [facility] Last Admin: 09/17/17 10:04 Dose: 210 mls/hr Dexmedetomidine HCl (Precedex 400mcg/100ml) 400 mcg in 100 mls @ 35.55 mls/hr IV .Q2H49M PRN; Protocol; 1.5 MCG/KG/HR PRN Reason: Agitation Last Titration: 09/16/17 13:46 Dose: 0 mcg/kg/hr, 0 mls/hr Insulin Human Lispro (Humalog Low) 0 units SC ACHS [facility] PRN Reason: Protocol Last Admin: 09/17/17 10:55 Dose: Not Given Lisinopril (Zestril) 10 mg PO DAILY [facility] Last Admin: 09/17/17 09:48 Dose: 10 mg Lorazepam (Ativan) 2 mg IVP Q6 [facility] PRN Reason: Protocol Losartan Potassium (Cozaar) 50 mg PO DAILY [facility] Last Admin: 09/17/17 09:40 Dose: 50 mg Methylprednisolone (Solu-Medrol) 40 mg IVP Q12H [facility] Last Admin: 09/17/17 09:45 Dose: 40 mg Montelukast Sodium (Singulair) 10 mg PO HS [facility] Last Admin: 09/16/17 21:16 Dose: 10 mg Multivitamins/Vitamin C (Multi-Delyn Liquid) 15 ml PO 0800 [facility] Last Admin: 09/17/17 08:14 Dose: 15 ml Pantoprazole Sodium (Protonix Inj) 40 mg IVP Q12H [facility] Last Admin: 09/17/17 11:24 Dose: 40 mg Thiamine HCl (Vitamin B1 Inj) 100 mg IM DAILY [facility] Last Admin: 09/17/17 09:48 Dose: 100 mg Tiotropium Lorena (Spiriva) 18 mcg IH DAILY [facility] Last Admin: 09/17/17 09:48 Dose: 18 mcg - Labs Labs: 09/17/17 05:15 09/17/17 05:15 PT 12.0 SECONDS (9.4-12.5) 09/13/17 19:50 INR 1.05 (0.93-1.08) 09/13/17 19:50 APTT 30.9 Seconds (25.1-36.5) 09/13/17 19:50 - Head Exam Head Exam: ATRAUMATIC, NORMAL INSPECTION, NORMOCEPHALIC - Eye Exam Eye Exam: EOMI, PERRL - Respiratory Exam Respiratory Exam: NORMAL BREATHING PATTERN. absent: Rhonchi, Wheezes - Cardiovascular Exam Cardiovascular Exam: REGULAR RHYTHM, +S1, +S2 - GI/Abdominal Exam GI & Abdominal Exam: Soft, Normal Bowel Sounds. absent: Guarding, Rigid, Tenderness - Extremities Exam Extremities Exam: absent: Calf Tenderness, Pedal Edema - Neurological Exam Neurological Exam: Alert, Awake, Oriented x3 - Psychiatric Exam Psychiatric exam: Normal Affect, Normal Mood - Skin Skin Exam: Dry, Warm Assessment and Plan - Assessment and Plan (Free Text) Assessment: 56yo male with past medical history HTN, CHF s/p pacemaker, asthma, Hep C, PAULINO, depression, and bipolar was brought in by EMS for AMS. Patient with opiod withdrawal presents with hypercapnic respiratory failure s/p intubation, elevated troponin, TIM, hyperkalemia that is now resolved. Patient mentation improved and downgraded to telemetry Plan: AMS Details: - Likely secondary to drug overdose - UDS positive for opiates - Head CT: No acute findings - Hx of drug abuse - continued clinical improvement Plan: - SPeech eval - rec soft textures/nectar thick liquids - Seizure and Aspiration precautions - Ativan PRN for withdrawls NSTEMI Details: - Troponins trend rise - Cardiology consulted - Anticoagulation held due to concern for GI bleed Plan: - Echocardiogram - 28% EF with MR and TR - Coreg 12.5mg BID - Lisinopril - f/u Cardio recs - Conversation with GI patient okay for ASA Pneumonia Details: - History of prior hospitialzation - Records from [facility] with CT indicate infiltrate Plan: - Cefepime dc and Vancomycin dc due to kidney injury - Solumedrol 40mg Q8h - Duoneb, brovana, pulmicort, singulair, spiriva for breathing assistance hx of GI bleed Details: - Patient recently admitted to [facility] with possible GI bleed - No work up indicated in prior records - H/H stable at this point, prior transfusion Plan: - GI consulted, no plan for endovascualr intervention at this time - antiplatelet and AC therapy for possible NSTEMI/elevated trops - FOBT negative - Rectal exam showing no lia blood - Protonix TIM Details: - elevated cr on admission, improved - Renal US negative - Nephrology consulted Plan: - F/u nephro recs, holding IVF - avoid nephrotoxic drugs - dc fluids in light of CHF - replete electrolytes - continue to monior Anemia Details: - Normocytic anemia - Iron studies - Transfusion of 1 pRBC Plans: - Monitor H/H, stable - FOBT negative - GI consulted, no plan for endoscopic evaluation at this time Substance abuse Details: - History of drug abuse, UDS positive on admission - Reports heroin, vodka, THC use upon discharge from [facility] Plan: - Psych Consult f/u recs - Monitor for withdrawl signs - Ativan prn - Folic acid, multivitamin, thiamine Prophylaxis GI: Protonix DVT: SCDS Case and plan discussed with attending <Eamon Fuentes - Last Filed: 09/19/17 11:42> Objective - Vital Signs/Intake and Output Vital Signs (last 24 hours): Temp Pulse Resp BP Pulse Ox 98.1 F 87 19 162/103 H 95 09/18/17 11:40 09/18/17 14:00 09/18/17 11:40 09/18/17 11:43 09/18/17 06:00 - Labs Labs: 09/18/17 06:10 09/18/17 06:10 PT 12.0 SECONDS (9.4-12.5) 09/13/17 19:50 INR 1.05 (0.93-1.08) 09/13/17 19:50 APTT 30.9 Seconds (25.1-36.5) 09/13/17 19:50 Attending/Attestation - Attestation I have personally seen and examined this patient.: Yes I have fully participated in the care of the patient.: Yes I have reviewed all pertinent clinical information, including history, physical exam and plan: Yes Notes (Text): 09/17/17 56 year old male with pat medical history of hypertension, CHF s/p pacemaker, asthma, PAULINO, hepatitis C and depression/bipolar who presented with altered mental status with hypercapneic respiratory failure s/p intubation. He was extubated and placed on bipap. Continue with steroids, duonebs, brovana and pulmonary as per director non profit. Monitor for withdrawal symptoms. He also was found to have possible NSTEMI with elevated troponins and TIM. He was seen by cardiology and nephrology. His renal function has improved. He is not on anticoagulation due to anemia requiring blood transfusion and recent GIB as per . Medical records from recent admission at [facility] were reviewed. His hemoglobin is stable s/p transfusion. GI evaluation was appreciated; no overt bleeding noted. Aspirin has been resumed. He is more alert today, able to answer questions. Psychiatry evaluation is requested. Eamon Fuentes MD Hospitalist.
[2017-09-18] MEDS: Albuterol-Ipratrop 3 mg / 0.5 (3 ml) UD IH SCH ×3 (01:37→13:27)
[2017-09-18] MEDS ORDERED: Lidocaine 2% Jelly (30 ml) TOP STA (02:10)
[2017-09-18] MEDS ORDERED: Pantoprazole 40 mg EC Tab PO SCH (06:00)
[2017-09-18 06:03] VITALS: O2SAT 95
[2017-09-18 06:43] LABS: BASO # 0.02 K/mm3 (0.0-2.0); BASO % 0.2 % (0.0-3.0); EOS # 0.1 (0.0-0.7); EOS % 1.1 % (1.5-5.0); GRAN # 5.46 (1.4-6.5); GRAN % 59.6 % (50.0-68.0); LYMPH # 2.7 (1.2-3.4); MEAN CELL VOLUME 87.4 fl (80.0-105.0); MEAN CORPUSCULAR HEMOGLOBIN 25.8 pg (25.0-35.0); MEAN CORPUSCULAR HGB CONC 29.5 g/dl (31.0-37.0); MEAN PLATELET VOLUME 8.8 fl (7.0-11.0); MONO # 0.9 (0.1-0.6); MONO % 10.1 % (1.0-6.0); RBC 3.49 10^6/uL (3.5-6.1); RED CELL DISTRIBUTION WIDTH 20.7 % (11.5-14.5); WHITE BLOOD COUNT 9.2 10^3/ul (4.5-11.0)
[2017-09-18 07:12] LABS: ALBUMIN 3.1 g/dL (3.0-4.8); ALT/SGPT 47 U/L (7-56); AST/SGOT 53 U/L (17-59); BLOOD UREA NITROGEN 14 mg/dL (7-21); CALCIUM 9.3 mg/dL (8.4-10.5); GFR AFRICAN-AMERICAN > 60; GFR NON-AFRICAN AMERICAN > 60
[2017-09-18] MEDS: Insulin Lispro (humaLOG) LOW Coverage SC SCH ×2 (07:45→11:45)
[2017-09-18] MEDS: Budesonide 0.5 mg/2 ml Inhal Susp UD IH SCH (08:05)
[2017-09-18] MEDS: Arformoterol 15 mcg/2 ml Inh Sol IH SCH (08:05)
--- NOTE | 2017-09-18 10:21 | CON ---
DATE: 09/17/2017 HISTORY OF PRESENT ILLNESS: The patient is a 56-year-old male with a history of reported bipolar disorder as well as opiate dependency, pain killer abuse and alcohol dependency, one reported psychiatric hospitalization in 2002 per patient and followup with psychiatrist Dr. Granger and reportedly compliant with psychiatric medication, who was admitted on 09/13/2017 status post intentional overdose of heroin and Xanax. Prior records indicated patient's found patient at home and could not arouse him and called EMS, as she suspected that he may have overdosed on heroin. Records indicate that he was able to tell whether he had smoked 2 packs of heroin and taken 4 pills of Xanax before he became unconscious at home. Patient has been intubated in the intensive care unit and was recently extubated and psychiatric consult was called because of patient's history of bipolar disorder. I met with patient at bedside, and he is superficially cooperative with my interview. He is oriented to current month, year, location and circumstances. The patient readily admits that he smoked 2 bags of heroin on the day of presentation and subsequently denies that it was a suicide attempt. He was abusing opiates in addition to Suboxone that is being prescribed by his psychiatrist. Patient is . Patient's focus is inconsistent during the course of my interview, and at times his responses are inconsistent. Patient though however resistant to depressed or suicidal. Patient indicated he is not taking any other psychiatric medications except for Suboxone; however, then later he is being prescribed methadone, and then later he tells me he is being prescribed other psychiatric medications and then denies it later on. Patient's still as his memory and focus is in exact range during course of the interview. Patient denies hallucination. He denies wanting to , denies having thoughts to harm others, does not seem acutely paranoid or hypervigilant; however, is guarded, and this maybe secondary to current delirium, the patient is reluctant to admit the full extent of his substance abuse. Labs and vitals were reviewed by this provider. Relevant psychiatric medications given to patient on the unit include Ativan 2 mg IV every 2 p.r.n. PSYCHIATRIC HISTORY: Patient reports one prior hospitalization in 2002 at [facility] due to depression. Patient reports that he was diagnosed with bipolar disorder at that time. Patient denies having any history of suicide attempt. Patient is currently in treatment with Dr. Granger for the last 13 years, same psychiatrist and being prescribed Suboxone 8 mg t.i.d. per patient; however, he is a somewhat inconsistent historian regarding his psychiatric medications. Patient does have a history of moodiness; however, this might be related to drug use. Patient also reports prescribed methadone; however, it is unclear whether this was his history or current prescription. SOCIAL HISTORY: Patient was born and raised in [place]. He is to his aKrla for 33 years. He has two grown children, one of which lives in the other one just moved to [place]. Patient reported that he has been an alcoholic for the last 23 years. He drinks approximately about two bottles of Vodka daily and readily admits that he has drinking problem as well as an opiate problem, he has been addict to opiates for the last 14 years. Medical records indicate that patient also abuses Xanax, although the patient does not want to admit this to me during our interview today. Patient was recently detoxed alcohol the day prior to present [facility], the week prior to his presentation to [facility]. IMPRESSION: Bipolar disorder by history, rule out personality disorder, rule out substance-induced mood disorder as patients with significant substance abuse history are given bipolar diagnoses when associated with drug use, withdrawal. Patient is also delirious at this time. RECOMMENDATIONS: Patient provided his 's number, Karla, to call to obtain psychiatric medication prescribed. I left a voice message to Karla at [phone] at 12:24 and currently awaiting to call back, I provided my contact information to Karla on this voicemail. ER records indicates that patient is supposed be taking Zoloft 100 mg daily and trazodone; however, this provider is reluctant to start these medications, as patient indicates that he does have a history of bipolar disorder including manic behaviors and in a position where he is not a reliable historian, medications have not been verified, and there is no urgency in restarting medications like trazodone or Zoloft. Regardless at this time, he denies being in any acute distress. I recommend Ativan as needed to be given for withdrawal symptoms, however, with decreased frequency. Again Psychiatry is awaiting for the collateral information from his , Karla, before enacting any psychiatric medication changes. Again, there is no urgency in enacting psychiatric medication changes as patient is still delirious and does not appear danger to himself or others and appears to be in good control and cooperative with medical team members at this time. Psychiatry will continue to follow up with patient, specifically Dr. Brooks will follow up with patient on 09/18/2017, to monitor his mental status and further follow up on his psychiatric medication regimen. Sandy Carpenter MD
--- NOTE | 2017-09-18 10:34 | CP.PCM.PCO ---
Addendum Addendum: 09/18/17 10:33 Pt's pharmacy was contacted pt was on Latuda 60mg po daily, this medication is not available in hospital pharmacy, called in to [facility] pharmacy resume medication.
[2017-09-18 10:40] LABS: ARTERIAL BLOOD GAS HCO3 30.5 mmol/L (21-28); ARTERIAL BLOOD GAS HEMOGLOBIN 8.4 g/dL (11.7-17.4); ARTERIAL BLOOD GAS O2 CAPACITY 11.5 mL/dl (16-24); ARTERIAL BLOOD GAS O2 CONTENT 11.4 ML/dl (15-23); ARTERIAL BLOOD GAS PCO2 46 mm/Hg (35-45); ARTERIAL BLOOD GAS PH 7.43 (7.35-7.45); ARTERIAL BLOOD GAS TCO2 31.9 mmol.L (22-28)
[2017-09-18] MEDS ORDERED: SUBOXONE PO SCH (10:45)
[2017-09-18 11:41] VITALS: PULSE 87; RESP 19; TEMP 98.1
[2017-09-18] MEDS: Tiotropium 18 mcg Cap For Inhalation IH SCH (11:41)
[2017-09-18] MEDS: Multi Vitamins 15 mL UD Oral Solution PO SCH (11:42)
[2017-09-18] MEDS: Aspirin 325 mg EC Tablets PO SCH (11:43)
[2017-09-18] MEDS: MethylPREDNISolone 40 mg Vial IVP SCH (11:43)
[2017-09-18] MEDS: Thiamine 100 mg/ml Inj IM SCH (11:48)
[2017-09-18 11:50] VITALS: BP 162/103
--- NOTE | 2017-09-18 13:14 | PN ---
DATE: 09/18/2017 CARDIOLOGY FOLLOWUP The patient is awake. No shortness of breath. No chest pain. PHYSICAL EXAMINATION VITAL SIGNS: Blood pressure is 162/103, heart rate is in the 80s with a paced rhythm. NECK: Negative JVD. LUNGS: No rales noted. HEART: Reveal S1, S2. EXTREMITIES: Without edema. LABORATORY DATA: Hemoglobin is 9. Chemistries: BUN and creatinine unremarkable. Glucose varies from 90 to 133. IMPRESSION 1. Status post respiratory failure secondary to heroin and benzodiazepine abuse. 2. End-stage dilated cardiomyopathy. 3. History of congestive heart failure. 4. Hypertension. Given these findings, the patient's elevated troponins are likely due to his hypotension during his respiratory arrest after heroin and diazepam overdose. We will repeat troponin now. We will add an DEXTER inhibitor to help better control his blood pressure. It is discussed with the patient about his need to stop his chronic heroin use. Mehdi Serrano MD
--- NOTE | 2017-09-18 16:16 | CP.PCM.DIS ---
<Regulo Ambriz - Last Filed: 09/18/17 16:11> Provider - Provider Date of Admission: 09/13/17 21:42 Attending physician: Yaya Isaac MD Consults: Cardio: Dr. Serrano Nephro: Dr. Leggett Psych: Dr. Carpenter Time Spent in preparation of Discharge (in minutes): 45 Diagnosis - Discharge Diagnosis (1) Acute renal failure Status: Acute (2) Altered mental status Status: Acute (3) Anemia Status: Acute (4) Respiratory failure Status: Acute (5) CHF (congestive heart failure) Status: Chronic (6) Heroin abuse Status: Acute Hospital Course - Lab Results Lab Results: Micro Results 09/14/17 23:15 Sputum Gram Stain - Final 09/14/17 23:15 Sputum Sputum Culture - Final NORMAL ORAL LAURA 09/13/17 23:53 Nose MRSA Culture (Admit) - Final MRSA NOT DETECTED 09/13/17 23:09 Urine,Smith Urine Culture - Final No Growth (<1,000 CFU/ML) Most Recent Lab Values WBC 9.2 10^3/ul (4.5-11.0) D 09/18/17 06:10 RBC 3.49 10^6/uL (3.5-6.1) L 09/18/17 06:10 Hgb 9.0 g/dL (14.0-18.0) L 09/18/17 06:10 Hct 30.5 % (42.0-52.0) L 09/18/17 06:10 MCV 87.4 fl (80.0-105.0) 09/18/17 06:10 MCH 25.8 pg (25.0-35.0) 09/18/17 06:10 MCHC 29.5 g/dl (31.0-37.0) L 09/18/17 06:10 RDW 20.7 % (11.5-14.5) H 09/18/17 06:10 Plt Count 528 10^3/uL (120.0-450.0) H 09/18/17 06:10 MPV 8.8 fl (7.0-11.0) 09/18/17 06:10 Gran % 59.6 % (50.0-68.0) 09/18/17 06:10 Lymph % (Auto) 29.0 % (22.0-35.0) 09/18/17 06:10 [place] % (Auto) 10.1 % (1.0-6.0) H 09/18/17 06:10 Eos % (Auto) 1.1 % (1.5-5.0) L 09/18/17 06:10 Baso % (Auto) 0.2 % (0.0-3.0) 09/18/17 06:10 Gran # 5.46 (1.4-6.5) 09/18/17 06:10 Lymph # (Auto) 2.7 (1.2-3.4) 09/18/17 06:10 [place] # (Auto) 0.9 (0.1-0.6) H 09/18/17 06:10 Eos # (Auto) 0.1 (0.0-0.7) 09/18/17 06:10 Baso # (Auto) 0.02 K/mm3 (0.0-2.0) 09/18/17 06:10 Neutrophils % (Manual) 91 % (50.0-70.0) H 09/16/17 05:30 Band Neutrophils % 3 % (0-2) H 09/16/17 05:30 Lymphocytes % (Manual) 4 % (22.0-35.0) L 09/16/17 05:30 Monocytes % (Manual) 2 % (1.0-6.0) 09/16/17 05:30 Platelet Evaluation High (NORMAL) 09/16/17 05:30 Large Platelets Present 09/16/17 05:30 Hypochromasia 1+ 09/16/17 05:30 Poikilocytosis (manual Slight 09/16/17 05:30 Anisocytosis (manual) 1+ 09/16/17 05:30 Ovalocytes Slight 09/16/17 05:30 PT 12.0 SECONDS (9.4-12.5) 09/13/17 19:50 INR 1.05 (0.93-1.08) 09/13/17 19:50 APTT 30.9 Seconds (25.1-36.5) 09/13/17 19:50 pCO2 46 mm/Hg (35-45) H 09/18/17 10:35 pO2 86.0 mm/Hg (80-100) 09/18/17 10:35 HCO3 30.5 mmol/L (21-28) H 09/18/17 10:35 ABG pH 7.43 (7.35-7.45) 09/18/17 10:35 ABG Total CO2 31.9 mmol.L (22-28) H 09/18/17 10:35 ABG O2 Saturation 99.0 % (95-98) H 09/18/17 10:35 ABG O2 Content 11.4 ML/dl (15-23) L 09/18/17 10:35 ABG Base Excess 5.6 mmol/L (-2.0-3.0) H 09/18/17 10:35 ABG Hemoglobin 8.4 g/dL (11.7-17.4) L 09/18/17 10:35 ABG Carboxyhemoglobin 2.2 % (0.5-1.5) H 09/18/17 10:35 POC ABG HHb (Measured) 1.0 % (0-5) 09/18/17 10:35 ABG Methemoglobin 1.3 % (0.0-3.0) 09/18/17 10:35 ABG O2 Capacity 11.5 mL/dl (16-24) L 09/18/17 10:35 ABG Potassium 4.5 mmol/L (3.6-5.2) 09/15/17 05:32 Hgb O2 Saturation 95.5 % (95.0-98.0) 09/18/17 10:35 Sodium 138.0 mmol/L (132-148) 09/15/17 05:32 Chloride 109.0 mmol/L (98-107) H 09/15/17 05:32 Glucose 128 mg/dl (75-110) H 09/15/17 05:32 Lactate 1.0 mmol/L (0.7-2.1) 09/15/17 05:32 Mechanical Rate 14 09/15/17 05:32 FiO2 32.0 % 09/18/17 10:35 Tidal Volume 450 09/15/17 05:32 PEEP 5 09/15/17 05:32 Sodium 144 mmol/L (132-148) 09/18/17 06:10 Potassium 3.8 mmol/L (3.6-5.0) 09/18/17 06:10 Chloride 106 mmol/L (98-107) 09/18/17 06:10 Carbon Dioxide 29 mmol/L (21-33) 09/18/17 06:10 Anion Gap 13 (10-20) 09/18/17 06:10 BUN 14 mg/dL (7-21) 09/18/17 06:10 Creatinine 1.0 mg/dl (0.8-1.5) 09/18/17 06:10 Est GFR ( Amer) > 60 09/18/17 06:10 Est GFR (Non-Af Amer) > 60 09/18/17 06:10 POC Glucose (mg/dL) 100 mg/dL (65-110) 09/18/17 11:15 Random Glucose 90 mg/dL (70-110) 09/18/17 06:10 Hemoglobin A1c 5.4 % (4.2-6.5) 09/14/17 05:50 Lactic Acid 0.8 mmol/L (0.7-2.1) 09/14/17 06:55 Calcium 9.3 mg/dL (8.4-10.5) 09/18/17 06:10 Phosphorus 4.0 mg/dL (2.5-4.5) 09/18/17 06:10 Magnesium 1.8 mg/dL (1.7-2.2) 09/18/17 06:10 Iron 17 ug/dL (45-180) L 09/14/17 06:55 TIBC 355 ug/dL (261-462) 09/14/17 06:55 % Saturation 5 % (20-55) L 09/14/17 06:55 Transferrin 288.29 mg/dL (206-381) 09/14/17 06:55 Ferritin 98.3 ng/mL 09/14/17 06:55 Total Bilirubin 0.2 mg/dL (0.2-1.3) 09/18/17 06:10 AST 53 U/L (17-59) 09/18/17 06:10 ALT 47 U/L (7-56) 09/18/17 06:10 Alkaline Phosphatase 71 U/L (38-126) 09/18/17 06:10 Ammonia 14 umol/L (9-33) 09/14/17 06:30 Lactate Dehydrogenase 758 U/L (333-699) H 09/13/17 19:50 Total Creatine Kinase 309 U/L (35-230) H 09/13/17 19:50 CK-MB (CK-2) 3.0 ng/mL (0.0-3.6) 09/13/17 19:50 CK-MB (CK-2) % Cancelled 09/13/17 19:50 Troponin I 3.70 ng/mL H* D 09/14/17 06:30 Total Protein 6.4 g/dL (5.8-8.3) 09/18/17 06:10 Albumin 3.1 g/dL (3.0-4.8) 09/18/17 06:10 Globulin 3.3 gm/dL 09/18/17 06:10 Albumin/Globulin Ratio 1.0 (1.1-1.8) L 09/18/17 06:10 Triglycerides 157 mg/dL (35-160) 09/14/17 06:30 Cholesterol 80 mg/dL (130-200) L 09/14/17 06:30 LDL Cholesterol Direct < 30 mg/dL (0-129) 09/14/17 06:30 HDL Cholesterol 30 mg/dL (29-60) 09/14/17 06:30 Vitamin B12 571 pg/mL (239-931) 09/14/17 06:55 Folate > 20.0 ng/mL 09/14/17 06:55 Procalcitonin 0.24 NG/ML (0.19-0.49) 09/14/17 00:50 Free T4 0.82 ng/dL (0.78-2.19) 09/14/17 06:30 TSH 3rd Generation 2.04 mIU/mL (0.46-4.68) 09/14/17 06:30 Arterial Blood Potassium 4.5 mmol/L (3.6-5.2) 09/15/17 05:32 Urine Color Yellow (YELLOW) 09/13/17 23:09 Urine Appearance Sl cloudy (CLEAR) 09/13/17 23:09 Urine pH 6.0 (4.7-8.0) 09/13/17 23:09 Ur Specific [place] >= 1.030 (1.005-1.035) 09/13/17 23:09 Urine Protein 30 mg/dL (<30 mg/dL) H 09/13/17 23:09 Urine Glucose (UA) Negative mg/dL (NEGATIVE) 09/13/17 23:09 Urine Ketones Negative mg/dL (NEGATIVE) 09/13/17 23:09 Urine Blood Moderate (NEGATIVE) H 09/13/17 23:09 Urine Nitrate Negative (NEGATIVE) 09/13/17 23:09 Urine Bilirubin Negative (NEGATIVE) 09/13/17 23:09 Urine Urobilinogen 0.2 E.U./dL (<1 E.U./dL) 09/13/17 23:09 Ur Leukocyte Esterase Negative Rissa/uL (NEGATIVE) 09/13/17 23:09 Urine RBC 5 - 10 /hpf (0-2) 09/13/17 23:09 Urine WBC 2 - 5 /hpf (0-6) 09/13/17 23:09 Ur Epithelial Cells 4 - 5 /hpf (0-5) 09/13/17 23:09 Urine Bacteria Mod (NEG) 09/13/17 23:09 Ur Random Creatinine 135 mg/dL 09/14/17 20:36 U Random Total Protein 31 mg/L 09/14/17 20:36 Ur Random Sodium 78 meq/L 09/14/17 20:36 Urine Microalbumin 12.9 mg/L (0.0-16.6) 09/14/17 20:36 Stool Occult Blood Negative (NEGATIVE) 09/15/17 14:00 Urine Opiates Screen Positive (NEGATIVE) H 09/13/17 23:09 Urine Methadone Screen Negative (NEGATIVE) 09/13/17 23:09 Acetaminophen < 10.0 ug/ml (10.0-20.0) L 09/13/17 19:50 Ur Barbiturates Screen Negative (NEGATIVE) 09/13/17 23:09 Ur Phencyclidine Scrn Negative (NEGATIVE) 09/13/17 23:09 Ur Amphetamines Screen Negative (NEGATIVE) 09/13/17 23:09 U Benzodiazepines Scrn Positive (NEGATIVE) 09/13/17 23:09 U Oth Cocaine Metabols Negative (NEGATIVE) 09/13/17 23:09 U Cannabinoids Screen Negative (NEGATIVE) 09/13/17 23:09 Alcohol, Quantitative < 10 mg/dL (0-10) 09/13/17 19:50 Hepatitis A IgM Ab Negative (NEGATIVE) 09/14/17 06:55 Hep Bs Antigen Negative (NEGATIVE) 09/14/17 06:55 Hep B Core IgM Ab Negative (NEGATIVE) 09/14/17 06:55 Hepatitis C Antibody Negative (NEGATIVE) 09/14/17 06:55 Blood Type A POSITIVE 09/14/17 14:20 Blood Type Confirm A POSITIVE 09/14/17 14:55 Antibody Screen Negative 09/14/17 14:20 Crossmatch See Detail 09/14/17 14:20 BBK History Checked No verified bt 09/14/17 14:20 - Hospital Course Hospital Course: 56 year old male with pat medical history of hypertension, CHF s/p pacemaker, asthma, PAULINO, hepatitis C and depression/bipolar who presented with altered mental status with hypercapneic respiratory failure s/p intubation. He was extubated and placed on bipap. Primary care team continued with steroids, duonebs, brovana and pulmonary as per power station operator. Patient or respiratory status was monitored and attempts to wean off sedation. Patient was noted to have possible NSTEMI with elevated troponins and TIM during admission. He was seen by cardiology and nephrology. His renal function had improved. He is not on anticoagulation due to anemia requiring blood transfusion and recent GIB as per . Medical records from recent admission at [facility] were requested and reviewed. Patient received one unit transfusion during stay. GI evaluated the patient and recommended no endovascular procedure during this hospital stay and that the patient was safe for resuming ASA. Patient was transferred from ICU to telemetery floor and monitored clinically. On day four of admission patient requested to sign out AMA. Patient was evaluated to be competent and with appropriate insight. Risks and benefits to staying for further medical management and evaluation was discussed with patient. Patient was in understanding of risks and benefits and signed out against medical advice. - Date & Time of H&P Date of H&P: 09/14/17 Time of H&P: 00:04 Discharge Exam - Head Exam Head Exam: ATRAUMATIC, NORMAL INSPECTION, NORMOCEPHALIC - Eye Exam Eye Exam: EOMI, PERRL - Respiratory Exam Respiratory Exam: NORMAL BREATHING PATTERN. absent: Wheezes - Cardiovascular Exam Cardiovascular Exam: REGULAR RHYTHM, +S1, +S2 - GI/Abdominal Exam GI & Abdominal Exam: Normal Bowel Sounds, Soft. absent: Tenderness - Extremities Exam Extremities exam: normal inspection, pedal pulses present - Neurological Exam Neurological exam: Alert, Normal Gait, Oriented x3 Additional comments: motor and sensory grossly intact - Psychiatric Exam Psychiatric exam: Normal Affect, Normal Mood - Skin Skin Exam: Dry, Warm Discharge Plan - Follow Up Plan Condition: CRITICAL Disposition: AGAINST MEDICAL ADVICE <Yaya Isaac - Last Filed: 09/18/17 17:17> Provider - Provider Date of Admission: 09/13/17 21:42 Attending physician: Yaya Isaac MD Hospital Course - Lab Results Lab Results: Micro Results 09/14/17 23:15 Sputum Gram Stain - Final 09/14/17 23:15 Sputum Sputum Culture - Final NORMAL ORAL LAURA 09/13/17 23:53 Nose MRSA Culture (Admit) - Final MRSA NOT DETECTED 09/13/17 23:09 Urine,Smith Urine Culture - Final No Growth (<1,000 CFU/ML) Most Recent Lab Values WBC 9.2 10^3/ul (4.5-11.0) D 09/18/17 06:10 RBC 3.49 10^6/uL (3.5-6.1) L 09/18/17 06:10 Hgb 9.0 g/dL (14.0-18.0) L 09/18/17 06:10 Hct 30.5 % (42.0-52.0) L 09/18/17 06:10 MCV 87.4 fl (80.0-105.0) 09/18/17 06:10 MCH 25.8 pg (25.0-35.0) 09/18/17 06:10 MCHC 29.5 g/dl (31.0-37.0) L 09/18/17 06:10 RDW 20.7 % (11.5-14.5) H 09/18/17 06:10 Plt Count 528 10^3/uL (120.0-450.0) H 09/18/17 06:10 MPV 8.8 fl (7.0-11.0) 09/18/17 06:10 Gran % 59.6 % (50.0-68.0) 09/18/17 06:10 Lymph % (Auto) 29.0 % (22.0-35.0) 09/18/17 06:10 [place] % (Auto) 10.1 % (1.0-6.0) H 09/18/17 06:10 Eos % (Auto) 1.1 % (1.5-5.0) L 09/18/17 06:10 Baso % (Auto) 0.2 % (0.0-3.0) 09/18/17 06:10 Gran # 5.46 (1.4-6.5) 09/18/17 06:10 Lymph # (Auto) 2.7 (1.2-3.4) 09/18/17 06:10 [place] # (Auto) 0.9 (0.1-0.6) H 09/18/17 06:10 Eos # (Auto) 0.1 (0.0-0.7) 09/18/17 06:10 Baso # (Auto) 0.02 K/mm3 (0.0-2.0) 09/18/17 06:10 Neutrophils % (Manual) 91 % (50.0-70.0) H 09/16/17 05:30 Band Neutrophils % 3 % (0-2) H 09/16/17 05:30 Lymphocytes % (Manual) 4 % (22.0-35.0) L 09/16/17 05:30 Monocytes % (Manual) 2 % (1.0-6.0) 09/16/17 05:30 Platelet Evaluation High (NORMAL) 09/16/17 05:30 Large Platelets Present 09/16/17 05:30 Hypochromasia 1+ 09/16/17 05:30 Poikilocytosis (manual Slight 09/16/17 05:30 Anisocytosis (manual) 1+ 09/16/17 05:30 Ovalocytes Slight 09/16/17 05:30 PT 12.0 SECONDS (9.4-12.5) 09/13/17 19:50 INR 1.05 (0.93-1.08) 09/13/17 19:50 APTT 30.9 Seconds (25.1-36.5) 09/13/17 19:50 pCO2 46 mm/Hg (35-45) H 09/18/17 10:35 pO2 86.0 mm/Hg (80-100) 09/18/17 10:35 HCO3 30.5 mmol/L (21-28) H 09/18/17 10:35 ABG pH 7.43 (7.35-7.45) 09/18/17 10:35 ABG Total CO2 31.9 mmol.L (22-28) H 09/18/17 10:35 ABG O2 Saturation 99.0 % (95-98) H 09/18/17 10:35 ABG O2 Content 11.4 ML/dl (15-23) L 09/18/17 10:35 ABG Base Excess 5.6 mmol/L (-2.0-3.0) H 09/18/17 10:35 ABG Hemoglobin 8.4 g/dL (11.7-17.4) L 09/18/17 10:35 ABG Carboxyhemoglobin 2.2 % (0.5-1.5) H 09/18/17 10:35 POC ABG HHb (Measured) 1.0 % (0-5) 09/18/17 10:35 ABG Methemoglobin 1.3 % (0.0-3.0) 09/18/17 10:35 ABG O2 Capacity 11.5 mL/dl (16-24) L 09/18/17 10:35 ABG Potassium 4.5 mmol/L (3.6-5.2) 09/15/17 05:32 Hgb O2 Saturation 95.5 % (95.0-98.0) 09/18/17 10:35 Sodium 138.0 mmol/L (132-148) 09/15/17 05:32 Chloride 109.0 mmol/L (98-107) H 09/15/17 05:32 Glucose 128 mg/dl (75-110) H 09/15/17 05:32 Lactate 1.0 mmol/L (0.7-2.1) 09/15/17 05:32 Mechanical Rate 14 09/15/17 05:32 FiO2 32.0 % 09/18/17 10:35 Tidal Volume 450 09/15/17 05:32 PEEP 5 09/15/17 05:32 Sodium 144 mmol/L (132-148) 09/18/17 06:10 Potassium 3.8 mmol/L (3.6-5.0) 09/18/17 06:10 Chloride 106 mmol/L (98-107) 09/18/17 06:10 Carbon Dioxide 29 mmol/L (21-33) 09/18/17 06:10 Anion Gap 13 (10-20) 09/18/17 06:10 BUN 14 mg/dL (7-21) 09/18/17 06:10 Creatinine 1.0 mg/dl (0.8-1.5) 09/18/17 06:10 Est GFR ( Amer) > 60 09/18/17 06:10 Est GFR (Non-Af Amer) > 60 09/18/17 06:10 POC Glucose (mg/dL) 100 mg/dL (65-110) 09/18/17 11:15 Random Glucose 90 mg/dL (70-110) 09/18/17 06:10 Hemoglobin A1c 5.4 % (4.2-6.5) 09/14/17 05:50 Lactic Acid 0.8 mmol/L (0.7-2.1) 09/14/17 06:55 Calcium 9.3 mg/dL (8.4-10.5) 09/18/17 06:10 Phosphorus 4.0 mg/dL (2.5-4.5) 09/18/17 06:10 Magnesium 1.8 mg/dL (1.7-2.2) 09/18/17 06:10 Iron 17 ug/dL (45-180) L 09/14/17 06:55 TIBC 355 ug/dL (261-462) 09/14/17 06:55 % Saturation 5 % (20-55) L 09/14/17 06:55 Transferrin 288.29 mg/dL (206-381) 09/14/17 06:55 Ferritin 98.3 ng/mL 09/14/17 06:55 Total Bilirubin 0.2 mg/dL (0.2-1.3) 09/18/17 06:10 AST 53 U/L (17-59) 09/18/17 06:10 ALT 47 U/L (7-56) 09/18/17 06:10 Alkaline Phosphatase 71 U/L (38-126) 09/18/17 06:10 Ammonia 14 umol/L (9-33) 09/14/17 06:30 Lactate Dehydrogenase 758 U/L (333-699) H 09/13/17 19:50 Total Creatine Kinase 309 U/L (35-230) H 09/13/17 19:50 CK-MB (CK-2) 3.0 ng/mL (0.0-3.6) 09/13/17 19:50 CK-MB (CK-2) % Cancelled 09/13/17 19:50 Troponin I 3.70 ng/mL H* D 09/14/17 06:30 Total Protein 6.4 g/dL (5.8-8.3) 09/18/17 06:10 Albumin 3.1 g/dL (3.0-4.8) 09/18/17 06:10 Globulin 3.3 gm/dL 09/18/17 06:10 Albumin/Globulin Ratio 1.0 (1.1-1.8) L 09/18/17 06:10 Triglycerides 157 mg/dL (35-160) 09/14/17 06:30 Cholesterol 80 mg/dL (130-200) L 09/14/17 06:30 LDL Cholesterol Direct < 30 mg/dL (0-129) 09/14/17 06:30 HDL Cholesterol 30 mg/dL (29-60) 09/14/17 06:30 Vitamin B12 571 pg/mL (239-931) 09/14/17 06:55 Folate > 20.0 ng/mL 09/14/17 06:55 Procalcitonin 0.24 NG/ML (0.19-0.49) 09/14/17 00:50 Free T4 0.82 ng/dL (0.78-2.19) 09/14/17 06:30 TSH 3rd Generation 2.04 mIU/mL (0.46-4.68) 09/14/17 06:30 Arterial Blood Potassium 4.5 mmol/L (3.6-5.2) 09/15/17 05:32 Urine Color Yellow (YELLOW) 09/13/17 23:09 Urine Appearance Sl cloudy (CLEAR) 09/13/17 23:09 Urine pH 6.0 (4.7-8.0) 09/13/17 23:09 Ur Specific [place] >= 1.030 (1.005-1.035) 09/13/17 23:09 Urine Protein 30 mg/dL (<30 mg/dL) H 09/13/17 23:09 Urine Glucose (UA) Negative mg/dL (NEGATIVE) 09/13/17 23:09 Urine Ketones Negative mg/dL (NEGATIVE) 09/13/17 23:09 Urine Blood Moderate (NEGATIVE) H 09/13/17 23:09 Urine Nitrate Negative (NEGATIVE) 09/13/17 23:09 Urine Bilirubin Negative (NEGATIVE) 09/13/17 23:09 Urine Urobilinogen 0.2 E.U./dL (<1 E.U./dL) 09/13/17 23:09 Ur Leukocyte Esterase Negative Rissa/uL (NEGATIVE) 09/13/17 23:09 Urine RBC 5 - 10 /hpf (0-2) 09/13/17 23:09 Urine WBC 2 - 5 /hpf (0-6) 09/13/17 23:09 Ur Epithelial Cells 4 - 5 /hpf (0-5) 09/13/17 23:09 Urine Bacteria Mod (NEG) 09/13/17 23:09 Ur Random Creatinine 135 mg/dL 09/14/17 20:36 U Random Total Protein 31 mg/L 09/14/17 20:36 Ur Random Sodium 78 meq/L 09/14/17 20:36 Urine Microalbumin 12.9 mg/L (0.0-16.6) 09/14/17 20:36 Stool Occult Blood Negative (NEGATIVE) 09/15/17 14:00 Urine Opiates Screen Positive (NEGATIVE) H 09/13/17 23:09 Urine Methadone Screen Negative (NEGATIVE) 09/13/17 23:09 Acetaminophen < 10.0 ug/ml (10.0-20.0) L 09/13/17 19:50 Ur Barbiturates Screen Negative (NEGATIVE) 09/13/17 23:09 Ur Phencyclidine Scrn Negative (NEGATIVE) 09/13/17 23:09 Ur Amphetamines Screen Negative (NEGATIVE) 09/13/17 23:09 U Benzodiazepines Scrn Positive (NEGATIVE) 09/13/17 23:09 U Oth Cocaine Metabols Negative (NEGATIVE) 09/13/17 23:09 U Cannabinoids Screen Negative (NEGATIVE) 09/13/17 23:09 Alcohol, Quantitative < 10 mg/dL (0-10) 09/13/17 19:50 Hepatitis A IgM Ab Negative (NEGATIVE) 09/14/17 06:55 Hep Bs Antigen Negative (NEGATIVE) 09/14/17 06:55 Hep B Core IgM Ab Negative (NEGATIVE) 09/14/17 06:55 Hepatitis C Antibody Negative (NEGATIVE) 09/14/17 06:55 Blood Type A POSITIVE 09/14/17 14:20 Blood Type Confirm A POSITIVE 09/14/17 14:55 Antibody Screen Negative 09/14/17 14:20 Crossmatch See Detail 09/14/17 14:20 BBK History Checked No verified bt 09/14/17 14:20 Attending/Attestation - Attestation I have personally seen and examined this patient.: Yes I have fully participated in the care of the patient.: Yes I have reviewed all pertinent clinical information, including history, physical exam and plan: Yes Notes (Text): 09/18/17 17:15 Patient is alert, awake and oriented.He understand the risk of leaving the hospital against medical advice. The need of staying in the hospital was discussed in detail with him.He has signed against medical advice . Prognosis is guarded.
--- NOTE | 2017-09-18 19:24 | CP.PCM.PN ---
Objective - Vital Signs/Intake and Output Vital Signs (last 24 hours): Temp Pulse Resp BP Pulse Ox 98.1 F 87 19 162/103 H 95 09/18/17 11:40 09/18/17 14:00 09/18/17 11:40 09/18/17 11:43 09/18/17 06:00 Intake and Output: 09/18/17 09/19/17 18:59 06:59 Output Total 3100 Balance -3100 - Labs Labs: 09/18/17 06:10 09/18/17 06:10 PT 12.0 SECONDS (9.4-12.5) 09/13/17 19:50 INR 1.05 (0.93-1.08) 09/13/17 19:50 APTT 30.9 Seconds (25.1-36.5) 09/13/17 19:50 Assessment and Plan (1) Acute renal failure Status: Acute (2) CHF (congestive heart failure) Status: Chronic (3) Hypertension Status: Acute (4) Anemia Status: Acute
--- NOTE | 2017-09-18 22:00 | CON ---
DATE: SUBJECTIVE: In short, the patient is a 56-year-old male with long history of opioid abuse. Patient was admitted on the medical side for evaluation of possible overdose on medication and drugs. Patient has history of bipolar disorder and polysubstance abuse and dependence, that is why Psychiatry was consulted on the case. Patient was seen by Dr. Carpenter on . This bond underwriter is taking over. This bond underwriter is very familiar with this patient from the previous admission on the medical side and consultation services, was then this bond underwriter saw patient in 03/2017. Patient presented the same way. Patient was seen and examined. Patient has his next to him. Patient gave permission to talk to the . Ms. Mcgregor said they were for the past 32 years. Her first name is Karla. reported that the patient was admitted on the medical side for chest pain. Patient was discharged one day prior to this admission. Patient was doing fine, was not depressed, was not expressing any thoughts of killing himself. Patient was taking his medication. Patient was found unresponsive by his and she suspected that he used drugs, low suspicion for intentional overdose on medications or drugs. Patient wanted to get high on drugs. Patient was seen and examined. Patient appears to be somewhat confused. Patient thinks that he is on the board and he was looking for some money in the pocket. Patient was also restless. Patient said that he fills medications at the pharmacy. This bond underwriter called the pharmacy [phone], [facility]. All medications were confirmed. Patient was on Latuda 60 mg daily, prescribed by Dr. Granger. Patient filled that medication on 08/28. One month's supply was given. Patient was on Zoloft 150 mg daily. At the same time, the patient filled that medication, trazodone 200 mg daily, same day of filling, same prescriber. Patient was also on Suboxone 01/04, filled on 08/18/2017, most likely patient runs short on that medication. PHYSICAL EXAMINATION: VITAL SIGNS: This bond underwriter reviewed vital signs. Vital signs seems to be stable. Temperature 99, pulse is 82, blood pressure 134/91, respiration 18 and oxygen saturation is 95. MEDICATIONS: Reviewed. Brovana, aspirin, Lipitor, Pulmicort, Coreg, folic acid, heparin, Vistaril, Humalog, Zestril, Ativan 2 mg IV push every 6 hours scheduled, Cozaar, methylprednisolone, Singulair, multivitamins, Protonix, vitamin B1, and Spiriva. This bond underwriter wants add on Latuda 60 mg daily, Zoloft 150 mg daily and trazodone 200 mg daily. Suboxone is nonformulary in the hospital with monitor for withdrawal symptoms. LABORATORY DATA: Reviewed. WBC cells 9.2, hemoglobin and hematocrit 9 and 30.5. Chemistry reviewed. Urinalysis reviewed. Toxicology reviewed. Benzodiazepine is positive and opioids positive. Serology negative. MENTAL STATUS EXAMINATION: Patient appears to be confused, disorganized. Thought that he is in the boat, was looking for some imaginary money. As per , the patient is not at his baseline. Mood described as fine. Affect was constricted. Thought process is disorganized. Thought content, the patient appears to be psychotic and in delirium. Patient's insight and judgement seems to be impaired. The impulses are unpredictable. IMPRESSION: Based on the presentation, most likely the patient is in delirium stage due to multiple medical reasons as well as patient might be withdrawing from the Suboxone what he was prescribed. Urine drug screen was also positive for benzodiazepines. Patient has history of opioid abuse and dependence, history of 2 to 3 rehabs in the past, history of bipolar disorder. PLAN: Continue current management. Continue current medication, Latuda 60 mg was resumed and called into [facility] because it is non-formulary in the hospital. Zoloft will be resumed at 150 mg daily, trazodone 200 mg at the nighttime scheduled, Suboxone is up to the medical team and up to the medical team. Multivitamins need to be continued. Collaterals were obtained from patient's who is next to the patient just in case. Patient's phone number is [phone]. Her name is Karla. Patient gave permission to talk to her. Meanwhile, the patient seems to be in delirium stage. We will follow up and advise accordingly. Medications resumed. Thank you very much for letting me participate in the care of your patient. Victoria Brooks MD
--- NOTE | 2017-09-19 07:45 | CARD ---
APPROVED REPORT EKG Measurement Heart [id number] OR 158P-11 [id number] <Conclusion> V. Paced, A. Sensed rhythm No change
[2017-09-19] MEDS ORDERED: LATUDA 60 MG PO SCH (10:00)
--- NOTE | 2017-09-19 14:33 | CP.PCM.PCO ---
Physician Communication Note - Physician Communication Note Physician Communication Note: pt was d/c, has f/u appt, compliant with meds
== END 2017-09-18 16:30 | disposition left against medical advice (07) | DRG 582 ==
LOC: ED 19:33 → ERH 21:42 → CCU 23:45 → 2RNO 09-17 13:02
PROVIDERS: ADMIT Hospitalist; ATTEND Internal Medicine
PROC: 5A1935Z Respiratory Ventilation, Less than 24 Consecutive Hours (ICD-10-PCS; principal; 2017-09-13)
PROC: 0BH17EZ Insertion of Endotracheal Airway into Trachea, Via Natural or Artificial Opening (ICD-10-PCS; 2017-09-13)
PROC: 3E0F7GC Introduction of Other Therapeutic Substance into Respiratory Tract, Via Natural or Artificial Opening (ICD-10-PCS; 2017-09-14)
PROC: 5A09357 Assistance with Respiratory Ventilation, Less than 24 Consecutive Hours, Continuous Positive Airway Pressure (ICD-10-PCS; 2017-09-15)
DX: T40.1X1A Poisoning by heroin, accidental (unintentional), initial encounter (principal); J96.02 Acute respiratory failure with hypercapnia; J96.01 Acute respiratory failure with hypoxia; I21.4 Non-ST elevation (NSTEMI) myocardial infarction; N17.9 Acute kidney failure, unspecified; I50.22 Chronic systolic (congestive) heart failure; I11.0 Hypertensive heart disease with heart failure; B19.20 Unspecified viral hepatitis C without hepatic coma; F11.20 Opioid dependence, uncomplicated; E86.0 Dehydration; E87.5 Hyperkalemia; I42.0 Dilated cardiomyopathy; F10.10 Alcohol abuse, uncomplicated; D64.9 Anemia, unspecified; G47.33 Obstructive sleep apnea (adult) (pediatric); F31.9 Bipolar disorder, unspecified; R80.9 Proteinuria, unspecified; Z95.810 Presence of automatic (implantable) cardiac defibrillator

== ENCOUNTER 2017-11-13 16:36 | Inpatient (IN) | payer MEDICAID ==
[2017-11-13 16:53] VITALS: BMI 29.2
[2017-11-13] MEDS ORDERED: Sodium Chloride 0.9% 500 ML IV STA (16:56)
[2017-11-13] MEDS ORDERED: Multivitamin (MVI) 10 ML, Thiamine 100 MG, Folic Acid 1 MG in Sodium Chloride 0.9% 1,00... IV ONE (16:56)
[2017-11-13 17:46] LABS: EOS % 0.2 % (1.5-5.0); GRAN # 3.6 (1.4-6.5); GRAN % 56.1 % (50.0-68.0); HEMOGLOBIN 11.5 g/dL (14.0-18.0); LYMPH # 2.3 (1.2-3.4); LYMPH % 36.4 % (22.0-35.0); MEAN CELL VOLUME 86.9 fl (80.0-105.0); MEAN CORPUSCULAR HEMOGLOBIN 26.9 pg (25.0-35.0); MEAN CORPUSCULAR HGB CONC 30.9 g/dl (31.0-37.0); MONO # 0.5 (0.1-0.6); MONO % 7.3 % (1.0-6.0); RBC 4.28 10^6/uL (3.5-6.1); RED CELL DISTRIBUTION WIDTH 17.8 % (11.5-14.5); WHITE BLOOD COUNT 6.4 10^3/ul (4.5-11.0)
[2017-11-13 17:47] LABS: ACETAMINOPHEN < 10.0 ug/ml (10.0-20.0); SALICYLATE < 1 mg/dL (2.0-20.0)
[2017-11-13 17:48] LABS: ALB/GLOB RATIO 1.2 (1.1-1.8); ALBUMIN 3.7 g/dL (3.0-4.8); CALCIUM 8.3 mg/dL (8.4-10.5)
[2017-11-13 17:57] LABS: TROPONIN I 0.02 ng/mL
--- NOTE | 2017-11-13 18:24 | CT ---
PROCEDURE: CT HEAD WITHOUT CONTRAST. HISTORY: OVERDOSE/FALL COMPARISON: 09/14/2017 TECHNIQUE: Axial computed tomography images were obtained through the head/brain without intravenous contrast. Radiation dose: Total exam DLP = 1036.48 mGy-cm. This CT exam was performed using one or more of the following dose reduction techniques: Automated exposure control, adjustment of the mA and/or kV according to patient size, and/or use of iterative reconstruction technique. FINDINGS: HEMORRHAGE: No intracranial hemorrhage. BRAIN: No mass effect or edema. Mild chronic periventricular white matter ischemic change primarily adjacent to the frontal horns of lateral ventricles. Bilateral basal ganglia lacunar infarct new since prior CT examination. No evidence of acute territorial infarct. VENTRICLES: Unremarkable. No hydrocephalus. CALVARIUM: Unremarkable. PARANASAL SINUSES: Unremarkable as visualized. No significant inflammatory changes. MASTOID AIR CELLS: Unremarkable as visualized. No inflammatory changes. OTHER FINDINGS: None. IMPRESSION: No acute intracranial hemorrhage. Mild chronic white matter ischemic change.
[2017-11-13 20:03] LABS: URINE BILIRUBIN NEGATIVE (NEGATIVE); URINE BLOOD NEGATIVE (NEGATIVE); URINE GLUCOSE (UA) NEGATIVE (NEGATIVE); URINE LEUKOCYTE ESTERASE NEGATIVE Leu/uL (NEGATIVE); URINE PROTEIN TRACE mg/dL (<30 mg/dL); URINE UROBILINOGEN 0.2 E.U./dL (<1 E.U./dL)
[2017-11-13 20:10] LABS: URINE APPEARANCE CLEAR (CLEAR); URINE COLOR YELLOW (YELLOW)
[2017-11-13 20:18] LABS: BENZODIAZEPINES, UR NEGATIVE (NEGATIVE)
[2017-11-13 20:21] LABS: URINE BACTERIA FEW (NEG); URINE RBC 0 - 2 /hpf (0-2); URINE WBC 0 - 2 /hpf (0-6)
[2017-11-13 20:42] LABS: BARBITURATES, UR NEGATIVE (NEGATIVE); OPIATES, UR POSITIVE (NEGATIVE); PHENCYCLIDINE, UR NEGATIVE (NEGATIVE)
[2017-11-13] MEDS ORDERED: TDAP Vaccine 0.5 mL Syr IM ONE (21:19)
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
--- NOTE | 2017-11-13 21:50 | US ---
EXAM: US Abdomen Complete EXAM DATE/TIME: 11/13/2017 7:28 PM CLINICAL HISTORY: 57 years old, male; Abnormal findings; Abnormal lab test; Elevated liver enzymes; Additional info: Abdominal pain, elevated lfts TECHNIQUE: Real-time ultrasound of the abdomen (complete) with image documentation. COMPARISON: Prior renal ultrasound of 2017-09-14 FINDINGS: Gallbladder: Within normal limits in appearance, without evidence of gallstones, significant gallbladder wall thickening, or pericholecystic fluid. Reportedly negative sonographic Vincent's sign. Common bile duct: Abnormally dilated, measuring up to 1.1 cm in diameter (normal less than 6 mm). No common bile duct stones are visualized. Liver: Demonstrates mildly increased parenchymal echogenicity, which could be due to mild fatty infiltration. Otherwise within normal limits in appearance. Measures 14.7 cm in length. Normal flow seen in the main portal vein on color and Doppler imaging. Pancreas: Imaged portions appear unremarkable. Right kidney: Within normal limits in appearance. Measures 9.9 cm in length. No evidence of hydronephrosis. Left kidney: Within normal limits in appearance. Measures 10.6 cm in length. No evidence of hydronephrosis. Spleen: Contains a 7 x 5 mm round, well-defined echogenic lesion. This demonstrates a small focus of vascularity within it, and is suspicious for a solid lesion. Otherwise within normal limits in appearance. Measures 8 cm in length. No evidence of diffuse splenic lesions. Aorta: Imaged portions appear unremarkable. IVC: Imaged portions appear unremarkable. IMPRESSION: Dilatation of the common bile duct, 1.1 cm, cause not identified. Recommend correlation with LFTs for laboratory evidence of biliary obstruction. Otherwise, no evidence of significant acute process. 7 mm non-cystic lesion in the spleen. This could represent a hemangioma, given its ultrasound features. No evidence of diffuse splenic lesions or splenomegaly. See above for remaining findings.
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
--- NOTE | 2017-11-14 00:24 | CARD ---
APPROVED REPORT EKG Measurement Heart [id number] <Conclusion> Atrial Sensed, Ventricular paced rhythm Abnormal ECG
[2017-11-14] MEDS ORDERED: Sodium Chloride 0.9% 1,000 ML IV SCH (03:00)
[2017-11-14 07:09] LABS: BASO # 0.02 K/mm3 (0.0-2.0); BASO % 0.2 % (0.0-3.0); EOS # 0.2 (0.0-0.7); EOS % 1.9 % (1.5-5.0); GRAN # 6.08 (1.4-6.5); GRAN % 61.6 % (50.0-68.0); HEMOGLOBIN 10.1 g/dL (14.0-18.0); LYMPH % 30.5 % (22.0-35.0); MEAN CELL VOLUME 87.4 fl (80.0-105.0); MEAN CORPUSCULAR HEMOGLOBIN 26.4 pg (25.0-35.0); MEAN CORPUSCULAR HGB CONC 30.2 g/dl (31.0-37.0); MEAN PLATELET VOLUME 9.9 fl (7.0-11.0); MONO # 0.6 (0.1-0.6); MONO % 5.8 % (1.0-6.0); RBC 3.82 10^6/uL (3.5-6.1); RED CELL DISTRIBUTION WIDTH 18.4 % (11.5-14.5); WHITE BLOOD COUNT 9.9 10^3/ul (4.5-11.0)
--- NOTE | 2017-11-14 07:29 | CP.PCM.PN ---
Subjective - Date & Time of Evaluation Date of Evaluation: 11/14/17 Time of Evaluation: 07:15 - Subjective Subjective: Medicine Progress note Patient seen and examined at bedside this AM. Patient is diaphoretic and shaking with arms extended. Denies Chest pain, shortness of breath, abdominal pain, nausea, vomiting diarrhea. Objective - Vital Signs/Intake and Output Vital Signs (last 24 hours): Temp Pulse Resp BP Pulse Ox 98.7 F 105 H 20 135/86 99 11/14/17 06:00 11/14/17 06:00 11/14/17 06:00 11/14/17 06:00 11/14/17 06:00 Intake and Output: 11/14/17 11/14/17 06:59 18:59 Intake Total 720 Balance 720 - Medications Medications: Current Medications Folic Acid (Folic Acid) 1 mg PO DAILY [facility] Sodium Chloride (Sodium Chloride 0.9%) 1,000 mls @ 125 mls/hr IV .Q8H [facility] Last Admin: 11/14/17 03:00 Dose: 125 mls/hr Lorazepam (Ativan) 2 mg IVP Q6H [facility] PRN Reason: Protocol Last Admin: 11/14/17 04:40 Dose: 2 mg Lorazepam (Ativan) 2 mg IVP Q4H PRN; Protocol PRN Reason: Symptoms of alcohol withdrawl Montelukast Sodium (Singulair) 10 mg PO DAILY [facility] Multivitamins/Minerals (Therapeutic-M Tab) 1 tab PO 0800 [facility] Thiamine HCl (Vitamin B1 Tab) 100 mg PO DAILY [facility] Trazodone HCl (Desyrel) 100 mg PO HS [facility] Last Admin: 11/13/17 22:25 Dose: 100 mg - Labs Labs: 11/14/17 06:30 - Constitutional Appears: Non-toxic, No Acute Distress, Unkempt - Head Exam Head Exam: ATRAUMATIC - Eye Exam Eye Exam: EOMI. absent: Scleral icterus - ENT Exam ENT Exam: Mucous Membranes Moist - Respiratory Exam Respiratory Exam: NORMAL BREATHING PATTERN. absent: Accessory Muscle Use, Respiratory Distress - Cardiovascular Exam Cardiovascular Exam: REGULAR RHYTHM, +S1, +S2. absent: Bradycardia, Tachycardia , Clicks, Murmur - GI/Abdominal Exam GI & Abdominal Exam: Soft. absent: Distended, Guarding, Rigid, Mass Additional comments: large midline incision well healed - Extremities Exam Extremities Exam: Normal Inspection. absent: Calf Tenderness, Tenderness - Back Exam Back Exam: absent: CVA tenderness (L), CVA tenderness (R) - Neurological Exam Neurological Exam: Awake, Oriented x3 - Skin Skin Exam: Dry, Intact Assessment and Plan - Assessment and Plan (Free Text) Assessment: 57M w/ pmhx significant for AICD 2/2 chronic CHF w/ decreased LVEF, ETOH dependence, polysubtance abuse (inhalded heroin, and benzo) on home O2, admitted for drug overdose. EKG shows prolonged QT interval, repeat EKG shows similar changes w/ QT < 550ms. On CIWA protocol. Hold cardiotoxic drugs. Plan: Alcohol Abuse - counselled on cessation - [facility] protocol - Ativan 2 mg Q6H [facility]GAR - Ativan 2 mg Q4H prn symptoms of alcohol withdrawal - Given 1 banana bag - PO folate, thiamine, MVI - NS @125 cc/hr after banana bag finishes QT interval prolongation - as seen on EKG and repeat EKG in the ED - Repeat AM EKG shows no new acute changes - Hold pt home medication that causes prolongation of QT intervals Transaminitis - dilated CBD on imaging - elevation of liver enzymes 2/2 chronic ETOH use - dilated CBD most likely 2/2 chronic opiate use - will hold off on MRCP 2/2 pacemaker - c/s GI; all recs appreciated * follow up as outpatient for further evaluation Tobacco and ETOH dependence - discussed in detailed the risks of continuing to drink alcohol. counselled on cessation. Hx COPD - Scheduled Duo-nebs - 2.5L of O2 NC in house TIM - 2/2 decreased PO intake and polysubstance drug abuse - avoid neprhotoxic drugs - c/s Neprhology; all recs appreciated * no acute invernetion indicated at this time * hold IVF * continue PO intake as tolerated PPX DVT: Heparin Case discussed in detail w/ Dr. Isaac Medical attending PGY1
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
[2017-11-14 07:53] LABS: ALB/GLOB RATIO 1.1 (1.1-1.8); ALBUMIN 3.2 g/dL (3.0-4.8); ALT/SGPT 209 U/L (7-56); AST/SGOT 332 U/L (17-59); BLOOD UREA NITROGEN 43 mg/dL (7-21); CALCIUM 7.8 mg/dL (8.4-10.5); GFR AFRICAN-AMERICAN 51; GFR NON-AFRICAN AMERICAN 42
[2017-11-14] MEDS: Multivitamin With Minerals Tab PO SCH (08:17)
[2017-11-14 09:13] LABS: INR 1.02 (0.93-1.08); PROTHROMBIN TIME 11.7 SECONDS (9.4-12.5)
--- NOTE | 2017-11-14 10:49 | RAD ---
HISTORY: OVERDOSE COMPARISON: 09/17/2017 FINDINGS: LUNGS: No active pulmonary disease. PLEURA: No significant pleural effusion identified, no pneumothorax apparent. CARDIOVASCULAR: Moderate cardiomegaly OSSEOUS STRUCTURES: No significant abnormalities. VISUALIZED UPPER ABDOMEN: Normal. OTHER FINDINGS: Pacemaker IMPRESSION: Moderate cardiomegaly. No active disease
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
--- NOTE | 2017-11-14 13:50 | CARD ---
APPROVED REPORT EKG Measurement Heart [id number] <Conclusion> Atrial sensed, Ventricular paced rhythm Abnormal ECG
[2017-11-14] MEDS: Albuterol-Ipratrop 3 mg / 0.5 (3 ml) UD IH SCH ×3 (14:27→20:27)
[2017-11-14 16:23] LABS: IMMUNOGLOBULIN A 321.5 mg/dL (70.0-400.0); IMMUNOGLOBULIN M 114.1 mg/dL (40.0-230.0)
[2017-11-14 16:43] LABS: HEPATITIS B SURFACE AG Negative (NEGATIVE)
[2017-11-14 16:49] LABS: HEPATITIS A IGM NEGATIVE (NEGATIVE); HEPATITIS B CORE AB NEGATIVE (NEGATIVE)
[2017-11-14 16:59] LABS: HEPATITIS C ANTIBODY NEGATIVE (NEGATIVE)
--- NOTE | 2017-11-14 20:33 | CARD ---
APPROVED REPORT EKG Measurement Heart [id number] <Conclusion> Atrial Sensed, Ventricular paced rhythm Abnormal ECG
[2017-11-15] MEDS: Albuterol-Ipratrop 3 mg / 0.5 (3 ml) UD IH SCH ×7 (00:20→23:59)
[2017-11-15] MEDS: Multivitamin With Minerals Tab PO SCH (07:50)
[2017-11-15 08:05] LABS: BASO # 0.01 K/mm3 (0.0-2.0); BASO % 0.2 % (0.0-3.0); EOS # 0.2 (0.0-0.7); EOS % 3.9 % (1.5-5.0); GRAN # 3.35 (1.4-6.5); GRAN % 56.6 % (50.0-68.0); HEMOGLOBIN 9.5 g/dL (14.0-18.0); LYMPH % 33.6 % (22.0-35.0); MEAN CELL VOLUME 86.7 fl (80.0-105.0); MEAN CORPUSCULAR HEMOGLOBIN 26.4 pg (25.0-35.0); MEAN CORPUSCULAR HGB CONC 30.4 g/dl (31.0-37.0); MEAN PLATELET VOLUME 9.5 fl (7.0-11.0); MONO # 0.3 (0.1-0.6); MONO % 5.7 % (1.0-6.0); RBC 3.6 10^6/uL (3.5-6.1); RED CELL DISTRIBUTION WIDTH 18.4 % (11.5-14.5); WHITE BLOOD COUNT 5.9 10^3/ul (4.5-11.0)
[2017-11-15 08:38] LABS: ALB/GLOB RATIO 1.2 (1.1-1.8); ALBUMIN 3.2 g/dL (3.0-4.8); ALT/SGPT 178 U/L (7-56); AST/SGOT 219 U/L (17-59); BLOOD UREA NITROGEN 16 mg/dL (7-21); CALCIUM 8.5 mg/dL (8.4-10.5); GFR AFRICAN-AMERICAN > 60; GFR NON-AFRICAN AMERICAN > 60
--- NOTE | 2017-11-15 13:17 | RAD ---
HISTORY: crackles COMPARISON: 11/13/2017 TECHNIQUE: Chest PA and lateral FINDINGS: LUNGS: No active pulmonary disease. PLEURA: No significant pleural effusion identified. No pneumothorax apparent. CARDIOVASCULAR: Moderate cardiomegaly. Pacemaker OSSEOUS STRUCTURES: No significant abnormalities. VISUALIZED UPPER ABDOMEN: Normal. OTHER FINDINGS: None. IMPRESSION: No active disease.
[2017-11-15] MEDS ORDERED: Ergocalciferol 50,000 Intl Units Cap PO SCH (14:15)
--- NOTE | 2017-11-15 14:50 | CP.PCM.PN ---
Subjective - Date & Time of Evaluation Date of Evaluation: 11/15/17 Time of Evaluation: 14:47 - Subjective Subjective: Nephrology Consultation Note: Assessment: Stable Acute Kidney Injury (N17.9) likely hemodynamic due to CHF\decreased oral intake/ drug abuse: resolved Fall abnormal LFT, Anemia chronic sys CHF LVEF 25-30%, hx of PPM/AICD, chronic etoh/smoker/heroin abuse, asthma/COPD vitamin D insuff Plan TIM resolved Hypertension control with meds as ordered. resume RAAS blockade (due to hx of CHF) Monitor Input/Output, daily weights supplement with Vit D 2000 unit per day or can give 50,000 unit once a month Dose meds/antibiotics for GFR>60. Glycemic control Further work up/management as per primary team pt advised to abstain from drugs/etoh/smoking. he needs lifestyle modifications d/c planning as per primary team, stable from renal perspective Thanks for allowing me to participate in care of your patient. Will sign off and follow further as needed basis. Please call if any Qs Dr Arturo Stinson Office: [phone] Chief Complaint; fall HPI: Pt is a 57 M with hx of chronic sys CHF LVEF 25-30%, hx of PPM/AICD, chronic etoh/smoker/heroin abuse, asthma/COPD presented with complaints of fall after drugs and alcohol. renal consult for TIM. pt feels better now. appetite better. denies SOB or urine complaints Denies OTC/herbal meds or NSAIDs No recent iodinated contrast exposure. No obvious episodes of low BP. ROS: Cardiovascular: No chest pain. Pulmonary: No shortness of breath Gastrointestinal: denies abdominal pain No nausea. No vomiting. Genitourinary: No pain while urinating. Denies blood in urine. All other negative except as mentioned in HPI Physical Examination: General Appearance: Comfortable, in no acute respiratory distress, co-operative . Vitals reviewed and noted as below Head; Atraumatic, normocephalic ENT: no ulcers no thrush. Tongue is midline. Oropharynx: no rash or ulcers. EYES: Pupils are equal, round and reactive to light accommodation. Eye muscles and extraocular movement intact. Sclera is anicteric. Neck; supple no lymphadenopathy, no thyromegaly or bruit Lungs: Normal respiratory rate/effort. Breath sounds bilateral equal and clear Heart: Normal rate. s1s2 normal. No rub or gallop. Extremities: no edema. No varicose veins Neurological: Patient is alert, awake and oriented to person, place and time. No focal deficit. Strength bilateral appropriate and equal Skin: Warm and dry. Normal turgor. No rash. Palpitation: Normal elasticity for age Abdomen: Abdomen is soft. Bowel sounds +. There is no abdominal tenderness, no guarding/rigidity no organomegaly Psych: limited insight and flat affect/mood MSK: no joint tenderness or swelling. Digits and nails normal, no deformity : kidney or bladder not palpable Labs/imaging reviewed. Past medical history, past surgical history, family history, social history, allergy reviewed and noted as below Family hx: no hx of CKD. Rest non-contributory renal imaging: WNL UA trace protein no blood HIV/Hep B and C neg Objective - Vital Signs/Intake and Output Vital Signs (last 24 hours): Temp Pulse Resp BP Pulse Ox 98 F 111 H 22 125/89 99 11/15/17 11:33 11/15/17 11:33 11/15/17 11:33 11/15/17 14:36 11/15/17 06:00 Intake and Output: 11/15/17 11/15/17 06:59 18:59 Intake Total 240 840 Output Total 500 Balance 240 340 - Medications Medications: Current Medications Albuterol/Ipratropium (Duoneb 3 Mg/0.5 Mg (3 Ml) Ud) 3 ml IH [id number] [facility] Last Admin: 11/15/17 11:11 Dose: 3 ml Carvedilol (Coreg) 12.5 mg PO BID [facility] Ergocalciferol (Drisdol 50,000 Intl Units Cap) 1 cap PO Q7D [facility] Last Admin: 11/15/17 14:37 Dose: 1 cap Folic Acid (Folic Acid) 1 mg PO DAILY [facility] Last Admin: 11/15/17 10:16 Dose: 1 mg Furosemide (Lasix) 20 mg PO DAILY [facility] Last Admin: 11/15/17 14:36 Dose: 20 mg Heparin Sodium (Porcine) (Heparin) 5,000 units SC Q12 [facility] PRN Reason: Protocol Last Admin: 11/15/17 10:16 Dose: 5,000 units Lisinopril (Zestril) 10 mg PO DAILY [facility] Lorazepam (Ativan) 2 mg IVP Q4H PRN; Protocol PRN Reason: Symptoms of alcohol withdrawl Lorazepam (Ativan) 1 mg IVP Q6 [facility] PRN Reason: Protocol Montelukast Sodium (Singulair) 10 mg PO DAILY [facility] Last Admin: 11/15/17 10:16 Dose: 10 mg Multivitamins/Minerals (Therapeutic-M Tab) 1 tab PO 0800 [facility] Last Admin: 11/15/17 07:50 Dose: 1 tab Spironolactone (Aldactone) 25 mg PO DAILY [facility] Thiamine HCl (Vitamin B1 Tab) 100 mg PO DAILY [facility] Last Admin: 11/15/17 10:16 Dose: 100 mg Trazodone HCl (Desyrel) 100 mg PO HS [facility] Last Admin: 11/14/17 21:10 Dose: 100 mg - Labs Labs: 11/15/17 07:45 11/15/17 07:45 PT 11.7 SECONDS (9.4-12.5) 11/14/17 08:35 INR 1.02 (0.93-1.08) 11/14/17 08:35
--- NOTE | 2017-11-15 17:03 | CP.PCM.PN ---
<Dung Harden - Last Filed: 11/15/17 17:31> Subjective - Date & Time of Evaluation Date of Evaluation: 11/15/17 Time of Evaluation: 17:01 - Subjective Subjective: PGY5 GI Fellow Progress Note Patient seen and examined bedside this afternoon. The patient denies any complaints at this time. He is eager for discharge. Ate dinner without issue. 12 system ROS performed and negative except where stated. Objective - Vital Signs/Intake and Output Vital Signs (last 24 hours): Temp Pulse Resp BP Pulse Ox 98.2 F 116 H 22 135/81 94 L 11/15/17 16:58 11/15/17 16:58 11/15/17 16:58 11/15/17 16:58 11/15/17 16:58 Intake and Output: 11/15/17 11/15/17 06:59 18:59 Intake Total 240 840 Output Total 500 Balance 240 340 - Medications Medications: Current Medications Albuterol/Ipratropium (Duoneb 3 Mg/0.5 Mg (3 Ml) Ud) 3 ml IH [id number] [facility] Last Admin: 11/15/17 16:09 Dose: 3 ml Aspirin (Aspirin Chewable) 81 mg PO DAILY [facility] Last Admin: 11/15/17 16:21 Dose: 81 mg Carvedilol (Coreg) 12.5 mg PO BID [facility] Ergocalciferol (Drisdol 50,000 Intl Units Cap) 1 cap PO Q7D [facility] Last Admin: 11/15/17 14:37 Dose: 1 cap Folic Acid (Folic Acid) 1 mg PO DAILY [facility] Last Admin: 11/15/17 10:16 Dose: 1 mg Furosemide (Lasix) 20 mg PO DAILY [facility] Last Admin: 11/15/17 14:36 Dose: 20 mg Heparin Sodium (Porcine) (Heparin) 5,000 units SC Q12 [facility] PRN Reason: Protocol Last Admin: 11/15/17 10:16 Dose: 5,000 units Lisinopril (Zestril) 10 mg PO DAILY [facility] Last Admin: 11/15/17 16:21 Dose: 10 mg Lorazepam (Ativan) 2 mg IVP Q4H PRN; Protocol PRN Reason: Symptoms of alcohol withdrawl Lorazepam (Ativan) 1 mg IVP Q6 [facility] PRN Reason: Protocol Montelukast Sodium (Singulair) 10 mg PO DAILY [facility] Last Admin: 11/15/17 10:16 Dose: 10 mg Multivitamins/Minerals (Therapeutic-M Tab) 1 tab PO 0800 [facility] Last Admin: 11/15/17 07:50 Dose: 1 tab Spironolactone (Aldactone) 25 mg PO DAILY [facility] Last Admin: 11/15/17 16:21 Dose: 25 mg Thiamine HCl (Vitamin B1 Tab) 100 mg PO DAILY [facility] Last Admin: 11/15/17 10:16 Dose: 100 mg Trazodone HCl (Desyrel) 100 mg PO HS [facility] Last Admin: 11/14/17 21:10 Dose: 100 mg - Labs Labs: 11/15/17 07:45 11/15/17 07:45 PT 11.7 SECONDS (9.4-12.5) 11/14/17 08:35 INR 1.02 (0.93-1.08) 11/14/17 08:35 - Constitutional Appears: Non-toxic, No Acute Distress - Eye Exam Eye Exam: EOMI, PERRL - ENT Exam ENT Exam: Mucous Membranes Moist - Respiratory Exam Respiratory Exam: Clear to Ausculation Bilateral. absent: Rales, Rhonchi, Wheezes - Cardiovascular Exam Cardiovascular Exam: RRR, +S1, +S2 - GI/Abdominal Exam GI & Abdominal Exam: Soft, Normal Bowel Sounds. absent: Distended, Firm, Guarding, Rigid, Tenderness, Organomegaly - Extremities Exam Extremities Exam: Normal Inspection. absent: Pedal Edema - Neurological Exam Neurological Exam: Alert, Awake, Oriented x3 - Psychiatric Exam Psychiatric exam: Normal Affect, Normal Mood - Skin Skin Exam: Dry, Warm Assessment and Plan - Assessment and Plan (Free Text) Assessment: Patient is a 57yo male with PMHx significant for polysubstance abuse (EtOH, heroin, benzodiazepines), COPD on O2 at home, bipolar disorder, asthma who presented to the hospital after being found unresponsive from a drug overdose -Opiate overdose -Elevated LFTs - likely result of acute alcohol intoxication with possible ischemic component given overdose -Dilated CBD -TIM Plan: -Elevated LFTs likely a result of recent alcohol ingestion, opiate overdose may have contributed to hepatitis -CBD dilation likely a result of chronic opiate use - heroin/suboxone; no evidence for obstructive disease on imaging/blood work -Autoimmune serologies pending: AMA negative -Hepatitis serologies negative, Immunoglobulins WNL -Diet as tolerated -EtOH/illicit drug cessation stressed -OK for D/C from GI standpoint -Will sign off. Thank you for allowing us to participate in the care of your patient. <Philip Jean - Last Filed: 11/15/17 19:46> Objective - Vital Signs/Intake and Output Vital Signs (last 24 hours): Temp Pulse Resp BP Pulse Ox 98.2 F 116 H 22 135/81 94 L 11/15/17 16:58 11/15/17 18:00 11/15/17 16:58 11/15/17 17:27 11/15/17 16:58 Intake and Output: 11/15/17 11/16/17 18:59 06:59 Intake Total 840 Output Total 500 Balance 340 - Medications Medications: Current Medications Albuterol/Ipratropium (Duoneb 3 Mg/0.5 Mg (3 Ml) Ud) 3 ml IH [id number] [facility] Last Admin: 11/15/17 16:09 Dose: 3 ml Aspirin (Aspirin Chewable) 81 mg PO DAILY [facility] Last Admin: 11/15/17 16:21 Dose: 81 mg Carvedilol (Coreg) 12.5 mg PO BID [facility] Last Admin: 11/15/17 17:27 Dose: 12.5 mg Ergocalciferol (Drisdol 50,000 Intl Units Cap) 1 cap PO Q7D [facility] Last Admin: 11/15/17 14:37 Dose: 1 cap Folic Acid (Folic Acid) 1 mg PO DAILY [facility] Last Admin: 11/15/17 10:16 Dose: 1 mg Furosemide (Lasix) 20 mg PO DAILY [facility] Last Admin: 11/15/17 14:36 Dose: 20 mg Heparin Sodium (Porcine) (Heparin) 5,000 units SC Q12 [facility] PRN Reason: Protocol Last Admin: 11/15/17 10:16 Dose: 5,000 units Lisinopril (Zestril) 10 mg PO DAILY [facility] Last Admin: 11/15/17 16:21 Dose: 10 mg Lorazepam (Ativan) 2 mg IVP Q4H PRN; Protocol PRN Reason: Symptoms of alcohol withdrawl Lorazepam (Ativan) 1 mg IVP Q6 [facility] PRN Reason: Protocol Last Admin: 11/15/17 17:27 Dose: 1 mg Montelukast Sodium (Singulair) 10 mg PO DAILY [facility] Last Admin: 11/15/17 10:16 Dose: 10 mg Multivitamins/Minerals (Therapeutic-M Tab) 1 tab PO 0800 [facility] Last Admin: 11/15/17 07:50 Dose: 1 tab Pantoprazole Sodium (Protonix Ec Tab) 20 mg PO 0600 [facility] Last Admin: 11/15/17 18:48 Dose: 20 mg Spironolactone (Aldactone) 25 mg PO DAILY [facility] Last Admin: 11/15/17 16:21 Dose: 25 mg Thiamine HCl (Vitamin B1 Tab) 100 mg PO DAILY [facility] Last Admin: 11/15/17 10:16 Dose: 100 mg Trazodone HCl (Desyrel) 100 mg PO HS [facility] Last Admin: 11/14/17 21:10 Dose: 100 mg - Labs Labs: 11/15/17 07:45 11/15/17 07:45 PT 11.7 SECONDS (9.4-12.5) 11/14/17 08:35 INR 1.02 (0.93-1.08) 11/14/17 08:35 Attending/Attestation - Attestation I have personally seen and examined this patient.: Yes I have fully participated in the care of the patient.: Yes I have reviewed all pertinent clinical information, including history, physical exam and plan: Yes Notes (Text): 11/15/17 19:45 57 year old male with heroin and Etoh abuse. Elevated lfts due to alcohol intoxication now down trending. Recommend ETOH cessation. CBD dilated as well, incidentally noted. No abdomianl pain. May be due to narcotic abuse. Hepatitis and autoimmune serologies negative. Will sign off at this time.
--- NOTE | 2017-11-15 17:12 | CP.PCM.PN ---
Subjective - Date & Time of Evaluation Date of Evaluation: 11/15/17 Time of Evaluation: 07:50 - Subjective Subjective: Patient seen and examined at bedside in no acute distress. Patient states he slept like a "baby" for the first time in a long time. Denies shortness of breath, palpitations, chest pain, nausea, vomiting, diarrhea. Objective - Vital Signs/Intake and Output Vital Signs (last 24 hours): Temp Pulse Resp BP Pulse Ox 98.2 F 116 H 22 135/81 94 L 11/15/17 16:58 11/15/17 16:58 11/15/17 16:58 11/15/17 16:58 11/15/17 16:58 Intake and Output: 11/15/17 11/15/17 06:59 18:59 Intake Total 240 840 Output Total 500 Balance 240 340 - Medications Medications: Current Medications Albuterol/Ipratropium (Duoneb 3 Mg/0.5 Mg (3 Ml) Ud) 3 ml IH [id number] [facility] Last Admin: 11/15/17 16:09 Dose: 3 ml Aspirin (Aspirin Chewable) 81 mg PO DAILY [facility] Last Admin: 11/15/17 16:21 Dose: 81 mg Carvedilol (Coreg) 12.5 mg PO BID [facility] Ergocalciferol (Drisdol 50,000 Intl Units Cap) 1 cap PO Q7D [facility] Last Admin: 11/15/17 14:37 Dose: 1 cap Folic Acid (Folic Acid) 1 mg PO DAILY [facility] Last Admin: 11/15/17 10:16 Dose: 1 mg Furosemide (Lasix) 20 mg PO DAILY [facility] Last Admin: 11/15/17 14:36 Dose: 20 mg Heparin Sodium (Porcine) (Heparin) 5,000 units SC Q12 [facility] PRN Reason: Protocol Last Admin: 11/15/17 10:16 Dose: 5,000 units Lisinopril (Zestril) 10 mg PO DAILY [facility] Last Admin: 11/15/17 16:21 Dose: 10 mg Lorazepam (Ativan) 2 mg IVP Q4H PRN; Protocol PRN Reason: Symptoms of alcohol withdrawl Lorazepam (Ativan) 1 mg IVP Q6 [facility] PRN Reason: Protocol Montelukast Sodium (Singulair) 10 mg PO DAILY [facility] Last Admin: 06/13/18 10:16 Dose: 10 mg Multivitamins/Minerals (Therapeutic-M Tab) 1 tab PO 0800 [facility] Last Admin: 11/15/17 07:50 Dose: 1 tab Spironolactone (Aldactone) 25 mg PO DAILY [facility] Last Admin: 11/15/17 16:21 Dose: 25 mg Thiamine HCl (Vitamin B1 Tab) 100 mg PO DAILY [facility] Last Admin: 11/15/17 10:16 Dose: 100 mg Trazodone HCl (Desyrel) 100 mg PO HS [facility] Last Admin: 11/14/17 21:10 Dose: 100 mg - Labs Labs: 11/15/17 07:45 11/15/17 07:45 PT 11.7 SECONDS (9.4-12.5) 11/14/17 08:35 INR 1.02 (0.93-1.08) 11/14/17 08:35 - Head Exam Head Exam: ATRAUMATIC, NORMAL INSPECTION, NORMOCEPHALIC - Eye Exam Eye Exam: EOMI, Normal appearance - ENT Exam ENT Exam: Mucous Membranes Moist, Normal Exam - Neck Exam Neck Exam: Full ROM - Respiratory Exam Respiratory Exam: Rales - Cardiovascular Exam Cardiovascular Exam: REGULAR RHYTHM - GI/Abdominal Exam GI & Abdominal Exam: Soft, Normal Bowel Sounds - Extremities Exam Extremities Exam: Normal Inspection - Back Exam Back Exam: NORMAL INSPECTION - Neurological Exam Neurological Exam: Alert, Awake, Oriented x3 - Psychiatric Exam Psychiatric exam: Normal Affect, Normal Mood - Skin Skin Exam: Normal Color, Warm Assessment and Plan - Assessment and Plan (Free Text) Assessment: 57M w/ pmhx significant for AICD 2/2 chronic CHF w/ decreased LVEF, ETOH dependence, polysubtance abuse (inhalded heroin, and benzo) on home O2, admitted for drug overdose. EKG shows prolonged QT interval, repeat EKG shows similar changes w/ QT < 550ms. On [facility] protocol. Plan: Alcohol Abuse - [facility] protocol - Ativan 1 mg Q6H [facility] - Ativan 2 mg Q4H prn symptoms of alcohol withdrawal - PO folate, thiamine, MVI QT interval prolongation - Continue to hold pt home medication that causes prolongation of QT intervals Transaminitis - dilated CBD on imaging - elevation of liver enzymes 2/2 chronic ETOH use - dilated CBD most likely 2/2 chronic opiate use - No MRCP as patient has pacemaker, will follow up as outpatient with GI for further evaluation Tobacco and ETOH dependence - discussed in detailed the risks of continuing to drink alcohol. counselled on cessation. Hx COPD - Scheduled Duo-nebs - 2.5L of O2 NC in house CHF w/ decreased LVEF - Resume all diuretics (will decrease lasix dose from 40 mg to 20 mg) - Will resume carvedilol and lisinopril Hyperlipidemia - Will hold off on statins until transaminitis improves PPX: Protonix DVT: Heparin Case discussed in detail w/ Dr. Isaac Medical attending Kevin Domínguez PGY1
[2017-11-15] MEDS: Pantoprazole 20 mg EC Tab PO SCH (18:48)
[2017-11-16 00:31] VITALS: RESP 20
[2017-11-16] MEDS: Albuterol-Ipratrop 3 mg / 0.5 (3 ml) UD IH SCH ×3 (05:10→11:27)
[2017-11-16] MEDS: Pantoprazole 20 mg EC Tab PO SCH (05:10)
[2017-11-16 05:47] VITALS: TEMP 98.9; O2SAT 96
--- NOTE | 2017-11-16 06:58 | CP.PCM.DIS ---
<Peng Moore - Last Filed: 11/16/17 13:38> Provider - Provider Date of Admission: 11/14/17 15:18 Attending physician: Yaya Isaac MD Time Spent in preparation of Discharge (in minutes): 50 Hospital Course - Lab Results Lab Results: Most Recent Lab Values WBC 5.9 10^3/ul (4.5-11.0) D 11/15/17 07:45 RBC 3.60 10^6/uL (3.5-6.1) 11/15/17 07:45 Hgb 9.5 g/dL (14.0-18.0) L 11/15/17 07:45 Hct 31.2 % (42.0-52.0) L 11/15/17 07:45 MCV 86.7 fl (80.0-105.0) 11/15/17 07:45 MCH 26.4 pg (25.0-35.0) 11/15/17 07:45 MCHC 30.4 g/dl (31.0-37.0) L 11/15/17 07:45 RDW 18.4 % (11.5-14.5) H 11/15/17 07:45 Plt Count 126 10^3/uL (120.0-450.0) 11/15/17 07:45 MPV 9.5 fl (7.0-11.0) 11/15/17 07:45 Gran % 56.6 % (50.0-68.0) 11/15/17 07:45 Lymph % (Auto) 33.6 % (22.0-35.0) 11/15/17 07:45 Wake % (Auto) 5.7 % (1.0-6.0) 11/15/17 07:45 Eos % (Auto) 3.9 % (1.5-5.0) 11/15/17 07:45 Baso % (Auto) 0.2 % (0.0-3.0) 11/15/17 07:45 Gran # 3.35 (1.4-6.5) 11/15/17 07:45 Lymph # (Auto) 2.0 (1.2-3.4) 11/15/17 07:45 Wake # (Auto) 0.3 (0.1-0.6) 11/15/17 07:45 Eos # (Auto) 0.2 (0.0-0.7) 11/15/17 07:45 Baso # (Auto) 0.01 K/mm3 (0.0-2.0) 11/15/17 07:45 PT 11.7 SECONDS (9.4-12.5) 11/14/17 08:35 INR 1.02 (0.93-1.08) 11/14/17 08:35 Sodium 139 mmol/L (132-148) 11/15/17 07:45 Potassium 4.0 mmol/L (3.6-5.0) 11/15/17 07:45 Chloride 105 mmol/L (98-107) 11/15/17 07:45 Carbon Dioxide 27 mmol/L (21-33) 11/15/17 07:45 Anion Gap 11 (10-20) 11/15/17 07:45 BUN 16 mg/dL (7-21) 11/15/17 07:45 Creatinine 1.0 mg/dl (0.8-1.5) 11/15/17 07:45 Est GFR ( Amer) > 60 11/15/17 07:45 Est GFR (Non-Af Amer) > 60 11/15/17 07:45 Random Glucose 106 mg/dL (70-110) 11/15/17 07:45 Calcium 8.5 mg/dL (8.4-10.5) 11/15/17 07:45 Phosphorus 2.9 mg/dL (2.5-4.5) 11/15/17 07:45 Magnesium 2.1 mg/dL (1.7-2.2) 11/15/17 07:45 Iron 168 ug/dL (45-180) 11/14/17 16:00 TIBC 291 ug/dL (261-462) 11/14/17 16:00 % Saturation 58 % (20-55) H 11/14/17 16:00 Ferritin 691.0 ng/mL 11/14/17 16:00 Total Bilirubin 0.2 mg/dL (0.2-1.3) 11/15/17 07:45 AST 219 U/L (17-59) H D 11/15/17 07:45 ALT 178 U/L (7-56) H 11/15/17 07:45 Alkaline Phosphatase 92 U/L (38-126) 11/15/17 07:45 Total Creatine Kinase 136 U/L (35-230) 11/13/17 17:27 Troponin I 0.01 ng/mL D 11/14/17 16:00 Total Protein 6.0 g/dL (5.8-8.3) 11/15/17 07:45 Albumin 3.2 g/dL (3.0-4.8) 11/15/17 07:45 Globulin 2.8 gm/dL 11/15/17 07:45 Albumin/Globulin Ratio 1.2 (1.1-1.8) 11/15/17 07:45 Lipase 417 U/L (23-300) H 11/13/17 17:05 25-OH Vitamin D Total 24.9 NG/ML (30.0-100.0) L 11/14/17 16:00 PTH Intact Whole Molec 38 pg/mL (14-64) 11/14/17 16:00 Urine Color Yellow (YELLOW) 11/13/17 19:52 Urine Appearance Clear (CLEAR) 11/13/17 19:52 Urine pH 6.0 (4.7-8.0) 11/13/17 19:52 Ur Specific [place] 1.015 (1.005-1.035) 11/13/17 19:52 Urine Protein Trace mg/dL (<30 mg/dL) H 11/13/17 19:52 Urine Glucose (UA) Negative mg/dL (NEGATIVE) 11/13/17 19:52 Urine Ketones Negative mg/dL (NEGATIVE) 11/13/17 19:52 Urine Blood Negative (NEGATIVE) 11/13/17 19:52 Urine Nitrate Negative (NEGATIVE) 11/13/17 19:52 Urine Bilirubin Negative (NEGATIVE) 11/13/17 19:52 Urine Urobilinogen 0.2 E.U./dL (<1 E.U./dL) 11/13/17 19:52 Ur Leukocyte Esterase Negative Rissa/uL (NEGATIVE) 11/13/17 19:52 Urine RBC 0 - 2 /hpf (0-2) 11/13/17 19:52 Urine WBC 0 - 2 /hpf (0-6) 11/13/17 19:52 Ur Epithelial Cells None /hpf (0-5) 11/13/17 19:52 Urine Bacteria Few (NEG) 11/13/17 19:52 Salicylates < 1 mg/dL (2.0-20.0) L 11/13/17 17:27 Urine Opiates Screen Positive (NEGATIVE) H 11/13/17 19:52 Urine Methadone Screen Negative (NEGATIVE) 11/13/17 19:52 Acetaminophen < 10.0 ug/ml (10.0-20.0) L 11/13/17 17:27 Ur Barbiturates Screen Negative (NEGATIVE) 11/13/17 19:52 Ur Phencyclidine Scrn Negative (NEGATIVE) 11/13/17 19:52 Ur Amphetamines Screen Negative (NEGATIVE) 11/13/17 19:52 U Benzodiazepines Scrn Negative (NEGATIVE) 11/13/17 19:52 U Oth Cocaine Metabols Negative (NEGATIVE) 11/13/17 19:52 U Cannabinoids Screen Negative (NEGATIVE) 11/13/17 19:52 Alcohol, Quantitative 175 mg/dL (0-10) H 11/13/17 17:27 IgG 1114.0 mg/dL (700.0-1600.0) 11/14/17 06:30 IgA 321.5 mg/dL (70.0-400.0) 11/14/17 06:30 IgM 114.1 mg/dL (40.0-230.0) 11/14/17 06:30 Anti-Mitochondrial Ab Negative (Negative) 11/14/17 06:30 Hepatitis A IgM Ab Negative (NEGATIVE) 11/14/17 08:30 Hep Bs Antigen Negative (NEGATIVE) 11/14/17 08:30 Hep B Core IgM Ab Negative (NEGATIVE) 11/14/17 08:30 Hepatitis C Antibody Negative (NEGATIVE) 11/14/17 08:30 - Hospital Course Hospital Course: 57M w/ pmhx significant for AICD 2/2 chronic CHF w/ decreased LVEF, COPD on home oxygen, bipolar disorder, ETOH dependence, polysubtance abuse (inhaled heroin, ETOH, and benzo) on home O2, admitted for drug overdose. EKG shows prolonged QT interval, repeat EKG shows similar changes w/ QT < 550ms. Medications that prolong QT intervals held during hospital stay. Started on CIWA protocol. During hospital course, patient received scheduled ativan and tapered down. Most recent CIWA score is 2. Patient had TIM 2/2 dehydration. Nephrology was consulted. All recs were appreciated. TIM resolved after proper hydration. Dilated CBD due to chronic opiate use. No intervention needed or indicated at this time. Denies current: chest pain, shortness of breath, heart palpitations, nausea, vomiting, diarrhea Counselled patient in detail for cessation of alcohol and polysubstance abuse. Explained the risks including . Discharge Exam - Head Exam Head Exam: ATRAUMATIC, NORMAL INSPECTION, NORMOCEPHALIC - Eye Exam Eye Exam: EOMI. absent: Scleral icterus - Respiratory Exam Respiratory Exam: NORMAL BREATHING PATTERN. absent: Accessory Muscle Use, Rales , Rhonchi, Wheezes, Respiratory Distress, Stridor - Cardiovascular Exam Cardiovascular Exam: +S1, +S2. absent: Bradycardia, Tachycardia - GI/Abdominal Exam GI & Abdominal Exam: Soft. absent: Distended, Firm, Rebound, Rigid, Tenderness - Extremities Exam Extremities exam: normal inspection - Back Exam Back exam: absent: CVA tenderness (L), CVA tenderness (R) - Neurological Exam Neurological exam: Alert, Oriented x3 - Psychiatric Exam Psychiatric exam: Normal Affect - Skin Skin Exam: Intact, Warm Discharge Plan - Discharge Medications Prescriptions: Ergocalciferol [Drisdol] 50,000 iu PO ONCE #1 cap Multivitamin/Iron/Folic Acid [Centrum Complete Multivit Tab] 1 each PO DAILY # 20 tablet Thiamine [Vitamin B1 Tab] 100 mg PO DAILY #20 tab - Follow Up Plan Condition: FAIR Disposition: HOME/ ROUTINE Instructions: Drug Abuse and Drug Addiction (DC), Alcohol Abuse and Alcoholism (DC), Liver Function Test, Renal Failure Diet (DC) Additional Instructions: *Recommend cessation of all alcohol and recreational drug use. Take one tablet of Vitamin D [id number] then follow up with primary care doctor as an outpatient to continue to monitr D3 levels. *Resume current medications. Referrals: Amee Song MD [Staff Provider] - <Fracisco Cochran - Last Filed: 11/17/17 16:20> Provider - Provider Date of Admission: 11/14/17 15:18 Attending physician: Yaya Isaac MD Hospital Course - Lab Results Lab Results: Most Recent Lab Values WBC 5.9 10^3/ul (4.5-11.0) D 11/15/17 07:45 RBC 3.60 10^6/uL (3.5-6.1) 11/15/17 07:45 Hgb 9.5 g/dL (14.0-18.0) L 11/15/17 07:45 Hct 31.2 % (42.0-52.0) L 11/15/17 07:45 MCV 86.7 fl (80.0-105.0) 11/15/17 07:45 MCH 26.4 pg (25.0-35.0) 11/15/17 07:45 MCHC 30.4 g/dl (31.0-37.0) L 11/15/17 07:45 RDW 18.4 % (11.5-14.5) H 11/15/17 07:45 Plt Count 126 10^3/uL (120.0-450.0) 11/15/17 07:45 MPV 9.5 fl (7.0-11.0) 11/15/17 07:45 Gran % 56.6 % (50.0-68.0) 11/15/17 07:45 Lymph % (Auto) 33.6 % (22.0-35.0) 11/15/17 07:45 Wake % (Auto) 5.7 % (1.0-6.0) 11/15/17 07:45 Eos % (Auto) 3.9 % (1.5-5.0) 11/15/17 07:45 Baso % (Auto) 0.2 % (0.0-3.0) 11/15/17 07:45 Gran # 3.35 (1.4-6.5) 11/15/17 07:45 Lymph # (Auto) 2.0 (1.2-3.4) 11/15/17 07:45 Wake # (Auto) 0.3 (0.1-0.6) 11/15/17 07:45 Eos # (Auto) 0.2 (0.0-0.7) 11/15/17 07:45 Baso # (Auto) 0.01 K/mm3 (0.0-2.0) 11/15/17 07:45 PT 11.7 SECONDS (9.4-12.5) 11/14/17 08:35 INR 1.02 (0.93-1.08) 11/14/17 08:35 Sodium 139 mmol/L (132-148) 11/15/17 07:45 Potassium 4.0 mmol/L (3.6-5.0) 11/15/17 07:45 Chloride 105 mmol/L (98-107) 11/15/17 07:45 Carbon Dioxide 27 mmol/L (21-33) 11/15/17 07:45 Anion Gap 11 (10-20) 11/15/17 07:45 BUN 16 mg/dL (7-21) 11/15/17 07:45 Creatinine 1.0 mg/dl (0.8-1.5) 11/15/17 07:45 Est GFR ( Amer) > 60 11/15/17 07:45 Est GFR (Non-Af Amer) > 60 11/15/17 07:45 Random Glucose 106 mg/dL (70-110) 11/15/17 07:45 Calcium 8.5 mg/dL (8.4-10.5) 11/15/17 07:45 Phosphorus 2.9 mg/dL (2.5-4.5) 11/15/17 07:45 Magnesium 2.1 mg/dL (1.7-2.2) 11/15/17 07:45 Iron 168 ug/dL (45-180) 11/14/17 16:00 TIBC 291 ug/dL (261-462) 11/14/17 16:00 % Saturation 58 % (20-55) H 11/14/17 16:00 Ferritin 691.0 ng/mL 11/14/17 16:00 Total Bilirubin 0.2 mg/dL (0.2-1.3) 11/15/17 07:45 AST 219 U/L (17-59) H D 11/15/17 07:45 ALT 178 U/L (7-56) H 11/15/17 07:45 Alkaline Phosphatase 92 U/L (38-126) 11/15/17 07:45 Total Creatine Kinase 136 U/L (35-230) 11/13/17 17:27 Troponin I 0.01 ng/mL D 11/14/17 16:00 Total Protein 6.0 g/dL (5.8-8.3) 11/15/17 07:45 Albumin 3.2 g/dL (3.0-4.8) 11/15/17 07:45 Globulin 2.8 gm/dL 11/15/17 07:45 Albumin/Globulin Ratio 1.2 (1.1-1.8) 11/15/17 07:45 Lipase 417 U/L (23-300) H 11/13/17 17:05 25-OH Vitamin D Total 24.9 NG/ML (30.0-100.0) L 11/14/17 16:00 PTH Intact Whole Molec 38 pg/mL (14-64) 11/14/17 16:00 Urine Color Yellow (YELLOW) 11/13/17 19:52 Urine Appearance Clear (CLEAR) 11/13/17 19:52 Urine pH 6.0 (4.7-8.0) 11/13/17 19:52 Ur Specific [place] 1.015 (1.005-1.035) 11/13/17 19:52 Urine Protein Trace mg/dL (<30 mg/dL) H 11/13/17 19:52 Urine Glucose (UA) Negative mg/dL (NEGATIVE) 11/13/17 19:52 Urine Ketones Negative mg/dL (NEGATIVE) 11/13/17 19:52 Urine Blood Negative (NEGATIVE) 11/13/17 19:52 Urine Nitrate Negative (NEGATIVE) 11/13/17 19:52 Urine Bilirubin Negative (NEGATIVE) 11/13/17 19:52 Urine Urobilinogen 0.2 E.U./dL (<1 E.U./dL) 11/13/17 19:52 Ur Leukocyte Esterase Negative Rissa/uL (NEGATIVE) 11/13/17 19:52 Urine RBC 0 - 2 /hpf (0-2) 11/13/17 19:52 Urine WBC 0 - 2 /hpf (0-6) 11/13/17 19:52 Ur Epithelial Cells None /hpf (0-5) 11/13/17 19:52 Urine Bacteria Few (NEG) 11/13/17 19:52 Salicylates < 1 mg/dL (2.0-20.0) L 11/13/17 17:27 Urine Opiates Screen Positive (NEGATIVE) H 11/13/17 19:52 Urine Methadone Screen Negative (NEGATIVE) 11/13/17 19:52 Acetaminophen < 10.0 ug/ml (10.0-20.0) L 11/13/17 17:27 Ur Barbiturates Screen Negative (NEGATIVE) 11/13/17 19:52 Ur Phencyclidine Scrn Negative (NEGATIVE) 11/13/17 19:52 Ur Amphetamines Screen Negative (NEGATIVE) 11/13/17 19:52 U Benzodiazepines Scrn Negative (NEGATIVE) 11/13/17 19:52 U Oth Cocaine Metabols Negative (NEGATIVE) 11/13/17 19:52 U Cannabinoids Screen Negative (NEGATIVE) 11/13/17 19:52 Alcohol, Quantitative 175 mg/dL (0-10) H 11/13/17 17:27 IgG 1114.0 mg/dL (700.0-1600.0) 11/14/17 06:30 IgA 321.5 mg/dL (70.0-400.0) 11/14/17 06:30 IgM 114.1 mg/dL (40.0-230.0) 11/14/17 06:30 MICHAEL Screen Negative (Negative) 11/14/17 06:30 MICHAEL Titer TEST NOT PERFORMED 11/14/17 06:30 MICHAEL Titer 2 TEST NOT PERFORMED 11/14/17 06:30 MICHAEL Pattern TEST NOT PERFORMED 11/14/17 06:30 MICHAEL Pattern 2 TEST NOT PERFORMED 11/14/17 06:30 Anti-Mitochondrial Ab Negative (Negative) 11/14/17 06:30 Smooth Muscle Ab Titer 1:80 Titer (< 1:20) H 11/14/17 06:30 Anti-Smooth Muscle Ab Positive (Negative) H 11/14/17 06:30 Hepatitis A IgM Ab Negative (NEGATIVE) 11/14/17 08:30 Hep Bs Antigen Negative (NEGATIVE) 11/14/17 08:30 Hep B Core IgM Ab Negative (NEGATIVE) 11/14/17 08:30 Hepatitis C Antibody Negative (NEGATIVE) 11/14/17 08:30 Attending/Attestation - Attestation I have personally seen and examined this patient.: Yes I have fully participated in the care of the patient.: Yes I have reviewed all pertinent clinical information, including history, physical exam and plan: Yes Notes (Text): 57M w/ pmhx significant for AICD 2/2 chronic CHF w/ decreased LVEF, COPD on home oxygen, bipolar disorder, ETOH dependence, polysubtance abuse (inhaled heroin, ETOH, and benzo) on home O2, admitted for drug overdose.
[2017-11-16] MEDS: Multivitamin With Minerals Tab PO SCH (09:44)
[2017-11-16 09:49] VITALS: BP 113/70; PULSE 102
== END 2017-11-16 12:59 | disposition home or self-care (01) | DRG 582 ==
LOC: ED 16:36 → ERH 20:18 → 2RSO 11-14 02:18 → OBSVTOIN 11-14 15:18
PROVIDERS: ADMIT Internal Medicine; ATTEND Internal Medicine
PROC: 3E0F7GC Introduction of Other Therapeutic Substance into Respiratory Tract, Via Natural or Artificial Opening (ICD-10-PCS; principal; 2017-11-14)
DX: T51.91XA Toxic effect of unspecified alcohol, accidental (unintentional), initial encounter (principal); T40.1X1A Poisoning by heroin, accidental (unintentional), initial encounter; T42.4X1A Poisoning by benzodiazepines, accidental (unintentional), initial encounter; N17.9 Acute kidney failure, unspecified; I50.22 Chronic systolic (congestive) heart failure; E86.0 Dehydration; J44.9 Chronic obstructive pulmonary disease, unspecified; I11.0 Hypertensive heart disease with heart failure; F11.10 Opioid abuse, uncomplicated; K83.8 Other specified diseases of biliary tract; F31.9 Bipolar disorder, unspecified; F10.20 Alcohol dependence, uncomplicated; K70.10 Alcoholic hepatitis without ascites; F17.210 Nicotine dependence, cigarettes, uncomplicated; Y90.6 Blood alcohol level of 120-199 mg/100 ml; Z99.81 Dependence on supplemental oxygen; Z95.0 Presence of cardiac pacemaker

== ENCOUNTER 2018-10-03 20:33 | Inpatient (IN) | payer MEDICAID ==
[2018-10-03] MEDS ORDERED: Albuterol-Ipratrop 3 mg / 0.5 (3 ml) UD IH STA ×2 (20:43→21:04)
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
[2018-10-03] MEDS ORDERED: Naloxone 0.4 mg/ml Inj (Adult) IVP STA (20:44)
[2018-10-03] MEDS ORDERED: Naloxone 0.4 mg/ml Inj (Adult) ONE (20:45)
[2018-10-03] MEDS ORDERED: Albuterol-Ipratrop 3 mg / 0.5 (3 ml) UD ONE (20:45)
[2018-10-03 21:05] LABS: HEMOGLOBIN 9.5 g/dL (14.0-18.0); MEAN CELL VOLUME 106.3 fl (80.0-105.0); MEAN CORPUSCULAR HEMOGLOBIN 29.7 pg (25.0-35.0); MEAN CORPUSCULAR HGB CONC 27.9 g/dl (31.0-37.0); MEAN PLATELET VOLUME 9.4 fl (7.0-11.0); RBC 3.2 10^6/uL (3.5-6.1); WHITE BLOOD COUNT 10.7 10^3/uL (4.5-11.0)
[2018-10-03 21:21] LABS: ALB/GLOB RATIO 1.1 (1.1-1.8); ALBUMIN 4.1 g/dL (3.0-4.8); CALCIUM 8.9 mg/dL (8.4-10.5)
[2018-10-03] MEDS ORDERED: Dextrose 50% SYRINGE Inj (50 ml) IVP ONE (21:23)
[2018-10-03] MEDS ORDERED: Insulin Regular 1 UNITS/0.01 ML ML IVP STA (21:23)
[2018-10-03] MEDS ORDERED: Sodium Bicarbonate (8.4%) 50 Meq Syringe IVP ONE ×2 (21:23→21:29)
[2018-10-03] MEDS ORDERED: Albuterol 0.083% Inhal Sol (2.5 mg/3 mL) UD IH STA (21:27)
[2018-10-03 21:28] LABS: INR 1.02; PARTIAL THROMBOPLASTIN TIME 30.2 Seconds (26.9-38.3); PROTHROMBIN TIME 11.3 SECONDS (9.4-12.5)
[2018-10-03] MEDS ORDERED: Insulin Regular 1 UNITS/0.01 ML ML ONE (21:30)
[2018-10-03] MEDS ORDERED: Dextrose 50% SYRINGE Inj (50 ml) ONE (21:31)
[2018-10-03] MEDS ORDERED: Albuterol 0.083% Inhal Sol (2.5 mg/3 mL) UD ONE (21:33)
[2018-10-03 21:44] LABS: CK-MB 2.6 ng/mL (0.0-3.6); TROPONIN I 0.13 ng/mL
[2018-10-03 23:26] LABS: BARBITURATES, UR POSITIVE (NEGATIVE); BENZODIAZEPINES, UR POSITIVE (NEGATIVE); OPIATES, UR POSITIVE (NEGATIVE); PHENCYCLIDINE, UR NEGATIVE (NEGATIVE)
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
[2018-10-04] MEDS: Albuterol-Ipratrop 3 mg / 0.5 (3 ml) UD IH PRN ×2 (00:15→04:35)
[2018-10-04] MEDS ORDERED: Sodium Chloride 0.9% 1,000 ML IV SCH ×2 (01:00→05:49)
[2018-10-04] MEDS ORDERED: Enoxaparin 40 mg Syringe SC SCH (01:00)
[2018-10-04 01:11] VITALS: BMI 31.0
[2018-10-04] MEDS: MethylPREDNISolone 40 mg Vial IVP SCH ×3 (01:32→21:45)
[2018-10-04] MEDS ORDERED: Albuterol-Ipratrop 3 mg / 0.5 (3 ml) UD IH SCH ×3 (02:00→14:00)
[2018-10-04 03:05] LABS: CALCIUM 9.3 mg/dL (8.4-10.5); TROPONIN I 0.14 ng/mL
[2018-10-04] MEDS ORDERED: Sodium Bicarbonate (8.4%) 50 Meq Syringe IVP ONE (04:32)
[2018-10-04] MEDS ORDERED: Albuterol 0.083% Inhal Sol (2.5 mg/3 mL) UD INH STA (04:32)
[2018-10-04] MEDS ORDERED: Dextrose 50% SYRINGE Inj (50 ml) IVP ONE (04:32)
[2018-10-04] MEDS ORDERED: Insulin Regular 1 UNITS/0.01 ML ML IVP STA ×2 (04:32→09:51)
[2018-10-04] MEDS ORDERED: Levalbuterol 0.63 MG/3 ML Inhal Soln UD IH PRN (05:47)
[2018-10-04] MEDS ORDERED: Dextrose 50% SYRINGE Inj (50 ml) IV PRN (07:27)
[2018-10-04] MEDS: Budesonide 0.5 mg/2 ml Inhal Susp UD IH SCH ×3 (07:48→19:47)
[2018-10-04] MEDS: Arformoterol 15 mcg/2 ml Inh Sol IH SCH ×3 (07:48→19:47)
--- NOTE | 2018-10-04 08:58 | RAD ---
Date of service: 10/03/2018 HISTORY: sob COMPARISON: 11/15/2017 TECHNIQUE: 1 view obtained. FINDINGS: LUNGS: No active pulmonary disease. PLEURA: No significant pleural effusion identified, no pneumothorax apparent. CARDIOVASCULAR: No aortic atherosclerotic calcification present. Moderate cardiomegaly no pulmonary vascular congestion. OSSEOUS STRUCTURES: No significant abnormalities. VISUALIZED UPPER ABDOMEN: Normal. OTHER FINDINGS: Pacemaker IMPRESSION: No active disease.
--- NOTE | 2018-10-04 09:12 | CARD ---
APPROVED REPORT Date of service: 10/03/2018 EKG Measurement Heart [id number] <Conclusion> Possible ventricular paced rhythm compared from ECG on 11/14/17. Nonspecific intraventricular block Abnormal ECG
[2018-10-04 09:17] LABS: BASO # 0.01 K/mm3 (0.0-2.0); BASO % 0.1 % (0.0-3.0); LYMPH # 0.9 (1.2-3.4); LYMPH % 10.2 % (22.0-35.0); MEAN CELL VOLUME 104.9 fl (80.0-105.0); MEAN CORPUSCULAR HEMOGLOBIN 29.4 pg (25.0-35.0); MEAN PLATELET VOLUME 10.2 fl (7.0-11.0); MONO % 11.9 % (1.0-6.0); RBC 3.06 10^6/uL (3.5-6.1); RED CELL DISTRIBUTION WIDTH 21.9 % (11.5-14.5); WHITE BLOOD COUNT 8.3 10^3/uL (4.5-11.0)
[2018-10-04 09:27] LABS: IRON 29 ug/dL (45-180)
[2018-10-04] MEDS ORDERED: Albuterol-Ipratrop 3 mg / 0.5 (3 ml) UD IH PRN (09:35)
[2018-10-04 09:36] LABS: % IRON SATURATION 7 % (20-55); TOTAL IRON BINDING CAPACITY 399 ug/dL (261-462)
[2018-10-04 09:50] LABS: ALB/GLOB RATIO 1.2 (1.1-1.8); ALBUMIN 4.1 g/dL (3.0-4.8); CALCIUM 9.4 mg/dL (8.4-10.5)
[2018-10-04] MEDS ORDERED: Dextrose 50% SYRINGE Inj (50 ml) IVP STA (09:51)
[2018-10-04] MEDS ORDERED: Albuterol 0.5% Inhal Sol (2.5 mg/0.5 ml) UD IH STA (09:59)
[2018-10-04] MEDS ORDERED: Calcium Gluconate in NS 1 GM/50 ML BAG IV ONE (10:30)
[2018-10-04] MEDS: Multivitamin With Minerals Tab PO SCH (10:30)
[2018-10-04] MEDS: Cholecalciferol 1,000 INTLU TAB PO SCH (10:30)
[2018-10-04] MEDS: Sodium Chloride 0.9% 1,000 ML IV SCH (11:57)
[2018-10-04] MEDS ORDERED: Insulin Reg-LOW-Coverage SC SCH (12:00)
[2018-10-04] MEDS: Insulin Reg-LOW-Coverage SC SCH ×2 (12:02→17:51)
[2018-10-04 12:24] LABS: FERRITIN 58.9 ng/mL
[2018-10-04 12:25] LABS: PH,URINE 5.5 (4.7-8.0); URINE BILIRUBIN NEGATIVE (NEGATIVE); URINE BLOOD SMALL (NEGATIVE); URINE GLUCOSE (UA) 100 mg/dL (NEGATIVE); URINE LEUKOCYTE ESTERASE TRACE Leu/uL (NEGATIVE); URINE PROTEIN NEGATIVE mg/dL (<30 mg/dL); URINE UROBILINOGEN 0.2 E.U./dL (<1 E.U./dL)
[2018-10-04 12:31] LABS: URINE APPEARANCE CLEAR (CLEAR); URINE COLOR YELLOW (YELLOW)
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
[2018-10-04 12:47] LABS: URINE AMORPHOUS SEDIMENT SMALL /hpf; URINE BACTERIA LARGE /hpf; URINE EPITHELIAL CELLS 0 - 2 /hpf (0-5)
[2018-10-04 12:48] LABS: CK MB% 0.2 % (2.5-3.0); CK-MB 8.8 ng/mL (0.0-3.6)
[2018-10-04 12:55] LABS: FOLATE > 20.0 ng/mL
[2018-10-04 13:03] LABS: CREATININE,RANDOM URINE 118 mg/dL
[2018-10-04] MEDS ORDERED: Levalbuterol 1.25 MG/3 ML Inhal Soln UD IH PRN (13:06)
[2018-10-04 13:59] LABS: CALCIUM 9.2 mg/dL (8.4-10.5)
[2018-10-04] MEDS: Levalbuterol 1.25 MG/3 ML Inhal Soln UD IH SCH ×2 (14:05→19:47)
--- NOTE | 2018-10-04 18:42 | CARD ---
APPROVED REPORT Date of service: 10/04/2018 EKG Measurement Heart [id number] <Conclusion> Atrial sense ventricular paced rhythm. Sinus tachycardia Prolonged QT interval Abnormal ECG
--- NOTE | 2018-10-04 23:46 | CARD ---
APPROVED REPORT Date of service: 10/04/2018 EXAM: Two-dimensional and M-mode echocardiogram with Doppler and color Doppler. INDICATION Congestive Heart Failure STEMI 2D DIMENSIONS Left Atrium (2D)4.6 (1.6-4.0cm)IVSd1.5 (0.7-1.1cm) LVDd4.8 (3.9-5.9cm)PWd1.3 (0.7-1.1cm) LVDs3.4 (2.5-4.0cm)FS (%) 27.7 % LVEF (%)53.5 (>50%) M-Mode DIMENSIONS Aortic Root3.10 (2.2-3.7cm)Aortic Cusp Exc.2.10 (1.5-2.0cm) Aortic Valve AoV Peak Maxzitkb835.0cm/Ayanna Peak GR.13mmHg Mitral Valve MV E Keuhyysi232.0cm/sMV A Unxfmyov298.0cm/sE/A ratio1.1 TDI E/Lateral E'0.0E/Medial E'0.0 Tricuspid Valve TR Peak [id number]/sRAP [id number] Peak Gr.35mmHg [id number] LEFT VENTRICLE The left ventricle is normal size. There is mild to moderate concentric left ventricular hypertrophy. The left ventricular ejection fraction is within the normal range. Apical motion consistent with pacemaker activation. The left ventricular diastolic function is normal. RIGHT VENTRICLE The right ventricle is mildly dilated. There is normal right ventricular wall thickness. The right ventricular systolic function is normal. ATRIA The left atrium is mildly dilated. The right atrium is mildly dilated. AORTIC VALVE The aortic valve is mildly thickened. No aortic regurgitation is present. There is no aortic valvular stenosis. MITRAL VALVE The mitral valve is mildly thickened. There is no mitral valve regurgitation noted. There is no mitral valve stenosis. TRICUSPID VALVE There is mild to moderate tricuspid regurgitation. There is mild to moderate pulmonary hypertension. PULMONIC VALVE There is mild pulmonic valvular regurgitation. GREAT VESSELS The aortic root is normal in size. The IVC is normal in size and collapses >50% with inspiration. <Conclusion> There is mild to moderate concentric left ventricular hypertrophy. The left ventricular ejection fraction is within the normal range. Apical motion consistent with pacemaker activation. The left ventricular diastolic function is normal. There is mild to moderate tricuspid regurgitation. There is mild to moderate pulmonary hypertension.
[2018-10-05] MEDS: Insulin Reg-LOW-Coverage SC SCH ×4 (00:24→18:04)
--- NOTE | 2018-10-05 04:17 | CON ---
DATE: 10/04/2018 LOCATION: [facility]. NEPHROLOGY CONSULTATION HISTORY OF PRESENT ILLNESS: The patient is a 58-year-old male with past medical history of dilated cardiomyopathy, status post AICD, COPD, on home oxygen, bipolar disorder, alcohol and polysubstance abuse, brought in by EMS for heroin overdose, nephrology being consulted for hyperkalemia and acute renal failure. The patient received Narcan 1 mg on the field with reported improvement in mental status; also given another 1 mg in the ED. The patient was treated medically for severe hyperkalemia with presenting potassium level of 8, was given a Kayexalate, calcium gluconate, sodium bicarb push, and D50 IV push. The patient currently is reporting that he was just discharged from inpatient alcohol detox program yesterday; the patient is a poor historian who gives contradicting information; he does admit to being given an antibiotic for some burning in his urine. The patient, otherwise, reports having been doing well lately; denies any nausea, vomiting, or diarrhea. The patient follows with his PMD in [place], denies being on Aldactone. PAST MEDICAL HISTORY: As above. The patient with multiple hospital visits with drug overdose, has had hypercapnic respiratory failure in the past. The patient has had several admissions with prerenal TIM. SOCIAL HISTORY: Current smoker. FAMILY HISTORY: Unknown. REVIEW OF SYSTEMS CONSTITUTIONAL: Denies any fevers or chills. HEENT: Denies any dysphagia. CARDIOVASCULAR: Denies chest pain or palpitations. RESPIRATORY: Denies any difficulty breathing. GI: As per HPI. : As per HPI. MUSCULOSKELETAL: Denies taking any NSAIDs for pain. NEUROLOGICAL: Reports intermittent headaches, no dizziness. PSYCHIATRIC: As per HPI. VITAL SIGNS: This morning, blood pressure 108/68, heart rate 58, respirations 20, temperature 98, O2 sat 99% on O2 via nasal cannula. PHYSICAL EXAMINATION: GENERAL: No distress, conversing coherently in full sentences. HEENT: Moist mucous membranes. Nonicteric. No cervical lymphadenopathy. No elevation in JVD. RESPIRATORY: Diffuse bilateral expiratory wheezes. No rales, no rhonchi. CARDIOVASCULAR: Heart sounds, S1, S2 normal. No murmurs, no gallops, no rubs. GI: Abdomen soft, nontender, nondistended. : No bladder distention. EXTREMITIES: Mild bilateral lower leg edema. SKIN: Warm, no cyanosis. NEURO: Notable for coarse bilateral hand tremors. SKIN: Warm, no cyanosis. PSYCHIATRIC: Not agitated, normal mood. LABORATORY DATA: CBC reveals a WBC of 8.3, hemoglobin 9, hematocrit 32.1, platelets 254. Chemistry panel on presentation: Sodium 136, potassium 8, improving to 5.9 this morning, chloride 100, bicarb 29, BUN 21, creatinine 2.5 decreasing to 2.1 by this morning, glucose 103, calcium 8.9, albumin 4.1, AST 77, ALT 45, CK level 577. UA negative for protein, 100 mg/dL glucose, small blood, 10-15 RBC's, 5% WBC's per high-powered field. U-tox positive for opiates, barbiturates, and benzodiazepines. Chest x-ray directly visualized, lungs clear. Echo from 1 year ago reporting severely impaired LV systolic function with EF 25-30%; mitral regurgitation, moderate; tricuspid regurgitation, moderate. ASSESSMENT AND PLAN: 1. Acute kidney injury, appears to be prerenal etiology with renal function improving after being given IV fluids; severe hyperkalemia noted on presentation, suspect the patient received Bactrim as an antibiotic for possible urinary tract infection. Increasing creatinine is likely partially due to decreased tubular secretion of creatinine causing falsely elevated creatinine level, but also likely with a diuretic effect from trimethoprim; the patient is already on Lasix for a previous record of 40 mg daily; lisinopril also contributing to hyperkalemia. I agree with medical management done by ER and primary team although bicarb pushes can sometimes cause potassium drag out of cells. We will give forced diuresis with IV fluids and IV Lasix (normal saline at 75 mL/hr and IV Lasix 40 mg every 8 hours). Avoiding giving Florinef as potassium has already improved and do not want to precipitate decompensated congestive heart failure. Low potassium diet. 2. Anemia with iron sat of 7%, ferritin 58.9, likely has some component of iron deficiency; we will give the patient IV iron loading. 3. Congestive heart failure, not currently in overt failure; giving IV fluids cautiously along with diuretics. Continue beta blockers for congestive heart failure optimization; continue to hold DEXTER inhibitor until hyperkalemia and acute kidney injury are resolved. 4. Metabolic alkalosis possibly due to loop diuretic, suggest getting blood gases to confirm that the patient is not becoming hypercapnic. Thank you for this referral. We will be following closely. Kalpesh Leggett MD
[2018-10-05] MEDS: Pantoprazole 40 mg EC Tab PO SCH (05:40)
[2018-10-05 07:03] LABS: VENOUS BLOOD GAS BASE EXCESS 7.9 mmol/L (0.0-2.0); VENOUS BLOOD GAS PO2 167 mm/Hg (30-55); VENOUS BLOOD PH 7.33 (7.32-7.43)
--- NOTE | 2018-10-05 07:05 | CP.PCM.PN ---
Subjective - Date & Time of Evaluation Date of Evaluation: 10/05/18 Time of Evaluation: 06:45 - Subjective Subjective: Awake, alert, no distress Reason for consultation and follow up: Cardiac evaluation of shortness of breath, history of chronic congestive heart failure, admitted for drug overdose,AICD, COPD on home oxygen, bipolar disorder, ETOH dependence, polysubtance abuse Seen and examined by me and Dr. Berrios Objective - Vital Signs/Intake and Output Vital Signs (last 24 hours): Temp Pulse Resp BP Pulse Ox 98.8 F 88 18 120/75 93 L 10/05/18 00:01 10/05/18 05:18 10/05/18 00:01 10/05/18 00:01 10/05/18 00:01 Intake and Output: 10/05/18 10/05/18 06:59 18:59 Intake Total 2380 Balance 2380 - Medications Medications: Current Medications Arformoterol Tartrate (Brovana) 15 mcg IH [id number] [facility] Last Admin: 10/04/18 19:47 Dose: 15 mcg Aspirin (Aspirin Chewable) 81 mg PO DAILY [facility] Last Admin: 10/04/18 11:56 Dose: 81 mg Budesonide (Pulmicort Respules) 0.5 mg IH [id number] [facility] Last Admin: 10/04/18 19:47 Dose: 0.5 mg Carvedilol (Coreg) 12.5 mg PO BID [facility] Last Admin: 10/04/18 17:52 Dose: 12.5 mg Cholecalciferol (Vitamin D) 1,000 intlu PO DAILY [facility] Last Admin: 10/04/18 10:30 Dose: 1,000 intlu Dextrose (Dextrose 50% Inj) 0 ml IV STAT PRN; Protocol PRN Reason: Hypoglycemia Protocol Folic Acid (Folic Acid) 1 mg PO DAILY [facility] Last Admin: 10/04/18 10:30 Dose: 1 mg Heparin Sodium (Porcine) (Heparin) 5,000 units SC Q8 [facility]; Protocol Last Admin: 10/05/18 05:40 Dose: 5,000 units Dextrose (Dextrose 5% In Water 1000 Ml) 1,000 mls @ 0 mls/hr IV .Q0M PRN; Protocol PRN Reason: Hypoglycemia Protocol Sodium Chloride (Sodium Chloride 0.9%) 1,000 mls @ 75 mls/hr IV .[id number] [facility] Stop: 10/05/18 13:54 Last Admin: 10/04/18 11:57 Dose: 75 mls/hr Iron Sucrose 100 mg/ Sodium (Chloride) 105 mls @ 210 mls/hr IVPB DAILY [facility] Last Admin: 10/04/18 21:44 Dose: 210 mls/hr Insulin Human Regular (Humulin R Low) 0 units SC ACHS [facility]; Protocol Last Admin: 10/05/18 00:24 Dose: Not Given Levalbuterol HCl (Xopenex) 1.25 mg IH TIDRESP [facility] Last Admin: 10/04/18 19:47 Dose: 1.25 mg Levalbuterol HCl (Xopenex) 1.25 mg IH [id number] PRN PRN Reason: Shortness of Breath Last Admin: 10/05/18 02:23 Dose: 1.25 mg Methylprednisolone (Solu-Medrol) 40 mg IVP Q12 [facility] Last Admin: 10/04/18 21:45 Dose: 40 mg Multivitamins/Minerals (Therapeutic-M Tab) 1 tab PO 0800 [facility] Last Admin: 10/04/18 10:30 Dose: 1 tab Pantoprazole Sodium (Protonix Ec Tab) 40 mg PO 0600 [facility] Last Admin: 10/05/18 05:40 Dose: 40 mg Thiamine HCl (Vitamin B1 Tab) 100 mg PO DAILY [facility] Last Admin: 10/04/18 10:29 Dose: 100 mg - Labs Labs: 10/04/18 09:00 10/04/18 13:30 PT 11.3 SECONDS (9.4-12.5) 10/03/18 21:00 INR 1.02 10/03/18 21:00 APTT 30.2 Seconds (26.9-38.3) 10/03/18 21:00 - Constitutional Appears: Non-toxic, No Acute Distress - Head Exam Head Exam: NORMAL INSPECTION, NORMOCEPHALIC - Eye Exam Eye Exam: Normal appearance Pupil Exam: NORMAL ACCOMODATION - ENT Exam ENT Exam: Mucous Membranes Moist, Normal Exam - Respiratory Exam Respiratory Exam: Decreased Breath Sounds, Rhonchi, NORMAL BREATHING PATTERN - Cardiovascular Exam Cardiovascular Exam: REGULAR RHYTHM, +S1, +S2 Additional comments: AICD/PPM - GI/Abdominal Exam GI & Abdominal Exam: Soft, Normal Bowel Sounds - Extremities Exam Extremities Exam: Full ROM, Normal Capillary Refill - Neurological Exam Neurological Exam: Alert, Awake - Psychiatric Exam Psychiatric exam: Normal Affect, Normal Mood - Skin Skin Exam: Dry, Normal Color, Warm Assessment and Plan - Assessment and Plan (Free Text) Assessment: A 58 year old male who was brought to the ER due to drug overdose. History of chronic systolic dysfunction congestive heart failure, AICD, COPD on home oxygen, bipolar disorder, ETOH dependence, polysubtance abuse (inhaled heroin, ETOH, and benzo). Patient just came home from spending few days in alcohol rehab center. Patient admitted to snorting 3 bags of heroin. Smokes 3-4 cigars daily. No cardiac work up done at [facility]. Follows up with PMD in [place] per patient. Hx of cardiac cath three years ago in [facility] and was told Normal and non ischemic CMP, Poor historian. EKG showed sinus tachycardia. Chest X ray showed mild cardiomegaly, no pulmonary vascular congestion. Troponin positive secondary to Rhabdomyolysis and acute kidney injury on CKD, Recent heroin use, Urine positive for opiates. Will treat medically. Clinically not in acute CHF. Echo done and showed LVEF 53%, mild to moderate tricuspid regurgitation, mild to moderate pulmonary hypertension. Cardiac status stable. Discontinue telemetry. Plan: Cardiac status stable Discontinue telemetry Denies chest pain Heart rate controlled Blood pressure controlled On ASA 81 mg daily, Coreg 12.5 mg BID, Heparin 5000 units every 8 hours, Solumedrol 40 mg BID Continue current treatment Continue current medications Lifestyle modifications Complete Cessation of alcohol and illicit drug use Fall precaution Alcohol withdrawal precaution Will follow up Plan and treatment discussed with Dr. Berrios
[2018-10-05] MEDS: Arformoterol 15 mcg/2 ml Inh Sol IH SCH ×2 (07:12→20:58)
[2018-10-05] MEDS: Budesonide 0.5 mg/2 ml Inhal Susp UD IH SCH ×2 (07:12→20:59)
[2018-10-05] MEDS: Levalbuterol 1.25 MG/3 ML Inhal Soln UD IH SCH ×3 (07:13→20:59)
[2018-10-05 07:15] LABS: BASO # 0.01 K/mm3 (0.0-2.0); BASO % 0.1 % (0.0-3.0); HEMOGLOBIN 8.7 g/dL (14.0-18.0); LYMPH # 1.4 (1.2-3.4); LYMPH % 16.9 % (22.0-35.0); MEAN CELL VOLUME 101.4 fl (80.0-105.0); MEAN CORPUSCULAR HEMOGLOBIN 29.8 pg (25.0-35.0); MEAN CORPUSCULAR HGB CONC 29.4 g/dl (31.0-37.0); MEAN PLATELET VOLUME 10.4 fl (7.0-11.0); MONO % 11.9 % (1.0-6.0); RBC 2.92 10^6/uL (3.5-6.1); RED CELL DISTRIBUTION WIDTH 21.3 % (11.5-14.5); WHITE BLOOD COUNT 8.3 10^3/uL (4.5-11.0)
[2018-10-05 07:25] LABS: TROPONIN I 0.03 ng/mL
[2018-10-05 07:35] LABS: ALBUMIN 3.5 g/dL (3.0-4.8); CALCIUM 7.6 mg/dL (8.4-10.5)
[2018-10-05 07:46] LABS: CK-MB 3.8 ng/mL (0.0-3.6)
[2018-10-05] MEDS: Sodium Chloride 0.9% 1,000 ML IV SCH (07:58)
[2018-10-05] MEDS: MethylPREDNISolone 40 mg Vial IVP SCH (09:33)
[2018-10-05] MEDS: Multivitamin With Minerals Tab PO SCH (09:34)
[2018-10-05] MEDS: Cholecalciferol 1,000 INTLU TAB PO SCH (09:34)
--- NOTE | 2018-10-05 11:59 | CP.PCM.PN ---
<Michelle Kim - Last Filed: 10/05/18 11:34> Subjective - Date & Time of Evaluation Date of Evaluation: 10/05/18 Time of Evaluation: 11:34 - Subjective Subjective: Michelle Kim, PGY-1, Internal Medicine Progress Note for Dr. Powell Patient seen and evaluated at bedside. Patient had no acute overnight events. Patient reports sputum with cough but denies any other symptoms including chest pain, shortness of breath, nausea, vomiting, constipation, diarrhea, dysuria, hematuria. 12-point ROS was unremarkable except for what was mentioned above. Objective - Vital Signs/Intake and Output Vital Signs (last 24 hours): Temp Pulse Resp BP Pulse Ox 97.8 F 88 18 113/72 98 10/05/18 06:00 10/05/18 09:34 10/05/18 06:00 10/05/18 09:34 10/05/18 06:00 Intake and Output: 10/05/18 10/05/18 06:59 18:59 Intake Total 3340 Output Total 1800 Balance 1540 - Medications Medications: Current Medications Arformoterol Tartrate (Brovana) 15 mcg IH [id number] [facility] Last Admin: 10/05/18 07:12 Dose: 15 mcg Aspirin (Aspirin Chewable) 81 mg PO DAILY [facility] Last Admin: 10/05/18 09:33 Dose: 81 mg Budesonide (Pulmicort Respules) 0.5 mg IH [id number] [facility] Last Admin: 10/05/18 07:12 Dose: 0.5 mg Carvedilol (Coreg) 12.5 mg PO BID [facility] Last Admin: 10/05/18 09:34 Dose: 12.5 mg Cholecalciferol (Vitamin D) 1,000 intlu PO DAILY [facility] Last Admin: 10/05/18 09:34 Dose: 1,000 intlu Dextrose (Dextrose 50% Inj) 0 ml IV STAT PRN; Protocol PRN Reason: Hypoglycemia Protocol Folic Acid (Folic Acid) 1 mg PO DAILY [facility] Last Admin: 10/05/18 09:33 Dose: 1 mg Heparin Sodium (Porcine) (Heparin) 5,000 units SC Q8 [facility]; Protocol Last Admin: 10/05/18 05:40 Dose: 5,000 units Dextrose (Dextrose 5% In Water 1000 Ml) 1,000 mls @ 0 mls/hr IV .Q0M PRN; Protocol PRN Reason: Hypoglycemia Protocol Sodium Chloride (Sodium Chloride 0.9%) 1,000 mls @ 75 mls/hr IV .[id number] [facility] Stop: 10/05/18 13:54 Last Admin: 10/05/18 07:58 Dose: Not Given Iron Sucrose 100 mg/ Sodium (Chloride) 105 mls @ 210 mls/hr IVPB DAILY [facility] Last Admin: 10/05/18 09:33 Dose: 210 mls/hr Insulin Human Regular (Humulin R Low) 0 units SC ACHS [facility]; Protocol Last Admin: 10/05/18 11:25 Dose: Not Given Levalbuterol HCl (Xopenex) 1.25 mg IH TIDRESP [facility] Last Admin: 10/05/18 07:13 Dose: 1.25 mg Levalbuterol HCl (Xopenex) 1.25 mg IH [id number] PRN PRN Reason: Shortness of Breath Last Admin: 10/05/18 02:23 Dose: 1.25 mg Methylprednisolone (Solu-Medrol) 30 mg IVP Q12 [facility] Last Admin: 10/05/18 09:33 Dose: 30 mg Multivitamins/Minerals (Therapeutic-M Tab) 1 tab PO 0800 [facility] Last Admin: 10/05/18 09:34 Dose: 1 tab Pantoprazole Sodium (Protonix Ec Tab) 40 mg PO 0600 [facility] Last Admin: 10/05/18 05:40 Dose: 40 mg Thiamine HCl (Vitamin B1 Tab) 100 mg PO DAILY [facility] Last Admin: 10/05/18 09:33 Dose: 100 mg - Labs Labs: 10/05/18 06:40 10/05/18 06:40 PT 11.3 SECONDS (9.4-12.5) 10/03/18 21:00 INR 1.02 10/03/18 21:00 APTT 30.2 Seconds (26.9-38.3) 10/03/18 21:00 - Constitutional Appears: Well, Non-toxic, No Acute Distress - Head Exam Head Exam: ATRAUMATIC, NORMAL INSPECTION, NORMOCEPHALIC - Eye Exam Eye Exam: EOMI, PERRL - ENT Exam ENT Exam: Mucous Membranes Moist - Respiratory Exam Respiratory Exam: Wheezes, NORMAL BREATHING PATTERN. absent: Rales, Rhonchi - Cardiovascular Exam Cardiovascular Exam: REGULAR RHYTHM, RRR, +S1, +S2. absent: Clicks, Gallop, Rubs - GI/Abdominal Exam GI & Abdominal Exam: Soft, Normal Bowel Sounds. absent: Firm, Guarding, Rigid, Tenderness - Extremities Exam Extremities Exam: Full ROM, Normal Capillary Refill, Normal Inspection. absent: Pedal Edema - Neurological Exam Neurological Exam: Alert, Awake, CN II-XII Intact, Oriented x3 - Psychiatric Exam Psychiatric exam: Normal Affect, Normal Mood - Skin Skin Exam: Dry, Intact, Normal Color Assessment and Plan - Assessment and Plan (Free Text) Assessment: 58 year old male with PMH of chronic congestive heart failure w/ decreased LVEF, AICD, COPD on home oxygen, bipolar disorder, ETOH dependence, polysubtance abuse (inhaled heroin, ETOH, and benzo) presented for heroin overdose. Patient was found to be hyperkalemia on admission and treated appropriately. Plan: Hyperkalemia -Potassium was 8 on admission. Potassium has trended down to 5.2 -Given calcium gluconate on admission -Given kayexalate, albuterol, D50, insulin, and bicarbonate twice. Patient also given lasix -Patient has been ventricularly paced and thus difficult to evaluate EKG -Continue to monitor Polysubstance abuse and overdose -UDS was positive for opiates, benzodiazepines, and barbituates -Patient was given narcanx2 prior to admission -Fall precautions, seizure precautions -Patient counseled extensively regarding cessation of substances. Rhabdomyolysis -CK trending down to 1466 from 4123 -Likely 2/2 to polysubstance abuse -AST/ALT: 138/58 likely 2/2 to rhabdomyolysis -Elevated creatinine at 2.1 -Continue with NS at 75cc/hr TIM -Elevated creatinine at 2.1 likely 2/1 to rhabdomyolysis. Baseline is around 1 -Secondary to prerenal etiology vs. rhabdomyolysis -Continue with forced diuresis with NS at 75cc/hr and lasix 40 mg Q8 -Avoid florinef -AVoid ACEI until hyperkalemia and TIM have resolved COPD -Continues to have wheezing -Patient currently has chronic respiratory acidosis with compensatory metabolic alkalosis -Continue xopenex [facility] and PRN, brovana, pulmicort -Decreased solumedrol to 30 mg Q12 Congestive heart failure with reduced ejection fraction -Repeat Echo 10/04: LVEF: 53.5%, apical motion consistent with pacemaker activation, mild to moderate TR, mild to moderate pulm HTN -Patient's congestive heart failure has significantly improved -Continue with aspirin, coreg -As per Dr. Berrios, Cardiology, patient should follow up outpatient in [place] History of alcohol abuse -Has stopped drinking alcohol and been detoxing -CIWA protocol with last CIWA 0 -No benzodiazepines necessary at this time -Continue with MVI, folic acid, thiamine Rule out diabetes mellitus type II -HgbA1c: 4.5 -Continue with low SSI -Accuchecks ACHS History of Vitamin D Deficiency -Continue with cholecalciferol Iron Deficiency Anemia -Continue with iron sucrose NSTEMI -Mildly elevated at 0.13 on admission which has now trended down -Continue to monitor -No plans for cardiac catheterization as per cardiology GI prophylaxis: protonix DVT prophylaxis: SCD Patient plan discussed with Dr. Powell <Cheyanne Powell - Last Filed: 10/07/18 11:48> Objective - Vital Signs/Intake and Output Vital Signs (last 24 hours): Temp Pulse Resp BP Pulse Ox 97.6 F 77 18 115/70 95 10/06/18 06:00 10/06/18 06:00 10/06/18 06:00 10/06/18 10:06 10/06/18 09:09 - Labs Labs: 10/06/18 07:00 10/06/18 07:00 PT 11.3 SECONDS (9.4-12.5) 10/03/18 21:00 INR 1.02 10/03/18 21:00 APTT 30.2 Seconds (26.9-38.3) 10/03/18 21:00 Attending/Attestation - Attestation I have personally seen and examined this patient.: Yes I have fully participated in the care of the patient.: Yes I have reviewed all pertinent clinical information, including history, physical exam and plan: Yes Notes (Text): 10/07/18 11:40 Attending note; Patient seen and examined with resident. Patient is alert and awake. Mental status is improving. Currently denies any chest pain, shortness of breath. Patient denied any fevers, chills. Denies any urinary, bowel symptoms. Patient is a 58 year old male with PMH of chronic congestive heart failure with decreased LVEF, AICD, COPD on home oxygen, bipolar disorder, ETOH dependence, polysubtance abuse (inhaled heroin, ETOH, and benzo) presented for heroin overdose. Patient was found to be hyperkalemia. 1. Heroin abuse; patient was initially lethargic in the ER. Currently alert and awake. Drug abuse cessation is strongly advised. 2. Severe hyperkalemia; secondary to drug-induced renal failure/rhabdomyolysis. EKG showed paced rhythm. Treated with calcium gluconate, insulin, albuterol and Kayexalate. Monitor closely in telemetry. Repeat potassium ordered. 3. Cardiomyopathy/AICD placement; cardiology evaluation appreciated. 4. Chronic COPD/oxygen dependent; continue oxygen. 5. Chronic alcohol abuse; patient was recently released from rehab . Complete alcohol cessation is strongly advised . 6. BIPolar disorder; patient needs close follow-up with psychiatrist as outpatient. 7. Rhabdomyolysis; secondary to drug abuse .continue IV fluids. 8. Acute renal insufficiency; secondary to rhabdomyolysis. Possible Bactrim induced renal insufficiency. Nephrology evaluation appreciated. Creatinine is improving slowly. Diagnosis, treatment plan discussed with patient in detail. Patient follows up with PMD, cardiology and psychiatrist in [place].
[2018-10-05 12:23] LABS: HEPATITIS B SURFACE AG Negative (NEGATIVE)
[2018-10-05 12:29] LABS: HEPATITIS A IGM NEGATIVE (NEGATIVE); HEPATITIS B CORE AB NEGATIVE (NEGATIVE)
[2018-10-05 12:40] LABS: HEPATITIS C ANTIBODY NEGATIVE (NEGATIVE)
--- NOTE | 2018-10-05 15:20 | PN ---
DATE: 10/04/2018 Lab reviewed. The patient has had no evidence of acute AZ. The patient had rhabdomyolysis with CPK maximum 4123 with MB fraction of 0.2. though troponin 0.16 most likely secondary to rhabdomyolysis. Because of the substance abuse, the patient went into acute rhabdomyolysis and renal insufficiency, baseline creatinine is 2.1 accounts about stage IV CKD disease. On top of that, the patient used substance abuse that caused rhabdomyolysis. His total CPK 4000 with MB fraction 0.2 and troponin 0.1 that ruled out any AZ. Continue hydration and has made the patient not to use substance based on the big time heavy alcohol abuse. We will DC telemetry. The patient has had defibrillator. The patient wants to be followed up with [facility]. No further cardiac workup is planned because the patient is followed at [facility] and has an appointment to see next week. Yaya Berrios MD
[2018-10-05 22:19] VITALS: RESP 18; O2SAT 95
--- NOTE | 2018-10-05 23:12 | CP.PCM.PN ---
Objective - Vital Signs/Intake and Output Vital Signs (last 24 hours): Temp Pulse Resp BP Pulse Ox 98.2 F 104 H 18 107/70 95 10/05/18 22:00 10/05/18 22:00 10/05/18 22:00 10/05/18 22:00 10/05/18 22:00 Intake and Output: 10/05/18 10/06/18 18:59 06:59 Intake Total 2090 800 Output Total 1600 Balance 490 800 - Medications Medications: Current Medications Arformoterol Tartrate (Brovana) 15 mcg IH [id number] [facility] Last Admin: 10/05/18 20:58 Dose: 15 mcg Aspirin (Aspirin Chewable) 81 mg PO DAILY [facility] Last Admin: 10/05/18 09:33 Dose: 81 mg Budesonide (Pulmicort Respules) 0.5 mg IH [id number] [facility] Last Admin: 10/05/18 20:59 Dose: 0.5 mg Carvedilol (Coreg) 12.5 mg PO BID [facility] Last Admin: 10/05/18 18:03 Dose: 12.5 mg Cholecalciferol (Vitamin D) 1,000 intlu PO DAILY [facility] Last Admin: 10/05/18 09:34 Dose: 1,000 intlu Dextrose (Dextrose 50% Inj) 0 ml IV STAT PRN; Protocol PRN Reason: Hypoglycemia Protocol Folic Acid (Folic Acid) 1 mg PO DAILY [facility] Last Admin: 10/05/18 09:33 Dose: 1 mg Heparin Sodium (Porcine) (Heparin) 5,000 units SC Q8 [facility]; Protocol Last Admin: 10/05/18 23:00 Dose: 5,000 units Dextrose (Dextrose 5% In Water 1000 Ml) 1,000 mls @ 0 mls/hr IV .Q0M PRN; Protocol PRN Reason: Hypoglycemia Protocol Iron Sucrose 100 mg/ Sodium (Chloride) 105 mls @ 210 mls/hr IVPB DAILY [facility] Last Admin: 10/05/18 09:33 Dose: 210 mls/hr Insulin Human Regular (Humulin R Low) 0 units SC ACHS [facility]; Protocol Last Admin: 10/05/18 18:04 Dose: Not Given Levalbuterol HCl (Xopenex) 1.25 mg IH TIDRESP [facility] Last Admin: 10/05/18 20:59 Dose: 1.25 mg Levalbuterol HCl (Xopenex) 1.25 mg IH [id number] PRN PRN Reason: Shortness of Breath Last Admin: 10/05/18 02:23 Dose: 1.25 mg Methylprednisolone (Solu-Medrol) 30 mg IVP Q12 [facility] Last Admin: 10/05/18 09:33 Dose: 30 mg Multivitamins/Minerals (Therapeutic-M Tab) 1 tab PO 0800 [facility] Last Admin: 10/05/18 09:34 Dose: 1 tab Pantoprazole Sodium (Protonix Ec Tab) 40 mg PO 0600 [facility] Last Admin: 10/05/18 05:40 Dose: 40 mg Thiamine HCl (Vitamin B1 Tab) 100 mg PO DAILY [facility] Last Admin: 10/05/18 09:33 Dose: 100 mg - Labs Labs: 10/05/18 06:40 10/05/18 06:40 PT 11.3 SECONDS (9.4-12.5) 10/03/18 21:00 INR 1.02 10/03/18 21:00 APTT 30.2 Seconds (26.9-38.3) 10/03/18 21:00
[2018-10-06] MEDS: Insulin Reg-LOW-Coverage SC SCH ×3 (06:46→11:50)
[2018-10-06] MEDS: MethylPREDNISolone 40 mg Vial IVP SCH ×2 (07:11→10:07)
[2018-10-06] MEDS: Pantoprazole 40 mg EC Tab PO SCH (07:15)
[2018-10-06 07:36] LABS: BASO # 0.01 K/mm3 (0.0-2.0); BASO % 0.1 % (0.0-3.0); EOS # 0.1 (0.0-0.7); EOS % 1.2 % (1.5-5.0); HEMOGLOBIN 8.8 g/dL (14.0-18.0); LYMPH % 39.6 % (22.0-35.0); MEAN CORPUSCULAR HEMOGLOBIN 29.1 pg (25.0-35.0); MEAN CORPUSCULAR HGB CONC 28.3 g/dl (31.0-37.0); MEAN PLATELET VOLUME 9.5 fl (7.0-11.0); MONO % 13.2 % (1.0-6.0); RBC 3.02 10^6/uL (3.5-6.1); RED CELL DISTRIBUTION WIDTH 21.2 % (11.5-14.5); WHITE BLOOD COUNT 7.6 10^3/uL (4.5-11.0)
[2018-10-06] MEDS: Arformoterol 15 mcg/2 ml Inh Sol IH SCH (07:43)
[2018-10-06] MEDS: Budesonide 0.5 mg/2 ml Inhal Susp UD IH SCH (07:43)
[2018-10-06] MEDS: Levalbuterol 1.25 MG/3 ML Inhal Soln UD IH SCH ×2 (07:44→14:05)
[2018-10-06 08:17] LABS: ALBUMIN 3.2 g/dL (3.0-4.8); CALCIUM 7.8 mg/dL (8.4-10.5)
[2018-10-06] MEDS: Multivitamin With Minerals Tab PO SCH (10:07)
[2018-10-06] MEDS: Cholecalciferol 1,000 INTLU TAB PO SCH (10:07)
[2018-10-06 10:17] VITALS: BP 115/70
[2018-10-06 10:21] VITALS: PULSE 77; TEMP 97.6
--- NOTE | 2018-10-06 11:01 | CP.PCM.PN ---
Subjective - Date & Time of Evaluation Date of Evaluation: 10/06/18 Time of Evaluation: 07:20 - Subjective Subjective: Awake, alert, no distress, feels okay Reason for consultation and follow up: Cardiac evaluation of shortness of breath, history of chronic congestive heart failure, admitted for drug overdose,AICD, COPD on home oxygen, bipolar disorder, ETOH dependence, polysubtance abuse Seen and examined by me and Dr. Pradhan Objective - Vital Signs/Intake and Output Vital Signs (last 24 hours): Temp Pulse Resp BP Pulse Ox 97.6 F 77 18 115/70 95 10/06/18 06:00 10/06/18 06:00 10/06/18 06:00 10/06/18 10:06 10/06/18 09:09 Intake and Output: 10/06/18 10/06/18 06:59 18:59 Intake Total 800 300 Balance 800 300 - Medications Medications: Current Medications Arformoterol Tartrate (Brovana) 15 mcg IH [id number] [facility] Last Admin: 10/06/18 07:43 Dose: 15 mcg Aspirin (Aspirin Chewable) 81 mg PO DAILY [facility] Last Admin: 10/06/18 10:07 Dose: 81 mg Budesonide (Pulmicort Respules) 0.5 mg IH [id number] [facility] Last Admin: 10/06/18 07:43 Dose: 0.5 mg Carvedilol (Coreg) 12.5 mg PO BID [facility] Last Admin: 10/06/18 10:06 Dose: 12.5 mg Cholecalciferol (Vitamin D) 1,000 intlu PO DAILY [facility] Last Admin: 10/06/18 10:07 Dose: 1,000 intlu Dextrose (Dextrose 50% Inj) 0 ml IV STAT PRN; Protocol PRN Reason: Hypoglycemia Protocol Folic Acid (Folic Acid) 1 mg PO DAILY [facility] Last Admin: 10/06/18 10:07 Dose: 1 mg Heparin Sodium (Porcine) (Heparin) 5,000 units SC Q8 [facility]; Protocol Last Admin: 10/06/18 07:14 Dose: 5,000 units Dextrose (Dextrose 5% In Water 1000 Ml) 1,000 mls @ 0 mls/hr IV .Q0M PRN; Protocol PRN Reason: Hypoglycemia Protocol Iron Sucrose 100 mg/ Sodium (Chloride) 105 mls @ 210 mls/hr IVPB DAILY [facility] Last Admin: 10/06/18 10:11 Dose: 210 mls/hr Insulin Human Regular (Humulin R Low) 0 units SC ACHS [facility]; Protocol Last Admin: 10/06/18 08:20 Dose: Not Given Levalbuterol HCl (Xopenex) 1.25 mg IH TIDRESP [facility] Last Admin: 10/06/18 07:44 Dose: 1.25 mg Levalbuterol HCl (Xopenex) 1.25 mg IH [id number] PRN PRN Reason: Shortness of Breath Last Admin: 10/05/18 02:23 Dose: 1.25 mg Methylprednisolone (Solu-Medrol) 30 mg IVP Q12 [facility] Last Admin: 10/06/18 10:07 Dose: 30 mg Multivitamins/Minerals (Therapeutic-M Tab) 1 tab PO 0800 [facility] Last Admin: 10/06/18 10:07 Dose: 1 tab Pantoprazole Sodium (Protonix Ec Tab) 40 mg PO 0600 [facility] Last Admin: 10/06/18 07:15 Dose: 40 mg Thiamine HCl (Vitamin B1 Tab) 100 mg PO DAILY [facility] Last Admin: 10/06/18 10:06 Dose: 100 mg - Labs Labs: 10/06/18 07:00 10/06/18 07:00 PT 11.3 SECONDS (9.4-12.5) 10/03/18 21:00 INR 1.02 10/03/18 21:00 APTT 30.2 Seconds (26.9-38.3) 10/03/18 21:00 - Constitutional Appears: Non-toxic, No Acute Distress - Head Exam Head Exam: NORMAL INSPECTION, NORMOCEPHALIC - Eye Exam Eye Exam: Normal appearance Pupil Exam: NORMAL ACCOMODATION - ENT Exam ENT Exam: Mucous Membranes Moist, Normal Exam - Respiratory Exam Respiratory Exam: Decreased Breath Sounds, Clear to Ausculation Bilateral, NORMAL BREATHING PATTERN - Cardiovascular Exam Cardiovascular Exam: +S1, +S2 - GI/Abdominal Exam GI & Abdominal Exam: Soft, Normal Bowel Sounds - Extremities Exam Extremities Exam: Full ROM, Normal Capillary Refill - Neurological Exam Neurological Exam: Alert, Awake, Oriented x3 - Psychiatric Exam Psychiatric exam: Normal Affect, Normal Mood - Skin Skin Exam: Dry, Normal Color, Warm Assessment and Plan - Assessment and Plan (Free Text) Assessment: A 58 year old male who was brought to the ER due to drug overdose. History of chronic systolic dysfunction congestive heart failure, AICD, COPD on home oxygen, bipolar disorder, ETOH dependence, polysubtance abuse (inhaled heroin, ETOH, and benzo). Patient just came home from spending few days in alcohol rehab center. Patient admitted to snorting 3 bags of heroin. Smokes 3-4 cigars daily. No cardiac work up done at [facility]. Follows up with PMD in [place] per patient. Hx of cardiac cath three years ago in [facility] and was told Normal and non ischemic CMP, Poor historian. EKG showed sinus tachycardia. Chest X ray showed mild cardiomegaly, no pulmonary vascular congestion. Troponin positive secondary to Rhabdomyolysis and acute kidney injury, CKD, Recent heroin use, Urine positive for opiates. Will treat medically. Clinically not in acute CHF. Echo done and showed LVEF 53%, mild to moderate tricuspid regurgitation, mild to moderate pulmonary hypertension. He follows up in [place]. No further invasive cardiac work up at this time. Cardiac status stable. May discharge from cardiac [facility]. Plan: No distress, Denies chest pain, denies shrtness of breath Cardiac status stable Heart rate controlled Blood pressure controlled On ASA 81 mg daily, Coreg 12.5 mg BID, Heparin 5000 units every 8 hours, Solumedrol 40 mg BID Continue current treatment Continue current medications Lifestyle modifications Complete Cessation of alcohol and illicit drug use Fall precaution Alcohol withdrawal precaution May discharge from cardiac standpoint. Will follow up Plan and treatment discussed with Dr. Pradhan
--- NOTE | 2018-10-06 15:33 | CP.PCM.DIS ---
<Rosio Wadsworth - Last Filed: 10/06/18 15:45> Provider - Provider Date of Admission: 10/03/18 21:57 Attending physician: Cheyanne Powell MD Primary care physician: NO PRIMARY CARE PROVIDER Consults: 10/03/18 23:53 Physician Consult Routine Comment: Consulting Provider: Yaya Pradhan Consulting Physician: Yaya Pradhan Reason for Consult: CHF, CAD 10/04/18 08:30 Nephrology Consult Routine Comment: Consulting Provider: Kalpesh Leggett Consulting Physician: Kalpesh Leggett Reason for Consult: hyperkalemia Time Spent in preparation of Discharge (in minutes): 45 Diagnosis - Discharge Diagnosis (1) Polysubstance abuse Status: Chronic (2) Rhabdomyolysis Status: Resolved (3) TIM (acute kidney injury) Status: Resolved (4) COPD (chronic obstructive pulmonary disease) Status: Chronic (5) Hyperkalemia Status: Resolved (6) CHF (congestive heart failure) Status: Chronic Hospital Course - Lab Results Lab Results: Most Recent Lab Values WBC 7.6 10^3/uL (4.5-11.0) 10/06/18 07:00 RBC 3.02 10^6/uL (3.5-6.1) L 10/06/18 07:00 Hgb 8.8 g/dL (14.0-18.0) L 10/06/18 07:00 Hct 31.1 % (42.0-52.0) L 10/06/18 07:00 MCV 103.0 fl (80.0-105.0) 10/06/18 07:00 MCH 29.1 pg (25.0-35.0) 10/06/18 07:00 MCHC 28.3 g/dl (31.0-37.0) L 10/06/18 07:00 RDW 21.2 % (11.5-14.5) H 10/06/18 07:00 Plt Count 289 10^3/uL (120.0-450.0) 10/06/18 07:00 MPV 9.5 fl (7.0-11.0) 10/06/18 07:00 Neut % (Auto) 45.9 % (50.0-68.0) L 10/06/18 07:00 Lymph % (Auto) 39.6 % (22.0-35.0) H 10/06/18 07:00 [place] % (Auto) 13.2 % (1.0-6.0) H 10/06/18 07:00 Eos % (Auto) 1.2 % (1.5-5.0) L 10/06/18 07:00 Baso % (Auto) 0.1 % (0.0-3.0) 10/06/18 07:00 Lymph # (Auto) 3.0 (1.2-3.4) 10/06/18 07:00 [place] # (Auto) 1.0 (0.1-0.6) H 10/06/18 07:00 Eos # (Auto) 0.1 (0.0-0.7) 10/06/18 07:00 Baso # (Auto) 0.01 K/mm3 (0.0-2.0) 10/06/18 07:00 Absolute Neuts (auto) 3.46 (1.4-6.5) 10/06/18 07:00 PT 11.3 SECONDS (9.4-12.5) 10/03/18 21:00 INR 1.02 10/03/18 21:00 APTT 30.2 Seconds (26.9-38.3) 10/03/18 21:00 pO2 167 mm/Hg (30-55) H 10/05/18 06:50 VBG pH 7.33 (7.32-7.43) 10/05/18 06:50 VBG pCO2 69.0 (40-60) H* 10/05/18 06:50 VBG HCO3 36.4 mmol/l (21-28) H 10/05/18 06:50 VBG O2 Sat (Calc) 99.8 % (40-65) H 10/05/18 06:50 VBG Base Excess 7.9 mmol/L (0.0-2.0) H 10/05/18 06:50 Crit Value Called To Zoë kohli 10/05/18 06:50 Crit Value Called By Sandra franz 10/05/18 06:50 Blood Gas Notified Time 702 10/05/18 06:50 Sodium 139 mmol/L (132-148) 10/06/18 07:00 Potassium 4.4 mmol/L (3.6-5.0) 10/06/18 07:00 Chloride 100 mmol/L (98-107) 10/06/18 07:00 Carbon Dioxide 37 mmol/L (21-33) H 10/06/18 07:00 Anion Gap 7 (10-20) L 10/06/18 07:00 BUN 33 mg/dL (7-21) H 10/06/18 07:00 Creatinine 1.5 mg/dl (0.8-1.5) 10/06/18 07:00 Est GFR ( Amer) 58 10/06/18 07:00 Est GFR (Non-Af Amer) 48 10/06/18 07:00 POC Glucose (mg/dL) 122 mg/dL (65-110) H 10/06/18 11:30 Random Glucose 89 mg/dL (70-110) 10/06/18 07:00 Hemoglobin A1c 4.5 % (4.2-6.5) 10/04/18 09:00 Calcium 7.8 mg/dL (8.4-10.5) L 10/06/18 07:00 Phosphorus 5.6 mg/dL (2.5-4.5) H 10/04/18 09:00 Magnesium 2.2 mg/dL (1.7-2.2) 10/04/18 09:00 Iron 29 ug/dL (45-180) L 10/04/18 09:00 TIBC 399 ug/dL (261-462) 10/04/18 09:00 % Saturation 7 % (20-55) L 10/04/18 09:00 Ferritin 58.9 ng/mL 10/04/18 09:00 Total Bilirubin 0.1 mg/dL (0.2-1.3) L 10/06/18 07:00 AST 103 U/L (17-59) H D 10/06/18 07:00 ALT 61 U/L (7-56) H 10/06/18 07:00 Alkaline Phosphatase 92 U/L (38-126) 10/06/18 07:00 Lactate Dehydrogenase 938 U/L (333-699) H 10/05/18 06:40 Total Creatine Kinase 1466 U/L (35-230) H 10/05/18 06:40 CK-MB (CK-2) 3.8 ng/mL (0.0-3.6) H 10/05/18 06:40 CK-MB (CK-2) % 0.2 % (2.5-3.0) L 10/04/18 09:00 Troponin I 0.03 ng/mL D 10/05/18 06:40 NT-Pro-B Natriuret Pep 1630 pg/mL (0-450) H 10/03/18 21:00 Total Protein 6.5 g/dL (5.8-8.3) 10/06/18 07:00 Albumin 3.2 g/dL (3.0-4.8) 10/06/18 07:00 Globulin 3.3 gm/dL 10/06/18 07:00 Albumin/Globulin Ratio 1.0 (1.1-1.8) L 10/06/18 07:00 Triglycerides 85 mg/dL (35-160) 10/04/18 09:00 Cholesterol 227 mg/dL (130-200) H 10/04/18 09:00 LDL Cholesterol Direct 57 mg/dL (0-129) 10/04/18 09:00 HDL Cholesterol 145 mg/dL (29-60) H 10/04/18 09:00 Vitamin B12 246 pg/mL (239-931) 10/04/18 09:00 Folate > 20.0 ng/mL 10/04/18 09:00 TSH 3rd Generation 1.79 mIU/mL (0.46-4.68) 10/04/18 09:00 Urine Color Yellow (YELLOW) 10/04/18 12:14 Urine Appearance Clear (CLEAR) 10/04/18 12:14 Urine pH 5.5 (4.7-8.0) 10/04/18 12:14 Ur Specific [place] 1.020 (1.005-1.035) 10/04/18 12:14 Urine Protein Negative mg/dL (<30 mg/dL) 10/04/18 12:14 Urine Glucose (UA) 100 mg/dL (NEGATIVE) H 10/04/18 12:14 Urine Ketones Negative mg/dL (NEGATIVE) 10/04/18 12:14 Urine Blood Small (NEGATIVE) H 10/04/18 12:14 Urine Nitrate Negative (NEGATIVE) 10/04/18 12:14 Urine Bilirubin Negative (NEGATIVE) 10/04/18 12:14 Urine Urobilinogen 0.2 E.U./dL (<1 E.U./dL) 10/04/18 12:14 Ur Leukocyte Esterase Trace Rissa/uL (NEGATIVE) H 10/04/18 12:14 Urine RBC 10 - 15 /hpf (0-2) H 10/04/18 12:14 Urine WBC 5 - 10 /hpf (0-6) H 10/04/18 12:14 Ur Epithelial Cells 0 - 2 /hpf (0-5) 10/04/18 12:14 Amorphous Sediment Small /hpf (NONE) 10/04/18 12:14 Urine Bacteria Large /hpf (NONE) 10/04/18 12:14 Urine Other Uyeast /hpf 10/04/18 12:14 Ur Random Creatinine 118 mg/dL 10/04/18 12:14 Ur Random Sodium 128 meq/L 10/04/18 12:14 Ur Random Urea Nitrogn 368 mg/dL 10/04/18 12:14 Urine Opiates Screen Positive (NEGATIVE) H 10/03/18 23:02 Urine Methadone Screen Negative (NEGATIVE) 10/03/18 23:02 Ur Barbiturates Screen Positive (NEGATIVE) H 10/03/18 23:02 Ur Phencyclidine Scrn Negative (NEGATIVE) 10/03/18 23:02 Ur Amphetamines Screen Negative (NEGATIVE) 10/03/18 23:02 U Benzodiazepines Scrn Positive (NEGATIVE) H 10/03/18 23:02 U Oth Cocaine Metabols Negative (NEGATIVE) 10/03/18 23:02 U Cannabinoids Screen Negative (NEGATIVE) 10/03/18 23:02 Alcohol, Quantitative < 10 mg/dL (0-10) 10/03/18 21:00 Hepatitis A IgM Ab Negative (NEGATIVE) 10/05/18 06:50 Hep Bs Antigen Negative (NEGATIVE) 10/05/18 06:50 Hep B Core IgM Ab Negative (NEGATIVE) 10/05/18 06:50 Hepatitis C Antibody Negative (NEGATIVE) 10/05/18 06:50 - Hospital Course Hospital Course: Upon Admission 58 y/o male with PMH of chronic CHF w/ decreased LVEF, AICD, COPD on home oxygen, bipolar disorder, ETOH dependence, polysubtance abuse (inhaled heroin, ETOH, and benzo) BIBEMS for drug overdose. Patient is drowsy/somnolent but arousable in ED. As per at bedside, she found the patient lying in bed mumbling, minimally responsive with gurgling noise. Patient came home today after spending few days in alcohol rehab center. Patient denied taking any [place] licit drugs but as per charting, he admitted to snorting 3 bags of heroin. Hospital Course: PT came in with a potassium level of 8, kayexalate, albuterol, insulin, bicarb and D50 were given and repeat CMP revealed downtrending of K. No ekg changes were noted. Pt was somnolent, likely from drug overdose and narcan 1mg was administered. Pt had initial elevated troponin which downtrended, pt was evaluated by cardiology who did not require cardiac cath and recommended outpatient f/u in [place]. Pt presented with TIM of BUN/Cr of 21/2.1, IVF & florinef were started and TIM resolved. PT was continued on nebulizers and IV steroids for COPD. Upon Discharge: Pt is feeling better. Vitals/labs stable. Wheezing improved. Pt was counselled extensively on drug and alcohol cessation. Pt to be discharged and instructed to continue home medications and to follow up closely with PMD, report programmer, healthcare recruiter. Discharge Exam - Head Exam Head Exam: NORMAL INSPECTION, NORMOCEPHALIC - Eye Exam Eye Exam: EOMI, Normal appearance - ENT Exam ENT Exam: Mucous Membranes Moist, Normal Exam - Neck Exam Neck exam: Normal Inspection - Respiratory Exam Respiratory Exam: NORMAL BREATHING PATTERN, UNREMARKABLE - Cardiovascular Exam Cardiovascular Exam: REGULAR RHYTHM, +S1, +S2 - GI/Abdominal Exam GI & Abdominal Exam: Soft. absent: Tenderness - Extremities Exam Extremities exam: normal inspection - Back Exam Back exam: NORMAL INSPECTION - Neurological Exam Neurological exam: Alert, Oriented x3 - Psychiatric Exam Psychiatric exam: Normal Affect, Normal Mood - Skin Skin Exam: Dry, Intact, Warm Discharge Plan - Discharge Medications Prescriptions: Albuterol 0.083% [Albuterol 0.083% Inhal Alison (2.5 mg/3 ml) UD] 2.5 mg IH Q6H 30 Days #1 neb Albuterol HFA [Ventolin HFA 90 mcg/actuation (8 g)] 1 puff IH Q6 #1 inhaler Fluticasone/Salmeterol 250/50 [Advair Diskus] 1 dsk IH Q12 30 Days #1 inhaler Folic Acid 1 mg PO DAILY 30 Days #30 tab Multimineral/Multivitamin [Therapeutic-M Tab] 1 tab PO 0800 30 Days #30 tab Thiamine [Vitamin B1 Tab] 100 mg PO DAILY 30 Days #30 tab Tiotropium [Spiriva] 18 mcg IH DAILY 30 Days #1 inhaler - Follow Up Plan Condition: STABLE Disposition: HOME/ ROUTINE Instructions: Chronic Obstructive Pulmonary Disease (COPD), Including Emphysema, Alcohol Use - When Is Drinking a Problem?, Opioid Use Disorder, Heart Failure (ED) Additional Instructions: Please follow up with your primary care doctor in 3-5 days. Please follow up with Apprenticeship Representative at [facility] Please stop using illicit drugs Please take all your home medications as prescribed. Please return to the emergency department if you have any new or concerning symptoms. Referrals: Kalpesh Leggett MD [Staff Provider] - PCP,ADDIE [Primary Care Provider] - <Cheyanne Powell - Last Filed: 10/07/18 11:51> Provider - Provider Date of Admission: 10/03/18 21:57 Attending physician: Cheyanne Powell MD Primary care physician: ADDIE PRIMARY CARE PROVIDER Consults: 10/03/18 23:53 Physician Consult Routine Comment: Consulting Provider: Yaya Pradhan Consulting Physician: Yaya Pradhan Reason for Consult: CHF, CAD 10/04/18 08:30 Nephrology Consult Routine Comment: Consulting Provider: Kalpesh Leggett Consulting Physician: Kalpesh Leggett Reason for Consult: hyperkalemia Hospital Course - Lab Results Lab Results: Most Recent Lab Values WBC 7.6 10^3/uL (4.5-11.0) 10/06/18 07:00 RBC 3.02 10^6/uL (3.5-6.1) L 10/06/18 07:00 Hgb 8.8 g/dL (14.0-18.0) L 10/06/18 07:00 Hct 31.1 % (42.0-52.0) L 10/06/18 07:00 MCV 103.0 fl (80.0-105.0) 10/06/18 07:00 MCH 29.1 pg (25.0-35.0) 10/06/18 07:00 MCHC 28.3 g/dl (31.0-37.0) L 10/06/18 07:00 RDW 21.2 % (11.5-14.5) H 10/06/18 07:00 Plt Count 289 10^3/uL (120.0-450.0) 10/06/18 07:00 MPV 9.5 fl (7.0-11.0) 10/06/18 07:00 Neut % (Auto) 45.9 % (50.0-68.0) L 10/06/18 07:00 Lymph % (Auto) 39.6 % (22.0-35.0) H 10/06/18 07:00 [place] % (Auto) 13.2 % (1.0-6.0) H 10/06/18 07:00 Eos % (Auto) 1.2 % (1.5-5.0) L 10/06/18 07:00 Baso % (Auto) 0.1 % (0.0-3.0) 10/06/18 07:00 Lymph # (Auto) 3.0 (1.2-3.4) 10/06/18 07:00 [place] # (Auto) 1.0 (0.1-0.6) H 10/06/18 07:00 Eos # (Auto) 0.1 (0.0-0.7) 10/06/18 07:00 Baso # (Auto) 0.01 K/mm3 (0.0-2.0) 10/06/18 07:00 Absolute Neuts (auto) 3.46 (1.4-6.5) 10/06/18 07:00 PT 11.3 SECONDS (9.4-12.5) 10/03/18 21:00 INR 1.02 10/03/18 21:00 APTT 30.2 Seconds (26.9-38.3) 10/03/18 21:00 pO2 167 mm/Hg (30-55) H 10/05/18 06:50 VBG pH 7.33 (7.32-7.43) 10/05/18 06:50 VBG pCO2 69.0 (40-60) H* 10/05/18 06:50 VBG HCO3 36.4 mmol/l (21-28) H 10/05/18 06:50 VBG O2 Sat (Calc) 99.8 % (40-65) H 10/05/18 06:50 VBG Base Excess 7.9 mmol/L (0.0-2.0) H 10/05/18 06:50 Crit Value Called To Zoë kohli 10/05/18 06:50 Crit Value Called By Sandra franz 10/05/18 06:50 Blood Gas Notified Time 702 10/05/18 06:50 Sodium 139 mmol/L (132-148) 10/06/18 07:00 Potassium 4.4 mmol/L (3.6-5.0) 10/06/18 07:00 Chloride 100 mmol/L (98-107) 10/06/18 07:00 Carbon Dioxide 37 mmol/L (21-33) H 10/06/18 07:00 Anion Gap 7 (10-20) L 10/06/18 07:00 BUN 33 mg/dL (7-21) H 10/06/18 07:00 Creatinine 1.5 mg/dl (0.8-1.5) 10/06/18 07:00 Est GFR ( Amer) 58 10/06/18 07:00 Est GFR (Non-Af Amer) 48 10/06/18 07:00 POC Glucose (mg/dL) 122 mg/dL (65-110) H 10/06/18 11:30 Random Glucose 89 mg/dL (70-110) 10/06/18 07:00 Hemoglobin A1c 4.5 % (4.2-6.5) 10/04/18 09:00 Calcium 7.8 mg/dL (8.4-10.5) L 10/06/18 07:00 Phosphorus 5.6 mg/dL (2.5-4.5) H 10/04/18 09:00 Magnesium 2.2 mg/dL (1.7-2.2) 10/04/18 09:00 Iron 29 ug/dL (45-180) L 10/04/18 09:00 TIBC 399 ug/dL (261-462) 10/04/18 09:00 % Saturation 7 % (20-55) L 10/04/18 09:00 Ferritin 58.9 ng/mL 10/04/18 09:00 Total Bilirubin 0.1 mg/dL (0.2-1.3) L 10/06/18 07:00 AST 103 U/L (17-59) H D 10/06/18 07:00 ALT 61 U/L (7-56) H 10/06/18 07:00 Alkaline Phosphatase 92 U/L (38-126) 10/06/18 07:00 Lactate Dehydrogenase 938 U/L (333-699) H 10/05/18 06:40 Total Creatine Kinase 1466 U/L (35-230) H 10/05/18 06:40 CK-MB (CK-2) 3.8 ng/mL (0.0-3.6) H 10/05/18 06:40 CK-MB (CK-2) % 0.2 % (2.5-3.0) L 10/04/18 09:00 Troponin I 0.03 ng/mL D 10/05/18 06:40 NT-Pro-B Natriuret Pep 1630 pg/mL (0-450) H 10/03/18 21:00 Total Protein 6.5 g/dL (5.8-8.3) 10/06/18 07:00 Albumin 3.2 g/dL (3.0-4.8) 10/06/18 07:00 Globulin 3.3 gm/dL 10/06/18 07:00 Albumin/Globulin Ratio 1.0 (1.1-1.8) L 10/06/18 07:00 Triglycerides 85 mg/dL (35-160) 10/04/18 09:00 Cholesterol 227 mg/dL (130-200) H 10/04/18 09:00 LDL Cholesterol Direct 57 mg/dL (0-129) 10/04/18 09:00 HDL Cholesterol 145 mg/dL (29-60) H 10/04/18 09:00 Vitamin B12 246 pg/mL (239-931) 10/04/18 09:00 Folate > 20.0 ng/mL 10/04/18 09:00 TSH 3rd Generation 1.79 mIU/mL (0.46-4.68) 10/04/18 09:00 Urine Color Yellow (YELLOW) 10/04/18 12:14 Urine Appearance Clear (CLEAR) 10/04/18 12:14 Urine pH 5.5 (4.7-8.0) 10/04/18 12:14 Ur Specific [place] 1.020 (1.005-1.035) 10/04/18 12:14 Urine Protein Negative mg/dL (<30 mg/dL) 10/04/18 12:14 Urine Glucose (UA) 100 mg/dL (NEGATIVE) H 10/04/18 12:14 Urine Ketones Negative mg/dL (NEGATIVE) 10/04/18 12:14 Urine Blood Small (NEGATIVE) H 10/04/18 12:14 Urine Nitrate Negative (NEGATIVE) 10/04/18 12:14 Urine Bilirubin Negative (NEGATIVE) 10/04/18 12:14 Urine Urobilinogen 0.2 E.U./dL (<1 E.U./dL) 10/04/18 12:14 Ur Leukocyte Esterase Trace Rissa/uL (NEGATIVE) H 10/04/18 12:14 Urine RBC 10 - 15 /hpf (0-2) H 10/04/18 12:14 Urine WBC 5 - 10 /hpf (0-6) H 10/04/18 12:14 Ur Epithelial Cells 0 - 2 /hpf (0-5) 10/04/18 12:14 Amorphous Sediment Small /hpf (NONE) 10/04/18 12:14 Urine Bacteria Large /hpf (NONE) 10/04/18 12:14 Urine Other Uyeast /hpf 10/04/18 12:14 Ur Random Creatinine 118 mg/dL 10/04/18 12:14 Ur Random Sodium 128 meq/L 10/04/18 12:14 Ur Random Urea Nitrogn 368 mg/dL 10/04/18 12:14 Urine Opiates Screen Positive (NEGATIVE) H 10/03/18 23:02 Urine Methadone Screen Negative (NEGATIVE) 10/03/18 23:02 Ur Barbiturates Screen Positive (NEGATIVE) H 10/03/18 23:02 Ur Phencyclidine Scrn Negative (NEGATIVE) 10/03/18 23:02 Ur Amphetamines Screen Negative (NEGATIVE) 10/03/18 23:02 U Benzodiazepines Scrn Positive (NEGATIVE) H 10/03/18 23:02 U Oth Cocaine Metabols Negative (NEGATIVE) 10/03/18 23:02 U Cannabinoids Screen Negative (NEGATIVE) 10/03/18 23:02 Alcohol, Quantitative < 10 mg/dL (0-10) 10/03/18 21:00 Hepatitis A IgM Ab Negative (NEGATIVE) 10/05/18 06:50 Hep Bs Antigen Negative (NEGATIVE) 10/05/18 06:50 Hep B Core IgM Ab Negative (NEGATIVE) 10/05/18 06:50 Hepatitis C Antibody Negative (NEGATIVE) 10/05/18 06:50 Attending/Attestation - Attestation I have personally seen and examined this patient.: Yes I have fully participated in the care of the patient.: Yes I have reviewed all pertinent clinical information, including history, physical exam and plan: Yes Notes (Text): 10/07/18 11:49 Attending note; Patient seen and examined with resident. Patient is alert and awake. Currently denies any chest pain, shortness of breath. Patient denied any fevers, chills. Denies any urinary, bowel symptoms. Patient is a 58 year old male with PMH of chronic congestive heart failure with decreased LVEF, AICD, COPD on home oxygen, bipolar disorder, ETOH dependence, polysubtance abuse (inhaled heroin, ETOH, and benzo) presented for heroin overdose. Patient was found to be hyperkalemia. 1. Heroin abuse; Currently alert and awake. Drug abuse cessation is strongly advised. 2. Severe hyperkalemia; resolved. secondary to drug-induced renal failure/rhabdomyolysis. EKG showed paced rhythm. Treated with calcium gluconate, insulin, albuterol and Kayexalate. 3. Cardiomyopathy/AICD placement; cardiology evaluation appreciated. 4. Chronic COPD/oxygen dependent; continue oxygen. 5. Chronic alcohol abuse; patient was recently released from rehab . Complete alcohol cessation is strongly advised . 6. BIPolar disorder; patient needs close follow-up with psychiatrist as outpatient. 7. Rhabdomyolysis; resolving. secondary to drug abuse .continue IV fluids. 8. Acute renal insufficiency; resolved. secondary to rhabdomyolysis. Possible Bactrim induced renal insufficiency. Nephrology evaluation appreciated. Creatinine is improving slowly. Diagnosis, treatment plan discussed with patient in detail. Discharge home today. Patient follows up with PMD, cardiology and psychiatrist in [place].
--- NOTE | 2018-10-06 21:37 | CP.PCM.PN ---
Objective - Vital Signs/Intake and Output Vital Signs (last 24 hours): Temp Pulse Resp BP Pulse Ox 97.6 F 77 18 115/70 95 10/06/18 06:00 10/06/18 06:00 10/06/18 06:00 10/06/18 10:06 10/06/18 09:09 Intake and Output: 10/06/18 10/07/18 18:59 06:59 Intake Total 660 Balance 660 - Labs Labs: 10/06/18 07:00 10/06/18 07:00 PT 11.3 SECONDS (9.4-12.5) 10/03/18 21:00 INR 1.02 10/03/18 21:00 APTT 30.2 Seconds (26.9-38.3) 10/03/18 21:00
== END 2018-10-06 15:36 | disposition home or self-care (01) | DRG 582 ==
LOC: ED 20:33 → ERH 21:57 → 2RNO 23:56 → 2RSO 10-04 05:45 → 5RSO 10-05 12:46
PROVIDERS: ADMIT Internal Medicine; ATTEND Internal Medicine
DX: T40.1X1A Poisoning by heroin, accidental (unintentional), initial encounter (principal); M62.82 Rhabdomyolysis; N17.9 Acute kidney failure, unspecified; I50.22 Chronic systolic (congestive) heart failure; J44.9 Chronic obstructive pulmonary disease, unspecified; E87.5 Hyperkalemia; F11.10 Opioid abuse, uncomplicated; I13.0 Hypertensive heart and chronic kidney disease with heart failure and stage 1 through stage 4 chronic kidney disease, or unspecified chronic kidney disease; I42.0 Dilated cardiomyopathy; N18.4 Chronic kidney disease, stage 4 (severe); I07.1 Rheumatic tricuspid insufficiency; E87.3 Alkalosis; F31.30 Bipolar disorder, current episode depressed, mild or moderate severity, unspecified; I27.20 Pulmonary hypertension, unspecified; G47.30 Sleep apnea, unspecified; D50.9 Iron deficiency anemia, unspecified; E78.5 Hyperlipidemia, unspecified; Z82.5 Family history of asthma and other chronic lower respiratory diseases; Z83.3 Family history of diabetes mellitus; Z95.0 Presence of cardiac pacemaker; Z95.5 Presence of coronary angioplasty implant and graft; F17.290 Nicotine dependence, other tobacco product, uncomplicated; F19.10 Other psychoactive substance abuse, uncomplicated